=== PATIENT | female | born 1955 | race Caucasian/White ===

== ENCOUNTER 2020-03-27 23:58 | Inpatient (IN) | payer MEDICARE, SELFPAY ==
[2020-03-29 04:14] VITALS: BMI 40.0
--- NOTE | 2020-03-29 04:20 | ECG_ITS ---
Test Reason : SHORTNESS OF BREATH Blood Pressure : / mmHG Vent. Rate : 083 BPM Atrial Rate : 083 BPM P-R Int : 168 ms QRS Dur : 138 ms QT Int : 446 ms P-R-T Axes : 036 -30 232 degrees QTc Int : 524 ms Atrial-sensed ventricular-paced rhythm Abnormal ECG When compared with ECG of 10-JAN-2020 15:44, No significant change was found Referred By: Mirna Velazco Electronically Signed By:ERIK KENNY
[2020-03-30] VITALS (8 sets, daily range): BP systolic 99–118; BP diastolic 54–78; PULSE 66–87; RESP 16–18; TEMP 36.2–37.2; O2SAT 95–97
[2020-03-30] MEDS: 0.9 % Sodium Chloride Flush 3 ML SYRINGE 2 ML IVFLUSH ×3 (05:55→16:12)
[2020-03-30] MEDS: Omeprazole 20 MG CAPSULE.DR PO ×2 (05:55→16:12)
[2020-03-30 06:31] LABS: INTERNATIONAL NORM RATIO 2.7 (0.9-1.1); Prothrombin Time 32.2 SEC (10.8-13.0)
[2020-03-30 07:03] LABS: Anion Gap 10 (12-20); Blood Urea Nitrogen 24 mg/dL (9-16); Calcium 8.3 mg/dL (8.4-10.2); Carbon Dioxide 32 mmol/L (22-29); Chloride 100 mmol/L (96-108); Creatinine Clr Calc Pharmacy 50.2; Estimated Glomerular Filt Rate 50; Glucose Random 78 mg/dL (60-115); Potassium 3.1 mmol/l (3.3-5.1); Sodium 139 mmol/L (135-145)
[2020-03-30] MEDS: Multivitamin TABLET 1 TAB PO (09:13)
[2020-03-30] MEDS: Spironolactone 25 MG TABLET PO (09:13)
[2020-03-30] MEDS: Amiodarone HCL 200 MG TABLET PO (09:13)
[2020-03-30] MEDS: Cholecalciferol (Vitamin D3) 25 MCG TABLET 50 MCG PO (09:13)
[2020-03-30] MEDS: Docusate Sodium 100 MG CAPSULE PO ×2 (09:13→20:42)
[2020-03-30] MEDS: Ascorbic Acid 500 MG TABLET PO (09:14)
[2020-03-30] MEDS: Nystatin Powder 15 GM BOTTLE 1 APPL TOPICAL ×2 (09:18→20:42)
--- NOTE | 2020-03-30 12:07 | PM.PNCARD ---
Subjective Subjective Principal diagnosis: systolic heart failure, paroxysmal atrial fibrillation Interval history: patient says she is breathing better. Able to lay down flat her but not completely. Has diuresed well. Continues to diurese well. Hemodynamically stable. No arrhythmias noted. Review of system otherwise negative. Physical Exam Vital Signs and I&O: Vital Signs Temp 97.7 F 03/30/20 08:00 Pulse 74 03/30/20 08:00 Resp 16 03/30/20 08:00 BP 100/60 03/30/20 09:13 Pulse Ox 97 03/30/20 04:00 Intake & Output 03/29/20 03/30/20 03/30/20 18:59 06:59 18:59 Output Total 600 / 600 Balance -600 / -600 Urine Output (Average ml/kg/hr) 0.56 0.56 Output: Output, Urine Amount 600 / 600 Other: Meal Refused No Breakfast % Eaten 75% Body Mass Index 40.0 Const General: comfortable, no acute distress, alert and awake Nutritional Appearance: obese Orientation/consciousness: patient oriented x3 HENAL Head: Yes normal to inspection, Yes normocephalic and Yes atraumatic Eyes General: appearance normal, both eyes and all related structures Neck Neck: Yes full ROM, Yes trachea midline and Yes JVD Chest Chest palpation & inspection: normal inspection of the chest Resp Effort & Inspection: normal respiratory effort Auscultation: clear to auscultation bilaterally and diminished lung sounds Cardio Palpation: abnormal PMI displaced PMI Rate: regular rate Rhythm: regular rhythm Heart sounds: S1 normal heart sound present, S2 normal heart sound present and Gallop heart sound present S4 gallop GI Auscultation: normal bowel sounds Skin General skin exam: elasticity normal and turgor normal Neuro General: patient oriented x3 and no focal motor deficits Extrem General: Yes capillary refill normal and Yes edema Progress Note: A&P Assessment and plan (1) Cardiomyopathy: Problem details: Continue neurohormonal modulation as above. Prognosis is limited given persistent severe LV systolic dysfunction despite cardiac resynchronization therapy. Status: Acute (2) Biventricular ICD (implantable cardioverter-defibrillator) in place: Status: Acute (3) Paroxysmal atrial fibrillation with rapid ventricular response: Problem details: Atrial fibrillation currently suppressed on amiodarone therapy. Continue rhythm control approach and amiodarone therapy. This will be followed by her own asset protection officer as outpatient. Currently on Coumadin therapy for anticoagulation. Continue to maintain target INR between 2 and 3. I do not currently see any clear indication for additional aspirin therapy, this can be discontinued. Status: Acute (4) Systolic heart failure: Problem details: clinically patient is improving heart failure why still has JVD. Will continue IV diuresis for 1 more day. Strict intake and output chart needs to be pursued. In the long run will require higher Lasix dose at 40 mg b.i.d. when discharged home. Continue current neurohormonal modulation with Entresto, Aldactone and metoprolol therapy. Heart failure education needs to be provided. Status: Acute Fall Risk Details Current Medications: Current Medications Generic Name Dose Route Start Last Admin Trade Name Freq PRN Reason Stop Dose Admin Acetaminophen 650 mg 03/30/20 00:01 Acetaminophen 325 Mg Tablet PO Q6H PRN FEVER/PAIN,MILD (SCALE 1-3) Amiodarone HCl 200 mg 03/30/20 09:00 03/30/20 09:13 Amiodarone Hcl 200 Mg Tablet PO 200 mg DAILY KEMAL Administration Ascorbic Acid 500 mg 03/30/20 09:00 03/30/20 09:14 Ascorbic Acid 500 Mg Tablet PO 500 mg DAILY [facility] Administration Atorvastatin Calcium 40 mg 03/30/20 21:00 Atorvastatin Calcium 40 Mg Tablet PO BEDTIME K[facility] Docusate Sodium 100 mg 03/30/20 09:00 03/30/20 09:13 Docusate Sodium 100 Mg Capsule PO 100 mg BID K[facility] Administration Docusate Sodium 100 mg 03/30/20 00:01 Docusate Sodium 100 Mg Capsule PO Q24H PRN Constipation Furosemide 40 mg 03/30/20 09:00 03/30/20 09:16 Furosemide 40 Mg/4 Ml Vial IVPUSH Not Given BID@0900,1800 [facility] Protocol Metoprolol Tartrate 50 mg 03/30/20 09:00 03/30/20 09:17 Metoprolol Tartrate 50 Mg Tablet PO Not Given BID [facility] Protocol Multivitamins/Vitamin C 1 tab 03/30/20 09:00 03/30/20 09:13 Multivitamin Tablet PO 1 tab DAILY [facility] Administration Nitroglycerin 0.4 mg 03/30/20 00:01 Nitroglycerin 0.4 Mg Tab.Subl SUBLINGUAL Q5M PRN Chest Pain Nystatin 1 appl 03/30/20 09:00 03/30/20 09:18 Nystatin Powder 15 Gm Bottle TOPICAL 1 appl BID [facility] Administration Protocol Omeprazole 20 mg 03/30/20 06:30 03/30/20 05:55 Omeprazole 20 Mg Capsule.Dr PO 20 mg BID@0630,1630 [facility] Administration Ondansetron HCl 4 mg 03/30/20 00:01 Ondansetron Hcl 4 Mg/2 Ml Vial IVPUSH Q8H PRN Nausea and Vomiting Oxycodone HCl 10 mg 03/30/20 00:01 Oxycodone Hcl Immed Release 5 Mg Tablet PO TID PRN Pain, Moderate (Pain Scale 4-6 Sacubitril/Valsartan 1 tab 03/30/20 09:00 03/30/20 09:17 Sacubitril/Valsartan 1 Tab Tablet PO Not Given BID [facility] Protocol Sodium Chloride 2 ml 03/30/20 00:01 03/30/20 09:12 0.9 % Sodium Chloride Flush 3 Ml Syringe IVFLUSH 2 ml QSHIFT [facility] Administration Spironolactone 25 mg 03/30/20 09:00 03/30/20 09:13 Spironolactone 25 Mg Tablet PO 25 mg DAILY [facility] Administration Protocol Vitamin D 50 mcg 03/30/20 09:00 03/30/20 09:13 Cholecalciferol (Vitamin D3) 25 Mcg Tablet PO 50 mcg DAILY [facility] Administration Warfarin Sodium 3 mg 03/30/20 18:00 Warfarin Sodium 3 Mg Tablet PO SUTUWETHFRSA@1800 [facility] Warfarin Sodium 4.5 mg 04/03/20 18:00 Warfarin Sodium 1 Mg Tablet PO MO@1800 [facility] Zolpidem Tartrate 10 mg 03/30/20 21:00 Zolpidem Tartrate 5 Mg Tablet PO BEDTIME [facility] Time Spent With Patient Time: Total time spent is greater than 50% in coordination of care (as documented) at patient's floor/unit and/or counseling patient: Time with patient: 15 - 24 minutes
--- NOTE | 2020-03-30 14:05 | PM.IMPN ---
Subjective Subjective Date of Service: 03/30/20 Interval History: feeling better still not at baseline Cardiovascular Cardiovascular: Denies chest pain and Reports dyspnea Respiratory Respiratory: Reports dyspnea Gastrointestinal Gastrointestinal: Denies abdominal pain and Denies vomiting Physical Exam Vital Signs and I&O and Narrative: Vital Signs and I&O: Vital Signs Temp 97.1 F 03/30/20 12:21 Pulse 74 03/30/20 08:00 Resp 16 03/30/20 08:00 BP 101/54 L 03/30/20 12:21 Pulse Ox 97 03/30/20 04:00 Intake & Output 03/29/20 03/30/20 03/30/20 18:59 06:59 18:59 Output Total 600 / 600 Balance -600 / -600 Urine Output (Aver age ml/kg/hr) 0.56 0.56 Output: Output, Urine Am ount 600 / 600 Other: Meal Refused No Breakfast % Eate n 75% Body Mass Index 40.0 Const: General: cooperative, healthy appearing and no acute distress Eyes: Pupils: Equal, round and reactive pupils present Neck: Neck: Yes supple Chest: Chest palpation & inspection: normal inspection of the chest Resp: Effort & Inspection: normal respiratory effort and able to speak in complete sentences Auscultation: diminished lung sounds Cardio: Jugular venous distension: JVD Rhythm: regular rhythm Heart sounds: S1 normal heart sound present and S2 normal heart sound present GI: Inspection: Yes normal to inspection Palpation (GI): Soft to palpation Auscultation: normal bowel sounds Skin: General skin exam: no rashes or lesions noted Neuro: Cranial nerves: Yes Equal, round and reactive pupils present Motor exam (neuro): Other motor observations present ( no motor deficit) Objective Data Current Medications Generic Name Dose Route Start Last Admin Trade Name Freq PRN Reason Stop Dose Admin Acetaminophen 650 mg 03/30/20 00:01 Acetaminophen 325 Mg Tablet PO Q6H PRN FEVER/PAIN,MILD (SCALE 1-3) Amiodarone HCl 200 mg 03/30/20 09:00 03/30/20 09:13 Amiodarone Hcl 200 Mg Tablet PO 200 mg DAILY [facility]EM[facility] Administration Ascorbic Acid 500 mg 03/30/20 09:00 03/30/20 09:14 Ascorbic Acid 500 Mg Tablet PO 500 mg DAILY [facility] Administration Atorvastatin Calcium 40 mg 03/30/20 21:00 Atorvastatin Calcium 40 Mg Tablet PO BEDTIME KEM[facility] Docusate Sodium 100 mg 03/30/20 09:00 03/30/20 09:13 Docusate Sodium 100 Mg Capsule PO 100 mg BID [facility] Administration Docusate Sodium 100 mg 03/30/20 00:01 Docusate Sodium 100 Mg Capsule PO Q24H PRN Constipation Furosemide 40 mg 03/30/20 09:00 03/30/20 09:16 Furosemide 40 Mg/4 Ml Vial IVPUSH Not Given BID@0900,1800 [facility] Protocol Metoprolol Tartrate 50 mg 03/30/20 09:00 03/30/20 09:17 Metoprolol Tartrate 50 Mg Tablet PO Not Given BID [facility] Protocol Multivitamins/Vitamin C 1 tab 03/30/20 09:00 03/30/20 09:13 Multivitamin Tablet PO 1 tab DAILY [facility] Administration Nitroglycerin 0.4 mg 03/30/20 00:01 Nitroglycerin 0.4 Mg Tab.Subl SUBLINGUAL Q5M PRN Chest Pain Nystatin 1 appl 03/30/20 09:00 03/30/20 09:18 Nystatin Powder 15 Gm Bottle TOPICAL 1 appl BID [facility] Administration Protocol Omeprazole 20 mg 03/30/20 06:30 03/30/20 05:55 Omeprazole 20 Mg Capsule.Dr PO 20 mg BID@0630,1630 [facility] Administration Ondansetron HCl 4 mg 03/30/20 00:01 Ondansetron Hcl 4 Mg/2 Ml Vial IVPUSH Q8H PRN Nausea and Vomiting Oxycodone HCl 10 mg 03/30/20 00:01 Oxycodone Hcl Immed Release 5 Mg Tablet PO TID PRN Pain, Moderate (Pain Scale 4-6 Sacubitril/Valsartan 1 tab 03/30/20 09:00 03/30/20 09:17 Sacubitril/Valsartan 24/26 1 Tab Tablet PO Not Given BID [facility] Protocol Sodium Chloride 2 ml 03/30/20 00:01 03/30/20 09:12 0.9 % Sodium Chloride Flush 3 Ml Syringe IVFLUSH 2 ml QSHIFT [facility] Administration Spironolactone 25 mg 03/30/20 09:00 03/30/20 09:13 Spironolactone 25 Mg Tablet PO 25 mg DAILY [facility] Administration Protocol Vitamin D 50 mcg 03/30/20 09:00 03/30/20 09:13 Cholecalciferol (Vitamin D3) 25 Mcg Tablet PO 50 mcg DAILY [facility] Administration Warfarin Sodium 3 mg 03/30/20 18:00 Warfarin Sodium 3 Mg Tablet PO SUTUWETHFRSA@1800 [facility] Warfarin Sodium 4.5 mg 04/03/20 18:00 Warfarin Sodium 1 Mg Tablet PO MO@1800 [facility] Zolpidem Tartrate 10 mg 03/30/20 21:00 Zolpidem Tartrate 5 Mg Tablet PO BEDTIME [facility] Labs CBC & Chem 7: 03/27/20 20:59 03/30/20 06:00 Labs: Laboratory Results - last 24 hr 03/27/20 03/27/20 03/27/20 20:59 20:59 20:59 MCV 87.4 MCH 27.7 MCHC 31.7 RDW Coeff of Melina 18.8 H Plt Count 323 MPV 9.7 Immature Gran % (Auto) 0.5 H Neut % (Auto) 65.5 Lymph % (Auto) 21.5 [place] % (Auto) 9.9 Eos % (Auto) 1.8 Baso % (Auto) 0.8 Abs Immat Gran (auto) 0.03 Absolute Lymphs (auto) 1.4 Absolute Monos (auto) 0.7 Absolute Eos (auto) 0.1 Absolute Basos (auto) 0.1 Absolute Nucleated RBC 0.000 Nucleated RBC % (auto) 0.0 Absolute Neutrophils 4.3 PT INR Hold Blue Top Bicarbonate 26 Anion Gap 14 Estimated Creat Clear 40.2 Estim Creat Clear Calc Estimated GFR Est GFR (Non-Af Amer) 39 Random Glucose 114 Calcium Troponin I High Sens 3.7 B-Natriuretic Peptide 3860 H 03/27/20 03/28/20 03/28/20 20:59 00:43 02:06 MCV MCH MCHC RDW Coeff of Melina Plt Count MPV Immature Gran % (Auto) Neut % (Auto) Lymph % (Auto) [place] % (Auto) Eos % (Auto) Baso % (Auto) Abs Immat Gran (auto) Absolute Lymphs (auto) Absolute Monos (auto) Absolute Eos (auto) Absolute Basos (auto) Absolute Nucleated RBC Nucleated RBC % (auto) Absolute Neutrophils PT 31.6 H D INR 2.6 H Hold Blue Top SEE NOTE Bicarbonate Anion Gap Estimated Creat Clear Estim Creat Clear Calc Estimated GFR Est GFR (Non-Af Amer) Random Glucose Calcium Troponin I High Sens 4.3 B-Natriuretic Peptide 03/28/20 03/28/20 03/28/20 05:38 08:43 08:43 MCV MCH MCHC RDW Coeff of Melina Plt Count MPV Immature Gran % (Auto) Neut % (Auto) Lymph % (Auto) [place] % (Auto) Eos % (Auto) Baso % (Auto) Abs Immat Gran (auto) Absolute Lymphs (auto) Absolute Monos (auto) Absolute Eos (auto) Absolute Basos (auto) Absolute Nucleated RBC Nucleated RBC % (auto) Absolute Neutrophils PT 31.4 H INR 2.6 H Hold Blue Top Bicarbonate 28 Anion Gap 14 Estimated Creat Clear 45.3 Estim Creat Clear Calc Estimated GFR Est GFR (Non-Af Amer) 45 Random Glucose 97 Calcium Troponin I High Sens B-Natriuretic Peptide 4962 H 03/29/20 03/29/20 03/30/20 05:37 05:37 05:24 MCV MCH MCHC RDW Coeff of Melina Plt Count MPV Immature Gran % (Auto) Neut % (Auto) Lymph % (Auto) [place] % (Auto) Eos % (Auto) Baso % (Auto) Abs Immat Gran (auto) Absolute Lymphs (auto) Absolute Monos (auto) Absolute Eos (auto) Absolute Basos (auto) Absolute Nucleated RBC Nucleated RBC % (auto) Absolute Neutrophils PT 29.8 H INR 2.5 H Hold Blue Top Bicarbonate 30 H Anion Gap 13 10 L Estimated Creat Clear 48.9 Estim Creat Clear Calc 50.2 Estimated GFR 50 Est GFR (Non-Af Amer) 49 Random Glucose 83 78 Calcium 8.3 L Troponin I High Sens B-Natriuretic Peptide 03/30/20 03/30/20 03/30/20 05:24 06:00 07:00 MCV MCH MCHC RDW Coeff of Melina Plt Count MPV Immature Gran % (Auto) Neut % (Auto) Lymph % (Auto) [place] % (Auto) Eos % (Auto) Baso % (Auto) Abs Immat Gran (auto) Absolute Lymphs (auto) Absolute Monos (auto) Absolute Eos (auto) Absolute Basos (auto) Absolute Nucleated RBC Nucleated RBC % (auto) Absolute Neutrophils PT 32.2 H Not Rcvd INR 2.7 H Not Rcvd Hold Blue Top Bicarbonate Not Rcvd Anion Gap Not Rcvd Estimated Creat Clear Not Rcvd Estim Creat Clear Calc Estimated GFR Est GFR (Non-Af Amer) Not Rcvd Random Glucose Not Rcvd Calcium Troponin I High Sens B-Natriuretic Peptide Progress Note: A&P (1) Systolic heart failure: Status: Acute (2) Cardiomyopathy: Status: Acute (3) Paroxysmal atrial fibrillation with rapid ventricular response: Status: Acute Assessment and Plan: This is a 64-year-old female with a past medical history of heart failure who is admitted for: 1. Acute hypoxic respiratory failure Due to heart failure Improving, wean O2 as tolerated 2. acute CHF iv lasix continue baseline meds 3. a. fib in sinus continue amio continue coumadin 4. HERMELINDO on CKD improving iv lasix Full Code DVT pptx, coumadin
[2020-03-30] MEDS: Warfarin Sodium 3 MG TABLET PO (18:02)
[2020-03-30] MEDS: Furosemide 40 MG/4 ML VIAL IVPUSH (18:03)
[2020-03-30] MEDS: Atorvastatin Calcium 40 MG TABLET PO (20:39)
[2020-03-30] MEDS: Sacubitril/Valsartan 24/26 1 TAB TABLET PO (20:42)
[2020-03-30] MEDS: Zolpidem Tartrate 5 MG TABLET 10 MG PO (20:49)
[2020-03-30] MEDS: Acetaminophen 325 MG TABLET 650 MG PO (20:52)
[2020-03-30] MEDS: Metoprolol Tartrate 50 MG TABLET 25 MG PO (20:56)
[2020-03-31] VITALS (10 sets, daily range): BP systolic 90–102; BP diastolic 52–62; PULSE 78–82; RESP 17–18; TEMP 36.4–36.6; O2SAT 94–97
[2020-03-31] MEDS: 0.9 % Sodium Chloride Flush 3 ML SYRINGE 2 ML IVFLUSH ×2 (00:02→08:07)
[2020-03-31] MEDS: Omeprazole 20 MG CAPSULE.DR PO (05:34)
[2020-03-31 06:26] LABS: MANUAL DIFF FLAG NO
[2020-03-31 06:30] LABS: Basophils Percent Auto 0.6 % (0-2); Eosinophils Absolute Auto 0.2 X10*3/uL (0.0-0.4); Hematocrit 37.8 % (37-47); Hemoglobin 11.7 g/dl (12.0-16.0); Imm Gran Abs Auto 0.01 X10*3/uL (0.00-0.03); Imm Gran Pct Auto 0.2 % (0.0-0.4); Lymphocytes Absolute Auto 1.2 X10*3/uL (1.2-4.9); Lymphocytes Percent Auto 22.3 % (20-40); Mean Corpuscular Hemoglobin 27.1 pg (27.0-33.0); Mean Corpuscular Volume 87.7 fL (80-98); Mean Platelet Volume 9.6 fL (9.4-12.3); Monocytes Absolute Auto 0.8 X10*3/uL (0.1-1.2); Monocytes Percent Auto 14.4 % (2-11); Neutrophils Absolute Auto 3.2 X10*3/uL (2.0-8.3); Neutrophils Percent Auto 59.5 % (45-73); Platelet Count 238 X10*3/uL (160-400); Red Blood Count 4.31 X10*6/uL (4.20-5.50); Red Cell Distribution Width 18.5 % (11.0-16.0); White Blood Count 5.3 X10*3/uL (4.8-10.8)
[2020-03-31 07:05] LABS: Anion Gap 11 (12-20); Blood Urea Nitrogen 24 mg/dL (9-16); Calcium 8.2 mg/dL (8.4-10.2); Carbon Dioxide 32 mmol/L (22-29); Chloride 100 mmol/L (96-108); Estimated Glomerular Filt Rate 55; Glucose Random 77 mg/dL (60-115); Potassium 3.1 mmol/l (3.3-5.1); Sodium 140 mmol/L (135-145)
[2020-03-31 07:06] LABS: INTERNATIONAL NORM RATIO 2.4 (0.9-1.1); Prothrombin Time 29.1 SEC (10.8-13.0)
[2020-03-31] MEDS: Cholecalciferol (Vitamin D3) 25 MCG TABLET 50 MCG PO (09:49)
[2020-03-31] MEDS: Multivitamin TABLET 1 TAB PO (09:50)
[2020-03-31] MEDS: Ascorbic Acid 500 MG TABLET PO (09:50)
[2020-03-31] MEDS: Amiodarone HCL 200 MG TABLET PO (09:50)
[2020-03-31] MEDS: Docusate Sodium 100 MG CAPSULE PO (09:51)
[2020-03-31] MEDS: Metoprolol Tartrate 50 MG TABLET 25 MG PO (09:52)
[2020-03-31] MEDS: Spironolactone 25 MG TABLET PO (09:55)
[2020-03-31] MEDS: Nystatin Powder 15 GM BOTTLE 1 APPL TOPICAL (10:00)
--- NOTE | 2020-03-31 11:43 | MHC.CM.PN ---
pt dcd today with resumption of servcueices thru [facility] which include a drilling field professional and rn pt has home 02
--- NOTE | 2020-03-31 11:44 | PM.PNCARD ---
Subjective Subjective Principal diagnosis: systolic heart failure, paroxysmal atrial fibrillation Interval history: Patient feeling a lot better today. Has diuresed well overnight. Hemodynamically stable. No arrhythmias noted. No atrial fibrillation. Denies any chest pain. Physical Exam Vital Signs and I&O: Vital Signs Temp 97.6 F 03/31/20 08:00 Pulse 80 03/31/20 09:55 Resp 18 03/31/20 08:00 BP 95/59 L 03/31/20 09:55 Pulse Ox 97 03/31/20 08:00 Intake & Output 03/30/20 03/31/20 03/31/20 18:59 06:59 18:59 Intake Total 280 / 280 Output Total 500 / 1000 500 / 1000 Balance -220 / -720 -500 / -720 Urine Output (Average ml/kg/hr) 0.46 .00 Weight 0 oz Intake: Intake, Oral Amount 280 / 280 Output: Output, Urine Amount 500 / 1000 500 / 1000 Other: Meal Refused No Breakfast % Eaten 75% Lunch % Eaten 50% Urine [place] Body Mass Index 0.0 Const General: cooperative, comfortable and no acute distress Orientation/consciousness: patient oriented x3 [facility] Head: Yes normal to inspection, Yes normocephalic and Yes atraumatic Eyes General: appearance normal, both eyes and all related structures Neck Neck: Yes trachea midline and Yes no JVD Chest Chest palpation & inspection: normal inspection of the chest Resp Effort & Inspection: normal respiratory effort Auscultation: clear to auscultation bilaterally Cardio Rate: regular rate Rhythm: regular rhythm Heart sounds: S1 normal heart sound present, S2 normal heart sound present and Gallop heart sound present S4 gallop GI Auscultation: normal bowel sounds Skin General skin exam: elasticity normal and turgor normal Neuro General: patient oriented x3 and no focal motor deficits Extrem General: Yes no clubbing, cyanosis or edema Psych Appearance: grossly normal Affect: Elated affect present Attitude: cooperative Progress Note: A&P Assessment and plan (1) Systolic heart failure: Problem details: Systolic heart failure secondary to severe nonischemic cardiomyopathy. Has done extremely well with current diuresis. Switch to oral Lasix, increase her home dose to 40 mg b.i.d.. Advised to continue all other neurohormonal modulation as before. Follow up with her own repairer welding equipment Dr. Choi in 7-10 days. Heart failure instructions should be provided. Advised patient with daily weight monitoring and avoidance of salt loading. She understands and agrees. Plan was also discussed with patient's VBA DEVELOPER who was at bedside. Status: Acute (2) Cardiomyopathy: Problem details: See above Status: Acute (3) Paroxysmal atrial fibrillation with rapid ventricular response: Problem details: paroxysmal atrial fibrillation, has remained suppressed on amiodarone therapy. Given her patient's underlying severe LV systolic dysfunction will do very well with maintenance of AV synchrony. Continue amiodarone therapy and rhythm maintenance. Currently on warfarin therapy. Maintain target INR between 2 and 3. Status: Acute (4) Biventricular ICD (implantable cardioverter-defibrillator) in place: Problem details: biventricular ICD working well Status: Acute Fall Risk Details Current Medications: Current Medications Generic Name Dose Route Start Last Admin Trade Name Freq PRN Reason Stop Dose Admin Acetaminophen 650 mg 03/30/20 00:01 03/30/20 20:52 Acetaminophen 325 Mg Tablet PO 650 mg Q6H PRN Administration FEVER/PAIN,MILD (SCALE 1-3) Amiodarone HCl 200 mg 03/30/20 09:00 03/31/20 09:50 Amiodarone Hcl 200 Mg Tablet PO 200 mg DAILY [facility] Administration Ascorbic Acid 500 mg 03/30/20 09:00 03/31/20 09:50 Ascorbic Acid 500 Mg Tablet PO 500 mg DAILY [facility] Administration Atorvastatin Calcium 40 mg 03/30/20 21:00 03/30/20 20:39 Atorvastatin Calcium 40 Mg Tablet PO 40 mg BEDTIME [facility] Administration Docusate Sodium 100 mg 03/30/20 09:00 03/31/20 09:51 Docusate Sodium 100 Mg Capsule PO 100 mg BID [facility] Administration Docusate Sodium 100 mg 03/30/20 00:01 Docusate Sodium 100 Mg Capsule PO Q24H PRN Constipation Furosemide 40 mg 03/31/20 09:00 03/31/20 09:48 Furosemide 40 Mg Tablet PO Not Given BID@0900,1800 [facility] Protocol Metoprolol Tartrate 25 mg 03/30/20 21:00 03/31/20 09:52 Metoprolol Tartrate 50 Mg Tablet PO 25 mg BID [facility] Administration Protocol Multivitamins/Vitamin C 1 tab 03/30/20 09:00 03/31/20 09:50 Multivitamin Tablet PO 1 tab DAILY [facility] Administration Nitroglycerin 0.4 mg 03/30/20 00:01 Nitroglycerin 0.4 Mg Tab.Subl SUBLINGUAL Q5M PRN Chest Pain Nystatin 1 appl 03/30/20 09:00 03/31/20 10:00 Nystatin Powder 15 Gm Bottle TOPICAL 1 appl BID [facility] Administration Protocol Omeprazole 20 mg 03/30/20 06:30 03/31/20 05:34 Omeprazole 20 Mg Capsule.Dr PO 20 mg BID@0630,1630 [facility] Administration Ondansetron HCl 4 mg 03/30/20 00:01 Ondansetron Hcl 4 Mg/2 Ml Vial IVPUSH Q8H PRN Nausea and Vomiting Oxycodone HCl 10 mg 03/30/20 00:01 Oxycodone Hcl Immed Release 5 Mg Tablet PO TID PRN Pain, Moderate (Pain Scale 4-6 Sacubitril/Valsartan 1 tab 03/30/20 09:00 03/31/20 09:49 Sacubitril/Valsartan 24 1 Tab Tablet PO Not Given BID [facility] Protocol Sodium Chloride 2 ml 03/30/20 00:01 03/31/20 08:07 0.9 % Sodium Chloride Flush 3 Ml Syringe IVFLUSH 2 ml QSHIFT [facility] Administration Spironolactone 25 mg 03/30/20 09:00 03/31/20 09:55 Spironolactone 25 Mg Tablet PO 25 mg DAILY [facility] Administration Protocol Vitamin D 50 mcg 03/30/20 09:00 03/31/20 09:49 Cholecalciferol (Vitamin D3) 25 Mcg Tablet PO 50 mcg DAILY [facility] Administration Warfarin Sodium 3 mg 03/30/20 18:00 03/30/20 18:02 Warfarin Sodium 3 Mg Tablet PO 3 mg SUTUWETHFRSA@1800 [facility] Administration Warfarin Sodium 4.5 mg 04/03/20 18:00 Warfarin Sodium 1 Mg Tablet PO MO@1800 [facility] Zolpidem Tartrate 10 mg 03/30/20 21:00 03/30/20 20:49 Zolpidem Tartrate 5 Mg Tablet PO 10 mg BEDTIME [facility] Administration Time Spent With Patient Time: Total time spent is greater than 50% in coordination of care (as documented) at patient's floor/unit and/or counseling patient: Time with patient: 15 - 24 minutes Review of Systems Const All systems reviewed & are unremarkable except as noted in HPI and below Eyes Reports no additional eye complaints ENT Reports no additional ear, nose, mouth, and throat complaints Card Reports no additional cardiovascular complaints Resp Reports no additional respiratory complaints Neuro Reports no additional neurologic complaints
--- NOTE | 2020-03-31 16:51 | P.DS_ITS ---
DS: Providers Provider Date of admission: 03/27/20 23:58 Primary care physician: Keith العلي MD Consults: 03/29/20 04:22 Consult to Cardiology Routine Consulting Provider: Mahin Reyes Reason for consultation: CHF Has provider been notified: Yes DS: Diagnosis Discharge Diagnosis (1) Systolic heart failure: Status: Acute Problem details: Systolic heart failure is secondary to severe nonischemic cardiomyopathy. Has done extremely well with current diuresis. Switch to oral Lasix, increase her home dose to 40 mg b.i.d. Advised to continue all other neurohormonal modulation as before. Follow up with her own box sealing machine operator Dr. Choi in 7-10 days. Heart failure instructions should be provided. Advised patient with daily weight monitoring and avoidance of salt loading. She understands and agrees. The plan was also discussed with the patient's STORE DIRECTOR who was at the bedside. (2) Cardiomyopathy: Status: Acute Problem details: Same as above (3) Paroxysmal atrial fibrillation with rapid ventricular response: Status: Acute Problem details: paroxysmal atrial fibrillation has remained suppressed on amiodarone therapy. Given her patient's underlying severe LV systolic dysfunction will do very well with the maintenance of AV synchrony. Continue amiodarone therapy and rhythm maintenance. Currently on warfarin therapy. Maintain target INR between 2 and 3. Metoprolol has been reduced to 25 bid from 50 bid (4) Biventricular ICD (implantable cardioverter-defibrillator) in place: Status: Acute Problem details: biventricular ICD working well DS: Summary Hospital Course Hospital Course: 64-year-old female with past medical history of cardiomyopathy/CHF EF 10 to 15%, asthma, CVA, HTN, RA, HLD, presents to the hospital with complaints of bilateral leg swelling as well as shortness of breath. Patient reports that her symptoms started about 1-2 weeks ago. Associated with coughing. She usually uses about 2.5 L of oxygen at baseline but even with oxygen supplementation she felt short of breath. She endorses orthopnea and PND. She has no fever, no chills. No sputum production. She uses furosemide daily with no missed doses. She denies using extra salt, take out, or poor diet. Her BNP was very lenora and CXR suggested heart failure. She was admitted with acute exacerbation systolic heart failure and initiated on IV Lasix 40 bid and continued on Metoprolol, Entresto, Aldactone. Care was coordinated by Dr. Reyes--box sealing machine operator. Her symptoms have si gnificantly improved. Has no more leg edema. She will be discharged with Potassium 40 mg bid, previously 20 bid and to follow up with Dr. Choi her box sealing machine operator. Potassium of 3.1 will be replaced Time Spent with Patient Time attestation: Total time spent providing and/or coordinating discharge services: Physical Exam Vital Signs and I&O and Narrative: Vital Signs and I&O: Vital Signs Temp 97.8 F 03/31/20 15:36 Pulse 81 03/31/20 15:36 Resp 18 03/31/20 12:00 BP 102/55 L 03/31/20 15:36 Pulse Ox 96 03/31/20 15:36 Intake & Output Constitutional Awake and Alert, No apparent distress Neck Supple, No lymphadenopathy Cardiovascular RRR, No M/R/G, S1 S2, No S3 S4, No pedal edema Respiratory Lungs clear, No respiratory distress Gastrointestinal Non tender, Non-distended Skin No rash Neurological Alert & oriented x3 Psychological Appropriate affect DS: Data Data Completed and Pending Labs on day of discharge: Labs from last 24 hours 03/31/20 03/31/20 03/31/20 05:22 05:22 05:22 WBC 5.3 RBC 4.31 Hgb 11.7 L Hct 37.8 MCV 87.7 MCH 27.1 MCHC 31.0 RDW 18.5 H Plt Count 238 MPV 9.6 Immature Gran % (Auto) 0.2 Neut % (Auto) 59.5 Lymph % (Auto) 22.3 [place] % (Auto) 14.4 H Eos % (Auto) 3.0 Baso % (Auto) 0.6 Neut # (Auto) 3.2 Lymph # (Auto) 1.2 [place] # (Auto) 0.8 Eos # (Auto) 0.2 Baso # (Auto) 0.0 Abs Immat Gran (auto) 0.01 Absolute Nucleated RBC 0.000 Nucleated RBC % (auto) 0.0 PT 29.1 H INR 2.4 H Sodium 140 Potassium 3.1 L Chloride 100 Carbon Dioxide 32 H Anion Gap 11 L BUN 24 H Creatinine 1.01 Estim Creat Clear Calc TNP Estimated GFR 55 Random Glucose 77 Calcium 8.2 L Discharge Plan Discharge Anticipated Discharge Date/Time: 03/31/20 16:04 Patient Disposition: Home, Self-Care Referrals: Keith العلي MD [Primary Care Provider] - Discharge Medications: New furosemide 40 mg Tablet 40 mg PO BID@0900,1800 Qty: 60 RF: 0 metoprolol tartrate 50 mg Tablet 25 mg PO BID Qty: 60 RF: 0 calcium carbonate-vit D3-min 600 mg calcium- 400 unit tablet 1 tab PO BID Qty: 60 RF: 0 Continued amiodarone 200 mg Tablet 200 mg PO DAILY RF: 0 ascorbic acid (vitamin C) 500 mg Tablet 500 mg PO DAILY RF: 0 aspirin 81 mg Tablet 81 mg PO DAILY RF: 0 nitroglycerin 0.4 mg Tablet, Sublingual 0.4 mg SUBLINGUAL Q5M PRN (Reason: Chest Pain) RF: 0 docusate sodium 100 mg Capsule 100 mg PO BID RF: 0 omeprazole 20 mg Capsule,Delayed Release(Dr/Ec) 20 mg PO BID@0630,1630 RF: 0 nystatin 100,000 unit/gram Powder 1 applic TOPICAL BID RF: 0 multivitamin Capsule 1 cap PO DAILY RF: 0 etanercept 50 mg/mL (1 mL) Syringe 50 mg SUBCUT QWEEK RF: 0 cholecalciferol (vitamin D3) 50 mcg (2,000 unit) Capsule 50 mcg PO DAILY RF: 0 spironolactone 25 mg Tablet 25 mg PO QAM RF: 0 simvastatin 40 mg Tablet 40 mg PO BEDTIME RF: 0 warfarin 3 mg Tablet 3 mg PO SUTUWETHFRSA RF: 0 warfarin [Jantoven] 3 mg Tablet 4.5 mg PO MO@1600 RF: 0 zolpidem [Ambien] 10 mg Tablet 5 mg PO BEDTIME PRN (Reason: Sleep) RF: 0 oxycodone 10 mg Tablet 10 mg PO TID PRN (Reason: Moderate Pain (Scale Score 5-6)) RF: 0 sacubitril-valsartan 24-26 mg Tablet 1 tab PO BID RF: 0 Discontinued calcium carbonate-vitamin D3 [Calcium 600 + D(3)] 600 mg(1,500mg) -400 unit Tablet 1 tab PO BID RF: 0 metoprolol tartrate 50 mg Tablet 50 mg PO BID RF: 0 furosemide 20 mg Tablet 20 mg PO BID RF: 0 Discharge Orders: Discharge Order (Routine); Ordered 03/31/20 Ordered By: Flavio Ortiz Diet: low salt diet Activity on Discharge: As tolerated Print Language: [place] Visit Report Forms: Patient Portal Discharge page Care Plan Goals: Prevent flaore of heart failure Health Concerns: Heart failure Plan of Treatment: Take Increase dose of Lasix as recommended, do not drink too much water. Follow up with your Doctor in a week, call for appointment
== END 2020-03-31 17:35 | disposition home or self-care (01) | DRG 291 ==
PROVIDERS: Family Medicine; Admitting Provider Internal Medicine; Emergency Provider Nurse Practitioner Family; PCP Internal Medicine; Visit Provider Internal Medicine
DX: I13.0 Hypertensive heart and chronic kidney disease with heart failure and stage 1 through stage 4 chronic kidney disease, or unspecified chronic kidney disease (principal); J96.01 Acute respiratory failure with hypoxia; I50.23 Acute on chronic systolic (congestive) heart failure; N17.9 Acute kidney failure, unspecified; I48.0 Paroxysmal atrial fibrillation; M06.9 Rheumatoid arthritis, unspecified; E78.5 Hyperlipidemia, unspecified; I42.8 Other cardiomyopathies; N18.9 Chronic kidney disease, unspecified; Z95.810 Presence of automatic (implantable) cardiac defibrillator; Z99.81 Dependence on supplemental oxygen; Z86.73 Personal history of transient ischemic attack (TIA), and cerebral infarction without residual deficits; Z79.01 Long term (current) use of anticoagulants; Z79.82 Long term (current) use of aspirin; Z79.899 Other long term (current) drug therapy
CPT/HCPCS: 36415; 71045; 80048; 80051; 82565; 82947; 83880; 84484; 84520; 85025; 85610; 90686; 93005; 93010; 93308; 96374; 99285; C1758; J1650; J1940; Q9957

== ENCOUNTER → 2020-05-03 13:02 | Outpatient (BNVA) | payer MEDICARE, SELFPAY | PROVIDERS: PCP Internal Medicine; Visit Provider Internal Medicine | DX: I48.0 Paroxysmal atrial fibrillation (principal); Z51.81 Encounter for therapeutic drug level monitoring; Z79.01 Long term (current) use of anticoagulants | CPT/HCPCS: 85610; 99211 ==

== ENCOUNTER → 2020-06-05 13:43 | Outpatient (BNVA) | payer MEDICARE, SELFPAY | PROVIDERS: PCP Internal Medicine; Visit Provider Internal Medicine | DX: I48.0 Paroxysmal atrial fibrillation (principal); Z51.81 Encounter for therapeutic drug level monitoring; Z79.01 Long term (current) use of anticoagulants | CPT/HCPCS: 85610; 99211 ==

== ENCOUNTER 2020-06-17 11:15 | Inpatient (IN) | payer MEDICARE, SELFPAY ==
[2020-06-17 11:40] VITALS: BP 100/56; PULSE 90; RESP 18; TEMP 37.2; O2SAT 96; BMI 39.6
[2020-06-17 11:48] VITALS: BP 104/67; PULSE 90; RESP 20; TEMP 36.6; O2SAT 97
--- NOTE | 2020-06-17 11:50 | ED.ABDPAIN ---
HPI - Abdominal Pain General Chief Complaint: Abdominal Pain Stated Complaint: ABD PAIN Time Seen by Provider: 06/17/20 11:49 Source: patient and line staker Mode of arrival: ambulatory Limitations: no limitations History of Present Illness MD elicited complaint: abdominal pain Pertinent past history: other Onset (ago): day(s) (today) Pain Consistency: constant Location: suprapubic Severity: moderate Quality: aching Radiation: other (wraps around lower back ) Migration to: no migration Exacerbating factors: other (worse when she urinates) Relieving factors: nothing Associated symptoms: nausea and dysuria Related Data Home Medications Medication Instructions Recorded Confirmed amiodarone 200 mg PO DAILY 03/29/20 05/03/20 ascorbic acid (vitamin C) 500 mg PO DAILY 03/29/20 05/03/20 aspirin 81 mg PO DAILY 03/29/20 05/03/20 cholecalciferol (vitamin D3) 50 mcg PO DAILY 03/29/20 03/29/20 docusate sodium 100 mg PO BID 03/29/20 05/03/20 etanercept 50 mg SUBCUT QWEEK 03/29/20 05/03/20 multivitamin 1 cap PO DAILY 03/29/20 05/03/20 nitroglycerin 0.4 mg SUBLINGUAL Q5M PRN 03/29/20 05/03/20 nystatin 1 applic TOPICAL BID 03/29/20 05/03/20 omeprazole 20 mg PO BID@0630,1630 03/29/20 05/03/20 oxycodone 10 mg PO TID PRN 03/29/20 05/03/20 sacubitril-valsartan 1 tab PO BID 03/29/20 05/03/20 simvastatin 40 mg PO BEDTIME 03/29/20 03/29/20 spironolactone 25 mg PO QAM 03/29/20 05/03/20 zolpidem [Ambien] 5 mg PO BEDTIME PRN 03/29/20 05/03/20 aspirin 81 mg tablet,delayed 81 mg PO DAILY 05/03/20 05/03/20 release calcium carbonate 600 mg (1,500 1 tab PO BID 05/03/20 05/03/20 mg)-vitamin D3 400 unit tablet furosemide 80 mg tablet 80 mg PO BID 05/03/20 05/03/20 metoprolol tartrate 25 mg tablet 25 mg PO BID 05/03/20 05/03/20 naloxone 4 mg/actuation nasal spray 0 spray INTRANASAL 05/03/20 05/03/20 rosuvastatin 20 mg tablet 20 mg PO BEDTIME 05/03/20 05/03/20 Previous Rx's Medication Instructions Recorded calcium carbonate-vit D3-min 1 tab PO BID #60 tab 03/31/20 furosemide 40 mg PO BID@0900,1800 #60 tab 03/31/20 metoprolol tartrate 25 mg PO BID #60 tab 03/31/20 potassium chloride 20 meq PO DAILY #7 tab 03/31/20 warfarin 3 mg tablet 3 mg PO DAILY #90 tab 05/03/20 Allergies Allergy/AdvReac Type Severity Reaction Status Date / Time No Known Food Allergies Allergy Unknown Verified 06/05/20 13:48 Review of Systems Review of Systems Constitutional : No Weight loss, No Fever, No Chills ENT/Mouth : No sore throat, No Rhinorrhea Eyes: No Swelling, No Redness Cardiovascular : No Chest Pain, No SOB, NoEdema Respiratory : No Cough, No Sputum, No Wheezing Gastrointestinal : Positive Nausea, no Vomiting, no Diarrhea, positive abdominal Pain, No Hematochezia, No Melena Genitourinary : pos Dysuria, No Urinary Frequency, No Hematuria, No Urgency Musculoskeletal : No joint pain, No Myalgias, No Joint Swelling Skin : No Skin Lesions, No rash Neuro : No Weakness, No Numbness, No Dizziness, No Headache Psych : No Anxiety/Panic, No Depression Heme/Lymph: No Bruising, No Lymphadenopathy Endocrine : No Polyuria, No Polydipsia All other systems reviewed and are negative. Physical Exam Vital Signs: Vital Signs: Last Vital Signs Temp 98.5 F 06/17/20 13:36 Pulse 91 06/17/20 13:36 Resp 18 06/17/20 13:36 BP 106/55 L 06/17/20 13:36 Pulse Ox 94 06/17/20 13:36 Body Mass Index 39.6 Appearance: Alert. Oriented X3. No acute distress. Eyes: Pupils equal, round and reactive to light. ENT: Pharynx normal. Neck: Normal inspection. Neck supple. CVS: Normal heart rate and rhythm. Pulses normal. Respiratory: No respiratory distress. Breath sounds normal. Abdomen: Soft and mild suprapubic tenderness no rebound or guarding. : mild uterine prolapse Back: above the start of of gluteal crease there is a small macerated area with superficial slit no cellulitis no abscess - chronic x 1 month Skin: Skin warm and dry. Normal skin color. Normal skin turgor. Extremities: No lower extremity edema. No calf ttp Neuro: Oriented X 3. No motor deficit. No sensory deficit. Course Course Course Narrative: patient still c/o pain and nausea, will admit for pyelonephritis at this time MDM - Abdominal Pain MDM Narrative Medical decision making narrative: 64 yo female with hx of CHF, Afib on amiodarone - coumadin and PPM here with 1 day of dysuria and suprapubic pain - will need labs, IV morphine for pain, CT scan for stone/diverticulitis, UA dispo per results and findings. Lab Data Result diagrams: 06/17/20 12:25 06/17/20 12:25 Labs: Lab Results 06/17/20 06/17/20 06/17/20 Range/Units 12:25 12:25 12:25 WBC 16.6 H (4.8-10.8) X10*3/uL RBC 3.79 L (4.20-5.50) X10*6/uL Hgb 11.0 L (12.0-16.0) g/dl Hct 34.5 L (37-47) % MCV 91.0 (80-98) fL MCH 29.0 (27.0-33.0) pg MCHC 31.9 (31.0-35.0) g/dl RDW 16.4 H (11.0-16.0) % Plt Count 342 D (160-400) X10*3/uL MPV 9.7 (9.4-12.3) fL Immature Gran % (Auto) 0.5 H (0.0-0.4) % Neut % (Auto) 84.7 H (45-73) % Lymph % (Auto) 4.3 L (20-40) % [place] % (Auto) 10.3 (2-11) % Eos % (Auto) 0.1 (0-4) % Baso % (Auto) 0.1 (0-2) % Lymph # (Auto) 0.7 L (1.2-4.9) X10*3/uL [place] # (Auto) 1.7 H (0.1-1.2) X10*3/uL Eos # (Auto) 0.0 (0.0-0.4) X10*3/uL Baso # (Auto) 0.0 (0.0-0.2) X10*3/uL Abs Immat Gran (auto) 0.09 H (0.00-0.03) X10*3/uL Absolute Neuts (auto) 14.1 H (2.0-8.3) X10*3/uL Absolute Nucleated RBC 0.000 (0.0-0.012) X10*3/uL Nucleated RBC % (auto) 0.0 (0.0-0.2) /100WBC Smear Tech's Comments VERIFIED PT 38.8 H D (10.8-13.0) SEC INR 3.2 H (0.9-1.1) APTT 45.2 H (24.1-38.0) SEC Sodium 138 (135-145) mmol/L Potassium 3.8 D (3.3-5.1) mmol/l Chloride 97 (96-108) mmol/L Carbon Dioxide 29 (22-29) mmol/L Anion Gap 16 (12-20) BUN 25 H (9-16) mg/dL Creatinine 1.37 (0.5-1.4) mg/dL Estim Creat Clear Calc 39.7 Estimated GFR 39 Random Glucose 118 H D (60-115) mg/dL Lactic Acid (0.5-2.0) mmol/L Calcium 8.6 (8.4-10.2) mg/dL Magnesium (1.6-2.6) mg/dL Total Bilirubin (0.0-1.0) mg/dL Direct Bilirubin (0.0-0.5) mg/dL AST (5-31) U/L ALT (0-31) U/L Alkaline Phosphatase (39-117) U/L Total Protein (6.5-8.0) g/dL Albumin (3.5-5.0) g/dL Lipase (8-78) U/L Urine Color Urine Appearance Urine pH (5.0-8.0) Ur Specific [place] (1.005-1.025) Urine Protein (NEG-TRACE) MG/DL Urine Glucose (UA) (NEG) MG/DL Urine Ketones (NEG) MG/DL Urine Blood (NEG) Urine Nitrite (NEG) Ur Leukocyte Esterase (NEG) Urine RBC (0) /HPF Urine WBC (0-4) /HPF Ur Squamous Epith Cells /LPF Urine Bacteria /LPF 06/17/20 06/17/20 06/17/20 Range/Units 12:25 13:21 13:46 WBC (4.8-10.8) X10*3/uL RBC (4.20-5.50) X10*6/uL Hgb (12.0-16.0) g/dl Hct (37-47) % MCV (80-98) fL MCH (27.0-33.0) pg MCHC (31.0-35.0) g/dl RDW (11.0-16.0) % Plt Count (160-400) X10*3/uL MPV (9.4-12.3) fL Immature Gran % (Auto) (0.0-0.4) % Neut % (Auto) (45-73) % Lymph % (Auto) (20-40) % [place] % (Auto) (2-11) % Eos % (Auto) (0-4) % Baso % (Auto) (0-2) % Lymph # (Auto) (1.2-4.9) X10*3/uL [place] # (Auto) (0.1-1.2) X10*3/uL Eos # (Auto) (0.0-0.4) X10*3/uL Baso # (Auto) (0.0-0.2) X10*3/uL Abs Immat Gran (auto) (0.00-0.03) X10*3/uL Absolute Neuts (auto) (2.0-8.3) X10*3/uL Absolute Nucleated RBC (0.0-0.012) X10*3/uL Nucleated RBC % (auto) (0.0-0.2) /100WBC Smear Tech's Comments PT (10.8-13.0) SEC INR (0.9-1.1) APTT (24.1-38.0) SEC Sodium (135-145) mmol/L Potassium (3.3-5.1) mmol/l Chloride (96-108) mmol/L Carbon Dioxide (22-29) mmol/L Anion Gap (12-20) BUN (9-16) mg/dL Creatinine (0.5-1.4) mg/dL Estim Creat Clear Calc Estimated GFR Random Glucose (60-115) mg/dL Lactic Acid 0.9 (0.5-2.0) mmol/L Calcium (8.4-10.2) mg/dL Magnesium 1.9 (1.6-2.6) mg/dL Total Bilirubin 0.6 (0.0-1.0) mg/dL Direct Bilirubin 0.3 (0.0-0.5) mg/dL AST 12 (5-31) U/L ALT 7 (0-31) U/L Alkaline Phosphatase 100 (39-117) U/L Total Protein 7.3 (6.5-8.0) g/dL Albumin 3.5 (3.5-5.0) g/dL Lipase 15 (8-78) U/L Urine Color YELLOW Urine Appearance CLOUDY Urine pH 6.0 (5.0-8.0) Ur Specific [place] 1.020 (1.005-1.025) Urine Protein 2+ H (NEG-TRACE) MG/DL Urine Glucose (UA) NEG (NEG) MG/DL Urine Ketones NEG (NEG) MG/DL Urine Blood 3+ H (NEG) Urine Nitrite NEG (NEG) Ur Leukocyte Esterase 3+ H (NEG) Urine RBC 10-14 H (0) /HPF Urine WBC TNTC H (0-4) /HPF Ur Squamous Epith Cells TRACE /LPF Urine Bacteria 1+ /LPF ECG Data Attestation: I personally reviewed and interpreted this ECG as follows: ECG interpretation date: 06/17/20 ECG interpretation time: 12:27 Interpretation: Rate: 95 Rhythm: paced, continuous atrial sensed [place]: left Normal P waves. Normal RASHAD. wide QRS complex. ST T wave : nonspecific, no CA qTC: normal prior studies: no acute ischemia The study has been interpreted contemporaneously by me. . Discharge Plan Discharge Clinical Impression: Leukocytosis, Prolapsed uterus, Acute pyelonephritis, Nausea Patient Disposition: Admitted As Inpatient Prescriptions: No Action amiodarone 200 mg Tablet 200 mg PO DAILY RF: 0 ascorbic acid (vitamin C) 500 mg Tablet 500 mg PO DAILY RF: 0 aspirin 81 mg Tablet 81 mg PO DAILY RF: 0 nitroglycerin 0.4 mg Tablet, Sublingual 0.4 mg SUBLINGUAL Q5M PRN (Reason: Chest Pain) RF: 0 docusate sodium 100 mg Capsule 100 mg PO BID RF: 0 omeprazole 20 mg Capsule,Delayed Release(Dr/Ec) 20 mg PO BID@0630,1630 RF: 0 nystatin 100,000 unit/gram Powder 1 applic TOPICAL BID RF: 0 multivitamin Capsule 1 cap PO DAILY RF: 0 etanercept 50 mg/mL (1 mL) Syringe 50 mg SUBCUT QWEEK RF: 0 cholecalciferol (vitamin D3) 50 mcg (2,000 unit) Capsule 50 mcg PO DAILY RF: 0 spironolactone 25 mg Tablet 25 mg PO QAM RF: 0 simvastatin 40 mg Tablet 40 mg PO BEDTIME RF: 0 zolpidem [Ambien] 10 mg Tablet 5 mg PO BEDTIME PRN (Reason: Sleep) RF: 0 oxycodone 10 mg Tablet 10 mg PO TID PRN (Reason: Moderate Pain (Scale Score 5-6)) RF: 0 sacubitril-valsartan 24-26 mg Tablet 1 tab PO BID RF: 0 furosemide 40 mg Tablet 40 mg PO BID@0900,1800 Qty: 60 RF: 0 metoprolol tartrate 50 mg Tablet 25 mg PO BID Qty: 60 RF: 0 calcium carbonate-vit D3-min 600 mg calcium- 400 unit tablet 1 tab PO BID Qty: 60 RF: 0 potassium chloride 20 mEq tablet extended release 20 meq PO DAILY Qty: 7 RF: 0 warfarin 3 mg tablet 3 mg PO DAILY Qty: 90 RF: 0 aspirin 81 mg tablet,delayed release (DR/EC) 81 mg PO DAILY RF: 0 calcium carbonate-vitamin D3 600 mg(1,500mg) -400 unit tablet 1 tab PO BID RF: 0 furosemide 80 mg tablet 80 mg PO BID RF: 0 metoprolol tartrate 25 mg tablet 25 mg PO BID RF: 0 Narcan 4 mg/actuation spray,non-aerosol 0 spray intranasal RF: 0 rosuvastatin 20 mg tablet 20 mg PO BEDTIME RF: 0 PMFSH Past Medical History Attestation statement: The following information was validated with the patient. Medical History (Updated 06/17/20 @ 15:01 by Peyton Westbrook DO) Biventricular ICD (implantable cardioverter-defibrillator) in place Cardiomyopathy Paroxysmal atrial fibrillation with rapid ventricular response Systolic heart failure Surgical History (Updated 06/17/20 @ 11:53 by Peyton Westbrook DO) H/O: section Previous back surgery Total knee replacement status Social History Social History Alcohol intake: never Smoking Status: Never smoker Use of substances other than those prescribed or required for medical reasons: No Advance Directives: No Advance Directives Information Provided: Yes
--- NOTE | 2020-06-17 11:54 | CT_ITS ---
EXAMINATION: CT ABDOMEN AND PELVIS WITHOUT CONTRAST CLINICAL INFORMATION: lower abdominal pain . COMPARISON: 08/11/2013 and 11/07/2011 CT scan. TECHNIQUE: Multidetector volumetric imaging was performed from the superior aspect of the liver through the pubic symphysis without contrast per request. Sagittal and coronal reformatted images were obtained on the technologist workstation. This CT examination was performed using dose optimization techniques as appropriate, variously including the following: *Automated exposure control *Adjustment of mA and/or kV according to patient size (this includes techniques or standardized protocols for targeted exams where dose is matched to indication/reason for exam; i.e. extremities or head) *Use of iterative reconstruction technique DLP: 736 mGy-cm. FINDINGS: LUNG BASES: Lung bases reveal patchy bilateral airspace disease possibly related to atelectatic changes although viral or atypical infectious etiology cannot be excluded unfortunately. Biventricular pacemaker/AICD leads are noted. LIVER, GALLBLADDER, BILIARY TREE: The non-contrast liver is normal in size, shape, and attenuation. No focal hepatic lesion or biliary ductal dilatation is present. The gallbladder is unremarkable with no evidence of radiopaque gallstones, gallbladder wall thickening, or obvious pericholecystic inflammatory changes. PANCREAS: Unremarkable. SPLEEN: Unremarkable. ADRENAL GLANDS: Unremarkable. KIDNEYS AND URETERS: Bilateral hydronephrosis and hydroureters but there is a left sided perinephric stranding. Interestingly, both ureters are dilated throughout their course up to the decompressed and thick-walled bladder without evidence for distal ureteric stone. Low-attenuation bilateral renal cysts are present as well. I do not appreciate any air within the collecting systems or kidneys. BLADDER: Decompressed the thick walled. GASTROINTESTINAL TRACT: No obstructive changes seen. Normal-appearing appendix in the right lower quadrant. Visualized small bowel is unremarkable. ABDOMINAL WALL: No significant hernia is appreciated. LYMPHOVASCULAR STRUCTURES: Mild vascular calcification within the aorta iliac system. Small retroperitoneal lymph nodes are seen without bulky adenopathy. PELVIC VISCERA: Unremarkable. OSSEUS STRUCTURES: Extensive bony destructive changes to the right hip with either prior surgical resection or more likely complete resorption of the femoral head and neck as well as portions of the right acetabulum which appears to be distended with low-attenuation material. Etiology of this is uncertain. The does appear to be a prior ghost track in the visualized proximal femur. Patient may be status post Girdlestone procedure but this could be clinically correlated CT/CT abdomen pelvis wo con IMPRESSION: There is bilateral hydronephrosis and hydroureters with the dilated ureters extending up to the thick-walled decompressed bladder. I do not appreciate any renal or ureteric calculi. With this appearance, cystitis and left-sided pyelonephritis cannot be excluded and correlation with urinalysis is recommended. Alternatively some of the changes may be related to obstructive changes from a neurogenic bladder. Clinical correlation would helpful. This is difficult to define further on a noncontrast CT scan. Chronic appearing and postoperative changes to the right hip.
--- NOTE | 2020-06-17 11:55 | ECG_ITS ---
Test Reason : ABDOMINAL PAIN Blood Pressure : / mmHG Vent. Rate : 095 BPM Atrial Rate : 095 BPM P-R Int : 140 ms QRS Dur : 142 ms QT Int : 444 ms P-R-T Axes : 030 -59 112 degrees QTc Int : 557 ms Atrial-sensed ventricular-paced rhythm Abnormal ECG When compared with ECG of 27-MAR-2020 20:35, Vent. rate has increased BY 12 BPM Referred By: Peyton Westbrook Electronically Signed By:Kory Thomas
[2020-06-17] MEDS: fentaNYL citrate/PF 100 MCG/2 ML VIAL 25 MCG IVPUSH (12:32)
[2020-06-17] MEDS: ondansetron HCL 4 MG/2 ML VIAL IVPUSH (12:32)
[2020-06-17 12:39] LABS: Basophils Percent Auto 0.1 % (0-2); Eosinophils Percent Auto 0.1 % (0-4); Hematocrit 34.5 % (37-47); Imm Gran Abs Auto 0.09 X10*3/uL (0.00-0.03); Imm Gran Pct Auto 0.5 % (0.0-0.4); Lymphocytes Absolute Auto 0.7 X10*3/uL (1.2-4.9); Lymphocytes Percent Auto 4.3 % (20-40); MANUAL DIFF FLAG SCAN; Mean Corpuscular HGB Conc 31.9 g/dl (31.0-35.0); Mean Platelet Volume 9.7 fL (9.4-12.3); Monocytes Absolute Auto 1.7 X10*3/uL (0.1-1.2); Monocytes Percent Auto 10.3 % (2-11); Neutrophils Absolute Auto 14.1 X10*3/uL (2.0-8.3); Neutrophils Percent Auto 84.7 % (45-73); Platelet Count 342 X10*3/uL (160-400); Red Blood Count 3.79 X10*6/uL (4.20-5.50); Red Cell Distribution Width 16.4 % (11.0-16.0); SCAN SMEAR FLAG 1; White Blood Count 16.6 X10*3/uL (4.8-10.8)
[2020-06-17 12:46] LABS: INTERNATIONAL NORM RATIO 3.2 (0.9-1.1); Prothrombin Time 38.8 SEC (10.8-13.0)
[2020-06-17 12:49] LABS: Partial Thromboplastin Time 45.2 SEC (24.1-38.0)
--- NOTE | 2020-06-17 12:55 | PC.NURSE ---
pt alert and oriented, skin appropriate for ethnicity. pt reports left lower abd/pelvic pain that started last night that wraps to her back, denies n/v/d. also states that when urinating noticed something bulging/protruding in the vaginal area, and also reports having a sore on her coccyx area for about one month. the sore is located on the gluties mariia/upper coccyx region about two inches long. chaperoned dr zapata during a pelvic exam, pt tolerated the procedure well. pt does have a uterine prolapse
[2020-06-17 13:12] LABS: Anion Gap 16 (12-20); Blood Urea Nitrogen 25 mg/dL (9-16); Calcium 8.6 mg/dL (8.4-10.2); Carbon Dioxide 29 mmol/L (22-29); Chloride 97 mmol/L (96-108); Creatinine Clr Calc Pharmacy 39.7; Estimated Glomerular Filt Rate 39; Glucose Random 118 mg/dL (60-115); Potassium 3.8 mmol/l (3.3-5.1); Sodium 138 mmol/L (135-145)
[2020-06-17 13:16] LABS: Alanine Aminotransferase 7 U/L (0-31); Albumin Level 3.5 g/dL (3.5-5.0); Alkaline Phosphatase 100 U/L (39-117); Aspartate Amino Transferase 12 U/L (5-31); Bilirubin Direct 0.3 mg/dL (0.0-0.5); Bilirubin Total 0.6 mg/dL (0.0-1.0); Lipase 15 U/L (8-78); Magnesium 1.9 mg/dL (1.6-2.6); SLIDE REVIEW VERIFIED; Total Protein 7.3 g/dL (6.5-8.0)
[2020-06-17 13:28] LABS: Glucose Urine UA NEG (NEG); Leukocyte Esterase Urine 3+ (NEG); Nitrite Urine NEG (NEG); Urine Blood 3+ (NEG); Urine Ketones NEG (NEG); Urine Protein 2+ MG/DL (NEG-TRACE)
[2020-06-17 13:34] LABS: Appearance Urine CLOUDY; Color Urine YELLOW
[2020-06-17 13:36] VITALS: BP 106/55; PULSE 91; RESP 18; TEMP 36.9; O2SAT 94
[2020-06-17 13:42] LABS: Bacteria Urine 1+ /LPF; Squamous Epithelial Cell Urine TRACE /LPF; WBC Urine TNTC /HPF (0-4)
[2020-06-17 14:15] LABS: Lactic Acid 0.9 mmol/L (0.5-2.0)
--- NOTE | 2020-06-17 14:28 | PC.NURSE ---
pt reports feeling a little better pain at 5/10
[2020-06-17] MEDS: cefTRIAXone sodium 1 GM in 0.9 % Sodium Chloride 50 ML IV (14:35)
[2020-06-17 15:15] LABS: COVID-19 Test Negative (Negative)
--- NOTE | 2020-06-17 16:42 | PC.NURSE ---
pt is currently asleep, in no apparent distress at this time , respirations even and unlabored.
[2020-06-17 16:48] VITALS: BP 97/47; PULSE 107; RESP 18; TEMP 36.9; O2SAT 88
[2020-06-17 16:51] VITALS: O2SAT 98
[2020-06-17 18:17] VITALS: BP 104/51; PULSE 100; RESP 19; TEMP 36.9; O2SAT 93
--- NOTE | 2020-06-17 18:37 | PM.EVENT ---
Event Note Date of Service: 06/17/20 Event Note: Addendum to H and P by Mid-level Provider I saw and examined the patient and participated in the [place] portion of the E/M service. I agree with the history and exam as documented by BASS MECHANISM MAKER. Patient has UTI associated with bilateral hydro. Will admit for further urological work and IV Abx. Otherwise I agree with H and P as written by mid level.
--- NOTE | 2020-06-17 18:56 | PC.NURSE ---
pt comes from home with an unstageable pressure injury to coccyx. MAXIMINO luna notified. nursing assembly and packing supervisor notified. picture taken in chart. foam dsg applied. will continue to monitor and reposition [id number].
[2020-06-17] MEDS: Acetaminophen 325 MG TABLET 650 MG PO (21:45)
[2020-06-17] MEDS: Atorvastatin Calcium 20 MG TABLET PO (21:45)
[2020-06-17] MEDS: Zolpidem Tartrate 5 MG TABLET PO (21:46)
[2020-06-17] MEDS: Calcium + Vitamin D 250 MG TABLET 500 MG PO (21:46)
[2020-06-17] MEDS: Docusate Sodium 100 MG CAPSULE PO ×2 (21:47)
[2020-06-17] MEDS: 0.9 % Sodium Chloride Flush 3 ML SYRINGE IVFLUSH (23:22)
[2020-06-18] VITALS: BP 105/57; PULSE 64; RESP 16; TEMP 37.1; O2SAT 96
--- NOTE | 2020-06-18 | US_ITS ---
EXAMINATION: US RETROPERITONEAL LIMITED (RENAL ONLY) CLINICAL INFORMATION: Bilateral hydronephrosis, follow-up. COMPARISON: CT scan of the abdomen and pelvis dated 06/17/2020. TECHNIQUE: Multiple 2-D grayscale and color Doppler ultrasound images of the kidneys were obtained. FINDINGS: RIGHT KIDNEY: 12.0 cm. An interpolar anechoic cyst measures 5.2 cm. Mild to moderate right hydroureteronephrosis is seen. LEFT KIDNEY: 11.3 cm. Mild to moderate left hydronephrosis is seen. An interpolar anechoic cyst measures 2.5 cm. US/US renal BI IMPRESSION: Mild to moderate bilateral hydronephrosis correlates with previous CT findings. Bilateral renal cysts demonstrate benign features. These are compared to the report from the recent CT scan for more detailed findings.
[2020-06-18] MEDS: Omeprazole 20 MG CAPSULE.DR PO ×2 (06:45→16:38)
[2020-06-18 06:53] LABS: MANUAL DIFF FLAG NO
[2020-06-18 07:05] LABS: Prothrombin Time 36.3 SEC (10.8-13.0)
[2020-06-18 07:10] LABS: Basophils Percent Auto 0.2 % (0-2); Eosinophils Absolute Auto 0.3 X10*3/uL (0.0-0.4); Eosinophils Percent Auto 2.4 % (0-4); Hematocrit 31.2 % (37-47); Imm Gran Abs Auto 0.03 X10*3/uL (0.00-0.03); Imm Gran Pct Auto 0.3 % (0.0-0.4); Lymphocytes Absolute Auto 1.3 X10*3/uL (1.2-4.9); Lymphocytes Percent Auto 11.7 % (20-40); Mean Corpuscular HGB Conc 32.1 g/dl (31.0-35.0); Mean Corpuscular Volume 90.4 fL (80-98); Mean Platelet Volume 9.6 fL (9.4-12.3); Monocytes Absolute Auto 1.2 X10*3/uL (0.1-1.2); Monocytes Percent Auto 10.8 % (2-11); Neutrophils Absolute Auto 8.2 X10*3/uL (2.0-8.3); Neutrophils Percent Auto 74.6 % (45-73); Platelet Count 276 X10*3/uL (160-400); Red Blood Count 3.45 X10*6/uL (4.20-5.50); Red Cell Distribution Width 16.3 % (11.0-16.0)
[2020-06-18 07:23] LABS: Anion Gap 14 (12-20); Blood Urea Nitrogen 26 mg/dL (9-16); Calcium 8.3 mg/dL (8.4-10.2); Carbon Dioxide 29 mmol/L (22-29); Chloride 99 mmol/L (96-108); Creatinine Clr Calc Pharmacy 42.2; Estimated Glomerular Filt Rate 41; Glucose Random 82 mg/dL (60-115); Potassium 3.6 mmol/l (3.3-5.1); Sodium 138 mmol/L (135-145)
[2020-06-18 07:34] VITALS: BP 99/60; PULSE 87; RESP 17; TEMP 36.1; O2SAT 95
--- NOTE | 2020-06-18 08:27 | P.PNIM_ITS ---
Subjective Subjective Date of Service: 06/27/20 Interval History: Seen in f/u for acute pyelonephritis and bilateral hydronephrosis. Review of Systems Gen: no fever Resp: no sob, no cough CV: no chest, no ENCISO, no leg edema GI: No n/v, no abd pain Neuro: No confusion Physical Exam Vital Signs: Vital Signs: Last Vital Signs Temp 97.0 F 06/18/20 07:34 Pulse 87 06/18/20 07:34 Resp 17 06/18/20 07:34 BP 99/60 06/18/20 07:34 Pulse Ox 95 06/18/20 07:34 Body Mass Index 39.6 General: AO X 3, no acute distress Resp: normal respiratory effort CVS: S1,S2,RRR GI: +BS, NT, no distention. no flank pain Skin: No rash Neuro: motor grossly intact Psych: appropriate affect Objective Data Current Medications Generic Name Dose Route Start Last Admin Trade Name Freq PRN Reason Stop Dose Admin Acetaminophen 650 mg 06/17/20 18:02 06/17/20 21:45 Acetaminophen 325 Mg Tablet PO 650 mg Q6H PRN Administration Pain, Mild (Pain Scale 1-3) Amiodarone HCl 200 mg 06/18/20 09:00 Amiodarone Hcl 200 Mg Tablet PO DAILY [facility] Ascorbic Acid 500 mg 06/18/20 09:00 Ascorbic Acid 500 Mg Tablet PO DAILY [facility] Aspirin 81 mg 06/18/20 09:00 Aspirin 81 Mg Tab.Chew PO DAILY [facility] Atorvastatin Calcium 20 mg 06/17/20 21:00 06/17/20 21:45 Atorvastatin Calcium 20 Mg Tablet PO 20 mg BEDTIME [facility] Administration Calcium Carbonate/Cholecalciferol 500 mg 06/17/20 21:00 06/17/20 21:46 Calcium + Vitamin D 250 Mg Tablet PO 500 mg BID [facility] Administration Docusate Sodium 100 mg 06/17/20 21:00 06/17/20 21:47 Docusate Sodium 100 Mg Capsule PO 100 mg BID [facility] Administration Docusate Sodium 100 mg 06/17/20 21:00 06/17/20 21:47 Docusate Sodium 100 Mg Capsule PO 100 mg BID [facility] Administration Furosemide 80 mg 06/18/20 08:00 Furosemide 40 Mg Tablet PO BIDWM [facility] Protocol Ceftriaxone Sodium 1 gm/ 50 mls @ 100 mls/hr 06/18/20 14:00 Sodium Chloride IV Q24H [facility] Metoprolol Tartrate 25 mg 06/17/20 21:00 06/17/20 22:00 Metoprolol Tartrate 25 Mg Tablet PO Not Given BID [facility] Protocol Multivitamins/Vitamin C 1 tab 06/18/20 09:00 Multivitamin Tablet PO DAILY [facility] Nitroglycerin 0.4 mg 06/17/20 18:40 Nitroglycerin 0.4 Mg Tab.Subl SUBLINGUAL Q5M PRN Chest Pain Non-Formulary Medication 50 mg 06/17/20 18:45 Etanercept [Enbrel Sureclick] SUBCUT Q7D [facility] Omeprazole 20 mg 06/18/20 06:30 06/18/20 06:45 Omeprazole 20 Mg Capsule.Dr PO 20 mg BID@0630,1630 [facility] Administration Oxycodone HCl 10 mg 06/17/20 18:40 Oxycodone Hcl Immed Release 5 Mg Tablet PO TID PRN pain Pharmacy Consult 1 each 06/17/20 14:47 Consult Rx Perform Med Rec MISCELLANE ONCE PRN Consult order Sacubitril/Valsartan 1 tab 06/17/20 21:00 06/17/20 22:01 Sacubitril/Valsartan 24/ 1 Tab Tablet PO Not Given BID [facility] Protocol Sodium Chloride 3 ml 06/18/20 00:00 06/17/20 23:22 0.9 % Sodium Chloride Flush 3 Ml Syringe IVFLUSH 3 ml QSHIFT [facility] Administration Spironolactone 25 mg 06/18/20 09:00 Spironolactone 25 Mg Tablet PO DAILY [facility] Protocol Vitamin D 50 mcg 06/18/20 09:00 Cholecalciferol (Vitamin D3) 25 Mcg Tablet PO DAILY [facility] Zolpidem Tartrate 5 mg 06/17/20 21:00 06/17/20 21:46 Zolpidem Tartrate 5 Mg Tablet PO 5 mg BEDTIME [facility] Administration Labs CBC & Chem 7: 06/20/20 06:04 06/20/20 06:04 Assessment and Plan (1) Acute pyelonephritis: Status: Acute (2) Nausea: Status: Acute (3) Hydronephrosis: Status: Acute Assessment and Plan: 64-year-old female with past medical history of nonischemic cardiomyopathy st atus post biventricular AICD, heart failure with reduced ejection fraction, history CVA, thrombosis on anticoagulation here with abdominal pain and found to have acute right sided pyelonephritis with hydronephrosis #Sepsis d/t acute pyelonephritis--sepsis improved. -Continue Ceftriaxone D2 -Monitor cultures #Hydronephrosis on CT-- -Urology consult pending #Mild HERMELINDO--with hydro, renal US # Chronic systolic heart failure--no acute failure -Continue Lasix, Entresto # hypertension - continue spironolactone and Entresto #PAF-continue Amio, metoprolol, anticoagulation with coumadin # HLD - continuous formulary statin in place of Simvastatin # history of CVA - continue statin, and aspirin, coumadin
[2020-06-18] MEDS: Furosemide 40 MG TABLET 80 MG PO (08:54)
[2020-06-18] MEDS: Multivitamin TABLET 1 TAB PO (08:54)
[2020-06-18] MEDS: Cholecalciferol (Vitamin D3) 25 MCG TABLET 50 MCG PO (08:55)
[2020-06-18] MEDS: Aspirin 81 MG TAB.CHEW PO (08:55)
[2020-06-18] MEDS: Amiodarone HCL 200 MG TABLET PO (08:55)
[2020-06-18] MEDS: Sacubitril/Valsartan 24/26 1 TAB TABLET PO ×2 (08:56→20:50)
[2020-06-18] MEDS: Metoprolol Tartrate 25 MG TABLET PO (08:56)
[2020-06-18] MEDS: Calcium + Vitamin D 250 MG TABLET 500 MG PO ×2 (08:56→20:49)
[2020-06-18] MEDS: Spironolactone 25 MG TABLET PO (08:57)
[2020-06-18] MEDS: Ascorbic Acid 500 MG TABLET PO (08:57)
[2020-06-18] MEDS: Docusate Sodium 100 MG CAPSULE PO ×2 (08:57→20:49)
[2020-06-18] MEDS: 0.9 % Sodium Chloride Flush 3 ML SYRINGE IVFLUSH ×3 (08:58→20:51)
--- NOTE | 2020-06-18 11:26 | MHC.CM.PN ---
MET WITH PATIENT WITH ASSISTANCE OF [employer]. PATIENT LIVES WITH HER SON AND HER SISTER, WHO IS HCP/INFANT TEACHER. SISTER MONITORS VITALS AND MANAGES MEDICATIONS. COPY OF HCP REQUESTED. PATIENT SAYS THAT SHE COMPLETED THE DOCUMENTATION ON HER LAST VISIT, AND SHE BELIEVES THE ORIGINAL IS AT HOME. PATIENT RELIES ON A WHEEL CHAIR TO MOBILIZE. SHE NO LONGER AMBULATES AND DOES NOT HAVE A WALKER OR CANE. [facility] PROVIDES O2 IN THE HOME. PATIENT STATES THAT SHE IS ON 2.5 LITRES AT HOME. PATIENT DOES HAVE RN VISITS NEEDED; HOWEVER, THEY ARE REMOTE. PLAN IS RETURN HOME WITH RESUMPTION OF HER SERVICES. IMM 06/18 IN CHART.
[2020-06-18] MEDS: cefTRIAXone sodium 1 GM in 0.9 % Sodium Chloride 50 ML IV (14:07)
[2020-06-18 15:21] VITALS: BP 85/61; PULSE 88; RESP 18; TEMP 37; O2SAT 96
[2020-06-18 16:39] VITALS: BP 92/64
[2020-06-18] MEDS: Zolpidem Tartrate 5 MG TABLET PO (20:49)
[2020-06-18 20:50] VITALS: BP 95/57; PULSE 86
[2020-06-18] MEDS: Atorvastatin Calcium 20 MG TABLET PO (20:50)
[2020-06-19] VITALS (13 sets, daily range): BP systolic 95–106; BP diastolic 42–70; PULSE 80–90; RESP 16–20; TEMP 36.2–36.9; O2SAT 93–99; BMI 39.6
--- NOTE | 2020-06-19 | NM_ITS ---
EXAMINATION: NM KIDNEY IMAGING CLINICAL INFORMATION: Bilateral hydronephrosis. COMPARISON: Ultrasound kidneys 06/18/[address] abdomen and pelvis 06/17/2020. TECHNIQUE: Following intravenous administration of 10 mCi of 99m technetium DTPA, perfusion function and delayed images of kidneys were obtained. At 30 minutes 40 mg of Lasix was administered and further imaging was obtained for the next 30 minutes. FINDINGS: On perfusion exam there is slightly diminished left renal perfusion compared to right kidney. On static images there is increasing cortical uptake right kidney with prominent right kidney pelvis and the entire ureter. There is slight diminished cortical uptake but normal excretion. Post Lasix there is no significant response in either kidney excretion. Activity in the right kidney pelvis, right ureter and the left ureter remains unchanged post Lasix. On renal analysis, the split function right kidney is 62.3% and left kidney is 37.7%. Post Lasix excretion cannot be calculated as there is no excretion over 30 minutes post Lasix. NM/NM renal imaging IMPRESSION: Diminished left renal perfusion compared to right kidney. Diminished left renal cortical function, prolonged excretion with no response to Lasix. Normal right renal cortical function, prolonged excretion with no response to Lasix. The above findings could be due to incontinent bladder and diffuse bladder wall thickening with nondistention.
[2020-06-19] MEDS: Omeprazole 20 MG CAPSULE.DR PO (05:29)
[2020-06-19 05:49] LABS: INTERNATIONAL NORM RATIO 2.4 (0.9-1.1); Prothrombin Time 28.4 SEC (10.8-13.0)
[2020-06-19 06:34] LABS: Anion Gap 15 (12-20); Blood Urea Nitrogen 30 mg/dL (9-16); Carbon Dioxide 28 mmol/L (22-29); Chloride 97 mmol/L (96-108); Creatinine Clr Calc Pharmacy 41.5; Estimated Glomerular Filt Rate 41; Glucose Random 82 mg/dL (60-115); Potassium 3.4 mmol/l (3.3-5.1); Sodium 137 mmol/L (135-145)
--- NOTE | 2020-06-19 07:28 | P.CNUR_ITS ---
History of Present Illness Consult details Consult date: 06/19/20 Narrative: 64-year-old female. Translation done in room Admitted with question of pyelonephritis Urine growing Gram-negative rods Imaging showed her bilateral moderate hydroureteronephrosis with thickened bladder She does describe difficulty with weakness of stream and incomplete emptying going on for couple months Creatinine currently is 1.37 after rehydration and had been 1.0 in March Imaging reviewed Suggest Lasix renogram as well as cystoscopy with bilateral retrogrades This will be planned Will start alpha-francesco in the evening to try to help with bladder emptying and check for question of prolapse at time of procedure Prolapse may be causing kinking on the ureters and bladder dysfunction with res ultant hydronephrosis Review of Systems Review of Systems: Yes all other systems are reviewed and are negative [facility] Past Medical History Medical History (Updated 06/19/20 @ 08:13 by Rosales Healy MD) Biventricular ICD (implantable cardioverter-defibrillator) in place Cardiomyopathy Paroxysmal atrial fibrillation with rapid ventricular response Systolic heart failure Surgical History Surgical History (Updated 06/17/20 @ 11:53 by Peyton Westbrook DO) H/O: section Previous back surgery Total knee replacement status Social History Social History Household Members: Unknown / Unable to assess Housing: House Alcohol intake: never Smoking Status: Never smoker Use of substances other than those prescribed or required for medical reasons: No Currently Displaying Signs/Symptoms of Drug Intoxication Withdrawal: No Have you been hit, kicked, punched, or otherwise hurt by someone within the past year? If so, by whom?: No Do you feel safe in your current relationship?: No Is there a partner from a previous relationship who is making you feel unsafe now?: No Are you made to feel afraid or neglected: No Advance Directives: No Advance Directives Information Provided: Yes Do you have thoughts of harming others: None Do you have a plan to hurt others: No Plan Recently lost weight without trying: Unsure service: No Current occupational status: disabled Meds Allergies Allergy/AdvReac Type Severity Reaction Status Date / Time No Known Food Allergies Allergy Unknown Verified 06/05/20 13:48 Home Medications Medication Instructions Recorded Confirmed Type amiodarone 200 mg PO DAILY 03/29/20 06/17/20 History aspirin 81 mg PO DAILY 03/29/20 06/17/20 History cholecalciferol (vitamin D3) 50 mcg PO DAILY 03/29/20 06/17/20 History docusate sodium 100 mg PO BID 03/29/20 06/17/20 History multivitamin 1 cap PO DAILY 03/29/20 06/17/20 History nitroglycerin 0.4 mg SUBLINGUAL Q5M PRN 03/29/20 06/17/20 History omeprazole 20 mg PO BID@0630,1630 03/29/20 06/17/20 History simvastatin 40 mg PO BEDTIME 03/29/20 06/17/20 History spironolactone 25 mg PO QAM 03/29/20 06/17/20 History furosemide 80 mg tablet 80 mg PO BID 05/03/20 06/17/20 History metoprolol tartrate 25 mg tablet 25 mg PO BID 05/03/20 06/17/20 History ascorbic acid (vitamin C) [Vitamin 500 mg PO DAILY 06/17/20 06/17/20 History C] etanercept [Enbrel SureClick] 1 mg SUBCUT QWEEK 06/17/20 06/17/20 History furosemide 40 mg PO QNOON 06/17/20 06/17/20 History oxycodone 1 tab PO TID PRN 06/17/20 06/17/20 History sacubitril-valsartan [Entresto] 1 tab PO BID 06/17/20 06/17/20 History zolpidem 0.5 - 1 tab PO BEDTIME 06/17/20 06/17/20 History Physical Exam Vital Signs: Vital Signs: Last Vital Signs Temp 97.6 F 06/19/20 00:00 Pulse 90 06/19/20 00:00 Resp 20 06/19/20 00:00 BP 106/55 L 06/19/20 00:00 Pulse Ox 97 06/19/20 00:00 Body Mass Index 39.6 Const: General: cooperative, healthy appearing, comfortable and no acute distress Nutritional Appearance: average body habitus Orientation/consciousness: oriented to person, oriented to place and oriented to time Eyes: General: appearance normal, both eyes and all related structures Chest: Chest palpation & inspection: normal inspection of the chest Resp: Effort & Inspection: normal respiratory effort Cardio: Rate: regular rate GI: Inspection: Yes normal to inspection Skin: Hair: normal Neuro: General: oriented to person, oriented to place and oriented to time Extrem: General: Yes normal to inspection Results Labs Result diagrams: 06/18/20 06:40 06/19/20 05:30 Labs: Abnormal lab results 06/18/20 06/19/20 06/19/20 Range/Units 06:40 05:30 05:30 WBC 11.0 H (4.8-10.8) X10*3/uL RBC 3.45 L (4.20-5.50) X10*6/uL Hgb 10.0 L (12.0-16.0) g/dl Hct 31.2 L (37-47) % RDW 16.3 H (11.0-16.0) % Neut % (Auto) 74.6 H (45-73) % Lymph % (Auto) 11.7 L (20-40) % PT 28.4 H D (10.8-13.0) SEC INR 2.4 H (0.9-1.1) BUN 30 H (9-16) mg/dL Calcium 8.0 L (8.4-10.2) mg/dL Short CBC 06/18/20 Range/Units 06:40 WBC 11.0 H (4.8-10.8) X10*3/uL Hgb 10.0 L (12.0-16.0) g/dl Hct 31.2 L (37-47) % Plt Count 276 (160-400) X10*3/uL BMP 06/19/20 05:30 Sodium 137 Potassium 3.4 Chloride 97 Carbon Dioxide 28 BUN 30 H Creatinine 1.31 Calcium 8.0 L Urine 06/17/20 Range/Units 13:21 Urine Color YELLOW Urine Appearance CLOUDY Urine pH 6.0 (5.0-8.0) Ur Specific [place] 1.020 (1.005-1.025) Urine Protein 2+ H (NEG-TRACE) MG/DL Urine Glucose (UA) NEG (NEG) MG/DL All other labs normal. Assessment and Plan (1) Bladder wall thickening: Status: Acute (2) Hydronephrosis: Status: Acute 1. Lasix renogram 2. Cystoscopy with bilateral retrogrades
[2020-06-19] MEDS: Amiodarone HCL 200 MG TABLET PO (08:09)
[2020-06-19] MEDS: Spironolactone 25 MG TABLET PO (08:09)
[2020-06-19] MEDS: 0.9 % Sodium Chloride Flush 3 ML SYRINGE IVFLUSH ×2 (08:09→16:01)
--- NOTE | 2020-06-19 10:54 | HO.PM.IMPN ---
Subjective Subjective Date of Service: 06/19/20 Interval History: abd pain Cardiovascular Cardiovascular: Reports no additional cardiovascular complaints Respiratory Respiratory: Reports no additional respiratory complaints Physical Exam Vital Signs: Vital Signs: Last Vital Signs Temp 97.6 F 06/19/20 07:30 Pulse 81 06/19/20 07:30 Resp 16 06/19/20 07:30 BP 95/60 06/19/20 07:30 Pulse Ox 96 06/19/20 07:30 Body Mass Index 39.6 General: AO X 3, no acute distress Resp: CTA bilateral CVS: S1,S2,RRR GI: soft, non tender, non distended Neuro: motor grossly intact Psych: appropriate affect Objective Data Current Medications Generic Name Dose Route Start Last Admin Trade Name Freq PRN Reason Stop Dose Admin Acetaminophen 650 mg 06/17/20 18:02 06/17/20 21:45 Acetaminophen 325 Mg Tablet PO 650 mg Q6H PRN Administration Pain, Mild (Pain Scale 1-3) Amiodarone HCl 200 mg 06/18/20 09:00 06/19/20 08:09 Amiodarone Hcl 200 Mg Tablet PO 200 mg DAILY [facility] Administration Ascorbic Acid 500 mg 06/18/20 09:00 06/19/20 08:11 Ascorbic Acid 500 Mg Tablet PO Not Given DAILY [facility] Aspirin 81 mg 06/18/20 09:00 06/19/20 08:11 Aspirin 81 Mg Tab.Chew PO Not Given DAILY [facility] Atorvastatin Calcium 20 mg 06/17/20 21:00 06/18/20 20:50 Atorvastatin Calcium 20 Mg Tablet PO 20 mg BEDTIME [facility] Administration Calcium Carbonate/Cholecalciferol 500 mg 06/17/20 21:00 06/19/20 08:12 Calcium + Vitamin D 250 Mg Tablet PO Not Given BID [facility] Docusate Sodium 100 mg 06/17/20 21:00 06/19/20 08:12 Docusate Sodium 100 Mg Capsule PO Not Given BID [facility] Furosemide 80 mg 06/18/20 08:00 06/19/20 08:11 Furosemide 40 Mg Tablet PO Not Given BIDWM [facility] Protocol Ceftriaxone Sodium 1 gm/ 50 mls @ 100 mls/hr 06/18/20 14:00 06/18/20 14:52 Sodium Chloride IV Infused Q24H [facility] Infusion Metoprolol Tartrate 25 mg 06/17/20 21:00 06/19/20 08:12 Metoprolol Tartrate 25 Mg Tablet PO Not Given BID [facility] Protocol Multivitamins/Vitamin C 1 tab 06/18/20 09:00 06/19/20 08:12 Multivitamin Tablet PO Not Given DAILY [facility] Nitroglycerin 0.4 mg 06/17/20 18:40 Nitroglycerin 0.4 Mg Tab.Subl SUBLINGUAL Q5M PRN Chest Pain Non-Formulary Medication 50 mg 06/17/20 18:45 Etanercept [Enbrel Sureclick] SUBCUT Q7D [facility] Omeprazole 20 mg 06/18/20 06:30 06/19/20 05:29 Omeprazole 20 Mg Capsule.Dr PO 20 mg BID@0630,4120 [facility] Administration Oxycodone HCl 10 mg 06/17/20 18:40 Oxycodone Hcl Immed Release 5 Mg Tablet PO TID PRN pain Pharmacy Consult 1 each 06/17/20 14:47 Consult Rx Perform Med Rec MISCELLANE ONCE PRN Consult order Sacubitril/Valsartan 1 tab 06/17/20 21:00 06/19/20 08:12 Sacubitril/Valsartan 1 Tab Tablet PO Not Given BID [facility] Protocol Sodium Chloride 3 ml 06/18/20 00:00 06/19/20 08:09 0.9 % Sodium Chloride Flush 3 Ml Syringe IVFLUSH 3 ml QSHIFT [facility] Administration Spironolactone 25 mg 06/18/20 09:00 06/19/20 08:09 Spironolactone 25 Mg Tablet PO 25 mg DAILY [facility] Administration Protocol Vitamin D 50 mcg 06/18/20 09:00 06/19/20 08:12 Cholecalciferol (Vitamin D3) 25 Mcg Tablet PO Not Given DAILY [facility] Zolpidem Tartrate 5 mg 06/17/20 21:00 06/18/20 20:49 Zolpidem Tartrate 5 Mg Tablet PO 5 mg BEDTIME [facility] Administration Labs CBC & Chem 7: 06/18/20 06:40 06/19/20 05:30 Microbiology Microbiology Results: Microbiology 06/17/20 00:00 Urine clean catch - Clean Catch Midstream Urine Culture - Final Escherichia coli 06/17/20 13:47 Blood - Venous Blood Culture - Preliminary No growth after 24 hours. 06/17/20 13:47 Blood - Venous Blood Culture - Preliminary No growth after 24 hours. Assessment and Plan (1) Acute pyelonephritis: Status: Acute (2) Nausea: Status: Acute (3) Hydronephrosis: Status: Acute Assessment and Plan: 64-year-old female with past medical history of nonischemic cardiomyopathy status post biventricular AICD with reduced ejection fraction, history CVA, thrombosis on anticoagulation here with abdominal pain and found to have acute right sided pyelonephritis with hydronephrosis #Sepsis d/t acute pyelonephritis-- sepsis improved. -Continue Ceftriaxone D3 sensitive ecoli in urine, blood negative Hydronephrosis on CT-- plan for lasix renogram and cystoscopy, following Chronic systolic heart failure--no acute failure, non ischemic -Continue Lasix, Entresto, aldactone, lopressor PAF- continue Amio, metoprolol, anticoagulation with coumadin history of thrombosis coumadin RA enterecept on hold history of CVA continue statin, and aspirin, coumadin
--- NOTE | 2020-06-19 11:04 | HP_ITS ---
DATE OF SERVICE: 06/17/2020 CHIEF COMPLAINT: Lower back pain. HISTORY OF PRESENT ILLNESS: A 64-year-old woman, presenting to the ER with complaints of worsening left lower abdominal pain radiating to her back, worse over the last 24 hours. She reports that she has had it over the last several days at least and reported more dysuria over the last 24 hours. She did report some nausea as well. She denied fever, chills, nausea, vomiting, or diarrhea. She does have multiple medical problems. Abdominal and pelvic CT showed bilateral hydronephrosis and hydroureters with dilated ureters extending up to the thick walled, decompressed bladder. Elevated white blood cell count of 16.6. Urinalysis positive. Coronavirus PCR negative. Vital signs stable with some noted tachycardia. She was given a dose of ceftriaxone and Zofran while in the ER. She will be admitted for further management and treatment related to sepsis related to pyelonephritis. PAST MEDICAL HISTORY: 1. Nonischemic dilated cardiomyopathy. 2. Status post biventricular [employer] ICD. 3. Paroxysmal atrial fibrillation, on amiodarone and warfarin. 4. Hypertension. 5. Rheumatoid arthritis. 6. Recurrent chronic systolic congestive heart failure. 7. History of stroke. 8. History of ventricular fibrillation. 9. Chronic back pain. 10. Status post bilateral hip replacement with removal of hardware to the right hip. 11. Hypothyroidism. 12. History of hepatitis C. FAMILY HISTORY: Denies any cardiac disease. SOCIAL HISTORY: Lives with her family, who take care of her. She is wheelchair bound. She denies any alcohol, tobacco, or illicit drugs. ALLERGIES: NO KNOWN ALLERGIES. MEDICATIONS: 1. Ascorbic acid 500 mg p.o. daily. 2. Aspirin 81 mg p.o. daily. 3. Calcium carbonate 1 tablet p.o. b.i.d. 4. weekly. 5. Furosemide 40 mg daily. 6. Furosemide 80 mg b.i.d. 7. Metoprolol 25 mg p.o. b.i.d. 8. Oxycodone 1 tablet p.o. t.i.d. p.r.n. for pain. 9. Entresto 1 tablet p.o. b.i.d. 10. Simvastatin 40 mg p.o. at bedtime. 11. Spironolactone 25 mg p.o. daily. 12. Omeprazole 20 mg p.o. b.i.d. 13. Nitroglycerin 0.5 mg sublingual every 5 minutes p.r.n. for chest pain. 14. Zolpidem 0.5 to 1 tablet p.o. at bedtime. 15. Amiodarone 200 mg p.o. daily. REVIEW OF SYSTEMS: CONSTITUTIONAL: Denies any recent fever, chills, or decrease in appetite. RESPIRATORY: Denies any shortness of breath, cough, or sputum production. CARDIOVASCULAR: Denies any chest pain, orthopnea, PND, or edema. GASTROINTESTINAL: See HPI. GENITOURINARY: See HPI. NEUROPSYCH: Denies any weakness or seizures. All other systems are reviewed and are negative. PHYSICAL EXAMINATION: CONSTITUTIONAL: Resting in bed, appearing in no acute distress. VITAL SIGNS: 98.5, 100, 19, 104/51, and 93% on room air. SKIN: Intact without rash or open sores. HEENT: Head is normocephalic and atraumatic. Eyes: Pupils are PERRLA. Sclerae are anicteric. Mouth and Throat: Mucous membranes are intact and moist. NECK: Supple without lymphadenopathy. No JVD noted. CHEST: Clear to auscultation without wheezes, rhonchi, or rales. HEART: Regular rate and rhythm. Clear S1, S2. No murmurs, rubs, or gallops. ABDOMEN: Positive bowel sounds. Soft and nontender. No hepatomegaly or splenomegaly noted. No flank pain noted. NEUROLOGIC: The patient is alert and oriented x3. No focal deficits noted. LABORATORY DATA: WBC 16.6, hemoglobin 11.0, hematocrit 34.5, platelets 342. Sodium is 138, potassium 3.8, chloride 97, BUN 25, creatinine 1.37. COVID negative. ASSESSMENT AND PLAN: A 64-year-old woman, who is being admitted with sepsis secondary to pyelonephritis. 1. Sepsis, tachycardia, leukocytosis. Normal lactic acid. Follow blood cultures. 2. Pyelonephritis with noted hydronephrosis. Rocephin. We will consult Urology, no blockage noted. Pain control. Follow intake and output p.r.n. 3. History of congestive heart failure continue. She has been in no overt heart failure at this time. We will continue Lasix, Entresto, and beta francesco. 4. Paroxysmal atrial fibrillation. Continue warfarin and beta francesco. Check PT/INR daily. On amiodarone as well. 5. Deep vein thrombosis prophylaxis with warfarin. 6. Case discussed with Dr. Ortiz. 7. Full code. ELOISA Oconnor MD JR/SHAKIRA / [id number] [email or web address]
[2020-06-19] MEDS: cefTRIAXone sodium 1 GM in 0.9 % Sodium Chloride 50 ML IV (12:47)
[2020-06-19] MEDS: Metoprolol Tartrate 25 MG TABLET PO (12:47)
--- NOTE | 2020-06-19 13:10 | HO.WOUNDCONS ---
History of Present Illness Data of Consult Service Date: 06/19/20 Requesting physician: Flavio Pozonyu [facility] Primary Care Provider: MD SOLEDAD Vanegas Reason for consult: COCCYX WOUND 64-year-old female hospitalized for acute pyelonephritis in the setting of stent placement for hydronephrosis. She is nonambulatory at home. She is wheelchair bound. She also carries a history of RA on Enbrel. We are asked to see the coccygeal wound which has been there for months, to which the patient's critical care cns applies Desitin. She is largely incontinent of urine which is apparently longstanding. [facility] Medical History Biventricular ICD (implantable cardioverter-defibrillator) in place Cardiomyopathy Paroxysmal atrial fibrillation with rapid ventricular response Systolic heart failure Surgical History H/O: section Previous back surgery Total knee replacement status Social History Household Members: Unknown / Unable to assess Housing: House Alcohol intake: never Smoking Status: Never smoker Use of substances other than those prescribed or required for medical reasons: No Currently Displaying Signs/Symptoms of Drug Intoxication Withdrawal: No Have you been hit, kicked, punched, or otherwise hurt by someone within the past year? If so, by whom?: No Do you feel safe in your current relationship?: No Is there a partner from a previous relationship who is making you feel unsafe now?: No Are you made to feel afraid or neglected: No Advance Directives: No Advance Directives Information Provided: Yes Do you have thoughts of harming others: None Do you have a plan to hurt others: No Plan Recently lost weight without trying: Unsure service: No Current occupational status: disabled Meds Allergies Allergy/AdvReac Type Severity Reaction Status Date / Time No Known Food Allergies Allergy Unknown Verified 06/05/20 13:48 Home Medications Medication Instructions Recorded Confirmed Type amiodarone 200 mg PO DAILY 03/29/20 06/17/20 History aspirin 81 mg PO DAILY 03/29/20 06/17/20 History cholecalciferol (vitamin D3) 50 mcg PO DAILY 03/29/20 06/17/20 History docusate sodium 100 mg PO BID 03/29/20 06/17/20 History multivitamin 1 cap PO DAILY 03/29/20 06/17/20 History nitroglycerin 0.4 mg SUBLINGUAL Q5M PRN 03/29/20 06/17/20 History omeprazole 20 mg PO BID@0630,1630 03/29/20 06/17/20 History simvastatin 40 mg PO BEDTIME 03/29/20 06/17/20 History spironolactone 25 mg PO QAM 03/29/20 06/17/20 History furosemide 80 mg tablet 80 mg PO BID 05/03/20 06/17/20 History metoprolol tartrate 25 mg tablet 25 mg PO BID 05/03/20 06/17/20 History ascorbic acid (vitamin C) [Vitamin 500 mg PO DAILY 06/17/20 06/17/20 History C] etanercept [Enbrel SureClick] 1 mg SUBCUT QWEEK 06/17/20 06/17/20 History furosemide 40 mg PO QNOON 06/17/20 06/17/20 History oxycodone 1 tab PO TID PRN 06/17/20 06/17/20 History sacubitril-valsartan [Entresto] 1 tab PO BID 06/17/20 06/17/20 History zolpidem 0.5 - 1 tab PO BEDTIME 06/17/20 06/17/20 History Physical Exam Vital Signs and Narrative: Vital Signs: Last Vital Signs Temp 98.0 F 06/19/20 11:07 Pulse 86 06/19/20 11:07 Resp 17 06/19/20 11:07 BP 99/70 06/19/20 11:07 Pulse Ox 97 06/19/20 11:07 Body Mass Index 39.6 Bed mobility is excellent. Deep within the gluteal cleft, a macerated wound is identified covered with a foam dressing which is saturated. The brief is also saturated. The wound is linear in appearance, about 2 cm in length with pink base and macerated edges. Periwound blanching is difficult to appreciate. No erythema nor edema, nor odor nor streaking to suggest cellulitis. Results Labs CBC and Chem 7: 06/20/20 06:04 06/20/20 06:04 Labs: Laboratory Results - last 24 hr 06/19/20 06/19/20 05:30 05:30 PT 28.4 H D INR 2.4 H Anion Gap 15 Estim Creat Clear Calc 41.5 Estimated GFR 41 Random Glucose 82 Calcium 8.0 L Imaging Radiologist's Impressions: Impressions Renal Ultrasound 06/18/20 00:00 IMPRESSION: Mild to moderate bilateral hydronephrosis correlates with previous CT findings. Bilateral renal cysts demonstrate benign features. These are compared to the report from the recent CT scan for more detailed findings. Assessment and Plan (1) Chronic dermatitis: Status: Acute Due to immobility, an element of pressure may play a role in this wounds chronicity, however, the most obvious manageable problem is maceration from moisture associated dermatitis. Stop foam (which is moisture harboring). Use zinc oxide followed by antifungal powder, or alternatively, apply silver alginate without a foam dressing. Imperative to both dressings is the management of both diaphoresis and urinary incontinence. If InterDry sheets are available, this may be helpful. Consider therapy eval as an outpatient to promote mobility if feasible. Thank you for allowing us to participate in your patient's care.
[2020-06-19] MEDS: Furosemide 40 MG/4 ML VIAL IVPUSH (14:51)
--- NOTE | 2020-06-19 16:46 | P.CONAN_ITS ---
[facility] Past Medical History Medical History Biventricular ICD (implantable cardioverter-defibrillator) in place Cardiomyopathy Paroxysmal atrial fibrillation with rapid ventricular response Systolic heart failure Surgical History Surgical History H/O: section Previous back surgery Total knee replacement status Social History Social History Household Members: Unknown / Unable to assess Housing: House Alcohol intake: never Smoking Status: Never smoker Use of substances other than those prescribed or required for medical reasons: No Currently Displaying Signs/Symptoms of Drug Intoxication Withdrawal: No Have you been hit, kicked, punched, or otherwise hurt by someone within the past year? If so, by whom?: No Do you feel safe in your current relationship?: No Is there a partner from a previous relationship who is making you feel unsafe now?: No Are you made to feel afraid or neglected: No Advance Directives: No Advance Directives Information Provided: Yes Do you have thoughts of harming others: None Do you have a plan to hurt others: No Plan Recently lost weight without trying: Unsure service: No Current occupational status: disabled Meds Allergies Allergy/AdvReac Type Severity Reaction Status Date / Time No Known Food Allergies Allergy Unknown Verified 06/05/20 13:48 Home Medications Medication Instructions Recorded Confirmed Type amiodarone 200 mg PO DAILY 03/29/20 06/17/20 History aspirin 81 mg PO DAILY 03/29/20 06/17/20 History cholecalciferol (vitamin D3) 50 mcg PO DAILY 03/29/20 06/17/20 History docusate sodium 100 mg PO BID 03/29/20 06/17/20 History multivitamin 1 cap PO DAILY 03/29/20 06/17/20 History nitroglycerin 0.4 mg SUBLINGUAL Q5M PRN 03/29/20 06/17/20 History omeprazole 20 mg PO BID@0630,1630 03/29/20 06/17/20 History simvastatin 40 mg PO BEDTIME 03/29/20 06/17/20 History spironolactone 25 mg PO QAM 03/29/20 06/17/20 History furosemide 80 mg tablet 80 mg PO BID 05/03/20 06/17/20 History metoprolol tartrate 25 mg tablet 25 mg PO BID 05/03/20 06/17/20 History ascorbic acid (vitamin C) [Vitamin 500 mg PO DAILY 06/17/20 06/17/20 History C] etanercept [Enbrel SureClick] 1 mg SUBCUT QWEEK 06/17/20 06/17/20 History furosemide 40 mg PO QNOON 06/17/20 06/17/20 History oxycodone 1 tab PO TID PRN 06/17/20 06/17/20 History sacubitril-valsartan [Entresto] 1 tab PO BID 06/17/20 06/17/20 History zolpidem 0.5 - 1 tab PO BEDTIME 06/17/20 06/17/20 History Exam Exam Date and Time: June 19, 2020 1646 Height,Weight and Vital Signs: Height 4 ft 11 in Weight 88.904 kg Last Vital Signs Temp 97.8 F 06/19/20 15:44 Pulse 86 06/19/20 15:44 Resp 17 06/19/20 15:44 BP 95/55 L 06/19/20 15:44 Pulse Ox 96 06/19/20 15:44 Pertinent Lab Results Pertinent Lab Results: Laboratory Tests 06/17/20 06/17/20 06/17/20 12:25 12:25 12:25 WBC 16.6 H RBC 3.79 L Hgb 11.0 L Hct 34.5 L MCV 91.0 MCH 29.0 MCHC 31.9 RDW 16.4 H Plt Count 342 D MPV 9.7 Immature Gran % (Auto) 0.5 H Neut % (Auto) 84.7 H Lymph % (Auto) 4.3 L Greene % (Auto) 10.3 Eos % (Auto) 0.1 Baso % (Auto) 0.1 Lymph # (Auto) 0.7 L Greene # (Auto) 1.7 H Eos # (Auto) 0.0 Baso # (Auto) 0.0 Abs Immat Gran (auto) 0.09 H Absolute Neuts (auto) 14.1 H Absolute Nucleated RBC 0.000 Nucleated RBC % (auto) 0.0 Smear Tech's Comments VERIFIED PT 38.8 H D INR 3.2 H APTT 45.2 H Sodium 138 Potassium 3.8 D Chloride 97 Carbon Dioxide 29 Anion Gap 16 BUN 25 H Creatinine 1.37 Estim Creat Clear Calc 39.7 Estimated GFR 39 Random Glucose 118 H D Lactic Acid Calcium 8.6 Magnesium Total Bilirubin Direct Bilirubin AST ALT Alkaline Phosphatase Total Protein Albumin Lipase Urine Color Urine Appearance Urine pH Ur Specific [place] Urine Protein Urine Glucose (UA) Urine Ketones Urine Blood Urine Nitrite Ur Leukocyte Esterase Urine RBC Urine WBC Ur Squamous Epith Cells Urine Bacteria COVID-19 (DEYSI) COVID-19 Clin [facility] 06/17/20 06/17/20 06/17/20 12:25 13:21 13:46 WBC RBC Hgb Hct MCV MCH MCHC RDW Plt Count MPV Immature Gran % (Auto) Neut % (Auto) Lymph % (Auto) Greene % (Auto) Eos % (Auto) Baso % (Auto) Lymph # (Auto) Greene # (Auto) Eos # (Auto) Baso # (Auto) Abs Immat Gran (auto) Absolute Neuts (auto) Absolute Nucleated RBC Nucleated RBC % (auto) Smear Tech's Comments PT INR APTT Sodium Potassium Chloride Carbon Dioxide Anion Gap BUN Creatinine Estim Creat Clear Calc Estimated GFR Random Glucose Lactic Acid 0.9 Calcium Magnesium 1.9 Total Bilirubin 0.6 Direct Bilirubin 0.3 AST 12 ALT 7 Alkaline Phosphatase 100 Total Protein 7.3 Albumin 3.5 Lipase 15 Urine Color YELLOW Urine Appearance CLOUDY Urine pH 6.0 Ur Specific [place] 1.020 Urine Protein 2+ H Urine Glucose (UA) NEG Urine Ketones NEG Urine Blood 3+ H Urine Nitrite NEG Ur Leukocyte Esterase 3+ H Urine RBC 10-14 H Urine WBC TNTC H Ur Squamous Epith Cells TRACE Urine Bacteria 1+ COVID-19 (DEYSI) COVID-19 Clin Com 06/17/20 06/18/20 06/18/20 14:51 06:40 06:40 WBC 11.0 H RBC 3.45 L Hgb 10.0 L Hct 31.2 L MCV 90.4 MCH 29.0 MCHC 32.1 RDW 16.3 H Plt Count 276 MPV 9.6 Immature Gran % (Auto) 0.3 Neut % (Auto) 74.6 H Lymph % (Auto) 11.7 L Greene % (Auto) 10.8 Eos % (Auto) 2.4 Baso % (Auto) 0.2 Lymph # (Auto) 1.3 Greene # (Auto) 1.2 Eos # (Auto) 0.3 Baso # (Auto) 0.0 Abs Immat Gran (auto) 0.03 Absolute Neuts (auto) 8.2 Absolute Nucleated RBC 0.000 Nucleated RBC % (auto) 0.0 Smear Tech's Comments PT INR APTT Sodium 138 Potassium 3.6 Chloride 99 Carbon Dioxide 29 Anion Gap 14 BUN 26 H Creatinine 1.29 Estim Creat Clear Calc 42.2 Estimated GFR 41 Random Glucose 82 Lactic Acid Calcium 8.3 L Magnesium Total Bilirubin Direct Bilirubin AST ALT Alkaline Phosphatase Total Protein Albumin Lipase Urine Color Urine Appearance Urine pH Ur Specific [place] Urine Protein Urine Glucose (UA) Urine Ketones Urine Blood Urine Nitrite Ur Leukocyte Esterase Urine RBC Urine WBC Ur Squamous Epith Cells Urine Bacteria COVID-19 (DEYSI) Negative COVID-19 Clin Com See Note 06/18/20 06/19/20 06/19/20 06:40 05:30 05:30 WBC RBC Hgb Hct MCV MCH MCHC RDW Plt Count MPV Immature Gran % (Auto) Neut % (Auto) Lymph % (Auto) Greene % (Auto) Eos % (Auto) Baso % (Auto) Lymph # (Auto) Greene # (Auto) Eos # (Auto) Baso # (Auto) Abs Immat Gran (auto) Absolute Neuts (auto) Absolute Nucleated RBC Nucleated RBC % (auto) Smear Tech's Comments PT 36.3 H 28.4 H D INR 3.0 H 2.4 H APTT Sodium 137 Potassium 3.4 Chloride 97 Carbon Dioxide 28 Anion Gap 15 BUN 30 H Creatinine 1.31 Estim Creat Clear Calc 41.5 Estimated GFR 41 Random Glucose 82 Lactic Acid Calcium 8.0 L Magnesium Total Bilirubin Direct Bilirubin AST ALT Alkaline Phosphatase Total Protein Albumin Lipase Urine Color Urine Appearance Urine pH Ur Specific [place] Urine Protein Urine Glucose (UA) Urine Ketones Urine Blood Urine Nitrite Ur Leukocyte Esterase Urine RBC Urine WBC Ur Squamous Epith Cells Urine Bacteria COVID-19 (DEYSI) COVID-19 Clin Com Airway Mallampati Class: III TM Dist: >3cm Neck ROM: Limited Partial: Upper Loose/Missing/Broken Teeth: Yes Heart: paced Lungs: on supplemental oxygen Other: ao Assessment and Plan Assessment Anesthesia Assessment: Anesthesia Plan Discussed and Chart Reviewed Final Anesthetic Review NPO: Yes ASA Class: III Final Preanesthetic Review: No Changes in Pt Med Stat, Meds/Allgs Chart Revie fri, Consent Obtained/Reviewed and Anes Risks/Benef Reviewed Patient Risk: High Procedure Risk: Low Anesthetic Plan Anesthetic Plan: GA Disposition: Standard PACU
[2020-06-19] MEDS: levoFLOXacin 500 MG TABLET PO (16:59)
[2020-06-19] MEDS: Lactated Ringers 1,000 ML 50 ML IVCONT (17:00)
--- NOTE | 2020-06-19 17:12 | MHC.SHP ---
Pre-Procedural Eval Section A The patient is an INPATIENT: Yes Changes since office visit: No Cold of Flu in the past 2 weeks, No New Medical Problems, No Changes in Medication and No Patient answered all questions The History & Physical has been completed within 30 days and I have reviewed it.: Yes Section B Chief Complaint: phylonephritis Allergies: Allergies Allergy/AdvReac Type Severity Reaction Status Date / Time No Known Food Allergies Allergy Unknown Verified 06/05/20 13:48 Plan Diagnosis/Plan: Unchanged I have reviewed the history and physical and performed a pertinent physical examination on my patient. No changes have occurred unless specified. Bilaterzl retrogrades, possible stents
--- NOTE | 2020-06-19 18:06 | FL_ITS ---
EXAMINATION: XR FLUOROSCOPY WITH IMAGES CLINICAL INFORMATION: Fluoroscopy provided during cystography COMPARISON: None. TECHNIQUE: Fluoroscopy performed by Dr. Rosales Healy. Fluoroscopy time: 66.17) minutes DAP: 29 mGy Images: 1 FINDINGS: Single image demonstrates the upper portions of presumed bilateral ureteral stents with pigtails seen in the region of the expected renal pelves. FL/FL guidance in OR IMPRESSION: Fluoroscopy and spot films provided during cystography
--- NOTE | 2020-06-19 18:59 | P.BOP_ITS ---
Brief Operative Note Date of Service: 06/19/20 Pre-op diagnosis: Bilateral hydronephrosis secondary bladder prolapse and J hooking of ureters Post-op diagnosis: same Procedure: Bilateral retrograde, bilateral stent placement Implants: Six Citizen Of [place] by 22 cm double-J stent on left side, 6 Citizen [place] by variable length double-J stent on right side Surgeon: Rosales Healy MD Anesthesia: MAC Estimated blood loss (mL): 0 Pathology: none sent Condition: stable Disposition: floor
--- NOTE | 2020-06-19 19:03 | P.OP_ITS ---
Operative Note Operative Note Date of Service: 06/19/20 Narrative: PreOperative Diagnosis: Bilateral hydronephrosis Post Operative Diagnosis: Bilateral hydronephrosis with J hooking secondary to bladder prolapse Procedure: Bilateral retrogrades, bilateral stents Surgeon: Dr Rosales Healy Anesthesia: Mac Indications for procedure: 64-year-old Khmer-speaking female. Presented with acute cystitis and bilateral J hooking. Inflamed and thickened bladder. Known cervical cuff prolapse. Recommend retrogrades and stents since climbing creatinine. Procedure: After informed consent was verified the patient was brought to the operating room and placed in a supine position. Anesthesia was administered per protocol. She was placed in a modified dorsal lithotomy position and prepped and draped in a sterile fashion. Safety pause time-out observed. Antibiotics had been given. Twenty-two [place] cystoscope inserted. Of note there was multi compartment vaginal prolapse. Cervical prolapse with rectal prolapse and bladder cystocele. Bladder was inflamed and irritated. This is secondary to infection. Left ureteric orifice was cannulated and retrograde examination performed. Significant J hooking seen. Hydroureteronephrosis with tortuous ureter seen down to the level of bladder. Sensor guidewire was placed. Six [place] by 22 cm double-J stent was placed without difficulty. The bladder was emptied. The right ureteric orifice was cannulated and retrograde examination performed. Similar findings to the left side. Sensor guidewire was placed. A multi variable length stent 6 [place] was placed without difficulty. The left stent was seen to be retracting as the ureter was tortuous. A grasper was used to reposition in straight and stent. She tolerated procedure well was transferred in stable condition to the recovery area. A 16 [place] Reeves catheter be left overnight creatinine should be checked in the morning to see if there is resolution Pathology: None Drains: Six [place] by variable length on the right, 6 [place] by 22 cm on the left
[2020-06-19] MEDS: Zolpidem Tartrate 5 MG TABLET PO (20:17)
[2020-06-19] MEDS: Docusate Sodium 100 MG CAPSULE PO (20:18)
[2020-06-19] MEDS: Atorvastatin Calcium 20 MG TABLET PO (20:18)
[2020-06-19] MEDS: Calcium + Vitamin D 250 MG TABLET 500 MG PO (20:18)
[2020-06-19] MEDS: Nystatin Powder 15 GM BOTTLE 1 APPL TOPICAL (22:47)
[2020-06-20] MEDS: 0.9 % Sodium Chloride Flush 3 ML SYRINGE IVFLUSH ×2 (00:30→09:18)
[2020-06-20 02:13] VITALS: BP 98/57; PULSE 84; RESP 20; TEMP 36.2; O2SAT 97
[2020-06-20 03:21] VITALS: BP 100/62; PULSE 89; RESP 19; TEMP 36.8; O2SAT 96
[2020-06-20 06:18] LABS: MANUAL DIFF FLAG NO
[2020-06-20] MEDS: Omeprazole 20 MG CAPSULE.DR PO (06:35)
[2020-06-20 06:47] LABS: INTERNATIONAL NORM RATIO 2.1 (0.9-1.1); Prothrombin Time 25.4 SEC (10.8-13.0)
[2020-06-20 06:52] LABS: Basophils Percent Auto 0.5 % (0-2); Eosinophils Absolute Auto 0.2 X10*3/uL (0.0-0.4); Eosinophils Percent Auto 3.5 % (0-4); Hematocrit 31.3 % (37-47); Imm Gran Abs Auto 0.02 X10*3/uL (0.00-0.03); Imm Gran Pct Auto 0.3 % (0.0-0.4); Lymphocytes Absolute Auto 1.6 X10*3/uL (1.2-4.9); Lymphocytes Percent Auto 27.1 % (20-40); Mean Corpuscular HGB Conc 31.9 g/dl (31.0-35.0); Mean Corpuscular Volume 90.7 fL (80-98); Mean Platelet Volume 9.9 fL (9.4-12.3); Monocytes Absolute Auto 0.9 X10*3/uL (0.1-1.2); Monocytes Percent Auto 15.1 % (2-11); Neutrophils Absolute Auto 3.1 X10*3/uL (2.0-8.3); Neutrophils Percent Auto 53.5 % (45-73); Platelet Count 341 X10*3/uL (160-400); Red Blood Count 3.45 X10*6/uL (4.20-5.50); Red Cell Distribution Width 15.9 % (11.0-16.0); White Blood Count 5.8 X10*3/uL (4.8-10.8)
[2020-06-20 06:58] LABS: Anion Gap 15 (12-20); Blood Urea Nitrogen 20 mg/dL (9-16); Calcium 8.4 mg/dL (8.4-10.2); Carbon Dioxide 30 mmol/L (22-29); Chloride 98 mmol/L (96-108); Creatinine Clr Calc Pharmacy 48.5; Estimated Glomerular Filt Rate 49; Glucose Random 84 mg/dL (60-115); Potassium 3.8 mmol/l (3.3-5.1); Sodium 139 mmol/L (135-145)
[2020-06-20 07:10] LABS: Anion Gap 16 (12-20); Blood Urea Nitrogen 20 mg/dL (9-16); Calcium 8.5 mg/dL (8.4-10.2); Carbon Dioxide 30 mmol/L (22-29); Chloride 98 mmol/L (96-108); Creatinine Clr Calc Pharmacy 48.5; Estimated Glomerular Filt Rate 49; Glucose Fasting 84 mg/dL (60-99); Potassium 3.7 mmol/l (3.3-5.1); Sodium 140 mmol/L (135-145)
[2020-06-20 07:52] VITALS: BP 95/60; PULSE 86; RESP 16; TEMP 36.6; O2SAT 96
[2020-06-20] MEDS: Calcium + Vitamin D 250 MG TABLET 500 MG PO (09:16)
[2020-06-20] MEDS: Cholecalciferol (Vitamin D3) 25 MCG TABLET 50 MCG PO (09:17)
[2020-06-20] MEDS: Aspirin 81 MG TAB.CHEW PO (09:17)
[2020-06-20] MEDS: Docusate Sodium 100 MG CAPSULE PO (09:17)
[2020-06-20] MEDS: Metoprolol Tartrate 25 MG TABLET PO (09:17)
[2020-06-20] MEDS: Ascorbic Acid 500 MG TABLET PO (09:17)
[2020-06-20] MEDS: Amiodarone HCL 200 MG TABLET PO (09:17)
[2020-06-20] MEDS: Multivitamin TABLET 1 TAB PO (09:17)
[2020-06-20] MEDS: Furosemide 40 MG TABLET 80 MG PO (09:17)
[2020-06-20 09:24] VITALS: BP 95/60; PULSE 86
--- NOTE | 2020-06-20 10:43 | PC.NURSE ---
Pt BP is 95/60 HR 86 multiple BP and cardiac meds scheduled. Dr. Comre states to hold entresto and spironolactone this morning. He will also f/u with Dr. Griffiths regarding discharge disposition and possible d/c home later today. Dr. Comer will communicate with nursing regarding the discharge status of sauer catheter or removal.
--- NOTE | 2020-06-20 11:39 | MHC.CM.PN ---
Addendum entered by Susan Guardado RN 06/20/20 11:50: PT DOES ATTEND [facility] MONTHLY. CORRECTION PT SISTERS NAME: ITALIA BOSS Original Note: PLAN FOR ANTICIPATED DISCHARGE TODAY, DISCHARGE HOME WITH [facility] HOME SERVICES ([facility] CASE MANAGEMENT), SISTER/HCP ITALIA TO TRANSPORT. C[facility]IVER HOME NOTIFIED OF DISCHARGE. HCP/SISTER: ITALIA LAZAR [phone] C[facility]IVER HOME ([facility]ULT [facility]): [place] [phone]
--- NOTE | 2020-06-20 11:54 | P.CDIC_ITS ---
CDI Concurrent Query Service Date: 06/20/20 Documentation Clarification: Please clarify if you are treating a proba ble/suspected/likely or confirmed: Pressure Injury Stage 2 coccyx POA Please specify if known PLEASE DO NOT DELETE/MODIFY EXISTING CONTENT Additional information is needed in order to code to the highest accuracy and appropriate Severity of Illness (SOI). Please clarify the information noted below in your progress notes and discharge summary. Risk Factors/Clinical Indicators/Treatments Nursing Wound assessment - pressure injury II macerated edge, deep within the gluteal cleft macerated wound is identified w foam. Wheelchair bound. Zinc, mystatin, silver dressing. CDS: Susana Taylor CCS, CDIS Contact Number: [phone] Please Review the information above and exercise your independent professional judgment in responding to the query. If you concur, pleas document in the PROGRESS NOTES and DISCHARGE SUMMARY. If you do not agree with the query, please document in the query above. THIS QUERY IS PART OF THE PERMANENT MEDICAL RECORD
--- NOTE | 2020-06-20 12:43 | P.PNUR_ITS ---
Subjective Subjective Date of Service: 06/20/20 Interval history: Seen today with renal case manager Follow-up from procedure yesterday with stent placement and retrograde age Discussed findings with patient has J hooking of ureters secondary to uterine prolapse Double-J stents placed Creatinine has resolved back down towards normal range overnight Can remove Reeves catheter today for discharge Needs follow-up with soda maker for prolapse assessment and management Physical Exam Vital Signs: Vital Signs: Last Vital Signs Temp 97.8 F 06/20/20 07:52 Pulse 86 06/20/20 09:24 Resp 16 06/20/20 07:52 BP 95/60 06/20/20 09:24 Pulse Ox 96 06/20/20 07:52 Body Mass Index 39.6 Const: General: cooperative, healthy appearing, comfortable and no acute distress Nutritional Appearance: average body habitus Orientation/consciousness: oriented to person, oriented to place and oriented to time Eyes: General: appearance normal, both eyes and all related structures Chest: Chest palpation & inspection: normal inspection of the chest Resp: Effort & Inspection: normal respiratory effort Cardio: Rate: regular rate GI: Inspection: Yes normal to inspection Skin: Hair: normal Neuro: General: oriented to person, oriented to place and oriented to time Extrem: General: Yes normal to inspection Urology Results Labs CBC & Chem 7: 06/20/20 06:04 06/20/20 06:04 Labs: Laboratory Results - last 24 hr 06/20/20 06/20/20 06/20/20 06:04 06:04 06:04 WBC 5.8 RBC 3.45 L Hgb 10.0 L Hct 31.3 L MCV 90.7 MCH 29.0 MCHC 31.9 RDW 15.9 Plt Count 341 MPV 9.9 Immature Gran % (Auto) 0.3 Neut % (Auto) 53.5 Lymph % (Auto) 27.1 [place] % (Auto) 15.1 H Eos % (Auto) 3.5 Baso % (Auto) 0.5 Lymph # (Auto) 1.6 [place] # (Auto) 0.9 Eos # (Auto) 0.2 Baso # (Auto) 0.0 Abs Immat Gran (auto) 0.02 Absolute Neuts (auto) 3.1 Absolute Nucleated RBC 0.000 Nucleated RBC % (auto) 0.0 PT 25.4 H INR 2.1 H Sodium 140 Potassium 3.7 Chloride 98 Carbon Dioxide 30 H Anion Gap 16 BUN 20 H Creatinine 1.12 Estim Creat Clear Calc 48.5 Estimated GFR 49 Random Glucose Fasting Glucose 84 Calcium 8.5 D 06/20/20 06:04 WBC RBC Hgb Hct MCV MCH MCHC RDW Plt Count MPV Immature Gran % (Auto) Neut % (Auto) Lymph % (Auto) [place] % (Auto) Eos % (Auto) Baso % (Auto) Lymph # (Auto) [place] # (Auto) Eos # (Auto) Baso # (Auto) Abs Immat Gran (auto) Absolute Neuts (auto) Absolute Nucleated RBC Nucleated RBC % (auto) PT INR Sodium 139 Potassium 3.8 Chloride 98 Carbon Dioxide 30 H Anion Gap 15 BUN 20 H Creatinine 1.12 Estim Creat Clear Calc 48.5 Estimated GFR 49 Random Glucose 84 Fasting Glucose Calcium 8.4 Progress Note: A&P Assessment and plan (1) Hydronephrosis: Status: Acute (2) Acute pyelonephritis: Status: Acute (3) Prolapsed uterus: Status: Acute Assessment and Plan: Hydronephrosis chronic Prolapsed uterus needs to be addressed Fall Risk Details Current Medications: Current Medications Generic Name Dose Route Start Last Admin Trade Name Freq PRN Reason Stop Dose Admin Acetaminophen 650 mg 06/17/20 18:02 06/17/20 21:45 Acetaminophen 325 Mg Tablet PO 650 mg Q6H PRN Administration Pain, Mild (Pain Scale 1-3) Amiodarone HCl 200 mg 06/18/20 09:00 06/20/20 09:17 Amiodarone Hcl 200 Mg Tablet PO 200 mg DAILY KEMAL Administration Ascorbic Acid 500 mg 06/18/20 09:00 06/20/20 09:17 Ascorbic Acid 500 Mg Tablet PO 500 mg DAILY KEMAL Administration Aspirin 81 mg 06/18/20 09:00 06/20/20 09:17 Aspirin 81 Mg Tab.Chew PO 81 mg DAILY KEMAL Administration Atorvastatin Calcium 20 mg 06/17/20 21:00 06/19/20 20:18 Atorvastatin Calcium 20 Mg Tablet PO 20 mg BEDTIME KEMAL Administration Calcium Carbonate/Cholecalciferol 500 mg 06/17/20 21:00 06/20/20 09:16 Calcium + Vitamin D 250 Mg Tablet PO 500 mg BID KEMAL Administration Docusate Sodium 100 mg 06/17/20 21:00 06/20/20 09:17 Docusate Sodium 100 Mg Capsule PO 100 mg BID KEMAL Administration Fentanyl 25 mcg 06/19/20 18:44 Fentanyl Citrate/Pf 100 Mcg/2 Ml Vial IVPUSH Q5M PRN Pain, Mild (Pain Scale 1-3) Furosemide 80 mg 06/18/20 08:00 06/20/20 09:17 Furosemide 40 Mg Tablet PO 80 mg BIDWM KEMAL Administration Protocol Hydromorphone HCl 0.25 mg 06/19/20 18:44 Hydromorphone Hcl 0.5 Mg/0.5 Ml Syringe IVPUSH Q5M PRN Pain, Moderate (Pain Scale 4-6 Ceftriaxone Sodium 1 gm/ 50 mls @ 100 mls/hr 06/18/20 14:00 06/19/20 13:54 Sodium Chloride IV Infused Q24H [facility] Infusion Metoprolol Tartrate 25 mg 06/17/20 21:00 06/20/20 09:17 Metoprolol Tartrate 25 Mg Tablet PO 25 mg BID KEMAL Administration Protocol Multivitamins/Vitamin C 1 tab 06/18/20 09:00 06/20/20 09:17 Multivitamin Tablet PO 1 tab DAILY [facility] Administration Nitroglycerin 0.4 mg 06/17/20 18:40 Nitroglycerin 0.4 Mg Tab.Subl SUBLINGUAL Q5M PRN Chest Pain Non-Formulary Medication 50 mg 06/17/20 18:45 Etanercept [Enbrel Sureclick] SUBCUT Q7D [facility] Omeprazole 20 mg 06/18/20 06:30 06/20/20 06:35 Omeprazole 20 Mg Capsule.Dr PO 20 mg BID@0630,1630 [facility] Administration Oxycodone HCl 10 mg 06/17/20 18:40 Oxycodone Hcl Immed Release 5 Mg Tablet PO TID PRN pain Pharmacy Consult 1 each 06/17/20 14:47 Consult Rx Perform Med Rec MISCELLANE ONCE PRN Consult order Sacubitril/Valsartan 1 tab 06/17/20 21:00 06/20/20 09:23 Sacubitril/Valsartan 1 Tab Tablet PO Not Given BID [facility] Protocol Sodium Chloride 3 ml 06/18/20 00:00 06/20/20 09:18 0.9 % Sodium Chloride Flush 3 Ml Syringe IVFLUSH 3 ml QSHIFT [facility] Administration Spironolactone 25 mg 06/18/20 09:00 06/20/20 09:24 Spironolactone 25 Mg Tablet PO Not Given DAILY KEMAL Protocol Vitamin D 50 mcg 06/18/20 09:00 06/20/20 09:17 Cholecalciferol (Vitamin D3) 25 Mcg Tablet PO 50 mcg DAILY KMEAL Administration Zolpidem Tartrate 5 mg 06/17/20 21:00 06/19/20 20:17 Zolpidem Tartrate 5 Mg Tablet PO 5 mg BEDTIME KEMAL Administration Time Spent With Patient Time: Total time spent is greater than 50% in coordination of care (as documented) at patient's floor/unit and/or counseling patient: Time with patient: less than 15 minutes
--- NOTE | 2020-06-20 13:26 | MHC.CM.PN ---
SURGEON REQUESTED PT HAVE A GYNECOLOGY APPT FOR PESSARY BEFORE DISCHARGE, CM CONTACTED CONTACTED HCP/SISTER FOR PREFERENCES. APPOINTMENT: DR DEMARCO DIAMOND [phone] AT [facility] [address]LOOR [address] ON 07/07/19 AT 2:30PM.
--- NOTE | 2020-06-20 13:38 | PM.DS ---
DS: Providers Provider Date of admission: 06/17/20 16:43 Primary care physician: Keith العلي MD Consults: 06/17/20 18:25 Consult to Urology Routine Consulting Provider: Rosales Healy Reason for consultation: bilateral hydronephrosis, pyelo Has provider been notified: No 06/18/20 19:12 Consult to Wound Care Provider Routine Consulting Provider: Frederick Mark Reason for consultation: pressure ulcer coccyx DS: Diagnosis Discharge Diagnosis (1) Hydronephrosis: Status: Acute (2) Acute pyelonephritis: Status: Acute (3) Prolapsed uterus: Status: Acute DS: Medications Discharge Medications Home Medications: Home Medications Medication Instructions Recorded Confirmed amiodarone 200 mg PO DAILY 03/29/20 06/17/20 aspirin 81 mg PO DAILY 03/29/20 06/17/20 cholecalciferol (vitamin D3) 50 mcg PO DAILY 03/29/20 06/17/20 docusate sodium 100 mg PO BID 03/29/20 06/17/20 multivitamin 1 cap PO DAILY 03/29/20 06/17/20 nitroglycerin 0.4 mg SUBLINGUAL Q5M PRN 03/29/20 06/17/20 omeprazole 20 mg PO BID@0630,1630 03/29/20 06/17/20 simvastatin 40 mg PO BEDTIME 03/29/20 06/17/20 spironolactone 25 mg PO QAM 03/29/20 06/17/20 furosemide 80 mg tablet 80 mg PO BID 05/03/20 06/17/20 metoprolol tartrate 25 mg tablet 25 mg PO BID 05/03/20 06/17/20 Enbrel SureClick 1 mg SUBCUT QWEEK 06/17/20 06/17/20 Entresto 1 tab PO BID 06/17/20 06/17/20 ascorbic acid (vitamin C) [Vitamin 500 mg PO DAILY 06/17/20 06/17/20 C] furosemide 40 mg PO QNOON 06/17/20 06/17/20 oxycodone 1 tab PO TID PRN 06/17/20 06/17/20 zolpidem 0.5 - 1 tab PO BEDTIME 06/17/20 06/17/20 Previous Rx's Medication Instructions Recorded calcium carbonate-vit D3-min 1 tab PO BID #60 tab 03/31/20 warfarin 3 mg tablet 3 mg PO DAILY #90 tab 05/03/20 cefuroxime axetil 500 mg PO Q12H #10 tab 06/20/20 DS: Summary Hospital Course Hospital Course: patient admitted for UTI and hydronephrosis due to uterine prolapse, urine culture grew ecoli, she was given ceftriaxone and will continue on ceftin, she had bilateral stents placed and will follow up with urogyn. Time Spent with Patient Time attestation: Total time spent providing and/or coordinating discharge services: Physical Exam Vital Signs: Vital Signs: Last Vital Signs Temp 97.8 F 06/20/20 07:52 Pulse 86 06/20/20 09:24 Resp 16 06/20/20 07:52 BP 95/60 06/20/20 09:24 Pulse Ox 96 06/20/20 07:52 Body Mass Index 39.6 General: AO X 3, no acute distress Resp: CTA bilateral CVS: S1,S2,RRR GI: soft, non tender, non distended Neuro: motor grossly intact Psych: appropriate affect DS: Data Data Completed and Pending Labs on day of discharge: 06/17/20 00:00 Urine Culture Routine 06/17/20 11:54 CT abdomen pelvis wo con Stat 06/17/20 11:55 ECG 12 lead EKG Stat EKG Documentation DIRECTED fentaNYL citrate/PF [Sublimaze] 25 mcg IVPUSH ONCE ONE ondansetron HCL [Zofran] 4 mg IVPUSH ONCE ONE 06/17/20 12:25 Basic Metabolic Panel Stat Complete Blood Count Auto Diff Stat Lipase Stat Liver Panel Stat Magnesium Stat Partial Thromboplastin Time Stat Prothrombin Time INR Stat SLIDE REVIEW Stat 06/17/20 13:22 cefTRIAXone sodium [Rocephin] 1 gm 0.9 % Sodium Chloride [Ns] 50 ml IV ONCE 06/17/20 13:46 Lactic Acid Stat 06/17/20 14:31 cefTRIAXone sodium [Rocephin] 1 gm .ROUTE .STK-MED ONE 06/17/20 14:51 COVID-19 ID NOW (Haro) Stat 06/17/20 16:40 Transfer Order Routine 06/17/20 18:02 Ambulate QSHIFT WHILE AWAKE 06/17/20 Dinner Low Sodium Diet 06/17/20 21:00 Docusate Sodium [Colace] 100 mg PO BID 06/18/20 US renal BI Routine 06/18/20 06:40 Basic Metabolic Panel DAILY@0600 Complete Blood Count Auto Diff DAILY@0600 Prothrombin Time INR DAILY@0600 06/18/20 13:51 cefTRIAXone sodium [Rocephin] 1 gm .ROUTE .STK-MED ONE 06/19/20 NM renal imaging Urgent 06/19/20 05:30 Basic Metabolic Panel DAILY@0600 Prothrombin Time INR DAILY@0600 06/19/20 07:45 levoFLOXacin [Levaquin] 500 mg PO ONCE ONE 06/19/20 Breakfast NPO Diet 06/19/20 12:45 cefTRIAXone sodium [Rocephin] 1 gm .ROUTE .STK-MED ONE 06/19/20 13:54 Furosemide [Lasix] 40 mg .ROUTE .STK-MED ONE 06/19/20 14:47 Furosemide [Lasix] 40 mg IVPUSH ONCE ONE 06/19/20 16:58 levoFLOXacin [Levaquin] 500 mg .ROUTE .STK-MED ONE 06/19/20 17:00 Lactated Ringers [Lr] 1,000 ml IVCONT 50 mls/hr 06/19/20 18:06 FL guidance in OR Stat iohexoL 300 MG/ML [Omnipaque 300 MG/ML] 50 ml IV .STK-MED ONE 06/19/20 18:19 Lidocaine HCl 2 % MPF [Xylocaine 2 % MPF] 5 ml .ROUTE .STK-MED ONE ondansetron HCL [Zofran] 4 mg .ROUTE .STK-MED ONE propofoL [Diprivan] 200 mg IVPUSH .STK-MED ONE 06/19/20 18:20 fentaNYL citrate/PF [Sublimaze] 50 mcg .ROUTE .STK-MED ONE 06/19/20 18:44 Vital Signs Q1H Vital Signs Q5MIN 06/19/20 19:00 Transfer Order Routine 06/19/20 21:50 Nystatin Powder [Nystop Powder] 1 appl TOPICAL DAILY ONE 06/20/20 06:04 BMP [Basic Metabolic Panel Fasting] Routine Basic Metabolic Panel DAILY@0600 Complete Blood Count Auto Diff Routine Prothrombin Time INR DAILY@0600 Laboratory Last Values WBC 5.8 X10*3/uL (4.8-10.8) 06/20/20 06:04 RBC 3.45 X10*6/uL (4.20-5.50) L 06/20/20 06:04 Hgb 10.0 g/dl (12.0-16.0) L 06/20/20 06:04 Hct 31.3 % (37-47) L 06/20/20 06:04 MCV 90.7 fL (80-98) 06/20/20 06:04 MCH 29.0 pg (27.0-33.0) 06/20/20 06:04 MCHC 31.9 g/dl (31.0-35.0) 06/20/20 06:04 RDW 15.9 % (11.0-16.0) 06/20/20 06:04 Plt Count 341 X10*3/uL (160-400) 06/20/20 06:04 MPV 9.9 fL (9.4-12.3) 06/20/20 06:04 Immature Gran % (Auto) 0.3 % (0.0-0.4) 06/20/20 06:04 Neut % (Auto) 53.5 % (45-73) 06/20/20 06:04 Lymph % (Auto) 27.1 % (20-40) 06/20/20 06:04 [place] % (Auto) 15.1 % (2-11) H 06/20/20 06:04 Eos % (Auto) 3.5 % (0-4) 06/20/20 06:04 Baso % (Auto) 0.5 % (0-2) 06/20/20 06:04 Lymph # (Auto) 1.6 X10*3/uL (1.2-4.9) 06/20/20 06:04 [place] # (Auto) 0.9 X10*3/uL (0.1-1.2) 06/20/20 06:04 Eos # (Auto) 0.2 X10*3/uL (0.0-0.4) 06/20/20 06:04 Baso # (Auto) 0.0 X10*3/uL (0.0-0.2) 06/20/20 06:04 Abs Immat Gran (auto) 0.02 X10*3/uL (0.00-0.03) 06/20/20 06:04 Absolute Neuts (auto) 3.1 X10*3/uL (2.0-8.3) 06/20/20 06:04 Absolute Nucleated RBC 0.000 X10*3/uL (0.0-0.012) 06/20/20 06:04 Nucleated RBC % (auto) 0.0 /100WBC (0.0-0.2) 06/20/20 06:04 Smear Tech's Comments VERIFIED 06/17/20 12:25 PT 25.4 SEC (10.8-13.0) H 06/20/20 06:04 INR 2.1 (0.9-1.1) H 06/20/20 06:04 APTT 45.2 SEC (24.1-38.0) H 06/17/20 12:25 Sodium 139 mmol/L (135-145) 06/20/20 06:04 Sodium 140 mmol/L (135-145) 06/20/20 06:04 Potassium 3.7 mmol/l (3.3-5.1) 06/20/20 06:04 Potassium 3.8 mmol/l (3.3-5.1) 06/20/20 06:04 Chloride 98 mmol/L (96-108) 06/20/20 06:04 Chloride 98 mmol/L (96-108) 06/20/20 06:04 Carbon Dioxide 30 mmol/L (22-29) H 06/20/20 06:04 Carbon Dioxide 30 mmol/L (22-29) H 06/20/20 06:04 Anion Gap 15 (12-20) 06/20/20 06:04 Anion Gap 16 (12-20) 06/20/20 06:04 BUN 20 mg/dL (9-16) H 06/20/20 06:04 BUN 20 mg/dL (9-16) H 06/20/20 06:04 Creatinine 1.12 mg/dL (0.5-1.4) 06/20/20 06:04 Creatinine 1.12 mg/dL (0.5-1.4) 06/20/20 06:04 Estim Creat Clear Calc 48.5 06/20/20 06:04 Estim Creat Clear Calc 48.5 06/20/20 06:04 Estimated GFR 49 06/20/20 06:04 Estimated GFR 49 06/20/20 06:04 Random Glucose 84 mg/dL (60-115) 06/20/20 06:04 Fasting Glucose 84 mg/dL (60-99) 06/20/20 06:04 Lactic Acid 0.9 mmol/L (0.5-2.0) 06/17/20 13:46 Calcium 8.4 mg/dL (8.4-10.2) 06/20/20 06:04 Calcium 8.5 mg/dL (8.4-10.2) D 06/20/20 06:04 Magnesium 1.9 mg/dL (1.6-2.6) 06/17/20 12:25 Total Bilirubin 0.6 mg/dL (0.0-1.0) 06/17/20 12:25 Direct Bilirubin 0.3 mg/dL (0.0-0.5) 06/17/20 12:25 AST 12 U/L (5-31) 06/17/20 12:25 ALT 7 U/L (0-31) 06/17/20 12:25 Alkaline Phosphatase 100 U/L (39-117) 06/17/20 12:25 Total Protein 7.3 g/dL (6.5-8.0) 06/17/20 12:25 Albumin 3.5 g/dL (3.5-5.0) 06/17/20 12:25 Lipase 15 U/L (8-78) 06/17/20 12:25 Urine Color YELLOW 06/17/20 13:21 Urine Appearance CLOUDY 06/17/20 13:21 Urine pH 6.0 (5.0-8.0) 06/17/20 13:21 Ur Specific [place] 1.020 (1.005-1.025) 06/17/20 13:21 Urine Protein 2+ MG/DL (NEG-TRACE) H 06/17/20 13:21 Urine Glucose (UA) NEG MG/DL (NEG) 06/17/20 13:21 Urine Ketones NEG MG/DL (NEG) 06/17/20 13:21 Urine Blood 3+ (NEG) H 06/17/20 13:21 Urine Nitrite NEG (NEG) 06/17/20 13:21 Ur Leukocyte Esterase 3+ (NEG) H 06/17/20 13:21 Urine RBC 10-14 /HPF (0) H 06/17/20 13:21 Urine WBC TNTC /HPF (0-4) H 06/17/20 13:21 Ur Squamous Epith Cells TRACE /LPF 06/17/20 13:21 Urine Bacteria 1+ /LPF 06/17/20 13:21 COVID-19 (DEYSI) Negative (Negative) 06/17/20 14:51 COVID-19 Clin Com See Note 06/17/20 14:51 Preliminary micro results at discharge 06/17/20 13:47 Blood Culture - Preliminary Blood - Venous No growth after 48 hours. 06/17/20 13:47 Blood Culture - Preliminary Blood - Venous No growth after 48 hours. Discharge Plan Discharge Patient Disposition: Home, Self-Care Referrals: [facility] [place] [facility] [Other] Caregiver Home [Other] (Resume Adult Foster Care) Keith العلي MD [Primary Care Provider] - Discharge Medications: New cefuroxime axetil 500 mg tablet 500 mg PO Q12H Qty: 10 RF: 0 Continued amiodarone 200 mg Tablet 200 mg PO DAILY RF: 0 aspirin 81 mg Tablet 81 mg PO DAILY RF: 0 nitroglycerin 0.4 mg Tablet, Sublingual 0.4 mg SUBLINGUAL Q5M PRN (Reason: Chest Pain) RF: 0 docusate sodium 100 mg Capsule 100 mg PO BID RF: 0 omeprazole 20 mg Capsule,Delayed Release(Dr/Ec) 20 mg PO BID@0630,1630 RF: 0 multivitamin Capsule 1 cap PO DAILY RF: 0 cholecalciferol (vitamin D3) 50 mcg (2,000 unit) Capsule 50 mcg PO DAILY RF: 0 spironolactone 25 mg Tablet 25 mg PO QAM RF: 0 simvastatin 40 mg Tablet 40 mg PO BEDTIME RF: 0 calcium carbonate-vit D3-min 600 mg calcium- 400 unit tablet 1 tab PO BID Qty: 60 RF: 0 zolpidem 10 mg tablet 0.5 - 1 tab PO BEDTIME RF: 0 furosemide 40 mg tablet 40 mg PO QNOON RF: 0 ascorbic acid (vitamin C) [Vitamin C] 500 mg Tablet 500 mg PO DAILY RF: 0 oxycodone 10 mg tablet 1 tab PO TID PRN (Reason: pain) RF: 0 Entresto 24-26 mg Tablet 1 tab PO BID RF: 0 Enbrel SureClick 50 mg/mL (1 mL) pen injector 1 mg subcut QWEEK RF: 0 warfarin 3 mg tablet 3 mg PO DAILY Qty: 90 RF: 0 furosemide 80 mg tablet 80 mg PO BID RF: 0 metoprolol tartrate 25 mg tablet 25 mg PO BID RF: 0 Discharge Orders: Discharge Order (Routine); Ordered 06/20/20 Ordered By: Ortiz Comer Activity on Discharge: As tolerated Visit Report Forms: Patient Portal Discharge page Care Plan Goals: recvo[facility] Health Concerns: bladder prolapse Plan of Treatment: jorgein, follow up with and urogyn
--- NOTE | 2020-06-20 14:00 | MHC.CM.PN ---
Addendum entered by Susan Guardado RN 06/20/20 14:07: SISTER/HCP NOTIFIED OF APPT. Original Note: CM CONTACTED PCP DR. CACERES FOR REFERRAL FOR GYNECOLOGY APPT ON 07/07/19 AT 2:30PM. DISCHARGE HOME WITH RESUMPTION OF CARE
--- NOTE | 2020-06-20 14:10 | MHC.CM.PN ---
PT DISCHARGING HOME WITH RESUMPTION OF SERVICES, SISTER TO TRANSPORT, GYNECOLOGY APPT SCHEDULED PER SURGICAL REQUEST.
[2020-06-20 15:44] VITALS: BP 106/63; PULSE 80; RESP 18; TEMP 36.6; O2SAT 95
--- NOTE | 2020-06-20 18:36 | HO.POSTANES ---
Post Anesthesia Evaluation Post Anesthesia Evaluation Vital Signs: Vital Signs Temp Pulse Resp BP Pulse Ox 06/20/20 15:44 97.8 F 80 18 106/63 95 06/20/20 09:24 86 95/60 06/20/20 07:52 97.8 F 86 16 95/60 96 Anesthesia: General Mental Status: Awake Pain Control: Satisfactory Nausea/Vomiting: None Hydration: Adequate Anesthesia-Related Issues: No Anes. Related Issues
== END 2020-06-20 05:40 | disposition home or self-care (01) | DRG 854 ==
LOC: HO.ED 15:01 → HO.S3 17:20
PROVIDERS: Nurse Practitioner Acute Care; Urology; Admitting Provider Internal Medicine; Emergency Provider Emergency Medicine; PCP Internal Medicine; Visit Provider Internal Medicine
PROC: 0T788DZ Dilation of Bilateral Ureters with Intraluminal Device, Via Natural or Artificial Opening Endoscopic (ICD-10-PCS; principal; 2020-06-19 15:55)
DX: A41.9 Sepsis, unspecified organism (principal); N13.6 Pyonephrosis; I50.22 Chronic systolic (congestive) heart failure; N17.9 Acute kidney failure, unspecified; Z95.810 Presence of automatic (implantable) cardiac defibrillator; E78.5 Hyperlipidemia, unspecified; I11.0 Hypertensive heart disease with heart failure; Z86.73 Personal history of transient ischemic attack (TIA), and cerebral infarction without residual deficits; M06.9 Rheumatoid arthritis, unspecified; G89.29 Other chronic pain; N81.4 Uterovaginal prolapse, unspecified; E03.9 Hypothyroidism, unspecified; L30.9 Dermatitis, unspecified; I48.0 Paroxysmal atrial fibrillation; B96.20 Unspecified Escherichia coli [E. coli] as the cause of diseases classified elsewhere; L89.156 Pressure-induced deep tissue damage of sacral region; Z20.828 Contact with and (suspected) exposure to other viral communicable diseases; Z79.82 Long term (current) use of aspirin; Z79.01 Long term (current) use of anticoagulants; Z79.891 Long term (current) use of opiate analgesic; Z79.899 Other long term (current) drug therapy
CPT/HCPCS: 36415; 74176; 76775; 78700; 80048; 80076; 81001; 83605; 83690; 83735; 85025; 85610; 85730; 87040; 87086; 87088; 87186; 87635; 93005; 96365; 96375; 99285; A9539; C1758; C1769; C2617; J0696; J1940; J2405; J3010; Q9967

== ENCOUNTER 2020-07-04 13:31 | Inpatient (IN) | payer MEDICARE, SELFPAY ==
[2020-07-04] VITALS (11 sets, daily range): BP systolic 80–112; BP diastolic 32–57; PULSE 81–106; RESP 15–18; TEMP 36.6–39.1; O2SAT 95–98; BMI 37.3
[2020-07-04] MEDS: 0.9 % Sodium Chloride 500 ML IV (14:48)
[2020-07-04 14:56] LABS: Basophils Absolute Auto 0.1 X10*3/uL (0.0-0.2); Basophils Percent Auto 0.4 % (0-2); Eosinophils Absolute Auto 0.2 X10*3/uL (0.0-0.4); Eosinophils Percent Auto 1.4 % (0-4); Hematocrit 32.9 % (37-47); Hemoglobin 10.7 g/dl (12.0-16.0); Imm Gran Abs Auto 0.08 X10*3/uL (0.00-0.03); Imm Gran Pct Auto 0.5 % (0.0-0.4); Lymphocytes Absolute Auto 1.4 X10*3/uL (1.2-4.9); Lymphocytes Percent Auto 8.7 % (20-40); MANUAL DIFF FLAG SCAN; Mean Corpuscular HGB Conc 32.5 g/dl (31.0-35.0); Mean Corpuscular Hemoglobin 28.9 pg (27.0-33.0); Mean Corpuscular Volume 88.9 fL (80-98); Mean Platelet Volume 9.1 fL (9.4-12.3); Monocytes Absolute Auto 1.8 X10*3/uL (0.1-1.2); Monocytes Percent Auto 11.1 % (2-11); Neutrophils Absolute Auto 12.6 X10*3/uL (2.0-8.3); Neutrophils Percent Auto 77.9 % (45-73); Platelet Count 421 X10*3/uL (160-400); Red Cell Distribution Width 15.3 % (11.0-16.0); SCAN SMEAR FLAG 1; White Blood Count 16.2 X10*3/uL (4.8-10.8)
[2020-07-04 15:18] LABS: SLIDE REVIEW VERIFIED
[2020-07-04 15:30] LABS: Alanine Aminotransferase 7 U/L (0-31); Albumin Level 3.1 g/dL (3.5-5.0); Alkaline Phosphatase 89 U/L (39-117); Anion Gap 16 (12-20); Aspartate Amino Transferase 12 U/L (5-31); Bilirubin Total 0.2 mg/dL (0.0-1.0); Blood Urea Nitrogen 44 mg/dL (9-16); Calcium 7.9 mg/dL (8.4-10.2); Carbon Dioxide 30 mmol/L (22-29); Chloride 92 mmol/L (96-108); Creatinine Clr Calc Pharmacy 24.3; Estimated Glomerular Filt Rate 23; Glucose Random 106 mg/dL (60-115); Potassium 3.1 mmol/l (3.3-5.1); Sodium 135 mmol/L (135-145); Total Protein 6.6 g/dL (6.5-8.0)
[2020-07-04 16:46] LABS: Leukocytes Stool Qualitative NEGATIVE (NEGATIVE)
--- NOTE | 2020-07-04 16:57 | PC.NURSE ---
bp 84/35-md aware.1l ns began at 500ml hr. lung sounds clear
--- NOTE | 2020-07-04 17:08 | ED.NAVMDI ---
HPI - Nausea/Vomiting/Diarrhea General Chief complaint: Nausea/Vomiting/Diarrhea Stated complaint: nausea/vomiting,diarrhea/congestion Time Seen by Provider: 07/04/20 13:50 Source: patient Mode of arrival: ambulatory Limitations: no limitations History of Present Illness HPI Narrative: This is a 64-year-old primarily Kinyarwanda-speaking female with past medical history that is significant for systolic heart failure on Lasix, atrial fibrillation on amiodarone and chronically anticoagulated on Coumadin presenting with complaint of diarrhea. She states that she was here 1223 admitted for acute acute pyelonephritis subsequently also had stones status post ureteral stenting was given antibiotics here she felt well was sent home on Ceftin for 10 days she finished this antibiotic 3 days ago however ever since then has had profuse diarrhea. She denies any pain or discomfort. States her only concern today is the multiple episodes of diarrhea. He denies any fever chills. No flank pain. No dysuria. No hematuria. No chest pain shortness of breath. No lower extremity swelling. Related Data Home Medications Medication Instructions Recorded Confirmed amiodarone 200 mg PO DAILY 03/29/20 07/04/20 aspirin 81 mg PO DAILY 03/29/20 07/04/20 cholecalciferol (vitamin D3) 50 mcg PO DAILY 03/29/20 07/04/20 docusate sodium 100 mg PO BID PRN 03/29/20 07/04/20 multivitamin 1 cap PO DAILY 03/29/20 07/04/20 nitroglycerin 0.4 mg SUBLINGUAL Q5M PRN 03/29/20 07/04/20 omeprazole 20 mg PO BID@0630,1630 03/29/20 07/04/20 spironolactone 25 mg PO QAM 03/29/20 07/04/20 furosemide 80 mg tablet 80 mg PO BID 05/03/20 07/04/20 metoprolol tartrate 25 mg tablet 25 mg PO BID 05/03/20 07/04/20 Enbrel SureClick 1 mg SUBCUT QWEEK 06/17/20 07/04/20 Entresto 1 tab PO BID 06/17/20 07/04/20 ascorbic acid (vitamin C) [Vitamin 500 mg PO DAILY 06/17/20 07/04/20 C] furosemide 40 mg PO QNOON 12/19/20 01/05/21 oxycodone 1 tab PO TID PRN 06/17/20 07/04/20 zolpidem 0.5 - 1 tab PO BEDTIME 06/17/20 07/04/20 rosuvastatin 1 tab PO BEDTIME 07/04/20 07/04/20 Previous Rx's Medication Instructions Recorded calcium carbonate-vit D3-min 1 tab PO BID #60 tab 03/31/20 warfarin 3 mg tablet 3 mg PO DAILY #90 tab 05/03/20 Allergies Allergy/AdvReac Type Severity Reaction Status Date / Time No Known Food Allergies Allergy Unknown Verified 06/05/20 13:48 Review of Systems Review of Systems: Constitutional: No Weight loss, No Fever, No Chills, No Night Sweats, No Fatigue, No Malaise ENT/Mouth: No Hearing loss, No Ear Pain, No Nasal Congestion, No Sinus Pain, No Hoarseness, No sore throat, No Rhinorrhea, No Swallowing Difficulty Eyes: No Eye Pain, No Swelling, No Redness, No Foreign Body, No Discharge, No Vision Changes Cardiovascular: No Chest Pain, No SOB, No Dyspnea on Exertion, No Orthopnea, No Edema, No Palpitations Respiratory: No Cough, No Sputum, No Wheezing, No Smoke Exposure, No Dyspnea Gastrointestinal: No Nausea, No Vomiting, + Diarrhea, No Constipation, No abdominal Pain, No Hematochezia, No Melena Genitourinary: no irregular bleeding, No Dysuria, No Urinary Frequency, No Hematuria, No Urinary Incontinence, No Urgency, No Flank Pain, No Urinary Flow Changes, No Hesitancy Musculoskeletal: No joint pain, No Myalgias, No Joint Swelling Skin: No Skin Lesions, No rash Neuro: No Weakness, No Numbness, No Paresthesias, No Loss of Consciousness, No Dizziness, No Headache Psych: No Social Issues Heme/Lymph: No Bruising, No Bleeding,No Lymphadenopathy Endocrine: No Polyuria, No Polydipsia, No Temperature Intolerance Yes all other systems are reviewed and are negative [facility] Past Medical History Medical History (Updated 07/04/20 @ 20:22 by Dax Casey NP) Biventricular ICD (implantable cardioverter-defibrillator) in place Cardiomyopathy Paroxysmal atrial fibrillation with rapid ventricular response Prolapsed uterus Systolic heart failure Surgical History (Updated 07/04/20 @ 18:36 by Kate Hirsch NP) H/O cystoscopy H/O: section History of renal stent Previous back surgery Total knee replacement status Social History Social History Household Members: Unknown / Unable to assess Housing: House Alcohol intake: never Smoking Status: Former smoker Smoked in Last 30 Days: No Use of substances other than those prescribed or required for medical reasons: No Advance Directives: No Advance Directives Information Provided: No service: No Current occupational status: disabled Physical Exam Vital Signs: Vital Signs: Last Vital Signs Temp 98 F 07/04/20 13:48 Pulse 100 07/04/20 20:02 Resp 18 07/04/20 18:43 BP 91/46 L 07/04/20 20:02 Pulse Ox 96 07/04/20 18:43 Body Mass Index 37.3 Reviewed Const: General: cooperative; No acute distress Nutritional Appearance: average body habitus Orientation/consciousness: patient oriented x3 HENMT: Head: Yes normal to inspection Ears: hearing grossly normal bilaterally Eyes: General: appearance normal, both eyes and all related structures Visual Uriostegui: normal visual uriostegui by confrontation Neck: Neck: Yes normal visual inspection, No positive Brudzinski's sign, No positive Kernig's sign and No tender Thyroid: Thyroid normal Chest: Chest palpation & inspection: normal inspection of the chest Resp: Effort & Inspection: normal respiratory effort Auscultation: clear to auscultation bilaterally Cardio: Jugular venous distension: no JVD Rhythm: regular rhythm Heart sounds: S1 normal heart sound present and S2 normal heart sound present GI: Inspection: Yes normal to inspection Percussion: Yes normal to percussion Auscultation: normal bowel sounds : General: Yes no CVA tenderness Back/Spine/Pelvis: Back: no CVA tenderness Skin: General skin exam: no rashes or lesions noted Neuro: General: patient oriented x3 Extrem: General: Yes normal to inspection Course Course Course Narrative: Will check labs, clinically appears dry given history of cardiomyopathy will gradually hydrate with fluids. Does not meet any signs or symptoms of sepsis upon arrival. Reevaluation(s) Reevaluation #1: Labs AKA secondary to diarrhea question C diff status post 10 day course after an prior to onset of the diarrhea. Has not have any pain or discomfort here. Empiric dose of ceftriaxone given that she still has ureter stents. Gradual fluids. Case discussed with hospitalist for HERMELINDO/admission for further evaluation treatment. Consultations Consultation #1: Hospitalist MDM - Nausea/Vomiting/Diarrhea MDM Narrative Medical decision making narrative: Differential Diagnosis Differential diagnosis: Likely clostridium difficile infection, drug-induced nausea and vomiting and dehydration Medical Records Attestation: I reviewed the patient's medical records. Lab Data Attestation: I reviewed the patient's lab results. Result diagrams: 07/04/20 14:43 07/04/20 14:43 Labs: Lab Results 07/04/20 07/04/20 07/04/20 Range/Units 14:43 14:43 15:26 WBC 16.2 H (4.8-10.8) X10*3/uL RBC 3.70 L (4.20-5.50) X10*6/uL Hgb 10.7 L (12.0-16.0) g/dl Hct 32.9 L (37-47) % MCV 88.9 (80-98) fL MCH 28.9 (27.0-33.0) pg MCHC 32.5 (31.0-35.0) g/dl RDW 15.3 (11.0-16.0) % Plt Count 421 H (160-400) X10*3/uL MPV 9.1 L (9.4-12.3) fL Immature Gran % (Auto) 0.5 H (0.0-0.4) % Neut % (Auto) 77.9 H (45-73) % Lymph % (Auto) 8.7 L (20-40) % [place] % (Auto) 11.1 H (2-11) % Eos % (Auto) 1.4 (0-4) % Baso % (Auto) 0.4 (0-2) % Lymph # (Auto) 1.4 (1.2-4.9) X10*3/uL [place] # (Auto) 1.8 H (0.1-1.2) X10*3/uL Eos # (Auto) 0.2 (0.0-0.4) X10*3/uL Baso # (Auto) 0.1 (0.0-0.2) X10*3/uL Abs Immat Gran (auto) 0.08 H (0.00-0.03) X10*3/uL Absolute Neuts (auto) 12.6 H (2.0-8.3) X10*3/uL Absolute Nucleated RBC 0.000 (0.0-0.012) X10*3/uL Nucleated RBC % (auto) 0.0 (0.0-0.2) /100WBC Smear Tech's Comments VERIFIED Sodium 135 (135-145) mmol/L Potassium 3.1 L (3.3-5.1) mmol/l Chloride 92 L (96-108) mmol/L Carbon Dioxide 30 H (22-29) mmol/L Anion Gap 16 (12-20) BUN 44 H D (9-16) mg/dL Creatinine 2.16 H (0.5-1.4) mg/dL Estim Creat Clear Calc 24.3 Estimated GFR 23 Random Glucose 106 (60-115) mg/dL Lactic Acid (0.5-2.0) mmol/L Calcium 7.9 L (8.4-10.2) mg/dL Total Bilirubin 0.2 (0.0-1.0) mg/dL AST 12 (5-31) U/L ALT 7 (0-31) U/L Alkaline Phosphatase 89 (39-117) U/L Total Protein 6.6 (6.5-8.0) g/dL Albumin 3.1 L (3.5-5.0) g/dL Stool Leukocytes, Qual NEGATIVE (NEGATIVE) COVID-19 (DEYSI) (Negative) COVID-19 Clin Com 07/04/20 07/04/20 Range/Units 17:18 17:47 WBC (4.8-10.8) X10*3/uL RBC (4.20-5.50) X10*6/uL Hgb (12.0-16.0) g/dl Hct (37-47) % MCV (80-98) fL MCH (27.0-33.0) pg MCHC (31.0-35.0) g/dl RDW (11.0-16.0) % Plt Count (160-400) X10*3/uL MPV (9.4-12.3) fL Immature Gran % (Auto) (0.0-0.4) % Neut % (Auto) (45-73) % Lymph % (Auto) (20-40) % [place] % (Auto) (2-11) % Eos % (Auto) (0-4) % Baso % (Auto) (0-2) % Lymph # (Auto) (1.2-4.9) X10*3/uL [place] # (Auto) (0.1-1.2) X10*3/uL Eos # (Auto) (0.0-0.4) X10*3/uL Baso # (Auto) (0.0-0.2) X10*3/uL Abs Immat Gran (auto) (0.00-0.03) X10*3/uL Absolute Neuts (auto) (2.0-8.3) X10*3/uL Absolute Nucleated RBC (0.0-0.012) X10*3/uL Nucleated RBC % (auto) (0.0-0.2) /100WBC Smear Tech's Comments Sodium (135-145) mmol/L Potassium (3.3-5.1) mmol/l Chloride (96-108) mmol/L Carbon Dioxide (22-29) mmol/L Anion Gap (12-20) BUN (9-16) mg/dL Creatinine (0.5-1.4) mg/dL Estim Creat Clear Calc Estimated GFR Random Glucose (60-115) mg/dL Lactic Acid 0.6 (0.5-2.0) mmol/L Calcium (8.4-10.2) mg/dL Total Bilirubin (0.0-1.0) mg/dL AST (5-31) U/L ALT (0-31) U/L Alkaline Phosphatase (39-117) U/L Total Protein (6.5-8.0) g/dL Albumin (3.5-5.0) g/dL Stool Leukocytes, Qual (NEGATIVE) COVID-19 (DEYSI) Negative (Negative) COVID-19 Clin Com See Note Discharge Plan Discharge Clinical Impression: Dehydration, HERMELINDO (acute kidney injury), Diarrhea Patient Disposition: Admitted As Inpatient Prescriptions: No Action amiodarone 200 mg Tablet 200 mg PO DAILY RF: 0 aspirin 81 mg Tablet 81 mg PO DAILY RF: 0 nitroglycerin 0.4 mg Tablet, Sublingual 0.4 mg SUBLINGUAL Q5M PRN (Reason: Chest Pain) RF: 0 docusate sodium 100 mg Capsule 100 mg PO BID PRN (Reason: Constipation) RF: 0 omeprazole 20 mg Capsule,Delayed Release(Dr/Ec) 20 mg PO BID@0630,1630 RF: 0 multivitamin Capsule 1 cap PO DAILY RF: 0 cholecalciferol (vitamin D3) 50 mcg (2,000 unit) Capsule 50 mcg PO DAILY RF: 0 spironolactone 25 mg Tablet 25 mg PO QAM RF: 0 calcium carbonate-vit D3-min 600 mg calcium- 400 unit tablet 1 tab PO BID Qty: 60 RF: 0 rosuvastatin 20 mg tablet 1 tab PO BEDTIME RF: 0 zolpidem 10 mg tablet 0.5 - 1 tab PO BEDTIME RF: 0 furosemide 40 mg tablet 40 mg PO QNOON RF: 0 ascorbic acid (vitamin C) [Vitamin C] 500 mg Tablet 500 mg PO DAILY RF: 0 oxycodone 10 mg tablet 1 tab PO TID PRN (Reason: pain) RF: 0 Entresto 24-26 mg Tablet 1 tab PO BID RF: 0 Enbrel SureClick 50 mg/mL (1 mL) pen injector 1 mg subcut QWEEK RF: 0 warfarin 3 mg tablet 3 mg PO DAILY Qty: 90 RF: 0 furosemide 80 mg tablet 80 mg PO BID RF: 0 metoprolol tartrate 25 mg tablet 25 mg PO BID RF: 0
[2020-07-04 17:49] LABS: COVID-19 Test Negative (Negative)
[2020-07-04] MEDS: cefTRIAXone sodium 1 GM in 0.9 % Sodium Chloride 50 ML IV (17:49)
--- NOTE | 2020-07-04 17:52 | P.HPHOSP_ITS ---
History of Present Illness Date of Service: 07/04/20 <Kate Hirsch NP - Last Filed: 07/04/20 18:43> Chief Complaint: Diarrhea <Kate Hirsch NP - Last Filed: 07/04/20 18:43> 64 year old women presenting with 4 days of diarrhea. She had a cystoscopy and stent placement on 06/19/20, She has a history of chronic urinary retension. She completed a dose of ceftin and soon after began having diarrhea. She denied fever, chills, abdominal pain, nausea or vomiting. She did report poor appetite and drinking mostly pedialyte. She had leukocytosis of 16 with no fever. Renal function abnormal as well. She was given Rocephin for presumed UTI. She will be admitted for further management of diarrhea possibly secondary to C-diff, HERMELINDO and dehydration. <Kate Hirsch NP - Last Filed: 07/04/20 18:43> Review of Systems Review of Systems: Denies any recent fever chills or decrease in appetite respiratory denies any shortness of breath coverage production cardiovascular is adjustment of any PND or edema gastrointestinal See HPI genitourinary Chronic retension musculoskeletal denies any joint pain or swelling neuropsych denies any weakness or seizures all other systems reviewed are negative <Kate Hirsch NP - Last Filed: 07/04/20 18:43> [facility] Medical History: Medical History (Updated 07/17/20 @ 00:00 by Lc Christy) HERMELINDO (acute kidney injury) Biventricular ICD (implantable cardioverter-defibrillator) in place Cardiomyopathy Chronic systolic heart failure Hydronephrosis Hypotension Paroxysmal atrial fibrillation with rapid ventricular response Prolapsed uterus Systolic heart failure Urinary retention <Kate Hirsch NP - Last Filed: 07/04/20 18:43> Surgical History: Surgical History H/O cystoscopy H/O: section History of renal stent Previous back surgery Total knee replacement status <Kate Hirsch NP - Last Filed: 07/04/20 18:43> Social History: Social History Household Members: Family and Children Housing: House Alcohol intake: never Smoking Status: Former smoker service: No Current occupational status: disabled <Kate Hirsch NP - Last Filed: 07/04/20 18:43> Meds Allergies/Adverse reactions: Allergies Allergy/AdvReac Type Severity Reaction Status Date / Time No Known Food Allergies Allergy Unknown Verified 06/05/20 13:48 <Kate Hirsch NP - Last Filed: 07/04/20 18:43> Home medications: Home Medications Medication Instructions Recorded Confirmed Type amiodarone 200 mg PO DAILY 03/29/20 07/04/20 History aspirin 81 mg PO DAILY 03/29/20 07/04/20 History cholecalciferol (vitamin D3) 50 mcg PO DAILY 03/29/20 07/04/20 History docusate sodium 100 mg PO BID PRN 03/29/20 07/04/20 History multivitamin 1 cap PO DAILY 03/29/20 07/04/20 History nitroglycerin 0.4 mg SUBLINGUAL Q5M PRN 03/29/20 07/04/20 History omeprazole 20 mg PO BID@0630,1630 03/29/20 07/04/20 History spironolactone 25 mg PO QAM 03/29/20 07/04/20 History furosemide 80 mg tablet 80 mg PO BID 05/03/20 07/04/20 History Enbrel SureClick 1 mg SUBCUT QWEEK 06/17/20 07/04/20 History Entresto 1 tab PO BID 06/17/20 07/04/20 History ascorbic acid (vitamin C) [Vitamin 500 mg PO DAILY 06/17/20 07/04/20 History C] furosemide 40 mg PO QNOON 06/17/20 07/04/20 History oxycodone 1 tab PO TID PRN 06/17/20 07/04/20 History zolpidem 0.5 - 1 tab PO BEDTIME 06/17/20 07/04/20 History rosuvastatin 1 tab PO BEDTIME 07/04/20 07/04/20 History <Kate Hirsch NP - Last Filed: 07/04/20 18:43> Physical Exam Vital Signs and Narrative: Vital Signs: Last Vital Signs Temp 98 F 07/04/20 13:48 Pulse 105 H 07/04/20 17:20 Resp 18 07/04/20 17:20 BP 112/53 L 07/04/20 17:20 Pulse Ox 96 07/04/20 15:52 Body Mass Index 37.3 <Kate Hirsch NP - Last Filed: 07/04/20 18:43> Appearing in no acute distress head is normocephalic atraumatic eyes pupils are PERRLA sclera is anicteric mouth throat mucous membranes are intact and moist neck is supple no lymphadenopathy, no JVD noted lung sounds are clear to auscultation heart regular rate rhythm positive bowel sounds, abdomen is soft, nontender neuro patient is alert x3, no focal deficits <Kate Hirsch NP - Last Filed: 07/04/20 18:43> Results Labs CBC and Chem 7: : 07/09/20 05:55 07/09/20 05:55 <Kate Hirsch NP - Last Filed: 07/04/20 18:43> Labs: Laboratory Results - last 24 hr 07/04/20 07/04/20 07/04/20 14:43 14:43 15:26 MCV 88.9 MCH 28.9 MCHC 32.5 RDW 15.3 Plt Count 421 H MPV 9.1 L Immature Gran % (Auto) 0.5 H Neut % (Auto) 77.9 H Lymph % (Auto) 8.7 L [place] % (Auto) 11.1 H Eos % (Auto) 1.4 Baso % (Auto) 0.4 Lymph # (Auto) 1.4 [place] # (Auto) 1.8 H Eos # (Auto) 0.2 Baso # (Auto) 0.1 Abs Immat Gran (auto) 0.08 H Absolute Neuts (auto) 12.6 H Absolute Nucleated RBC 0.000 Nucleated RBC % (auto) 0.0 Smear Tech's Comments VERIFIED Anion Gap 16 Estim Creat Clear Calc 24.3 Estimated GFR 23 Random Glucose 106 Calcium 7.9 L Total Bilirubin 0.2 AST 12 ALT 7 Alkaline Phosphatase 89 Total Protein 6.6 Albumin 3.1 L Stool Leukocytes, Qual NEGATIVE COVID-19 (DEYSI) COVID-19 Clin Com 07/04/20 17:18 MCV MCH MCHC RDW Plt Count MPV Immature Gran % (Auto) Neut % (Auto) Lymph % (Auto) [place] % (Auto) Eos % (Auto) Baso % (Auto) Lymph # (Auto) [place] # (Auto) Eos # (Auto) Baso # (Auto) Abs Immat Gran (auto) Absolute Neuts (auto) Absolute Nucleated RBC Nucleated RBC % (auto) Smear Tech's Comments Anion Gap Estim Creat Clear Calc Estimated GFR Random Glucose Calcium Total Bilirubin AST ALT Alkaline Phosphatase Total Protein Albumin Stool Leukocytes, Qual COVID-19 (DEYSI) Negative COVID-19 Clin Com See Note <Kate Hirsch NP - Last Filed: 07/04/20 18:43> Assessment and Plan (1) HERMELINDO (acute kidney injury): Status: Resolved <Kate Hirsch NP - Last Filed: 07/04/20 18:43> 64 year old women admitted with diarrhea and HERMELINDO. Finished course of Ceftin and cystoscopy. Sepsis. Leukocytosis, tachycardia. Normal Lactic acid. Follow blood cultures. HERMELINDO secondary to diarrhea and dehydration. IV fluids, avoid nephrotoxins. If no improvement seen consider nephrology consultation. Hypotension. Secondary to dehydration. Improved. Dehydration secondary to diarrhea. Recent course of antibiotics, completed Ceftin. Will check stool studies, presumed C-diff. CMP. Continue Entresto, hold Lasix and spironolactone for now d/t hermelindo. Afib. Heart rate controlled. Continue Amiodarone, metoprolol and warfarin. DVT prophylaxis with warfarin Discussed with Dr. Mclean Full code <Kate Hirsch NP - Last Filed: 07/04/20 18:43>
[2020-07-04 18:19] LABS: Lactic Acid 0.6 mmol/L (0.5-2.0)
[2020-07-04] MEDS: Potassium Chloride ER 20 MEQ TAB.ER.PRT PO (18:37)
[2020-07-04] MEDS: Potassium Chloride/H20 10 MEQ/100 ML PIGGYBACK 100 MEQ IV (18:37)
--- NOTE | 2020-07-04 18:43 | PC.NURSE ---
mlp aware of bp 81/43. awaiting orders at this time.
--- NOTE | 2020-07-04 19:16 | PC.NURSE ---
Pt to be changed to [facility] bed. per reina the hospitalist, permeters to be set regarding permissive hypotention of systoic less than 85 to contact hospitalist. Nursing stock ranch supervisor Loretta aware and approved plan to have patient in [facility].
[2020-07-04] MEDS: Midodrine HCl 5 MG TABLET PO (20:02)
[2020-07-04 20:22] LABS: Prothrombin Time 106.6 SEC (10.8-13.0)
[2020-07-04 20:34] LABS: INTERNATIONAL NORM RATIO 8.8 (0.9-1.1)
[2020-07-04] MEDS: Acetaminophen 325 MG TABLET 975 MG PO (20:48)
--- NOTE | 2020-07-04 20:48 | PC.NURSE ---
open pressure wound noted on buttock. Camera is broken. graphic design intern aware.
--- NOTE | 2020-07-04 20:55 | PC.NURSE ---
attempted to call report. rn unavailable. awaiting call back at this time.
[2020-07-04] MEDS: 0.9 % Sodium Chloride 500 ML 50 ML IV (22:31)
[2020-07-04] MEDS: Zolpidem Tartrate 5 MG TABLET PO (22:32)
[2020-07-04] MEDS: Lactated Ringers 500 ML 999 ML IVCONT (23:24)
[2020-07-05] VITALS (13 sets, daily range): BP systolic 76–99; BP diastolic 40–52; PULSE 84–109; RESP 17–20; TEMP 36.6–37.4; O2SAT 94–97; BMI 37.3
--- NOTE | 2020-07-05 | XR_ITS ---
EXAMINATION: XR CHEST CLINICAL INFORMATION: Hypotension. Cardiomyopathy. COMPARISON: Previous chest x-rays most recent February 2010 TECHNIQUE: Frontal view of the chest was obtained. FINDINGS: The cardiac silhouette is enlarged but stable. There is a left subclavian pacemaker defibrillator that appears unchanged. There may be pulmonary venous redistribution. The lungs are clear without evidence of pulmonary edema or pneumonia. There is no pleural effusion. There are degenerative changes of the spine. XR/XR chest 1V IMPRESSION: Enlarged cardiac silhouette and pulmonary venous redistribution. No evidence of pulmonary edema or pneumonia.
--- NOTE | 2020-07-05 | US_ITS ---
EXAMINATION: US RETROPERITONEAL LIMITED (RENAL ONLY) CLINICAL INFORMATION: Acute kidney insufficiency. Pyelonephritis.. COMPARISON: Previous renal ultrasound most recent 06/18/[address] of the abdomen and pelvis May 2020 and nuclear medicine renal scan May 2020 TECHNIQUE: Grayscale and color imaging of the kidneys FINDINGS: RIGHT KIDNEY: 13.8 x 5.6 x 5.3 cm (SAG x AP x TRV). The right kidney is slightly enlarged. The kidney is normal in contour, and echogenicity. Renal cortical thickness is normal. There is moderate hydronephrosis similar to previous exams. There is a 5.7 x 3.8 x 4.9 cm cyst in the midpole. No renal stone, mass or perinephric collection.. LEFT KIDNEY: 10 x 5 x 6.4 cm (SAG x AP x TRV). The kidney is normal in size, contour, and echogenicity. Renal cortical thickness is normal. There is moderate hydronephrosis similar to previous exam. There is a 2.3 x 2.2 x 2.5 cm cyst in the lower pole. No renal stone, mass or perinephric collection US/US renal BI IMPRESSION: Mildly enlarged right kidney. Moderate bilateral hydronephrosis similar to previous exams. Bilateral renal cysts.
[2020-07-05 04:27] LABS: Basophils Percent Auto 0.2 % (0-2); Eosinophils Absolute Auto 0.1 X10*3/uL (0.0-0.4); Eosinophils Percent Auto 0.6 % (0-4); Hematocrit 29.9 % (37-47); Hemoglobin 9.7 g/dl (12.0-16.0); Imm Gran Pct Auto 0.6 % (0.0-0.4); Lymphocytes Absolute Auto 0.6 X10*3/uL (1.2-4.9); Lymphocytes Percent Auto 4.1 % (20-40); MANUAL DIFF FLAG SCAN; Mean Corpuscular HGB Conc 32.4 g/dl (31.0-35.0); Mean Corpuscular Hemoglobin 28.8 pg (27.0-33.0); Mean Corpuscular Volume 88.7 fL (80-98); Mean Platelet Volume 9.2 fL (9.4-12.3); Monocytes Percent Auto 12.7 % (2-11); Neutrophils Absolute Auto 12.6 X10*3/uL (2.0-8.3); Neutrophils Percent Auto 81.8 % (45-73); Platelet Count 379 X10*3/uL (160-400); Red Blood Count 3.37 X10*6/uL (4.20-5.50); Red Cell Distribution Width 15.1 % (11.0-16.0); SCAN SMEAR FLAG 1; White Blood Count 15.4 X10*3/uL (4.8-10.8)
[2020-07-05 04:37] LABS: INTERNATIONAL NORM RATIO 9.4 (0.9-1.1)
[2020-07-05] MEDS: 0.9 % Sodium Chloride 1,000 ML 30 ML IV (04:37)
[2020-07-05 04:39] LABS: Prothrombin Time 114.3 SEC (10.8-13.0)
[2020-07-05 04:42] LABS: Lactic Acid 1.1 mmol/L (0.5-2.0)
[2020-07-05 04:49] LABS: SLIDE REVIEW VERIFIED
[2020-07-05 05:08] LABS: Anion Gap 17 (12-20); Blood Urea Nitrogen 38 mg/dL (9-16); Calcium 7.2 mg/dL (8.4-10.2); Carbon Dioxide 23 mmol/L (22-29); Chloride 100 mmol/L (96-108); Creatinine Clr Calc Pharmacy 31.3; Estimated Glomerular Filt Rate 31; Glucose Random 121 mg/dL (60-115); Sodium 137 mmol/L (135-145)
[2020-07-05] MEDS: 0.9 % Sodium Chloride 1,000 ML 1000 ML IV (06:40)
[2020-07-05] MEDS: Piperacillin Sodium/Tazobactam 3.375 GM in 0.9 % Sodium Chloride 50 ML IV ×3 (06:40→17:30)
[2020-07-05] MEDS: Omeprazole 20 MG CAPSULE.DR PO ×2 (06:44→17:31)
--- NOTE | 2020-07-05 06:52 | PM.EVENT ---
Event Note Date of Service: 07/05/20 Event Note: pt hypotensive, bradycardic labs obtained including BMP, CBC, Lactic acid, blood cultures, and upgraded antibiotics to zosyn. Will obtain UA, pending c.diff start IVF 30cc/kg
[2020-07-05] MEDS: Phytonadione (Vit K1) 5 MG in 0.9 % Sodium Chloride 50 ML 50.5 MG IV (07:41)
--- NOTE | 2020-07-05 08:31 | MHC.CM.PN ---
CM was unable to speak with Patient via phone (Covid precautions); CM spoke with Sister/HCP/Lupe @ [phone].Patient lives in a Foster Home setting with her Sister/Caregiver/HCP/Lupe and her 33 year old Son and she is w/c bound at baseline. The goal for dc is for Patient to return home and resume present services. CM has initiated and will follow for dc planning. IMM addressed with Lupe and the original will be mailed out certified letter to her and a copy has been placed on the chart. PCP is Dr. Keith العلي.
[2020-07-05] MEDS: Multivitamin TABLET 1 TAB PO (09:03)
[2020-07-05] MEDS: Amiodarone HCL 200 MG TABLET PO (09:03)
[2020-07-05] MEDS: Aspirin 81 MG TAB.CHEW PO (09:03)
[2020-07-05] MEDS: Cholecalciferol (Vitamin D3) 25 MCG TABLET 50 MCG PO (09:03)
[2020-07-05] MEDS: Calcium + Vitamin D 250 MG TABLET 500 MG PO ×2 (09:04→21:00)
[2020-07-05] MEDS: Ascorbic Acid 500 MG TABLET PO (09:04)
[2020-07-05 09:23] LABS: C Reactive Protein 22.53 mg/dL (< or = 0.50); Magnesium 1.6 mg/dL (1.6-2.6)
[2020-07-05] MEDS: 0.9 % Sodium Chloride Flush 3 ML SYRINGE IVFLUSH ×2 (09:32→17:30)
[2020-07-05] MEDS: 0.9 % Sodium Chloride 1,000 ML 50 ML IVCONT (09:33)
[2020-07-05] MEDS: Potassium Chloride/H20 10 MEQ/100 ML PIGGYBACK 100 MEQ IV ×2 (09:39→14:32)
[2020-07-05] MEDS: Phytonadione (Vit K1) Oral 10 MG/ML AMPUL PO (09:54)
[2020-07-05] MEDS: 0.9 % Sodium Chloride 1,000 ML 999 ML IV (12:02)
[2020-07-05 12:59] LABS: B Type Natriuretic Peptide 3041 pg/mL (<100)
[2020-07-05 13:06] LABS: Lactic Acid 0.8 mmol/L (0.5-2.0)
[2020-07-05] MEDS: Albumin Human 25 % 100 ML IV ×2 (13:40→21:01)
[2020-07-05 16:08] LABS: Glucose Urine UA NEG (NEG); Leukocyte Esterase Urine 2+ (NEG); Nitrite Urine NEG (NEG); PH 5.5 (5.0-8.0); Urine Blood 2+ (NEG); Urine Ketones NEG (NEG); Urine Protein 1+ MG/DL (NEG-TRACE)
[2020-07-05 16:09] LABS: Appearance Urine HAZY; Color Urine YELLOW
[2020-07-05 16:21] LABS: WBC Urine 30-49 /HPF (0-4)
[2020-07-05 16:22] LABS: Bacteria Urine 1+ /LPF
--- NOTE | 2020-07-05 17:44 | P.EN_ITS ---
Event Note Date of Service: 07/04/20 Event Note: I interviewed and examined the patient. I discussed their present ation and management with the mid-level provider. I reviewed the history and physical and agree with the documentation, with the following additions and corrections: 64yo M with chronic HFrEF, dilated cardiomyopathy (LVEF 10% 03/28/20), AF, uterine prolapse, hydronephrosis with recent bilateral ureteral stents placed 06/17/[address] Healy recent UTI treated wt cefuroxime presenting with diarrhea found to have acute kidney injury septic by virtue of leukocytosis + tachycardia on exam ,in NAD lungs clear normal S1 S2, S4 present abd soft/NT ext no edema no focal neuro findings WBC 16.2 K 3.1 SCr 2.16 baseline 1.12 INR 8.8 # sepsis - follow Bcx, send UCx, given dose of ceftriaxone # UTI associated with stents - Urology consultation, ceftriaxone # HERMELINDO, prerenal - IV fluids with caution given HFrEF; hold diuretics. # hypotension - likely due to dehydration, also chronically low due to HFrEF # HFrEF/dilated CM - continue Entresto + metoprolol. hold furosemide + spironolactone # AF - continue amiodarone, metoprolol; hold warfarin # supratherapeutic INR - vitamin K, monitor INR, hold warfarin # VTE ppx - on warfarin, INR supratherapeutic # Code -FULL
--- NOTE | 2020-07-05 17:53 | P.PNIM_ITS ---
Subjective Subjective Date of Service: 07/05/20 Interval History: Febrile to 102.4 last night BP low in the 70s/40s despite 2.5L of IV fluids overnight Denies lightheadedness No chest pain or dyspnea Physical Exam Vital Signs: Vital Signs: Last Vital Signs Temp 99.4 F 07/05/20 14:56 Pulse 106 H 07/05/20 17:08 Resp 18 07/05/20 14:56 BP 91/50 L 07/05/20 17:08 Pulse Ox 97 07/05/20 14:56 Body Mass Index 37.3 Gen: in no acute distress HEENT: sclera anicteric, moist mucus membranes Neck: supple Lungs: clear to auscultation bilaterally Heart: regular rate and rhythm, no murmurs, S4 present Abd: soft, non-tender, non-distended Ext: no edema Skin: warm/well-perfused Neuro: alert and oriented x3, no focal findings Psych: appropriate affect Objective Data Current Medications Generic Name Dose Route Start Last Admin Trade Name Freq PRN Reason Stop Dose Admin Acetaminophen 650 mg 07/04/20 21:26 Acetaminophen 325 Mg Tablet PO Q6H PRN Pain, Mild (Pain Scale 1-3) Amiodarone HCl 200 mg 07/05/20 09:00 07/05/20 09:03 Amiodarone Hcl 200 Mg Tablet PO 200 mg DAILY KEMAL Administration Ascorbic Acid 500 mg 07/05/20 09:00 07/05/20 09:04 Ascorbic Acid 500 Mg Tablet PO 500 mg DAILY KEMAL Administration Aspirin 81 mg 07/05/20 09:00 07/05/20 09:03 Aspirin 81 Mg Tab.Chew PO 81 mg DAILY KEMAL Administration Atorvastatin Calcium 80 mg 07/05/20 21:00 Atorvastatin Calcium 80 Mg Tablet PO BEDTIME [facility] Calcium Carbonate/Cholecalciferol 500 mg 07/05/20 09:00 07/05/20 09:04 Calcium + Vitamin D 250 Mg Tablet PO 500 mg BID KEMAL Administration Docusate Sodium 100 mg 07/04/20 21:26 Docusate Sodium 100 Mg Capsule PO BID PRN Constipation Piperacillin Sod/Tazobactam 50 mls @ 100 mls/hr 07/05/20 06:15 07/05/20 17:30 Sod 3.375 gm/ Sodium Chloride IV 100 mls/hr Q6H KEMAL Administration Albumin Human 100 mls @ 100 mls/hr 07/05/20 13:45 07/05/20 14:42 Kedbumin 25 % IV 07/06/20 08:44 Infused Q6H [facility] Infusion Multivitamins/Vitamin C 1 tab 07/05/20 09:00 07/05/20 09:03 Multivitamin Tablet PO 1 tab DAILY KEMAL Administration Nitroglycerin 0.4 mg 07/04/20 21:26 Nitroglycerin 0.4 Mg Tab.Subl SUBLINGUAL Q5M PRN Chest Pain Omeprazole 20 mg 07/05/20 06:30 07/05/20 17:31 Omeprazole 20 Mg Capsule. PO 20 mg BID@0630,1630 [facility] Administration Ondansetron HCl 4 mg 07/04/20 21:26 Ondansetron Hcl 4 Mg/2 Ml Vial IVPUSH Q8H PRN Nausea and Vomiting Oxycodone HCl 10 mg 07/04/20 21:26 Oxycodone Hcl Immed Release 5 Mg Tablet PO TID PRN pain Pharmacy Consult 1 each 07/04/20 17:04 Consult Rx Perform Med Rec MISCELLANE ONCE PRN Consult order Sodium Chloride 3 ml 07/05/20 00:00 07/05/20 17:30 0.9 % Sodium Chloride Flush 3 Ml Syringe IVFLUSH 3 ml QSHIFT [facility] Administration Vitamin D 50 mcg 07/05/20 09:00 07/05/20 09:03 Cholecalciferol (Vitamin D3) 25 Mcg Tablet PO 50 mcg DAILY KEMAL Administration Labs CBC & Chem 7: 07/05/20 04:07 07/05/20 04:07 Labs: Laboratory Results - last 24 hr 07/04/20 07/04/20 07/04/20 15:26 17:47 20:06 WBC RBC Hgb Hct MCV MCH MCHC RDW Plt Count MPV Immature Gran % (Auto) Neut % (Auto) Lymph % (Auto) [place] % (Auto) Eos % (Auto) Baso % (Auto) Lymph # (Auto) [place] # (Auto) Eos # (Auto) Baso # (Auto) Abs Immat Gran (auto) Absolute Neuts (auto) Absolute Nucleated RBC Nucleated RBC % (auto) Smear Tech's Comments PT 106.6 H D INR 8.8 H* D Sodium Potassium Chloride Carbon Dioxide Anion Gap BUN Creatinine Estim Creat Clear Calc Estimated GFR Random Glucose Lactic Acid 0.6 Calcium Magnesium C-Reactive Protein B-Natriuretic Peptide Urine Color Urine Appearance Urine pH Ur Specific [place] Urine Protein Urine Glucose (UA) Urine Ketones Urine Blood Urine Nitrite Ur Leukocyte Esterase Urine RBC Urine WBC Ur Squamous Epith Cells Urine Bacteria C. difficile Toxin A&B TNP C. difficile Antigen TNP C. difficile Interpret TNP 07/05/20 07/05/20 07/05/20 04:06 04:07 04:07 WBC Cancelled RBC Cancelled Hgb Cancelled Hct Cancelled MCV Cancelled MCH Cancelled MCHC Cancelled RDW Cancelled Plt Count Cancelled MPV Cancelled Immature Gran % (Auto) Cancelled Neut % (Auto) Cancelled Lymph % (Auto) Cancelled [place] % (Auto) Cancelled Eos % (Auto) Cancelled Baso % (Auto) Cancelled Lymph # (Auto) Cancelled [place] # (Auto) Cancelled Eos # (Auto) Cancelled Baso # (Auto) Cancelled Abs Immat Gran (auto) Cancelled Absolute Neuts (auto) Cancelled Absolute Nucleated RBC Cancelled Nucleated RBC % (auto) Cancelled Smear Tech's Comments PT 114.3 H INR 9.4 H* Sodium Potassium Chloride Carbon Dioxide Anion Gap BUN Creatinine Estim Creat Clear Calc Estimated GFR Random Glucose Lactic Acid 1.1 Calcium Magnesium C-Reactive Protein B-Natriuretic Peptide Urine Color Urine Appearance Urine pH Ur Specific [place] Urine Protein Urine Glucose (UA) Urine Ketones Urine Blood Urine Nitrite Ur Leukocyte Esterase Urine RBC Urine WBC Ur Squamous Epith Cells Urine Bacteria C. difficile Toxin A&B C. difficile Antigen C. difficile Interpret 07/05/20 07/05/20 07/05/20 04:07 04:07 04:07 WBC 15.4 H RBC 3.37 L Hgb 9.7 L Hct 29.9 L MCV 88.7 MCH 28.8 MCHC 32.4 RDW 15.1 Plt Count 379 MPV 9.2 L Immature Gran % (Auto) 0.6 H Neut % (Auto) 81.8 H Lymph % (Auto) 4.1 L [place] % (Auto) 12.7 H Eos % (Auto) 0.6 Baso % (Auto) 0.2 Lymph # (Auto) 0.6 L [place] # (Auto) 2.0 H Eos # (Auto) 0.1 Baso # (Auto) 0.0 Abs Immat Gran (auto) 0.10 H Absolute Neuts (auto) 12.6 H Absolute Nucleated RBC 0.000 Nucleated RBC % (auto) 0.0 Smear Tech's Comments VERIFIED PT INR Sodium Cancelled 137 Potassium Cancelled 3.0 L Chloride Cancelled 100 Carbon Dioxide Cancelled 23 Anion Gap Cancelled 17 BUN Cancelled 38 H Creatinine Cancelled 1.68 H Estim Creat Clear Calc Cancelled 31.3 Estimated GFR Cancelled 31 Random Glucose Cancelled 121 H Lactic Acid Calcium Cancelled 7.2 L D Magnesium 1.6 C-Reactive Protein 22.53 H B-Natriuretic Peptide Urine Color Urine Appearance Urine pH Ur Specific [place] Urine Protein Urine Glucose (UA) Urine Ketones Urine Blood Urine Nitrite Ur Leukocyte Esterase Urine RBC Urine WBC Ur Squamous Epith Cells Urine Bacteria C. difficile Toxin A&B C. difficile Antigen C. difficile Interpret 07/05/20 07/05/20 07/05/20 12:08 12:08 15:17 WBC RBC Hgb Hct MCV MCH MCHC RDW Plt Count MPV Immature Gran % (Auto) Neut % (Auto) Lymph % (Auto) [place] % (Auto) Eos % (Auto) Baso % (Auto) Lymph # (Auto) [place] # (Auto) Eos # (Auto) Baso # (Auto) Abs Immat Gran (auto) Absolute Neuts (auto) Absolute Nucleated RBC Nucleated RBC % (auto) Smear Tech's Comments PT INR Sodium Potassium Chloride Carbon Dioxide Anion Gap BUN Creatinine Estim Creat Clear Calc Estimated GFR Random Glucose Lactic Acid 0.8 Calcium Magnesium C-Reactive Protein B-Natriuretic Peptide 3041 H Urine Color YELLOW Urine Appearance HAZY Urine pH 5.5 Ur Specific [place] 1.010 Urine Protein 1+ H Urine Glucose (UA) NEG Urine Ketones NEG Urine Blood 2+ H Urine Nitrite NEG Ur Leukocyte Esterase 2+ H Urine RBC 1-4 Urine WBC 30-49 H Ur Squamous Epith Cells NONE Urine Bacteria 1+ C. difficile Toxin A&B C. difficile Antigen C. difficile Interpret Microbiology Microbiology Results: Microbiology 07/04/20 15:26 Stool Stool Culture - Preliminary Culture in progress. Assessment and Plan (1) Sepsis: Status: Acute (2) HERMELINDO (acute kidney injury): Status: Acute (3) Hydronephrosis: Status: Acute Assessment and Plan: hospital d#2 64yo F with ischemic CM/severe HFrEF (EF 10% 03/28/20), uterine prolapse, bilateral hydronephrosis with recent ureteral stenting (06/17/20) and recent E coli UTI treated with cefuroxime presented with diarrhea, found to be septic with HERMELINDO # sepsis # complicated UTI associated with stents - changed to pip/salome d#1, Urology consultation, follow BCx+ UCX # HERMELINDO, prerenal - improving after fluid resuscitation; holding diuretics + Entresto # hypotension - likely due to dehydration, also chronically low due to HFrEF. discussed with advertising designer Dr Sandoval and giving albumin. Cardiology consult. # HFrEF/dilated CM - Cardiology consult. holding Entresto, metoprolol, furosemide, and spironolactone due to hypotension # AF - continue amiodarone; hold metoprolol; hold warfarin # supratherapeutic INR - vitamin K, monitor INR, continue to hold warfarin # VTE ppx - on warfarin, INR supratherapeutic
--- NOTE | 2020-07-05 19:24 | PM.CNCAR ---
History of Present Illness History of Present Illness Date of Service: 07/05/20 Chief complaint: HERMELINDO, diarrhea, Chronic heart failure Narrative: 64-year-old female with NICM s/p BIV AICD presenting with diarrhea and HERMELINDO. She has no dyspnea. She was hypotensive and received IV fluids. Her meds were held appropriately. BP is improving. It appears she had low BP on previous visit too. No other issues right now. [facility] Past Medical History Medical History (Updated 07/05/20 @ 19:33 by Kory Thomas MD) Biventricular ICD (implantable cardioverter-defibrillator) in place Cardiomyopathy Paroxysmal atrial fibrillation with rapid ventricular response Prolapsed uterus Systolic heart failure Surgical History Surgical History (Updated 07/04/20 @ 18:36 by Kate Hirsch NP) H/O cystoscopy H/O: section History of renal stent Previous back surgery Total knee replacement status Social History Social History Household Members: Family and Children Housing: House Do you presently have visiting nurse or other home services: No Alcohol intake: never Smoking Status: Former smoker Smoked in Last 30 Days: No Use of substances other than those prescribed or required for medical reasons: No Advance Directives: No Advance Directives Information Provided: No Do you have thoughts of harming others: None Do you have a plan to hurt others: No Plan Recently lost weight without trying: No service: No Current occupational status: disabled Meds Allergies Allergy/AdvReac Type Severity Reaction Status Date / Time No Known Food Allergies Allergy Unknown Verified 06/05/20 13:48 Home Medications Medication Instructions Recorded Confirmed Type amiodarone 200 mg PO DAILY 03/29/20 07/04/20 History aspirin 81 mg PO DAILY 03/29/20 07/04/20 History cholecalciferol (vitamin D3) 50 mcg PO DAILY 03/29/20 07/04/20 History docusate sodium 100 mg PO BID PRN 03/29/20 07/04/20 History multivitamin 1 cap PO DAILY 03/29/20 07/04/20 History nitroglycerin 0.4 mg SUBLINGUAL Q5M PRN 03/29/20 07/04/20 History omeprazole 20 mg PO BID@0630,1630 03/29/20 07/04/20 History spironolactone 25 mg PO QAM 03/29/20 07/04/20 History furosemide 80 mg tablet 80 mg PO BID 05/03/20 07/04/20 History metoprolol tartrate 25 mg tablet 25 mg PO BID 05/03/20 07/04/20 History Enbrel SureClick 1 mg SUBCUT QWEEK 06/17/20 07/04/20 History Entresto 1 tab PO BID 06/17/20 07/04/20 History ascorbic acid (vitamin C) [Vitamin 500 mg PO DAILY 06/17/20 07/04/20 History C] furosemide 40 mg PO QNOON 06/17/20 07/04/20 History oxycodone 1 tab PO TID PRN 06/17/20 07/04/20 History zolpidem 0.5 - 1 tab PO BEDTIME 06/17/20 07/04/20 History rosuvastatin 1 tab PO BEDTIME 07/04/20 07/04/20 History Physical Exam Vital Signs: Vital Signs: Last Vital Signs Temp 99.4 F 07/05/20 14:56 Pulse 106 H 07/05/20 17:08 Resp 18 07/05/20 14:56 BP 91/50 L 07/05/20 17:08 Pulse Ox 97 07/05/20 14:56 Body Mass Index 37.3 GENERAL APPEARANCE: in no acute distress, well developed, well nourished. HEENT: unremarkable. HEAD: normocephalic, atraumatic. NECK/THYROID: distended neck veins, JVD 15 cm of water. SKIN: no suspicious lesions, warm and dry. HEART: no murmurs, regular rate and rhythm, S1, S2 normal. LUNGS: clear to auscultation bilaterally. ABDOMEN: normal, bowel sounds present, soft, nontender, nondistended. EXTREMITIES: no clubbing, cyanosis, or edema. PERIPHERAL PULSES: equal. NEUROLOGIC: nonfocal, alert and oriented. PSYCH: mood/affect full range. Results Labs and Meds Result diagrams: 07/05/20 04:07 07/05/20 04:07 Lab results: Laboratory Results - last 24 hr 07/04/20 07/04/20 07/05/20 15:26 20:06 04:06 WBC RBC Hgb Hct MCV MCH MCHC RDW Plt Count MPV Immature Gran % (Auto) Neut % (Auto) Lymph % (Auto) [place] % (Auto) Eos % (Auto) Baso % (Auto) Lymph # (Auto) [place] # (Auto) Eos # (Auto) Baso # (Auto) Abs Immat Gran (auto) Absolute Neuts (auto) Absolute Nucleated RBC Nucleated RBC % (auto) Smear Tech's Comments PT 106.6 H D INR 8.8 H* D Sodium Potassium Chloride Carbon Dioxide Anion Gap BUN Creatinine Estim Creat Clear Calc Estimated GFR Random Glucose Lactic Acid 1.1 Calcium Magnesium C-Reactive Protein B-Natriuretic Peptide Urine Color Urine Appearance Urine pH Ur Specific [place] Urine Protein Urine Glucose (UA) Urine Ketones Urine Blood Urine Nitrite Ur Leukocyte Esterase Urine RBC Urine WBC Ur Squamous Epith Cells Urine Bacteria C. difficile Toxin A&B TNP C. difficile Antigen TNP C. difficile Interpret TNP 07/05/20 07/05/20 07/05/20 04:07 04:07 04:07 WBC Cancelled RBC Cancelled Hgb Cancelled Hct Cancelled MCV Cancelled MCH Cancelled MCHC Cancelled RDW Cancelled Plt Count Cancelled MPV Cancelled Immature Gran % (Auto) Cancelled Neut % (Auto) Cancelled Lymph % (Auto) Cancelled [place] % (Auto) Cancelled Eos % (Auto) Cancelled Baso % (Auto) Cancelled Lymph # (Auto) Cancelled [place] # (Auto) Cancelled Eos # (Auto) Cancelled Baso # (Auto) Cancelled Abs Immat Gran (auto) Cancelled Absolute Neuts (auto) Cancelled Absolute Nucleated RBC Cancelled Nucleated RBC % (auto) Cancelled Smear Tech's Comments PT 114.3 H INR 9.4 H* Sodium Cancelled Potassium Cancelled Chloride Cancelled Carbon Dioxide Cancelled Anion Gap Cancelled BUN Cancelled Creatinine Cancelled Estim Creat Clear Calc Cancelled Estimated GFR Cancelled Random Glucose Cancelled Lactic Acid Calcium Cancelled Magnesium C-Reactive Protein B-Natriuretic Peptide Urine Color Urine Appearance Urine pH Ur Specific [place] Urine Protein Urine Glucose (UA) Urine Ketones Urine Blood Urine Nitrite Ur Leukocyte Esterase Urine RBC Urine WBC Ur Squamous Epith Cells Urine Bacteria C. difficile Toxin A&B C. difficile Antigen C. difficile Interpret 07/05/20 07/05/20 07/05/20 04:07 04:07 12:08 WBC 15.4 H RBC 3.37 L Hgb 9.7 L Hct 29.9 L MCV 88.7 MCH 28.8 MCHC 32.4 RDW 15.1 Plt Count 379 MPV 9.2 L Immature Gran % (Auto) 0.6 H Neut % (Auto) 81.8 H Lymph % (Auto) 4.1 L [place] % (Auto) 12.7 H Eos % (Auto) 0.6 Baso % (Auto) 0.2 Lymph # (Auto) 0.6 L [place] # (Auto) 2.0 H Eos # (Auto) 0.1 Baso # (Auto) 0.0 Abs Immat Gran (auto) 0.10 H Absolute Neuts (auto) 12.6 H Absolute Nucleated RBC 0.000 Nucleated RBC % (auto) 0.0 Smear Tech's Comments VERIFIED PT INR Sodium 137 Potassium 3.0 L Chloride 100 Carbon Dioxide 23 Anion Gap 17 BUN 38 H Creatinine 1.68 H Estim Creat Clear Calc 31.3 Estimated GFR 31 Random Glucose 121 H Lactic Acid 0.8 Calcium 7.2 L D Magnesium 1.6 C-Reactive Protein 22.53 H B-Natriuretic Peptide Urine Color Urine Appearance Urine pH Ur Specific [place] Urine Protein Urine Glucose (UA) Urine Ketones Urine Blood Urine Nitrite Ur Leukocyte Esterase Urine RBC Urine WBC Ur Squamous Epith Cells Urine Bacteria C. difficile Toxin A&B C. difficile Antigen C. difficile Interpret 07/05/20 07/05/20 12:08 15:17 WBC RBC Hgb Hct MCV MCH MCHC RDW Plt Count MPV Immature Gran % (Auto) Neut % (Auto) Lymph % (Auto) [place] % (Auto) Eos % (Auto) Baso % (Auto) Lymph # (Auto) [place] # (Auto) Eos # (Auto) Baso # (Auto) Abs Immat Gran (auto) Absolute Neuts (auto) Absolute Nucleated RBC Nucleated RBC % (auto) Smear Tech's Comments PT INR Sodium Potassium Chloride Carbon Dioxide Anion Gap BUN Creatinine Estim Creat Clear Calc Estimated GFR Random Glucose Lactic Acid Calcium Magnesium C-Reactive Protein B-Natriuretic Peptide 3041 H Urine Color YELLOW Urine Appearance HAZY Urine pH 5.5 Ur Specific [place] 1.010 Urine Protein 1+ H Urine Glucose (UA) NEG Urine Ketones NEG Urine Blood 2+ H Urine Nitrite NEG Ur Leukocyte Esterase 2+ H Urine RBC 1-4 Urine WBC 30-49 H Ur Squamous Epith Cells NONE Urine Bacteria 1+ C. difficile Toxin A&B C. difficile Antigen C. difficile Interpret Imaging Radiologist's impression: Impressions Chest X-Ray 07/05/20 00:00 IMPRESSION: Enlarged cardiac silhouette and pulmonary venous redistribution. No evidence of pulmonary edema or pneumonia. Renal Ultrasound 07/05/20 00:00 IMPRESSION: Mildly enlarged right kidney. Moderate bilateral hydronephrosis similar to previous exams. Bilateral renal cysts. Assessment and Plan (1) Sepsis: Status: Acute (2) HERMELINDO (acute kidney injury): Status: Acute (3) Systolic heart failure: Problem details: Status: Inactive 64-year-old female with chronic systolic failure sec to [facility] s/p AICD. She is admitted with sepsis and hypotension. She was appropriately volume resuscitated. Her heart failure meds are held as she was hypotensive and had HERMELINDO. BP is better now. I think this was likely due to sepsis. She has volume overload now. She is asymptomatic. If BP stays stable at this level then I think we should start diuresing her. Depending on HERMELINDO recovery, Entresto should e resumed. We will follow along with you.
[2020-07-05] MEDS: Atorvastatin Calcium 80 MG TABLET PO (21:01)
[2020-07-06] VITALS (7 sets, daily range): BP systolic 76–116; BP diastolic 43–67; PULSE 84–102; RESP 16–19; TEMP 35.8–37.1; O2SAT 95–99
[2020-07-06] MEDS: Piperacillin Sodium/Tazobactam 3.375 GM in 0.9 % Sodium Chloride 50 ML IV ×5 (00:52→23:57)
[2020-07-06] MEDS: 0.9 % Sodium Chloride Flush 3 ML SYRINGE IVFLUSH ×4 (01:06→23:51)
[2020-07-06] MEDS: Albumin Human 25 % 100 ML IV ×2 (02:53→08:05)
[2020-07-06] MEDS: Omeprazole 20 MG CAPSULE.DR PO ×2 (06:34→16:42)
[2020-07-06 06:58] LABS: INTERNATIONAL NORM RATIO 1.7 (0.9-1.1); Prothrombin Time 20.3 SEC (10.8-13.0)
[2020-07-06 07:16] LABS: Basophils Percent Auto 0.2 % (0-2); Eosinophils Absolute Auto 0.2 X10*3/uL (0.0-0.4); Eosinophils Percent Auto 1.5 % (0-4); Hematocrit 24.2 % (37-47); Hemoglobin 7.8 g/dl (12.0-16.0); Imm Gran Abs Auto 0.07 X10*3/uL (0.00-0.03); Imm Gran Pct Auto 0.6 % (0.0-0.4); Lymphocytes Absolute Auto 1.4 X10*3/uL (1.2-4.9); Lymphocytes Percent Auto 11.1 % (20-40); MANUAL DIFF FLAG SCAN; Mean Corpuscular HGB Conc 32.2 g/dl (31.0-35.0); Mean Corpuscular Hemoglobin 28.6 pg (27.0-33.0); Mean Corpuscular Volume 88.6 fL (80-98); Mean Platelet Volume 9.5 fL (9.4-12.3); Monocytes Absolute Auto 1.7 X10*3/uL (0.1-1.2); Neutrophils Absolute Auto 8.9 X10*3/uL (2.0-8.3); Neutrophils Percent Auto 72.6 % (45-73); Platelet Count 286 X10*3/uL (160-400); Red Blood Count 2.73 X10*6/uL (4.20-5.50); Red Cell Distribution Width 15.5 % (11.0-16.0); SCAN SMEAR FLAG 1; White Blood Count 12.3 X10*3/uL (4.8-10.8)
[2020-07-06 07:35] LABS: Anion Gap 15 (12-20); Blood Urea Nitrogen 22 mg/dL (9-16); Calcium 7.5 mg/dL (8.4-10.2); Carbon Dioxide 24 mmol/L (22-29); Chloride 104 mmol/L (96-108); Creatinine Clr Calc Pharmacy 36.3; Estimated Glomerular Filt Rate 36; Glucose Random 88 mg/dL (60-115); Potassium 2.9 mmol/l (3.3-5.1); Sodium 140 mmol/L (135-145)
[2020-07-06] MEDS: Cholecalciferol (Vitamin D3) 25 MCG TABLET 50 MCG PO (08:06)
[2020-07-06] MEDS: Calcium + Vitamin D 250 MG TABLET 500 MG PO ×2 (08:06→20:06)
[2020-07-06] MEDS: Ascorbic Acid 500 MG TABLET PO (08:06)
[2020-07-06] MEDS: Aspirin 81 MG TAB.CHEW PO (08:06)
[2020-07-06] MEDS: Multivitamin TABLET 1 TAB PO (08:06)
[2020-07-06 08:55] LABS: SLIDE REVIEW VERIFIED
[2020-07-06] MEDS: Potassium Chloride ER 20 MEQ TAB.ER.PRT 40 MEQ PO (09:51)
[2020-07-06] MEDS: Amiodarone HCL 200 MG TABLET PO (09:58)
[2020-07-06 10:05] LABS: Magnesium 1.5 mg/dL (1.6-2.6)
--- NOTE | 2020-07-06 11:36 | PM.PNCARD ---
Subjective Subjective Date of Service: 07/06/20 Interval history: She is feeling better. No dyspnea. No dizziness or lightheadedness. Blood pressure has been low. On discussing with her she is saying that her blood pressure at home is always low and mostly in 70s systolic. Review of Systems Review of Systems No chest pain or shortness of breath. Physical Exam Vital Signs: Last Vital Signs Temp 98.0 F 07/06/20 11:26 Pulse 84 07/06/20 11:26 Resp 18 07/06/20 11:26 BP 81/43 L 07/06/20 11:26 Pulse Ox 98 07/06/20 11:26 Body Mass Index 37.3 GENERAL APPEARANCE: in no acute distress, well developed, well nourished. HEENT: unremarkable. HEAD: normocephalic, atraumatic. NECK/THYROID: distended neck veins, JVD 10 cm of water. SKIN: no suspicious lesions, warm and dry. HEART: no murmurs, regular rate and rhythm, S1, S2 normal. LUNGS: clear to auscultation bilaterally. ABDOMEN: normal, bowel sounds present, soft, nontender, nondistended. EXTREMITIES: no clubbing, cyanosis, or edema. PERIPHERAL PULSES: equal. NEUROLOGIC: nonfocal, alert and oriented. PSYCH: mood/affect full range. Results Labs and Meds Result diagrams: 07/06/20 05:54 07/06/20 05:54 Lab results: Laboratory Results - last 24 hr 07/05/20 07/05/20 07/05/20 12:08 12:08 15:17 WBC RBC Hgb Hct MCV MCH MCHC RDW Plt Count MPV Immature Gran % (Auto) Neut % (Auto) Lymph % (Auto) [place] % (Auto) Eos % (Auto) Baso % (Auto) Lymph # (Auto) [place] # (Auto) Eos # (Auto) Baso # (Auto) Abs Immat Gran (auto) Absolute Neuts (auto) Absolute Nucleated RBC Nucleated RBC % (auto) Smear Tech's Comments PT INR Sodium Potassium Chloride Carbon Dioxide Anion Gap BUN Creatinine Estim Creat Clear Calc Estimated GFR Random Glucose Lactic Acid 0.8 Calcium Magnesium B-Natriuretic Peptide 3041 H Urine Color YELLOW Urine Appearance HAZY Urine pH 5.5 Ur Specific [place] 1.010 Urine Protein 1+ H Urine Glucose (UA) NEG Urine Ketones NEG Urine Blood 2+ H Urine Nitrite NEG Ur Leukocyte Esterase 2+ H Urine RBC 1-4 Urine WBC 30-49 H Ur Squamous Epith Cells NONE Urine Bacteria 1+ Blood Type Antibody Screen 07/06/20 07/06/20 07/06/20 05:54 05:54 05:54 WBC 12.3 H RBC 2.73 L Hgb 7.8 L Hct 24.2 L MCV 88.6 MCH 28.6 MCHC 32.2 RDW 15.5 Plt Count 286 MPV 9.5 Immature Gran % (Auto) 0.6 H Neut % (Auto) 72.6 Lymph % (Auto) 11.1 L [place] % (Auto) 14.0 H Eos % (Auto) 1.5 Baso % (Auto) 0.2 Lymph # (Auto) 1.4 [place] # (Auto) 1.7 H Eos # (Auto) 0.2 Baso # (Auto) 0.0 Abs Immat Gran (auto) 0.07 H Absolute Neuts (auto) 8.9 H Absolute Nucleated RBC 0.000 Nucleated RBC % (auto) 0.0 Smear Tech's Comments VERIFIED PT 20.3 H D INR 1.7 H Sodium 140 Potassium 2.9 L Chloride 104 Carbon Dioxide 24 Anion Gap 15 BUN 22 H Creatinine 1.45 H Estim Creat Clear Calc 36.3 Estimated GFR 36 Random Glucose 88 Lactic Acid Calcium 7.5 L Magnesium 1.5 L B-Natriuretic Peptide Urine Color Urine Appearance Urine pH Ur Specific [place] Urine Protein Urine Glucose (UA) Urine Ketones Urine Blood Urine Nitrite Ur Leukocyte Esterase Urine RBC Urine WBC Ur Squamous Epith Cells Urine Bacteria Blood Type Antibody Screen 07/06/20 09:37 WBC RBC Hgb Hct MCV MCH MCHC RDW Plt Count MPV Immature Gran % (Auto) Neut % (Auto) Lymph % (Auto) [place] % (Auto) Eos % (Auto) Baso % (Auto) Lymph # (Auto) [place] # (Auto) Eos # (Auto) Baso # (Auto) Abs Immat Gran (auto) Absolute Neuts (auto) Absolute Nucleated RBC Nucleated RBC % (auto) Smear Tech's Comments PT INR Sodium Potassium Chloride Carbon Dioxide Anion Gap BUN Creatinine Estim Creat Clear Calc Estimated GFR Random Glucose Lactic Acid Calcium Magnesium B-Natriuretic Peptide Urine Color Urine Appearance Urine pH Ur Specific [place] Urine Protein Urine Glucose (UA) Urine Ketones Urine Blood Urine Nitrite Ur Leukocyte Esterase Urine RBC Urine WBC Ur Squamous Epith Cells Urine Bacteria Blood Type A Positive Antibody Screen NEGATIVE Imaging Radiologist's impression: Impressions Chest X-Ray 07/05/20 00:00 IMPRESSION: Enlarged cardiac silhouette and pulmonary venous redistribution. No evidence of pulmonary edema or pneumonia. Progress Note: A&P Assessment and plan (1) Sepsis: Status: Acute (2) HERMELINDO (acute kidney injury): Status: Acute (3) Chronic systolic heart failure: Status: Acute Assessment and Plan: 64-year-old female who is patient of Dr. Choi admitted with pyelonephritis. She has background of chronic systolic heart failure and has Bi V AICD. She is on IV antibiotics. Kidney function is improving. Her home medications were held on admission. She is saying her blood pressure is always low. She is completely asymptomatic even when her blood pressures are in 70s. She has strong pulses and is warm all over. I think her home medications can be resumed 1 at a time starting tomorrow. She was using 80 of Lasix in the morning 40 in the afternoon which potentially can be restarted if the kidney function stays stable. If her kidney function stays stable then as outpatient her Entresto and spironolactone can be started by the primary cardiology team. She has low blood pressures at baseline and I think we should react only if she is symptomatic from the low blood pressure. Thank you for allowing me to participate in the care of your patient. Please feel free to contact me if you have any questions. Fall Risk Details Current Medications: Current Medications Generic Name Dose Route Start Last Admin Trade Name Freq PRN Reason Stop Dose Admin Acetaminophen 650 mg 07/04/20 21:26 Acetaminophen 325 Mg Tablet PO Q6H PRN Pain, Mild (Pain Scale 1-3) Amiodarone HCl 200 mg 07/05/20 09:00 07/06/20 09:58 Amiodarone Hcl 200 Mg Tablet PO 200 mg DAILY KEMAL Administration Ascorbic Acid 500 mg 07/05/20 09:00 07/06/20 08:06 Ascorbic Acid 500 Mg Tablet PO 500 mg DAILY KEMAL Administration Aspirin 81 mg 07/05/20 09:00 07/06/20 08:06 Aspirin 81 Mg Tab.Chew PO 81 mg DAILY KEMAL Administration Atorvastatin Calcium 80 mg 07/05/20 21:00 07/05/20 21:01 Atorvastatin Calcium 80 Mg Tablet PO 80 mg BEDTIME KEMAL Administration Calcium Carbonate/Cholecalciferol 500 mg 07/05/20 09:00 07/06/20 08:06 Calcium + Vitamin D 250 Mg Tablet PO 500 mg BID KEMAL Administration Docusate Sodium 100 mg 07/04/20 21:26 Docusate Sodium 100 Mg Capsule PO BID PRN Constipation Piperacillin Sod/Tazobactam 50 mls @ 100 mls/hr 07/05/20 06:15 07/06/20 07:52 Sod 3.375 gm/ Sodium Chloride IV Infused Q6H KEMAL Infusion Multivitamins/Vitamin C 1 tab 07/05/20 09:00 07/06/20 08:06 Multivitamin Tablet PO 1 tab DAILY KEMAL Administration Nitroglycerin 0.4 mg 07/04/20 21:26 Nitroglycerin 0.4 Mg Tab.Subl SUBLINGUAL Q5M PRN Chest Pain Omeprazole 20 mg 07/05/20 06:30 07/06/20 06:34 Omeprazole 20 Mg Capsule.Dr PO 20 mg BID@0630,1630 KEMAL Administration Ondansetron HCl 4 mg 07/04/20 21:26 Ondansetron Hcl 4 Mg/2 Ml Vial IVPUSH Q8H PRN Nausea and Vomiting Oxycodone HCl 10 mg 07/04/20 21:26 Oxycodone Hcl Immed Release 5 Mg Tablet PO TID PRN pain Pharmacy Consult 1 each 07/04/20 17:04 Consult Rx Perform Med Rec MISCELLANE ONCE PRN Consult order Sodium Chloride 3 ml 07/05/20 00:00 07/06/20 09:52 0.9 % Sodium Chloride Flush 3 Ml Syringe IVFLUSH 3 ml QSHIFT KEMAL Administration Vitamin D 50 mcg 07/05/20 09:00 07/06/20 08:06 Cholecalciferol (Vitamin D3) 25 Mcg Tablet PO 50 mcg DAILY KEMAL Administration Time Spent With Patient Time: Total time spent is greater than 50% in coordination of care (as documented) at patient's floor/unit and/or counseling patient: Time with patient: 15 - 24 minutes
[2020-07-06 14:07] LABS: OBS Int Ctl Valid YES; OBS1 POS (NEG)
--- NOTE | 2020-07-06 14:51 | HO.PM.IMPN ---
Subjective Subjective Date of Service: 07/06/20 Interval History: History take n in [place] from pt States her BP is chronically low and she is completely asymptomatic- not dizzy or lightheaded No fever Physical Exam Vital Signs: Vital Signs: Last Vital Signs Temp 98.0 F 07/06/20 11:26 Pulse 84 07/06/20 11:26 Resp 18 07/06/20 11:26 BP 81/43 L 07/06/20 11:26 Pulse Ox 98 07/06/20 11:26 Body Mass Index 37.3 Gen: in no acute distress HEENT: sclera anicteric, moist mucus membranes Neck: supple Lungs: clear to auscultation bilaterally Heart: regular rate and rhythm, no murmurs, S4 present Abd: soft, non-tender, non-distended Ext: no edema Skin: warm/well-perfused Neuro: alert and oriented x3, no focal findings Psych: appropriate affect Objective Data Current Medications Generic Name Dose Route Start Last Admin Trade Name Freq PRN Reason Stop Dose Admin Acetaminophen 650 mg 07/04/20 21:26 Acetaminophen 325 Mg Tablet PO Q6H PRN Pain, Mild (Pain Scale 1-3) Amiodarone HCl 200 mg 07/05/20 09:00 07/06/20 09:58 Amiodarone Hcl 200 Mg Tablet PO 200 mg DAILY KEMAL Administration Ascorbic Acid 500 mg 07/05/20 09:00 07/06/20 08:06 Ascorbic Acid 500 Mg Tablet PO 500 mg DAILY KEMAL Administration Aspirin 81 mg 07/05/20 09:00 07/06/20 08:06 Aspirin 81 Mg Tab.Chew PO 81 mg DAILY KEMAL Administration Atorvastatin Calcium 80 mg 07/05/20 21:00 07/05/20 21:01 Atorvastatin Calcium 80 Mg Tablet PO 80 mg BEDTIME KEMAL Administration Calcium Carbonate/Cholecalciferol 500 mg 07/05/20 09:00 07/06/20 08:06 Calcium + Vitamin D 250 Mg Tablet PO 500 mg BID KEMAL Administration Docusate Sodium 100 mg 07/04/20 21:26 Docusate Sodium 100 Mg Capsule PO BID PRN Constipation Piperacillin Sod/Tazobactam 50 mls @ 100 mls/hr 07/05/20 06:15 07/06/20 14:17 Sod 3.375 gm/ Sodium Chloride IV Infused Q6H KEMAL Infusion Multivitamins/Vitamin C 1 tab 07/05/20 09:00 07/06/20 08:06 Multivitamin Tablet PO 1 tab DAILY KEMAL Administration Nitroglycerin 0.4 mg 07/04/20 21:26 Nitroglycerin 0.4 Mg Tab.Subl SUBLINGUAL Q5M PRN Chest Pain Omeprazole 20 mg 07/05/20 06:30 07/06/20 06:34 Omeprazole 20 Mg Capsule.Dr PO 20 mg BID@7830,1230 KEMAL Administration Ondansetron HCl 4 mg 07/04/20 21:26 Ondansetron Hcl 4 Mg/2 Ml Vial IVPUSH Q8H PRN Nausea and Vomiting Oxycodone HCl 10 mg 07/04/20 21:26 Oxycodone Hcl Immed Release 5 Mg Tablet PO TID PRN pain Pharmacy Consult 1 each 07/04/20 17:04 Consult Rx Perform Med Rec MISCELLANE ONCE PRN Consult order Sodium Chloride 3 ml 07/05/20 00:00 07/06/20 09:52 0.9 % Sodium Chloride Flush 3 Ml Syringe IVFLUSH 3 ml QSHIFT [facility] Administration Vitamin D 50 mcg 07/05/20 09:00 07/06/20 08:06 Cholecalciferol (Vitamin D3) 25 Mcg Tablet PO 50 mcg DAILY KEMAL Administration Labs CBC & Chem 7: 07/06/20 05:54 07/06/20 05:54 Labs: Laboratory Results - last 24 hr 07/05/20 07/06/20 07/06/20 15:17 05:54 05:54 WBC 12.3 H RBC 2.73 L Hgb 7.8 L Hct 24.2 L MCV 88.6 MCH 28.6 MCHC 32.2 RDW 15.5 Plt Count 286 MPV 9.5 Immature Gran % (Auto) 0.6 H Neut % (Auto) 72.6 Lymph % (Auto) 11.1 L [place] % (Auto) 14.0 H Eos % (Auto) 1.5 Baso % (Auto) 0.2 Lymph # (Auto) 1.4 [place] # (Auto) 1.7 H Eos # (Auto) 0.2 Baso # (Auto) 0.0 Abs Immat Gran (auto) 0.07 H Absolute Neuts (auto) 8.9 H Absolute Nucleated RBC 0.000 Nucleated RBC % (auto) 0.0 Smear Tech's Comments VERIFIED PT INR Sodium 140 Potassium 2.9 L Chloride 104 Carbon Dioxide 24 Anion Gap 15 BUN 22 H Creatinine 1.45 H Estim Creat Clear Calc 36.3 Estimated GFR 36 Random Glucose 88 Calcium 7.5 L Magnesium 1.5 L Urine Color YELLOW Urine Appearance HAZY Urine pH 5.5 Ur Specific [place] 1.010 Urine Protein 1+ H Urine Glucose (UA) NEG Urine Ketones NEG Urine Blood 2+ H Urine Nitrite NEG Ur Leukocyte Esterase 2+ H Urine RBC 1-4 Urine WBC 30-49 H Ur Squamous Epith Cells NONE Urine Bacteria 1+ Stool Occult Blood Blood Type Antibody Screen 07/06/20 07/06/20 07/06/20 05:54 09:37 12:10 WBC RBC Hgb Hct MCV MCH MCHC RDW Plt Count MPV Immature Gran % (Auto) Neut % (Auto) Lymph % (Auto) [place] % (Auto) Eos % (Auto) Baso % (Auto) Lymph # (Auto) [place] # (Auto) Eos # (Auto) Baso # (Auto) Abs Immat Gran (auto) Absolute Neuts (auto) Absolute Nucleated RBC Nucleated RBC % (auto) Smear Tech's Comments PT 20.3 H D INR 1.7 H Sodium Potassium Chloride Carbon Dioxide Anion Gap BUN Creatinine Estim Creat Clear Calc Estimated GFR Random Glucose Calcium Magnesium Urine Color Urine Appearance Urine pH Ur Specific [place] Urine Protein Urine Glucose (UA) Urine Ketones Urine Blood Urine Nitrite Ur Leukocyte Esterase Urine RBC Urine WBC Ur Squamous Epith Cells Urine Bacteria Stool Occult Blood POS Blood Type A Positive Antibody Screen NEGATIVE Microbiology Microbiology Results: Microbiology 07/05/20 15:17 Urine clean catch - Straight Catheter Urine Culture - Preliminary No growth to date. 07/04/20 15:26 Stool Stool Culture - Preliminary Normal so far. 07/05/20 04:11 Blood - Venous Blood Culture - Preliminary No growth after 24 hours. 07/05/20 04:06 Blood - Venous Blood Culture - Preliminary No growth after 24 hours. 07/04/20 17:46 Blood - Venous Blood Culture - Preliminary No growth after 24 hours. 07/04/20 17:46 Blood - Venous Blood Culture - Preliminary No growth after 24 hours. Assessment and Plan (1) Sepsis: Status: Acute (2) HERMELINDO (acute kidney injury): Status: Acute (3) Hydronephrosis: Status: Acute Assessment and Plan: hospital d#3 64yo F with ischemic CM/severe HFrEF (EF 10% 9/29/20), uterine prolapse, bilateral hydronephrosis with recent ureteral stenting (06/17/20) and recent E coli UTI treated with cefuroxime presented with diarrhea, found to be septic with HERMELINDO # sepsis # complicated UTI associated with stents - pip/salome d#2, Urology consultation, follow BCx+ UCX # HERMELINDO, prerenal - improving after crystalloid/colloid resuscitation; holding diuretics + Entresto # hypotension - chronically low due to HFrEF. discussed with Cardiology. this is her baseline. observe for another day before cautiously reintroducing neurohormonal modulators. limited TTE. # HFrEF/dilated CM - holding Entresto, metoprolol, furosemide, and spironolactone due to hypotension. limited TTE. # AF - continue amiodarone; hold metoprolol; hold warfarin # supratherapeutic INR - s/p vitamin K, monitor INR, continue to hold warfarin due to FOBT+ # anemia, FOBT+ - holding warfarin, obtain GI consult # VTE ppx - on warfarin,
[2020-07-06 14:57] LABS: Hematocrit 26.8 % (37-47); Hemoglobin 8.5 g/dl (12.0-16.0)
--- NOTE | 2020-07-06 15:06 | PC.NURSE ---
am bp of 76/[address] Mclean. pt was asymptomatic. repeat bp was 107/53.
[2020-07-06] MEDS: Magnesium Sulfate/H2O 2 GM/50 ML PIGGYBACK IV (16:35)
[2020-07-06] MEDS: Atorvastatin Calcium 80 MG TABLET PO (20:06)
[2020-07-07 03:42] VITALS: BP 107/57; PULSE 92; RESP 18; TEMP 36.8; O2SAT 96
--- NOTE | 2020-07-07 04:10 | PC.NURSE ---
2330; Patient incontinent of urine. PVR after voiding, bladder scanned for 320 mls. Per order, if greater than 200 mls, straight cath. Patient straigh cath at 0000 for 350 mls, tolerated well.
[2020-07-07] MEDS: Omeprazole 20 MG CAPSULE.DR PO ×2 (06:36→15:42)
[2020-07-07] MEDS: Piperacillin Sodium/Tazobactam 3.375 GM in 0.9 % Sodium Chloride 50 ML IV ×2 (06:36→12:13)
[2020-07-07 06:40] LABS: MANUAL DIFF FLAG NO
[2020-07-07 06:48] LABS: Basophils Percent Auto 0.2 % (0-2); Eosinophils Absolute Auto 0.4 X10*3/uL (0.0-0.4); Eosinophils Percent Auto 2.9 % (0-4); Hematocrit 26.1 % (37-47); Hemoglobin 8.5 g/dl (12.0-16.0); Imm Gran Abs Auto 0.09 X10*3/uL (0.00-0.03); Imm Gran Pct Auto 0.7 % (0.0-0.4); Lymphocytes Absolute Auto 1.3 X10*3/uL (1.2-4.9); Lymphocytes Percent Auto 10.3 % (20-40); Mean Corpuscular HGB Conc 32.6 g/dl (31.0-35.0); Mean Corpuscular Hemoglobin 29.2 pg (27.0-33.0); Mean Corpuscular Volume 89.7 fL (80-98); Mean Platelet Volume 9.5 fL (9.4-12.3); Monocytes Absolute Auto 1.2 X10*3/uL (0.1-1.2); Monocytes Percent Auto 9.6 % (2-11); Neutrophils Absolute Auto 9.7 X10*3/uL (2.0-8.3); Neutrophils Percent Auto 76.3 % (45-73); Platelet Count 314 X10*3/uL (160-400); Red Blood Count 2.91 X10*6/uL (4.20-5.50); Red Cell Distribution Width 15.7 % (11.0-16.0); White Blood Count 12.8 X10*3/uL (4.8-10.8)
[2020-07-07 06:58] LABS: INTERNATIONAL NORM RATIO 1.7 (0.9-1.1); Prothrombin Time 20.3 SEC (10.8-13.0)
[2020-07-07 07:09] LABS: Anion Gap 14 (12-20); Blood Urea Nitrogen 14 mg/dL (9-16); Calcium 7.9 mg/dL (8.4-10.2); Carbon Dioxide 26 mmol/L (22-29); Chloride 104 mmol/L (96-108); Creatinine Clr Calc Pharmacy 38.4; Estimated Glomerular Filt Rate 39; Glucose Random 93 mg/dL (60-115); Potassium 2.9 mmol/l (3.3-5.1); Sodium 141 mmol/L (135-145)
[2020-07-07 07:12] LABS: B Type Natriuretic Peptide 3841 pg/mL (<100)
[2020-07-07 08:00] VITALS: BP 111/54; PULSE 95; RESP 18; TEMP 36.8; O2SAT 97
--- NOTE | 2020-07-07 09:14 | PM.UROCN ---
History of Present Illness Consult details Consult date: 07/06/20 Narrative: Asked to see patient secondary to question of pyelonephritis 64-year-old [place]-speaking female. Known to Urology prior admission May 2020. Had been found to have urinary retention secondary to bladder prolapse and diabetes Unable to empty her bladder pyelonephritis with bilateral hydronephrosis. At that time bilateral stents were placed. She presents again with question of complicated UTI. Background of diabetes. Slight rise in creatinine. Would manage with antibiotics. No rolled to change stents at this point in time. Should have indwelling Reeves catheter if more than 200 cc residual PMFSH Past Medical History Medical History (Updated 07/07/20 @ 09:17 by Rosales Healy MD) Biventricular ICD (implantable cardioverter-defibrillator) in place Cardiomyopathy Paroxysmal atrial fibrillation with rapid ventricular response Prolapsed uterus Systolic heart failure Surgical History Surgical History (Updated 07/04/20 @ 18:36 by Kate Hirsch NP) H/O cystoscopy H/O: section History of renal stent Previous back surgery Total knee replacement status Social History Social History Household Members: Family and Children Housing: House Do you presently have visiting nurse or other home services: No Alcohol intake: never Smoking Status: Former smoker Smoked in Last 30 Days: No Use of substances other than those prescribed or required for medical reasons: No Currently Displaying Signs/Symptoms of Drug Intoxication Withdrawal: No Advance Directives: No Advance Directives Information Provided: No Do you have thoughts of harming others: None Do you have a plan to hurt others: No Plan Recently lost weight without trying: No service: No Current occupational status: disabled Meds Allergies Allergy/AdvReac Type Severity Reaction Status Date / Time No Known Food Allergies Allergy Unknown Verified 06/05/20 13:48 Home Medications Medication Instructions Recorded Confirmed Type amiodarone 200 mg PO DAILY 03/29/20 07/04/20 History aspirin 81 mg PO DAILY 03/29/20 07/04/20 History cholecalciferol (vitamin D3) 50 mcg PO DAILY 03/29/20 07/04/20 History docusate sodium 100 mg PO BID PRN 03/29/20 07/04/20 History multivitamin 1 cap PO DAILY 03/29/20 07/04/20 History nitroglycerin 0.4 mg SUBLINGUAL Q5M PRN 03/29/20 07/04/20 History omeprazole 20 mg PO BID@0630,1630 03/29/20 07/04/20 History spironolactone 25 mg PO QAM 03/29/20 07/04/20 History furosemide 80 mg tablet 80 mg PO BID 05/03/20 07/04/20 History metoprolol tartrate 25 mg tablet 25 mg PO BID 05/03/20 07/04/20 History Enbrel SureClick 1 mg SUBCUT QWEEK 06/17/20 07/04/20 History Entresto 1 tab PO BID 06/17/20 07/04/20 History ascorbic acid (vitamin C) [Vitamin 500 mg PO DAILY 06/17/20 07/04/20 History C] furosemide 40 mg PO QNOON 06/17/20 07/04/20 History oxycodone 1 tab PO TID PRN 06/17/20 07/04/20 History zolpidem 0.5 - 1 tab PO BEDTIME 06/17/20 07/04/20 History rosuvastatin 1 tab PO BEDTIME 07/04/20 07/04/20 History Physical Exam Vital Signs: Vital Signs: Last Vital Signs Temp 98.3 F 07/07/20 08:00 Pulse 95 07/07/20 08:00 Resp 18 07/07/20 08:00 BP 111/54 L 07/07/20 08:00 Pulse Ox 97 07/07/20 08:00 Body Mass Index 37.3 Const: General: cooperative, healthy appearing, comfortable and no acute distress Nutritional Appearance: average body habitus Orientation/consciousness: oriented to person, oriented to place and oriented to time Eyes: General: appearance normal, both eyes and all related structures Chest: Chest palpation & inspection: normal inspection of the chest Resp: Effort & Inspection: normal respiratory effort Cardio: Rate: regular rate GI: Inspection: Yes normal to inspection Skin: Hair: normal Neuro: General: oriented to person, oriented to place and oriented to time Extrem: General: Yes normal to inspection Results Labs Result diagrams: 07/07/20 05:40 07/07/20 05:40 Labs: Abnormal lab results 07/06/20 07/06/20 07/07/20 Range/Units 05:54 14:36 05:40 WBC (4.8-10.8) X10*3/uL RBC (4.20-5.50) X10*6/uL Hgb 8.5 L (12.0-16.0) g/dl Hct 26.8 L (37-47) % Immature Gran % (Auto) (0.0-0.4) % Neut % (Auto) (45-73) % Lymph % (Auto) (20-40) % Abs Immat Gran (auto) (0.00-0.03) X10*3/uL Absolute Neuts (auto) (2.0-8.3) X10*3/uL PT 20.3 H (10.8-13.0) SEC INR 1.7 H (0.9-1.1) Potassium (3.3-5.1) mmol/l Calcium (8.4-10.2) mg/dL Magnesium 1.5 L (1.6-2.6) mg/dL B-Natriuretic Peptide (<100) pg/mL 07/07/20 07/07/20 07/07/20 Range/Units 05:40 05:40 05:40 WBC 12.8 H (4.8-10.8) X10*3/uL RBC 2.91 L (4.20-5.50) X10*6/uL Hgb 8.5 L (12.0-16.0) g/dl Hct 26.1 L (37-47) % Immature Gran % (Auto) 0.7 H (0.0-0.4) % Neut % (Auto) 76.3 H (45-73) % Lymph % (Auto) 10.3 L (20-40) % Abs Immat Gran (auto) 0.09 H (0.00-0.03) X10*3/uL Absolute Neuts (auto) 9.7 H (2.0-8.3) X10*3/uL PT (10.8-13.0) SEC INR (0.9-1.1) Potassium 2.9 L (3.3-5.1) mmol/l Calcium 7.9 L (8.4-10.2) mg/dL Magnesium (1.6-2.6) mg/dL B-Natriuretic Peptide 3841 H (<100) pg/mL Short CBC 07/06/20 07/07/20 Range/Units 14:36 05:40 WBC 12.8 H (4.8-10.8) X10*3/uL Hgb 8.5 L 8.5 L (12.0-16.0) g/dl Hct 26.8 L 26.1 L (37-47) % Plt Count 314 (160-400) X10*3/uL BMP 07/07/20 05:40 Sodium 141 Potassium 2.9 L Chloride 104 Carbon Dioxide 26 BUN 14 Creatinine 1.37 Calcium 7.9 L Urine 07/05/20 Range/Units 15:17 Urine Color YELLOW Urine Appearance HAZY Urine pH 5.5 (5.0-8.0) Ur Specific [place] 1.010 (1.005-1.025) Urine Protein 1+ H (NEG-TRACE) MG/DL Urine Glucose (UA) NEG (NEG) MG/DL All other labs normal. Assessment and Plan (1) Urinary retention: Status: Acute Check bladder residuals If greater than 200 cc perform straight catheterization If residual greater on 2 occasions needs indwelling Reeves catheter for 36 hours
[2020-07-07] MEDS: Cholecalciferol (Vitamin D3) 25 MCG TABLET 50 MCG PO (09:55)
[2020-07-07] MEDS: 0.9 % Sodium Chloride Flush 3 ML SYRINGE IVFLUSH ×3 (09:55→23:54)
[2020-07-07] MEDS: Potassium Chloride/H20 10 MEQ/100 ML PIGGYBACK 100 MEQ IV ×4 (09:55→14:04)
[2020-07-07] MEDS: Amiodarone HCL 200 MG TABLET PO (09:56)
[2020-07-07] MEDS: Calcium + Vitamin D 250 MG TABLET 500 MG PO ×2 (09:56→20:03)
[2020-07-07] MEDS: Aspirin 81 MG TAB.CHEW PO (09:56)
[2020-07-07] MEDS: Multivitamin TABLET 1 TAB PO (09:56)
[2020-07-07] MEDS: Ascorbic Acid 500 MG TABLET PO (09:56)
--- NOTE | 2020-07-07 10:09 | P.PNCA_ITS ---
Subjective Subjective Date of Service: 07/07/20 Principal diagnosis: pyelonephritis, hypotension, sepsis, CHF, nonischemic CMP Interval history: Cardiology follow up for CHF, CMP. Seen at 0945. Today she reports that her breathing is comfortable. Wearing O2 3 L with sat 97%. No cough. Slept well. No chest pains, palpitation. No dizziness, presyncope. No PND, edema. BP this am 111/54. Review of Systems Review of Systems as above Yes all other systems are reviewed and are negative Physical Exam Vital Signs: Last Vital Signs Temp 98.3 F 07/07/20 08:00 Pulse 95 07/07/20 08:00 Resp 18 07/07/20 08:00 BP 111/54 L 07/07/20 08:00 Pulse Ox 97 07/07/20 08:00 Body Mass Index 37.3 Const General: cooperative, no acute distress, alert and awake Orientation/consciousness: patient oriented x3 Neck Neck: Yes normal visual inspection Resp Effort & Inspection: normal respiratory effort, able to speak in complete sentences and not labored Auscultation: clear to auscultation bilaterally (dim in lower lobes), no crackles, no rales, no rhonchi and no wheezes Cardio Other: heart tones distant, ICD site benign Jugular venous distension: JVD present Palpation: normal PMI Rate: regular rate Rhythm: regular rhythm Heart sounds: S1 normal heart sound present and S2 normal heart sound present GI Inspection: Yes normal to inspection Skin General skin exam: no rashes or lesions noted Neuro General: patient oriented x3 Extrem General: Yes normal to inspection and No edema Results Labs and Meds Result diagrams: 07/07/20 05:40 07/07/20 05:40 Lab results: Laboratory Results - last 24 hr 07/06/20 07/06/20 07/06/20 09:37 12:10 14:36 WBC RBC Hgb 8.5 L Hct 26.8 L MCV MCH MCHC RDW Plt Count MPV Immature Gran % (Auto) Neut % (Auto) Lymph % (Auto) [place] % (Auto) Eos % (Auto) Baso % (Auto) Lymph # (Auto) [place] # (Auto) Eos # (Auto) Baso # (Auto) Abs Immat Gran (auto) Absolute Neuts (auto) Absolute Nucleated RBC Nucleated RBC % (auto) PT INR Sodium Potassium Chloride Carbon Dioxide Anion Gap BUN Creatinine Estim Creat Clear Calc Estimated GFR Random Glucose Calcium Magnesium B-Natriuretic Peptide Stool Occult Blood POS Blood Type A Positive Antibody Screen NEGATIVE 07/07/20 07/07/20 07/07/20 05:40 05:40 05:40 WBC 12.8 H RBC 2.91 L Hgb 8.5 L Hct 26.1 L MCV 89.7 MCH 29.2 MCHC 32.6 RDW 15.7 Plt Count 314 MPV 9.5 Immature Gran % (Auto) 0.7 H Neut % (Auto) 76.3 H Lymph % (Auto) 10.3 L [place] % (Auto) 9.6 Eos % (Auto) 2.9 Baso % (Auto) 0.2 Lymph # (Auto) 1.3 [place] # (Auto) 1.2 Eos # (Auto) 0.4 Baso # (Auto) 0.0 Abs Immat Gran (auto) 0.09 H Absolute Neuts (auto) 9.7 H Absolute Nucleated RBC 0.000 Nucleated RBC % (auto) 0.0 PT 20.3 H INR 1.7 H Sodium 141 Potassium 2.9 L Chloride 104 Carbon Dioxide 26 Anion Gap 14 BUN 14 Creatinine 1.37 Estim Creat Clear Calc 38.4 Estimated GFR 39 Random Glucose 93 Calcium 7.9 L Magnesium 2.0 B-Natriuretic Peptide Stool Occult Blood Blood Type Antibody Screen 07/07/20 05:40 WBC RBC Hgb Hct MCV MCH MCHC RDW Plt Count MPV Immature Gran % (Auto) Neut % (Auto) Lymph % (Auto) [place] % (Auto) Eos % (Auto) Baso % (Auto) Lymph # (Auto) [place] # (Auto) Eos # (Auto) Baso # (Auto) Abs Immat Gran (auto) Absolute Neuts (auto) Absolute Nucleated RBC Nucleated RBC % (auto) PT INR Sodium Potassium Chloride Carbon Dioxide Anion Gap BUN Creatinine Estim Creat Clear Calc Estimated GFR Random Glucose Calcium Magnesium B-Natriuretic Peptide 3841 H Stool Occult Blood Blood Type Antibody Screen Progress Note: A&P Assessment and plan (1) Hypotension: Status: Acute Assessment and Plan: Hx of chronic systolic HF, Bi V ICD in place. Admit with HERMELINDO, sepsis, hydronephrosis. Fluid resuscitated then with some volume overload. Home neurohormonal, antihypertensive on hold. BP had been running low with systolic into 70s. Pt reports that home BP is chronically low and asymptomatic. Echo 03/27/20 shows EF 10-15%, grade III diastolic dysfunction. BP this am improved some, 111/54. Will plan restart of Metoprolol, at lower dose of XL 25mg daily. If tolerates, then will plan for restart of Lasix at 40mg daily, tomorrow. Home Entresto and Aldactone will be held at present and eventual restart as outpt. She currently still has HERMELINDO, hydronephrosis and Uology/ ID consulted. (2) Sepsis: Status: Acute (3) Hydronephrosis: Status: Acute (4) Chronic systolic heart failure: Status: Acute Assessment and Plan: Follows with Dr Lomas as outpt. (5) HERMELINDO (acute kidney injury): Status: Acute Fall Risk Details Current Medications: Current Medications Generic Name Dose Route Start Last Admin Trade Name Freq PRN Reason Stop Dose Admin Acetaminophen 650 mg 07/04/20 21:26 Acetaminophen 325 Mg Tablet PO Q6H PRN Pain, Mild (Pain Scale 1-3) Amiodarone HCl 200 mg 07/05/20 09:00 07/07/20 09:56 Amiodarone Hcl 200 Mg Tablet PO 200 mg DAILY KEMAL Administration Ascorbic Acid 500 mg 07/05/20 09:00 07/07/20 09:56 Ascorbic Acid 500 Mg Tablet PO 500 mg DAILY KEMAL Administration Aspirin 81 mg 07/05/20 09:00 07/07/20 09:56 Aspirin 81 Mg Tab.Chew PO 81 mg DAILY KEMAL Administration Atorvastatin Calcium 80 mg 07/05/20 21:00 07/06/20 20:06 Atorvastatin Calcium 80 Mg Tablet PO 80 mg BEDTIME KEMAL Administration Calcium Carbonate/Cholecalciferol 500 mg 07/05/20 09:00 07/07/20 09:56 Calcium + Vitamin D 250 Mg Tablet PO 500 mg BID KEMAL Administration Docusate Sodium 100 mg 07/04/20 21:26 Docusate Sodium 100 Mg Capsule PO BID PRN Constipation Piperacillin Sod/Tazobactam 50 mls @ 100 mls/hr 07/05/20 06:15 07/07/20 09:59 Sod 3.375 gm/ Sodium Chloride IV Infused Q6H KEMAL Infusion Potassium Chloride 10 meq in 100 mls @ 100 mls/hr 07/07/20 08:30 07/07/20 09:55 IV 07/07/20 12:29 100 mls/hr Q1H KEMAL Administration Metoprolol Tartrate 25 mg 07/07/20 21:00 Metoprolol Tartrate 25 Mg Tablet PO BID [facility] Protocol Multivitamins/Vitamin C 1 tab 07/05/20 09:00 07/07/20 09:56 Multivitamin Tablet PO 1 tab DAILY KEMAL Administration Nitroglycerin 0.4 mg 07/04/20 21:26 Nitroglycerin 0.4 Mg Tab.Subl SUBLINGUAL Q5M PRN Chest Pain Omeprazole 20 mg 07/05/20 06:30 07/07/20 06:36 Omeprazole 20 Mg Capsule. PO 20 mg BID@0630,6540 KEMAL Administration Ondansetron HCl 4 mg 07/04/20 21:26 Ondansetron Hcl 4 Mg/2 Ml Vial IVPUSH Q8H PRN Nausea and Vomiting Oxycodone HCl 10 mg 07/04/20 21:26 Oxycodone Hcl Immed Release 5 Mg Tablet PO TID PRN pain Pharmacy Consult 1 each 07/04/20 17:04 Consult Rx Perform Med Rec MISCELLANE ONCE PRN Consult order Sodium Chloride 3 ml 07/05/20 00:00 07/07/20 09:55 0.9 % Sodium Chloride Flush 3 Ml Syringe IVFLUSH 3 ml QSHIFT KEMAL Administration Vitamin D 50 mcg 07/05/20 09:00 07/07/20 09:55 Cholecalciferol (Vitamin D3) 25 Mcg Tablet PO 50 mcg DAILY KEMAL Administration Time Spent With Patient Time: Total time spent is greater than 50% in coordination of care (as documented) at patient's floor/unit and/or counseling patient: 18 Time with patient: 15 - 24 minutes
--- NOTE | 2020-07-07 11:21 | MHC.CM.PN ---
Per ROUNDS discussion, Patient continues on IV Zosyn and cultures are pending. Home continues to be the goal for dc and CM will continue to follow for dc planning and possible need to adjust the dc plan.
[2020-07-07 12:00] VITALS: BP 100/73; PULSE 103; RESP 20; TEMP 36.8; O2SAT 94
--- NOTE | 2020-07-07 12:44 | MHC.CLN ---
F/U PO 75% DIET RX: REGULAR-RECOMMEND 2GM NA R/T HX HF WILL RE-START NIELS AND ENSURE TO PROMOTE WOUND HEALING FOLLOWING
--- NOTE | 2020-07-07 15:41 | P.CNID_ITS ---
History of Present Illness Data of Consult Service Date: 07/07/20 Requesting physician: Freya Mclean Primary Care Provider: Keith العلي MD [facility] Reason for consult: leukocytosis She presents to ER with nausea,vomiting and nonbloody diarrhea on 07/04 She has some crampy 6/10 abdominal suprapubic discomfort She has had 06/21 pyelonephritis with ureteral stenting and was given Ceftriaxone and then course of po Ceftin finished 3 days ago 06/19 she had cystoscopy and two stent . She was given Rocephin and po Ceftin to finish 10 day course. She has WBC of 16,000 on admission Urine now less than 10,000 gram positive cocci She is on Zosyn at this time Review of Systems Review of Systems: Yes all other systems are reviewed and are negative [facility] Past Medical History Medical History Biventricular ICD (implantable cardioverter-defibrillator) in place Cardiomyopathy Paroxysmal atrial fibrillation with rapid ventricular response Prolapsed uterus Systolic heart failure Family History Family history: reviewed and not pertinent Surgical History Surgical History H/O cystoscopy H/O: section History of renal stent Previous back surgery Total knee replacement status Social History Social History Household Members: Family and Children Housing: House Do you presently have visiting nurse or other home services: No Alcohol intake: never Smoking Status: Former smoker Smoked in Last 30 Days: No Use of substances other than those prescribed or required for medical reasons: No Currently Displaying Signs/Symptoms of Drug Intoxication Withdrawal: No Advance Directives: No Advance Directives Information Provided: No Do you have thoughts of harming others: None Do you have a plan to hurt others: No Plan Recently lost weight without trying: No service: No Current occupational status: disabled Meds Allergies Allergy/AdvReac Type Severity Reaction Status Date / Time No Known Food Allergies Allergy Unknown Verified 06/05/20 13:48 Home Medications Medication Instructions Recorded Confirmed Type amiodarone 200 mg PO DAILY 03/29/20 07/04/20 History aspirin 81 mg PO DAILY 03/29/20 07/04/20 History cholecalciferol (vitamin D3) 50 mcg PO DAILY 03/29/20 07/04/20 History docusate sodium 100 mg PO BID PRN 03/29/20 07/04/20 History multivitamin 1 cap PO DAILY 03/29/20 07/04/20 History nitroglycerin 0.4 mg SUBLINGUAL Q5M PRN 03/29/20 07/04/20 History omeprazole 20 mg PO BID@0630,1630 03/29/20 07/04/20 History spironolactone 25 mg PO QAM 03/29/20 07/04/20 History furosemide 80 mg tablet 80 mg PO BID 05/03/20 07/04/20 History metoprolol tartrate 25 mg tablet 25 mg PO BID 05/03/20 07/04/20 History Enbrel SureClick 1 mg SUBCUT QWEEK 06/17/20 07/04/20 History Entresto 1 tab PO BID 06/17/20 07/04/20 History ascorbic acid (vitamin C) [Vitamin 500 mg PO DAILY 06/17/20 07/04/20 History C] furosemide 40 mg PO QNOON 06/17/20 07/04/20 History oxycodone 1 tab PO TID PRN 06/17/20 07/04/20 History zolpidem 0.5 - 1 tab PO BEDTIME 06/17/20 07/04/20 History rosuvastatin 1 tab PO BEDTIME 07/04/20 07/04/20 History Physical Exam Vital Signs: Vital Signs: Last Vital Signs Temp 98.2 F 07/07/20 12:00 Pulse 103 H 07/07/20 12:00 Resp 20 07/07/20 12:00 BP 100/73 07/07/20 12:00 Pulse Ox 94 07/07/20 12:00 Body Mass Index 37.3 Const: General: cooperative Orientation/consciousness: oriented to person, oriented to place and oriented to time HENMT: Head: Yes normal to inspection Mouth: Normal oral and palatal mucosa present Eyes: General: appearance normal, both eyes and all related structures Resp: Effort & Inspection: normal respiratory effort Cardio: Rate: regular rate Rhythm: regular rhythm GI: Palpation (GI): Soft to palpation and nontender : General: Yes no CVA tenderness Back/Spine/Pelvis: Back: no CVA tenderness Skin: General skin exam: no rashes or lesions noted Neuro: General: oriented to person, oriented to place and oriented to time Extrem: General: Yes normal to inspection Assessment and Plan (1) Urinary retention: Status: Acute (2) Diarrhea: Status: Acute (3) Dehydration: Status: Acute (4) Leukocytosis: Qualifiers: Leukocytosis type: unspecified Qualified Code(s): D72.829 - Elevated white blood cell count, unspecified Problem details: She has leukocytosis on admission and no urinary symptoms but diarrhea She has been on Ceftin for 10 days prior Now there is no bacteremia and urine only less than 10,000 gram positive cocci. She has resolving diarrhea and Cdiff and stool cultures are negative Likely leukocytosis and diarrhea may be associated with antibiotic associated colitis since cultures are negative She is afebrile and has resolving symptoms There doesnt seem to be any symptoms or concerns of urinary infection at this time and low urinary culture and cultures unrevealing Status: Acute Would stop IV antibiotics as no current infection identified Urology follow up. Results Labs CBC & Chem 7: 07/07/20 05:40 07/07/20 05:40 Labs: Short CBC 07/07/20 Range/Units 05:40 WBC 12.8 H (4.8-10.8) X10*3/uL Hgb 8.5 L (12.0-16.0) g/dl Hct 26.1 L (37-47) % Plt Count 314 (160-400) X10*3/uL BMP 07/07/20 05:40 Sodium 141 Potassium 2.9 L Chloride 104 Carbon Dioxide 26 BUN 14 Creatinine 1.37 Calcium 7.9 L Microbiology Microbiology Results: Microbiology 07/05/20 15:17 Urine clean catch - Straight Catheter Urine Culture - Preliminary Gram positive cocci 07/04/20 15:26 Stool Stool Culture - Final 07/05/20 04:11 Blood - Venous Blood Culture - Preliminary No growth after 48 hours. 07/05/20 04:06 Blood - Venous Blood Culture - Preliminary No growth after 48 hours. 07/04/20 17:46 Blood - Venous Blood Culture - Preliminary No growth after 48 hours. 07/04/20 17:46 Blood - Venous Blood Culture - Preliminary No growth after 48 hours.
[2020-07-07 16:00] VITALS: BP 96/49; PULSE 94; RESP 16; TEMP 36.8; O2SAT 98
--- NOTE | 2020-07-07 16:34 | HO.PM.IMPN ---
Subjective Subjective Date of Service: 07/07/20 Interval History: History in [place]ik from pt No fever No kidney pain No chest pain No lightheadedness 3 episodes diarrhea yesterday, none today Physical Exam Vital Signs: Vital Signs: Last Vital Signs Temp 98.3 F 07/07/20 16:00 Pulse 94 07/07/20 16:00 Resp 16 07/07/20 16:00 BP 96/49 L 07/07/20 16:00 Pulse Ox 98 07/07/20 16:00 Body Mass Index 37.3 Gen: in no acute distress HEENT: sclera anicteric, moist mucus membranes Neck: supple Lungs: diminished at bases bilaterally Heart: regular rate and rhythm, no murmurs, S4 present Abd: soft, non-tender, non-distended Ext: no edema Skin: warm/well-perfused Neuro: alert and oriented x3, no focal findings Psych: appropriate affect Objective Data Current Medications Generic Name Dose Route Start Last Admin Trade Name Freq PRN Reason Stop Dose Admin Acetaminophen 650 mg 07/04/20 21:26 Acetaminophen 325 Mg Tablet PO Q6H PRN Pain, Mild (Pain Scale 1-3) Amiodarone HCl 200 mg 07/05/20 09:00 07/07/20 09:56 Amiodarone Hcl 200 Mg Tablet PO 200 mg DAILY KEMAL Administration Ascorbic Acid 500 mg 07/05/20 09:00 07/07/20 09:56 Ascorbic Acid 500 Mg Tablet PO 500 mg DAILY KEMAL Administration Aspirin 81 mg 07/05/20 09:00 07/07/20 09:56 Aspirin 81 Mg Tab.Chew PO 81 mg DAILY KEMAL Administration Atorvastatin Calcium 80 mg 07/05/20 21:00 07/06/20 20:06 Atorvastatin Calcium 80 Mg Tablet PO 80 mg BEDTIME KEMAL Administration Calcium Carbonate/Cholecalciferol 500 mg 07/05/20 09:00 07/07/20 09:56 Calcium + Vitamin D 250 Mg Tablet PO 500 mg BID KEMAL Administration Docusate Sodium 100 mg 07/04/20 21:26 Docusate Sodium 100 Mg Capsule PO BID PRN Constipation Metoprolol Tartrate 25 mg 07/07/20 21:00 Metoprolol Tartrate 25 Mg Tablet PO BID [facility] Protocol Multivitamins/Vitamin C 1 tab 07/05/20 09:00 07/07/20 09:56 Multivitamin Tablet PO 1 tab DAILY KEMAL Administration Nitroglycerin 0.4 mg 07/04/20 21:26 Nitroglycerin 0.4 Mg Tab.Subl SUBLINGUAL Q5M PRN Chest Pain Omeprazole 20 mg 07/05/20 06:30 07/07/20 15:42 Omeprazole 20 Mg Capsule. PO 20 mg BID@0630,0220 KEMAL Administration Ondansetron HCl 4 mg 07/04/20 21:26 Ondansetron Hcl 4 Mg/2 Ml Vial IVPUSH Q8H PRN Nausea and Vomiting Oxycodone HCl 10 mg 07/04/20 21:26 Oxycodone Hcl Immed Release 5 Mg Tablet PO TID PRN pain Pharmacy Consult 1 each 07/04/20 17:04 Consult Rx Perform Med Rec MISCELLANE ONCE PRN Consult order Sodium Chloride 3 ml 07/05/20 00:00 07/07/20 15:37 0.9 % Sodium Chloride Flush 3 Ml Syringe IVFLUSH 3 ml QSHIFT [facility] Administration Vitamin D 50 mcg 07/05/20 09:00 07/07/20 09:55 Cholecalciferol (Vitamin D3) 25 Mcg Tablet PO 50 mcg DAILY KEMAL Administration Labs CBC & Chem 7: 07/07/20 05:40 07/07/20 05:40 Labs: Laboratory Results - last 24 hr 07/07/20 07/07/20 07/07/20 05:40 05:40 05:40 WBC 12.8 H RBC 2.91 L Hgb 8.5 L Hct 26.1 L MCV 89.7 MCH 29.2 MCHC 32.6 RDW 15.7 Plt Count 314 MPV 9.5 Immature Gran % (Auto) 0.7 H Neut % (Auto) 76.3 H Lymph % (Auto) 10.3 L [place] % (Auto) 9.6 Eos % (Auto) 2.9 Baso % (Auto) 0.2 Lymph # (Auto) 1.3 [place] # (Auto) 1.2 Eos # (Auto) 0.4 Baso # (Auto) 0.0 Abs Immat Gran (auto) 0.09 H Absolute Neuts (auto) 9.7 H Absolute Nucleated RBC 0.000 Nucleated RBC % (auto) 0.0 PT 20.3 H INR 1.7 H Sodium 141 Potassium 2.9 L Chloride 104 Carbon Dioxide 26 Anion Gap 14 BUN 14 Creatinine 1.37 Estim Creat Clear Calc 38.4 Estimated GFR 39 Random Glucose 93 Calcium 7.9 L Magnesium 2.0 B-Natriuretic Peptide 07/07/20 05:40 WBC RBC Hgb Hct MCV MCH MCHC RDW Plt Count MPV Immature Gran % (Auto) Neut % (Auto) Lymph % (Auto) [place] % (Auto) Eos % (Auto) Baso % (Auto) Lymph # (Auto) [place] # (Auto) Eos # (Auto) Baso # (Auto) Abs Immat Gran (auto) Absolute Neuts (auto) Absolute Nucleated RBC Nucleated RBC % (auto) PT INR Sodium Potassium Chloride Carbon Dioxide Anion Gap BUN Creatinine Estim Creat Clear Calc Estimated GFR Random Glucose Calcium Magnesium B-Natriuretic Peptide 3841 H Microbiology Microbiology Results: Microbiology 07/05/20 15:17 Urine clean catch - Straight Catheter Urine Culture - Preliminary Gram positive cocci 07/04/20 15:26 Stool Stool Culture - Final 07/05/20 04:11 Blood - Venous Blood Culture - Preliminary No growth after 48 hours. 07/05/20 04:06 Blood - Venous Blood Culture - Preliminary No growth after 48 hours. 07/04/20 17:46 Blood - Venous Blood Culture - Preliminary No growth after 48 hours. 07/04/20 17:46 Blood - Venous Blood Culture - Preliminary No growth after 48 hours. Assessment and Plan (1) Sepsis: Status: Acute (2) HERMELINDO (acute kidney injury): Status: Acute (3) Hydronephrosis: Status: Acute Assessment and Plan: hospital d#4 64yo F with ischemic CM/severe HFrEF (EF 10% 03/28/20), uterine prolapse, bilateral hydronephrosis with recent ureteral stenting (06/17/20) and recent E coli UTI treated with cefuroxime presented with diarrhea, question of sepsis with HERMELINDO # sepsis - ID consulted, probably antibiotic-assoc diarrhea, repeat C diff pending, d/c pip/salome # bacteruria - d/c pip/salome per ID, Urology consulted- no stent change indicated # HERMELINDO, prerenal - improving fter crystalloid/colloid resuscitation; continue to hold diuretics + Entresto # hypotension - chronically low due to HFrEF. seens to be improving, though- will reintroduce metoprolol. cancel TTE. # HFrEF/dilated CM - holding Entresto, furosemide, and spironolactone due to hypotension. restart metoprolol. will need to restart furosemide tomorrow. resume Entresto + spironolactone as outpt with Cardiology. # AF - continue amiodarone + metoprolol; holding warfarin # supratherapeutic INR - s/p vitamin K, monitor INR, continue to hold warfarin due to FOBT+ # anemia, FOBT+ - GI consultation; last EGD + C-scope in 2011 with gastric ulcer + colon polyp [tubular adenoma] # VTE ppx - on warfarin [held]
[2020-07-07 19:56] VITALS: BP 103/62; PULSE 98; RESP 18; TEMP 36.9; O2SAT 97
[2020-07-07] MEDS: Metoprolol Tartrate 25 MG TABLET PO (20:03)
[2020-07-07] MEDS: Atorvastatin Calcium 80 MG TABLET PO (20:04)
--- NOTE | 2020-07-07 20:35 | CONS_ITS ---
DATE OF SERVICE: 07/07/2020 REFERRING PHYSICIAN: Freya cMlean MD REASON FOR CONSULTATION: Hemoccult-positive stools, anemia, and anticoagulation. HISTORY OF PRESENT ILLNESS: The patient is a 64-year-old woman, who was admitted to the hospital on July 04 with complaints of diarrhea, which began after cystoscopy and stent placement and treatment with antibiotics. She was noted to have Hemoccult-positive stools, but did not have arely bleeding. She has been noted to be anemic with a hematocrit of 32 on admission. During the hospitalization, she has gotten significant IV fluids and her hematocrit has ranged from 24 to 26 in the past 3 days. There has been no reported melena. The patient denies abdominal pain. During this hospitalization, she did have a significant elevation of her INR to 9.4 on July 05. She is on anticoagulation for atrial fibrillation and cardiomyopathy and is status post ICD placement. Her anticoagulation has been held to allow her INR to return to normal. Records indicate that her last colonoscopy was done in October of 2011 for GI bleeding and anemia. She also had an upper endoscopy at that time. A small polyp was removed, which was a tubular adenoma. PAST MEDICAL HISTORY: 1. Paroxysmal atrial fibrillation. 2. Anemia with Hemoccult-positive stools as above. 3. Cardiomyopathy with defibrillator placement. 4. Systolic heart failure. 5. Uterine prolapse. CURRENT MEDICATIONS: Her current medication list is reviewed in the chart. She is on aspirin as well as anticoagulation with warfarin. ALLERGIES: THERE ARE NONE REPORTED. FAMILY HISTORY: This is reviewed in the electronic medical record. SOCIAL HISTORY: There is no current tobacco, alcohol, or substance abuse. REVIEW OF SYSTEMS: SKIN: No pruritus. HEENT: Negative. CARDIOPULMONARY: No shortness of breath or chest pain. GASTROINTESTINAL: As above. GENITOURINARY: Negative. NEUROPSYCHIATRIC: Negative. PHYSICAL EXAMINATION: GENERAL: Shows a pleasant female, lying in bed. VITAL SIGNS: Reviewed in the electronic medical record. SKIN: Anicteric. HEENT: No scleral icterus. NECK: Without lymphadenopathy or thyromegaly. LUNGS: Clear. HEART: Regular rate and rhythm. S1, S2. No murmur. ABDOMEN: Soft without focal masses or tenderness. Bowel sounds are present. No organomegaly is noted. EXTREMITIES: Without edema. LABORATORY DATA: Shows a white blood cell count of 12.8, hematocrit 26.1. INR is 1.7. IMPRESSION: Anemia with Hemoccult-positive stools. It is likely that her acute drop in her blood count is not due to active GI bleeding since she has had none, but more likely dilutional due to the large amount of IV fluid she has been given. She is overdue for followup colonoscopy and this can be arranged electively as an outpatient once her clinical condition with her current medical issues has stabilized. I discussed this with the patient. She would need to be off anticoagulation for the procedure. Thanks for asking me to see her. I will follow her in the hospital with you. MD BROCK Novoa/SHAKIRA / [id number]
[2020-07-07 23:02] VITALS: BP 95/48; PULSE 87; RESP 18; TEMP 37.1; O2SAT 97
[2020-07-08 04:00] VITALS: BP 92/65; PULSE 82; RESP 18; TEMP 36.8; O2SAT 96
[2020-07-08] MEDS: Omeprazole 20 MG CAPSULE.DR PO ×2 (05:52→16:19)
[2020-07-08 06:45] LABS: MANUAL DIFF FLAG NO
[2020-07-08 06:52] LABS: Basophils Percent Auto 0.3 % (0-2); Eosinophils Absolute Auto 0.4 X10*3/uL (0.0-0.4); Eosinophils Percent Auto 4.1 % (0-4); Hemoglobin 8.3 g/dl (12.0-16.0); Imm Gran Abs Auto 0.08 X10*3/uL (0.00-0.03); Imm Gran Pct Auto 0.8 % (0.0-0.4); Lymphocytes Absolute Auto 1.6 X10*3/uL (1.2-4.9); Mean Corpuscular HGB Conc 31.9 g/dl (31.0-35.0); Mean Corpuscular Hemoglobin 28.6 pg (27.0-33.0); Mean Corpuscular Volume 89.7 fL (80-98); Mean Platelet Volume 9.5 fL (9.4-12.3); Monocytes Percent Auto 9.7 % (2-11); Neutrophils Absolute Auto 7.3 X10*3/uL (2.0-8.3); Neutrophils Percent Auto 70.1 % (45-73); Platelet Count 321 X10*3/uL (160-400); Red Cell Distribution Width 15.8 % (11.0-16.0); White Blood Count 10.4 X10*3/uL (4.8-10.8)
[2020-07-08 07:18] LABS: INTERNATIONAL NORM RATIO 1.7 (0.9-1.1); Prothrombin Time 20.8 SEC (10.8-13.0)
[2020-07-08 07:19] LABS: Anion Gap 13 (12-20); Blood Urea Nitrogen 12 mg/dL (9-16); Carbon Dioxide 25 mmol/L (22-29); Chloride 104 mmol/L (96-108); Creatinine Clr Calc Pharmacy 42.1; Estimated Glomerular Filt Rate 43; Glucose Random 86 mg/dL (60-115); Magnesium 1.9 mg/dL (1.6-2.6); Potassium 3.4 mmol/l (3.3-5.1); Sodium 139 mmol/L (135-145)
[2020-07-08 07:27] LABS: B Type Natriuretic Peptide 3828 pg/mL (<100)
[2020-07-08 08:00] VITALS: BP 93/55; PULSE 92; RESP 18; TEMP 36.7; O2SAT 98
--- NOTE | 2020-07-08 10:33 | P.PNCA_ITS ---
Subjective Subjective Date of Service: 07/08/20 Principal diagnosis: pyelonephritis, hypotension, sepsis, CHF, nonischemic CMP Interval history: Patient reports she is feeling better today. Denies CP, SOB, palpitations, dizziness. Review of Systems Constitutional: Denies fatigue and Denies fever(s) Cardiovascular: Denies Abdominal Distension, Denies chest pain, Denies chest pain with activity, Denies Epigastric Pain, Denies edema, Denies dyspnea and Denies dyspnea on exertion Respiratory: Denies dyspnea and Denies dyspnea on exertion Gastrointestinal: Denies no additional gastrointestinal complaints Musculoskeletal: Reports no additional musculoskeletal complaints Reports system reviewed and no additional complaints, except as documented Endocrine: Denies fatigue Physical Exam Vital Signs: Last Vital Signs Temp 98.1 F 07/08/20 08:00 Pulse 92 07/08/20 08:00 Resp 18 07/08/20 08:00 BP 93/55 L 07/08/20 08:00 Pulse Ox 98 07/08/20 08:00 Body Mass Index 37.3 Const General: cooperative, comfortable, no acute distress, well developed, alert and awake Orientation/consciousness: patient oriented x3 Neck Neck: Yes normal visual inspection, Yes trachea midline, Yes supple and Yes JVD (mild ) Resp Effort & Inspection: normal respiratory effort and able to speak in complete sentences Auscultation: clear to auscultation bilaterally Cardio Jugular venous distension: JVD (Mild) Rate: Other (V paced) GI Inspection: Yes normal to inspection Auscultation: normal bowel sounds Skin General skin exam: elasticity normal and turgor normal Neuro General: patient oriented x3 Psych Appearance: grossly normal and well kempt Mental Status: mental status grossly normal Speech and movement: Normal speech and movement present Affect: normal affect Attitude: cooperative Results Labs and Meds Result diagrams: 07/08/20 05:51 07/08/20 05:51 Lab results: Laboratory Results - last 24 hr 07/08/20 07/08/20 07/08/20 05:51 05:51 05:51 WBC 10.4 RBC 2.90 L Hgb 8.3 L Hct 26.0 L MCV 89.7 MCH 28.6 MCHC 31.9 RDW 15.8 Plt Count 321 MPV 9.5 Immature Gran % (Auto) 0.8 H Neut % (Auto) 70.1 Lymph % (Auto) 15.0 L [place] % (Auto) 9.7 Eos % (Auto) 4.1 H Baso % (Auto) 0.3 Lymph # (Auto) 1.6 [place] # (Auto) 1.0 Eos # (Auto) 0.4 Baso # (Auto) 0.0 Abs Immat Gran (auto) 0.08 H Absolute Neuts (auto) 7.3 Absolute Nucleated RBC 0.000 Nucleated RBC % (auto) 0.0 PT 20.8 H INR 1.7 H Sodium 139 Potassium 3.4 Chloride 104 Carbon Dioxide 25 Anion Gap 13 BUN 12 Creatinine 1.25 Estim Creat Clear Calc 42.1 Estimated GFR 43 Random Glucose 86 Calcium 8.0 L Magnesium 1.9 B-Natriuretic Peptide 07/08/20 05:51 WBC RBC Hgb Hct MCV MCH MCHC RDW Plt Count MPV Immature Gran % (Auto) Neut % (Auto) Lymph % (Auto) [place] % (Auto) Eos % (Auto) Baso % (Auto) Lymph # (Auto) [place] # (Auto) Eos # (Auto) Baso # (Auto) Abs Immat Gran (auto) Absolute Neuts (auto) Absolute Nucleated RBC Nucleated RBC % (auto) PT INR Sodium Potassium Chloride Carbon Dioxide Anion Gap BUN Creatinine Estim Creat Clear Calc Estimated GFR Random Glucose Calcium Magnesium B-Natriuretic Peptide 3828 H Progress Note: A&P Assessment and plan (1) Chronic systolic heart failure: Status: Acute Assessment and Plan: Hx of chronic systolic HF, Bi V ICD in place. Patient pacing most of the time. Admited with HERMELINDO, sepsis, hydronephrosis. Sepsis protocol initiated, patient was fluid resuscitated which led to fluid volume overload. Hypotensive due to possibly sepsis and her home antihypertensive and neural hormonal therapy. Her BP is improving. However patient reports that her blood pressure is usually low and she has no symptoms with that. We should try to take her blood pressure manually. Her last echo was done on 03/27/20 and showed LVEF of 10-15%, grade III diastolic dysfunction. She seems to be tolerating metoprolol tartrate well, we can switch her to metoprolol succinate 25 daily. BUN 121, Cr. 1.25 BNP 3828. We can add Lasix 40 mg bid IV today and she can be switch tomorrow to p.o. Her home Aldactone and Entresto are on hold, can be restarted as an outpatient and follow-up with her cardiology team (Dr. Choi) for management. Potassium is 3.4, please replace. (2) HERMELINDO (acute kidney injury): Status: Acute Assessment and Plan: HERMELINDO and hydronephrosis followed by urology and ID Fall Risk Details Current Medications: Current Medications Generic Name Dose Route Start Last Admin Trade Name Freq PRN Reason Stop Dose Admin Acetaminophen 650 mg 07/04/20 21:26 Acetaminophen 325 Mg Tablet PO Q6H PRN Pain, Mild (Pain Scale 1-3) Amiodarone HCl 200 mg 07/05/20 09:00 07/07/20 09:56 Amiodarone Hcl 200 Mg Tablet PO 200 mg DAILY KEMAL Administration Ascorbic Acid 500 mg 07/05/20 09:00 07/07/20 09:56 Ascorbic Acid 500 Mg Tablet PO 500 mg DAILY KEMAL Administration Aspirin 81 mg 07/05/20 09:00 07/07/20 09:56 Aspirin 81 Mg Tab.Chew PO 81 mg DAILY KEMAL Administration Atorvastatin Calcium 80 mg 07/05/20 21:00 07/07/20 20:04 Atorvastatin Calcium 80 Mg Tablet PO 80 mg BEDTIME KEMAL Administration Calcium Carbonate/Cholecalciferol 500 mg 07/05/20 09:00 07/07/20 20:03 Calcium + Vitamin D 250 Mg Tablet PO 500 mg BID KEMAL Administration Docusate Sodium 100 mg 07/04/20 21:26 Docusate Sodium 100 Mg Capsule PO BID PRN Constipation Furosemide 40 mg 07/08/20 09:00 Furosemide 40 Mg/4 Ml Vial IVPUSH 07/08/20 18:01 BID@0900,1800 [facility] Protocol Furosemide 40 mg 07/09/20 09:00 Furosemide 40 Mg Tablet PO DAILY [facility] Protocol Metoprolol Tartrate 25 mg 07/07/20 21:00 07/07/20 20:03 Metoprolol Tartrate 25 Mg Tablet PO 25 mg BID KEMAL Administration Protocol Multivitamins/Vitamin C 1 tab 07/05/20 09:00 07/07/20 09:56 Multivitamin Tablet PO 1 tab DAILY KEMAL Administration Nitroglycerin 0.4 mg 07/04/20 21:26 Nitroglycerin 0.4 Mg Tab.Subl SUBLINGUAL Q5M PRN Chest Pain Omeprazole 20 mg 07/05/20 06:30 07/08/20 05:52 Omeprazole 20 Mg Capsule. PO 20 mg BID@0630,1630 KEMAL Administration Ondansetron HCl 4 mg 07/04/20 21:26 Ondansetron Hcl 4 Mg/2 Ml Vial IVPUSH Q8H PRN Nausea and Vomiting Oxycodone HCl 10 mg 07/04/20 21:26 Oxycodone Hcl Immed Release 5 Mg Tablet PO TID PRN pain Pharmacy Consult 1 each 07/04/20 17:04 Consult Rx Perform Med Rec MISCELLANE ONCE PRN Consult order Sodium Chloride 3 ml 07/05/20 00:00 07/07/20 23:54 0.9 % Sodium Chloride Flush 3 Ml Syringe IVFLUSH 3 ml QSHIFT KEMAL Administration Vitamin D 50 mcg 07/05/20 09:00 07/07/20 09:55 Cholecalciferol (Vitamin D3) 25 Mcg Tablet PO 50 mcg DAILY KEMAL Administration Warfarin Sodium 3 mg 07/08/20 18:00 Warfarin Sodium 3 Mg Tablet PO DAILY@1800 KEMAL Time Spent With Patient Time: Total time spent is greater than 50% in coordination of care (as documented) at patient's floor/unit and/or counseling patient: Time with patient: 15 - 24 minutes
[2020-07-08] MEDS: Calcium + Vitamin D 250 MG TABLET 500 MG PO ×2 (10:42→21:52)
[2020-07-08] MEDS: Cholecalciferol (Vitamin D3) 25 MCG TABLET 50 MCG PO (10:42)
[2020-07-08 10:43] VITALS: BP 93/55; PULSE 92
[2020-07-08] MEDS: Ascorbic Acid 500 MG TABLET PO (10:43)
[2020-07-08] MEDS: Aspirin 81 MG TAB.CHEW PO (10:43)
[2020-07-08] MEDS: Metoprolol Tartrate 25 MG TABLET PO (10:43)
[2020-07-08] MEDS: Amiodarone HCL 200 MG TABLET PO (10:43)
[2020-07-08] MEDS: Multivitamin TABLET 1 TAB PO (10:43)
[2020-07-08] MEDS: 0.9 % Sodium Chloride Flush 3 ML SYRINGE IVFLUSH ×3 (10:44→21:54)
[2020-07-08] MEDS: Furosemide 40 MG/4 ML VIAL IVPUSH ×2 (11:24→18:25)
[2020-07-08] MEDS: Potassium Chloride ER 20 MEQ TAB.ER.PRT 40 MEQ PO (11:24)
[2020-07-08 12:00] VITALS: BP 102/61; PULSE 83; RESP 20; TEMP 36.8; O2SAT 99
--- NOTE | 2020-07-08 15:19 | P.PNIM_ITS ---
Subjective Subjective Date of Service: 07/08/20 Interval History: interviewed in Bengali no chest pain no dyspnea no dysuria diarrhea resolved except for 1 mild episode this am no edema Physical Exam Vital Signs: Vital Signs: Last Vital Signs Temp 98.3 F 07/08/20 12:00 Pulse 83 07/08/20 12:00 Resp 20 07/08/20 12:00 BP 102/61 07/08/20 12:00 Pulse Ox 99 07/08/20 12:00 Body Mass Index 37.3 Gen: in no acute distress HEENT: sclera anicteric, moist mucus membranes Neck: supple Lungs: diminished at bases bilaterally Heart: regular rate and rhythm, no murmurs, S4 present Abd: soft, non-tender, non-distended Ext: no edema Skin: warm/well-perfused Neuro: alert and oriented x3, no focal findings Psych: appropriate affect Objective Data Current Medications Generic Name Dose Route Start Last Admin Trade Name Freq PRN Reason Stop Dose Admin Acetaminophen 650 mg 07/04/20 21:26 Acetaminophen 325 Mg Tablet PO Q6H PRN Pain, Mild (Pain Scale 1-3) Amiodarone HCl 200 mg 07/05/20 09:00 07/08/20 10:43 Amiodarone Hcl 200 Mg Tablet PO 200 mg DAILY KEMAL Administration Ascorbic Acid 500 mg 07/05/20 09:00 07/08/20 10:43 Ascorbic Acid 500 Mg Tablet PO 500 mg DAILY KEMAL Administration Aspirin 81 mg 07/05/20 09:00 07/08/20 10:43 Aspirin 81 Mg Tab.Chew PO 81 mg DAILY KEMAL Administration Atorvastatin Calcium 80 mg 07/05/20 21:00 07/07/20 20:04 Atorvastatin Calcium 80 Mg Tablet PO 80 mg BEDTIME KEMAL Administration Calcium Carbonate/Cholecalciferol 500 mg 07/05/20 09:00 07/08/20 10:42 Calcium + Vitamin D 250 Mg Tablet PO 500 mg BID KEMAL Administration Docusate Sodium 100 mg 07/04/20 21:26 Docusate Sodium 100 Mg Capsule PO BID PRN Constipation Furosemide 40 mg 07/08/20 09:00 07/08/20 11:24 Furosemide 40 Mg/4 Ml Vial IVPUSH 07/08/20 18:01 40 mg BID@0900,1800 KEMAL Administration Protocol Furosemide 40 mg 07/09/20 09:00 Furosemide 40 Mg Tablet PO DAILY [facility] Protocol Metoprolol Succinate 25 mg 07/09/20 10:57 Metoprolol Succinate Er 25 Mg Tab.Er.24h PO 07/09/20 10:58 ONCE ONE Protocol Metoprolol Succinate 25 mg 07/09/20 09:00 Metoprolol Succinate Er 25 Mg Tab.Er.24h PO DAILY [facility] Protocol Multivitamins/Vitamin C 1 tab 07/05/20 09:00 07/08/20 10:43 Multivitamin Tablet PO 1 tab DAILY KEMAL Administration Nitroglycerin 0.4 mg 07/04/20 21:26 Nitroglycerin 0.4 Mg Tab.Subl SUBLINGUAL Q5M PRN Chest Pain Omeprazole 20 mg 07/05/20 06:30 07/08/20 05:52 Omeprazole 20 Mg Capsule.Dr PO 20 mg BID@0630,4330 [facility] Administration Ondansetron HCl 4 mg 07/04/20 21:26 Ondansetron Hcl 4 Mg/2 Ml Vial IVPUSH Q8H PRN Nausea and Vomiting Oxycodone HCl 10 mg 07/04/20 21:26 Oxycodone Hcl Immed Release 5 Mg Tablet PO TID PRN pain Pharmacy Consult 1 each 07/04/20 17:04 Consult Rx Perform Med Rec MISCELLANE ONCE PRN Consult order Potassium Chloride 40 meq 07/08/20 11:13 07/08/20 11:24 Potassium Chloride Er 20 Meq Tab.Er.Prt PO 40 meq DAILY [facility] Administration Sodium Chloride 3 ml 07/05/20 00:00 07/08/20 10:44 0.9 % Sodium Chloride Flush 3 Ml Syringe IVFLUSH 3 ml QSHIFT [facility] Administration Vitamin D 50 mcg 07/05/20 09:00 07/08/20 10:42 Cholecalciferol (Vitamin D3) 25 Mcg Tablet PO 50 mcg DAILY [facility] Administration Warfarin Sodium 3 mg 07/08/20 18:00 Warfarin Sodium 3 Mg Tablet PO DAILY@1800 [facility] Labs CBC & Chem 7: 07/08/20 05:51 07/08/20 05:51 Labs: Laboratory Results - last 24 hr 07/08/20 07/08/20 07/08/20 05:51 05:51 05:51 WBC 10.4 RBC 2.90 L Hgb 8.3 L Hct 26.0 L MCV 89.7 MCH 28.6 MCHC 31.9 RDW 15.8 Plt Count 321 MPV 9.5 Immature Gran % (Auto) 0.8 H Neut % (Auto) 70.1 Lymph % (Auto) 15.0 L [place] % (Auto) 9.7 Eos % (Auto) 4.1 H Baso % (Auto) 0.3 Lymph # (Auto) 1.6 [place] # (Auto) 1.0 Eos # (Auto) 0.4 Baso # (Auto) 0.0 Abs Immat Gran (auto) 0.08 H Absolute Neuts (auto) 7.3 Absolute Nucleated RBC 0.000 Nucleated RBC % (auto) 0.0 PT 20.8 H INR 1.7 H Sodium 139 Potassium 3.4 Chloride 104 Carbon Dioxide 25 Anion Gap 13 BUN 12 Creatinine 1.25 Estim Creat Clear Calc 42.1 Estimated GFR 43 Random Glucose 86 Calcium 8.0 L Magnesium 1.9 B-Natriuretic Peptide 07/08/20 05:51 WBC RBC Hgb Hct MCV MCH MCHC RDW Plt Count MPV Immature Gran % (Auto) Neut % (Auto) Lymph % (Auto) [place] % (Auto) Eos % (Auto) Baso % (Auto) Lymph # (Auto) [place] # (Auto) Eos # (Auto) Baso # (Auto) Abs Immat Gran (auto) Absolute Neuts (auto) Absolute Nucleated RBC Nucleated RBC % (auto) PT INR Sodium Potassium Chloride Carbon Dioxide Anion Gap BUN Creatinine Estim Creat Clear Calc Estimated GFR Random Glucose Calcium Magnesium B-Natriuretic Peptide 3828 H Microbiology Microbiology Results: Microbiology 07/05/20 15:17 Urine clean catch - Straight Catheter Urine Culture - Final Enterococcus faecalis 07/04/20 15:26 Stool Stool Culture - Final 07/05/20 04:11 Blood - Venous Blood Culture - Preliminary No growth after 48 hours. 07/05/20 04:06 Blood - Venous Blood Culture - Preliminary No growth after 48 hours. 07/04/20 17:46 Blood - Venous Blood Culture - Preliminary No growth after 48 hours. 07/04/20 17:46 Blood - Venous Blood Culture - Preliminary No growth after 48 hours. Assessment and Plan (1) Sepsis: Status: Acute (2) HERMELINDO (acute kidney injury): Status: Acute (3) Hydronephrosis: Status: Acute Assessment and Plan: hospital d#5 64yo F with ischemic CM/severe HFrEF (EF 10% 03/28/20), uterine prolapse, bilateral hydronephrosis with recent ureteral stenting (06/17/20) and recent E coli UTI treated with cefuroxime presented with diarrhea, question of sepsis with HERMELINDO # sepsis - ID consulted, probably antibiotic-assoc diarrhea, repeat C diff if diarrhea recurs, d/c'ed pip/salome, bacteruria rather than UTI since <10^4 cFU/mL and no symptoms; no stent change indiacted per Urology # HERMELINDO, prerenal - improving after crystalloid/colloid resuscitation; resume furosemide PO; continue to hold Entresto # hypotension # chronic HFrEF/dilated cardiomyopathy - improving. baseline low. resumed metoprolol succinate. holding Entresto and spironolactone- consider restart by outpt a&p technician [Dr Choi]. resume furosemide. # AF - continue amiodarone + metoprolol; resume warfarin # supratherapeutic INR - s/p vitamin K, INR now <2, resume warfarin # anemia, FOBT+ - per GI consultation, outpt C-scope overdue [ last C-scope in 2011 with tubular adenoma]; monitor Hb with warfarin restart # VTE ppx - on warfarin
[2020-07-08 15:22] VITALS: BP 107/69; BP 96/67; PULSE 86; RESP 18; TEMP 36.8; O2SAT 99
[2020-07-08] MEDS: Warfarin Sodium 3 MG TABLET PO (18:24)
[2020-07-08 19:45] VITALS: BP 128/63; PULSE 85; RESP 20; TEMP 36.7; O2SAT 98
[2020-07-08] MEDS: Atorvastatin Calcium 80 MG TABLET PO (21:52)
[2020-07-09] VITALS: BP 97/71; PULSE 90; RESP 18; TEMP 36.7; O2SAT 98
[2020-07-09 03:34] VITALS: BP 99/65; PULSE 83; RESP 18; TEMP 36.8; O2SAT 98
[2020-07-09] MEDS: Omeprazole 20 MG CAPSULE.DR PO (05:55)
[2020-07-09 07:07] LABS: MANUAL DIFF FLAG NO
[2020-07-09 07:16] LABS: Basophils Percent Auto 0.3 % (0-2); Eosinophils Absolute Auto 0.5 X10*3/uL (0.0-0.4); Eosinophils Percent Auto 5.4 % (0-4); Hematocrit 25.8 % (37-47); Hemoglobin 8.3 g/dl (12.0-16.0); Imm Gran Abs Auto 0.13 X10*3/uL (0.00-0.03); Imm Gran Pct Auto 1.5 % (0.0-0.4); Lymphocytes Absolute Auto 1.5 X10*3/uL (1.2-4.9); Lymphocytes Percent Auto 17.3 % (20-40); Mean Corpuscular HGB Conc 32.2 g/dl (31.0-35.0); Mean Corpuscular Hemoglobin 28.8 pg (27.0-33.0); Mean Corpuscular Volume 89.6 fL (80-98); Mean Platelet Volume 9.8 fL (9.4-12.3); Monocytes Absolute Auto 0.8 X10*3/uL (0.1-1.2); Monocytes Percent Auto 9.5 % (2-11); Neutrophils Absolute Auto 5.8 X10*3/uL (2.0-8.3); Platelet Count 324 X10*3/uL (160-400); Red Blood Count 2.88 X10*6/uL (4.20-5.50); Red Cell Distribution Width 15.9 % (11.0-16.0); White Blood Count 8.8 X10*3/uL (4.8-10.8)
[2020-07-09 07:22] LABS: INTERNATIONAL NORM RATIO 1.9 (0.9-1.1); Prothrombin Time 22.8 SEC (10.8-13.0)
[2020-07-09 07:43] LABS: B Type Natriuretic Peptide 3945 pg/mL (<100)
[2020-07-09 07:59] LABS: Anion Gap 12 (12-20); Blood Urea Nitrogen 11 mg/dL (9-16); Calcium 7.8 mg/dL (8.4-10.2); Carbon Dioxide 30 mmol/L (22-29); Chloride 102 mmol/L (96-108); Creatinine Clr Calc Pharmacy 39.9; Estimated Glomerular Filt Rate 40; Glucose Random 87 mg/dL (60-115); Magnesium 1.8 mg/dL (1.6-2.6); Potassium 3.3 mmol/l (3.3-5.1); Sodium 141 mmol/L (135-145)
[2020-07-09 08:51] VITALS: PULSE 86; RESP 18; TEMP 35.8; O2SAT 100
[2020-07-09 09:09] VITALS: BP 92/40
[2020-07-09] MEDS: Ascorbic Acid 500 MG TABLET PO (09:12)
[2020-07-09] MEDS: Cholecalciferol (Vitamin D3) 25 MCG TABLET 50 MCG PO (09:12)
[2020-07-09] MEDS: Multivitamin TABLET 1 TAB PO (09:12)
[2020-07-09] MEDS: Calcium + Vitamin D 250 MG TABLET 500 MG PO (09:12)
[2020-07-09] MEDS: Aspirin 81 MG TAB.CHEW PO (09:12)
[2020-07-09] MEDS: Potassium Chloride ER 20 MEQ TAB.ER.PRT 40 MEQ PO (09:15)
[2020-07-09] MEDS: 0.9 % Sodium Chloride Flush 3 ML SYRINGE IVFLUSH (09:18)
[2020-07-09 10:04] VITALS: BP 92/40; PULSE 86
[2020-07-09] MEDS: Furosemide 40 MG TABLET PO (10:04)
[2020-07-09] MEDS: Metoprolol Succinate ER 25 MG TAB.ER.24H PO (10:04)
[2020-07-09] MEDS: Amiodarone HCL 200 MG TABLET PO (10:04)
--- NOTE | 2020-07-09 11:28 | P.F2F_ITS ---
Service Date Service Date: 07/09/20 Encounter Date of encounter: 07/09/20 Reasons for Services Signs and symptoms assessed: heart failure kidney injury BP Reason for [facility]: CV/CP assess and/or care, wound care, monitoring of PT/INR, medication management, medication treatment and teach disease management Reason for physical therapy: home safety and mobility, therapeutic exercises, gait/transfer training, assess need for DME, ADL training and energy conservation Overseeing Care: Keith العلي Homebound: Leaving the home is medically contraindicated at this time without the asist of a device and/or another person due th the listed conditions above and below. Reason homebound: fall risk related to blood pressure changes and weakness related to hospital stay Homebound supporting statement: [place] Donalds[place] [facility] [place]. Please refer to the discharge summary for details. Certification: Based on the above findings, I certify that this patient is confined to the home and needs intermittent [facility] care, physical therapy and/or speech therapy, or continues to need occupational therapy. The patient is under my care, and I have initiated the establishment of the plan of care. The patient will be followed by a physician who will periodically review the plan of care.
--- NOTE | 2020-07-09 11:28 | P.DS_ITS ---
DS: Providers Provider Date of Service: 07/09/20 Date of admission: 07/04/20 19:17 Primary care physician: Keith العلي MD Consults: 07/05/20 13:24 Consult to Cardiology Routine Consulting Provider: Kory Thomas Reason for consultation: hypotension, dilated CM LVEF 10%, sepsis 07/05/20 17:51 Consult to Urology Routine Consulting Provider: Rosales Healy Reason for consultation: sepsis, hydronephrosis, recent bilateral ureteral stents- change? 07/06/20 15:01 Consult to Gastroenterology Routine Consulting Provider: [facility] Reason for consultation: FOBT+ in anticoagulated patient 07/07/20 09:52 Consult to Infectious Diseases Routine Consulting Provider: Lola Rubio Reason for consultation: UTI [address], GPCS Has provider been notified: Yes DS: Diagnosis Discharge Diagnosis (1) Chronic systolic heart failure: Status: Acute (2) HERMELINDO (acute kidney injury): Status: Acute (3) Hydronephrosis: Status: Acute (4) Acute pyelonephritis: Status: Acute (5) Hypotension: Status: Acute (6) Cardiomyopathy: Status: Acute (7) Diarrhea: Status: Acute (8) Current use of anticoagulant therapy: Status: Acute (9) Atrial fibrillation: Status: Acute DS: Medications Discharge Medications Home Medications: Home Medications Medication Instructions Recorded Confirmed amiodarone 200 mg PO DAILY 03/29/20 07/04/20 aspirin 81 mg PO DAILY 03/29/20 07/04/20 cholecalciferol (vitamin D3) 50 mcg PO DAILY 03/29/20 07/04/20 docusate sodium 100 mg PO BID PRN 03/29/20 07/04/20 multivitamin 1 cap PO DAILY 03/29/20 07/04/20 nitroglycerin 0.4 mg SUBLINGUAL Q5M PRN 03/29/20 07/04/20 omeprazole 20 mg PO BID@0630,1630 03/29/20 07/04/20 spironolactone 25 mg PO QAM 03/29/20 07/04/20 furosemide 80 mg tablet 80 mg PO BID 05/03/20 07/04/20 metoprolol tartrate 25 mg tablet 25 mg PO BID 05/03/20 07/04/20 Enbrel SureClick 1 mg SUBCUT QWEEK 06/17/20 07/04/20 Entresto 1 tab PO BID 06/17/20 07/04/20 ascorbic acid (vitamin C) [Vitamin 500 mg PO DAILY 06/17/20 07/04/20 C] furosemide 40 mg PO QNOON 06/17/20 07/04/20 oxycodone 1 tab PO TID PRN 06/17/20 07/04/20 zolpidem 0.5 - 1 tab PO BEDTIME 06/17/20 07/04/20 rosuvastatin 1 tab PO BEDTIME 07/04/20 07/04/20 Previous Rx's Medication Instructions Recorded calcium carbonate-vit D3-min 1 tab PO BID #60 tab 03/31/20 warfarin 3 mg tablet 3 mg PO DAILY #90 tab 05/03/20 DS: Summary Hospital Course Hospital Course: from history and physical by admitting hospitalist ELOISA Hirsch, 07/04/20: 64 year old women presenting with 4 days of diarrhea. She had a cystoscopy and stent placement on 06/19/20, She has a history of chronic urinary retension. She completed a dose of ceftin and soon after began having diarrhea. She denied fever, chills, abdominal pain, nausea or vomiting. She did report poor appetite and drinking mostly pedialyte. She had leukocytosis of 16 with no fever. Renal function abnormal as well. She was given Rocephin for presumed UTI. She will be admitted for further management of diarrhea possibly secondary to C-diff, HERMELINDO and dehydration She was admitted to the [facility]. She was initially treated with pipercaillin/tazobactam for suspected complicated UTI but bacteria count in her urine did not meet diagnostic criteria for UTI, so antibiotics were discontinued at the suggestion of the infectious disease strategy consultant. Her sepsis physiology was ultimately attributed to antibiotic-associated diarrhea, unlikely to be Clostridium difficile (testing could not be done as the stool was formed). Diarrhea resolved. She had some hypotension but has a known history of dilated cardiomyopathy with severe HFrEF [LVEF 10% on 03/28/20] and usually her home SBPs are in the 80s-90s. However, hypotension improved and HERMELINDO resolved after resuscitation with crystalloid and colloid. Metoprolol was resumed but as succinate rather than tartrate; furosemide was also resumed. Entresto and spironolactone were held, and per sap business intelligence consultant, can be resumed by her outpatient bakery and deli sales manager per his discretion. She was admitted with supratherapeutic INR, likely due to antibiotic effect, and received vitamin K to reverse this. Her INR was 1.7 at the time of warfarin resumption and should be rechecked in 1 week, along with other labs including BMP, BNP, magnesium, and CBCd. She was noted to be anemic with FOBT+ stool; Gastroenterology was consulted and recommended an outpatient colonoscopy given she is overdue with a history of tubular adenoma on her last colonoscopy in 2011. She was discharged home with JASON pierre. Time Spent with Patient Time attestation: Total time spent providing and/or coordinating discharge services: 40 Discharge coordination time: Greater than 30 minutes Physical Exam Vital Signs: Vital Signs: Last Vital Signs Temp 96.4 F L 07/09/20 08:51 Pulse 86 07/09/20 10:04 Resp 18 07/09/20 08:51 BP 92/40 L 07/09/20 10:04 Pulse Ox 100 07/09/20 08:51 Body Mass Index 37.3 Gen: in no acute distress HEENT: sclera anicteric, moist mucus membranes Neck: supple Lungs: diminished at bases bilaterally Heart: regular rate and rhythm, no murmurs, S4 present Abd: soft, non-tender, non-distended Ext: no edema Skin: warm/well-perfused Neuro: alert and oriented x3, no focal findings Psych: appropriate affect DS: Data Data Completed and Pending Labs on day of discharge: Laboratory Tests 07/04/20 07/04/20 07/04/20 14:43 14:43 15:26 WBC 16.2 H RBC 3.70 L Hgb 10.7 L Hct 32.9 L MCV 88.9 MCH 28.9 MCHC 32.5 RDW 15.3 Plt Count 421 H MPV 9.1 L Immature Gran % (Auto) 0.5 H Neut % (Auto) 77.9 H Lymph % (Auto) 8.7 L Newton % (Auto) 11.1 H Eos % (Auto) 1.4 Baso % (Auto) 0.4 Lymph # (Auto) 1.4 Newton # (Auto) 1.8 H Eos # (Auto) 0.2 Baso # (Auto) 0.1 Abs Immat Gran (auto) 0.08 H Absolute Neuts (auto) 12.6 H Absolute Nucleated RBC 0.000 Nucleated RBC % (auto) 0.0 Smear Tech's Comments VERIFIED PT INR Sodium 135 Potassium 3.1 L Chloride 92 L Carbon Dioxide 30 H Anion Gap 16 BUN 44 H D Creatinine 2.16 H Estim Creat Clear Calc 24.3 Estimated GFR 23 Random Glucose 106 Lactic Acid Calcium 7.9 L Magnesium Total Bilirubin 0.2 AST 12 ALT 7 Alkaline Phosphatase 89 C-Reactive Protein B-Natriuretic Peptide Total Protein 6.6 Albumin 3.1 L Urine Color Urine Appearance Urine pH Ur Specific [place] Urine Protein Urine Glucose (UA) Urine Ketones Urine Blood Urine Nitrite Ur Leukocyte Esterase Urine RBC Urine WBC Ur Squamous Epith Cells Urine Bacteria Stool Occult Blood Stool Leukocytes, Qual NEGATIVE C. difficile Toxin A&B C. difficile Antigen C. difficile Interpret COVID-19 (DEYSI) COVID-[employer] Blood Type Antibody Screen 07/04/20 07/04/20 07/04/20 15:26 17:18 17:47 WBC RBC Hgb Hct MCV MCH MCHC RDW Plt Count MPV Immature Gran % (Auto) Neut % (Auto) Lymph % (Auto) Newton % (Auto) Eos % (Auto) Baso % (Auto) Lymph # (Auto) [place] # (Auto) Eos # (Auto) Baso # (Auto) Abs Immat Gran (auto) Absolute Neuts (auto) Absolute Nucleated RBC Nucleated RBC % (auto) Smear Tech's Comments PT INR Sodium Potassium Chloride Carbon Dioxide Anion Gap BUN Creatinine Estim Creat Clear Calc Estimated GFR Random Glucose Lactic Acid 0.6 Calcium Magnesium Total Bilirubin AST ALT Alkaline Phosphatase C-Reactive Protein B-Natriuretic Peptide Total Protein Albumin Urine Color Urine Appearance Urine pH Ur Specific [place] Urine Protein Urine Glucose (UA) Urine Ketones Urine Blood Urine Nitrite Ur Leukocyte Esterase Urine RBC Urine WBC Ur Squamous Epith Cells Urine Bacteria Stool Occult Blood Stool Leukocytes, Qual C. difficile Toxin A&B TNP C. difficile Antigen TNP C. difficile Interpret TNP COVID-19 (DEYSI) Negative COVID115 network disks See Note Blood Type Antibody Screen 07/04/20 07/05/20 07/05/20 20:06 04:06 04:07 WBC Cancelled RBC Cancelled Hgb Cancelled Hct Cancelled MCV Cancelled MCH Cancelled MCHC Cancelled RDW Cancelled Plt Count Cancelled MPV Cancelled Immature Gran % (Auto) Cancelled Neut % (Auto) Cancelled Lymph % (Auto) Cancelled Newton % (Auto) Cancelled Eos % (Auto) Cancelled Baso % (Auto) Cancelled Lymph # (Auto) Cancelled [place] # (Auto) Cancelled Eos # (Auto) Cancelled Baso # (Auto) Cancelled Abs Immat Gran (auto) Cancelled Absolute Neuts (auto) Cancelled Absolute Nucleated RBC Cancelled Nucleated RBC % (auto) Cancelled Smear Tech's Comments PT 106.6 H D INR 8.8 H* D Sodium Potassium Chloride Carbon Dioxide Anion Gap BUN Creatinine Estim Creat Clear Calc Estimated GFR Random Glucose Lactic Acid 1.1 Calcium Magnesium Total Bilirubin AST ALT Alkaline Phosphatase C-Reactive Protein B-Natriuretic Peptide Total Protein Albumin Urine Color Urine Appearance Urine pH Ur Specific [place] Urine Protein Urine Glucose (UA) Urine Ketones Urine Blood Urine Nitrite Ur Leukocyte Esterase Urine RBC Urine WBC Ur Squamous Epith Cells Urine Bacteria Stool Occult Blood Stool Leukocytes, Qual C. difficile Toxin A&B C. difficile Antigen C. difficile Interpret COVID-19 (DEYSI) COVID-19 Clin Com Blood Type Antibody Screen 07/05/20 07/05/20 07/05/20 04:07 04:07 04:07 WBC 15.4 H RBC 3.37 L Hgb 9.7 L Hct 29.9 L MCV 88.7 MCH 28.8 MCHC 32.4 RDW 15.1 Plt Count 379 MPV 9.2 L Immature Gran % (Auto) 0.6 H Neut % (Auto) 81.8 H Lymph % (Auto) 4.1 L Newton % (Auto) 12.7 H Eos % (Auto) 0.6 Baso % (Auto) 0.2 Lymph # (Auto) 0.6 L [place] # (Auto) 2.0 H Eos # (Auto) 0.1 Baso # (Auto) 0.0 Abs Immat Gran (auto) 0.10 H Absolute Neuts (auto) 12.6 H Absolute Nucleated RBC 0.000 Nucleated RBC % (auto) 0.0 Smear Tech's Comments VERIFIED PT 114.3 H INR 9.4 H* Sodium Cancelled Potassium Cancelled Chloride Cancelled Carbon Dioxide Cancelled Anion Gap Cancelled BUN Cancelled Creatinine Cancelled Estim Creat Clear Calc Cancelled Estimated GFR Cancelled Random Glucose Cancelled Lactic Acid Calcium Cancelled Magnesium Total Bilirubin AST ALT Alkaline Phosphatase C-Reactive Protein B-Natriuretic Peptide Total Protein Albumin Urine Color Urine Appearance Urine pH Ur Specific [place] Urine Protein Urine Glucose (UA) Urine Ketones Urine Blood Urine Nitrite Ur Leukocyte Esterase Urine RBC Urine WBC Ur Squamous Epith Cells Urine Bacteria Stool Occult Blood Stool Leukocytes, Qual C. difficile Toxin A&B C. difficile Antigen C. difficile Interpret COVID-19 (DEYSI) COVID-19 [employer] Com Blood Type Antibody Screen 07/05/20 07/05/20 07/05/20 04:07 12:08 12:08 WBC RBC Hgb Hct MCV MCH MCHC RDW Plt Count MPV Immature Gran % (Auto) Neut % (Auto) Lymph % (Auto) [place] % (Auto) Eos % (Auto) Baso % (Auto) Lymph # (Auto) [place] # (Auto) Eos # (Auto) Baso # (Auto) Abs Immat Gran (auto) Absolute Neuts (auto) Absolute Nucleated RBC Nucleated RBC % (auto) Smear Tech's Comments PT INR Sodium 137 Potassium 3.0 L Chloride 100 Carbon Dioxide 23 Anion Gap 17 BUN 38 H Creatinine 1.68 H Estim Creat Clear Calc 31.3 Estimated GFR 31 Random Glucose 121 H Lactic Acid 0.8 Calcium 7.2 L D Magnesium 1.6 Total Bilirubin AST ALT Alkaline Phosphatase C-Reactive Protein 22.53 H B-Natriuretic Peptide 3041 H Total Protein Albumin Urine Color Urine Appearance Urine pH Ur Specific [place] Urine Protein Urine Glucose (UA) Urine Ketones Urine Blood Urine Nitrite Ur Leukocyte Esterase Urine RBC Urine WBC Ur Squamous Epith Cells Urine Bacteria Stool Occult Blood Stool Leukocytes, Qual C. difficile Toxin A&B C. difficile Antigen C. difficile Interpret COVID-19 (DEYSI) COVID-19 [employer] [facility] Blood Type Antibody Screen 07/05/20 07/06/20 07/06/20 15:17 05:54 05:54 WBC 12.3 H RBC 2.73 L Hgb 7.8 L Hct 24.2 L MCV 88.6 MCH 28.6 MCHC 32.2 RDW 15.5 Plt Count 286 MPV 9.5 Immature Gran % (Auto) 0.6 H Neut % (Auto) 72.6 Lymph % (Auto) 11.1 L [place] % (Auto) 14.0 H Eos % (Auto) 1.5 Baso % (Auto) 0.2 Lymph # (Auto) 1.4 [place] # (Auto) 1.7 H Eos # (Auto) 0.2 Baso # (Auto) 0.0 Abs Immat Gran (auto) 0.07 H Absolute Neuts (auto) 8.9 H Absolute Nucleated RBC 0.000 Nucleated RBC % (auto) 0.0 Smear Tech's Comments VERIFIED PT INR Sodium 140 Potassium 2.9 L Chloride 104 Carbon Dioxide 24 Anion Gap 15 BUN 22 H Creatinine 1.45 H Estim Creat Clear Calc 36.3 Estimated GFR 36 Random Glucose 88 Lactic Acid Calcium 7.5 L Magnesium 1.5 L Total Bilirubin AST ALT Alkaline Phosphatase C-Reactive Protein B-Natriuretic Peptide Total Protein Albumin Urine Color YELLOW Urine Appearance HAZY Urine pH 5.5 Ur Specific [place] 1.010 Urine Protein 1+ H Urine Glucose (UA) NEG Urine Ketones NEG Urine Blood 2+ H Urine Nitrite NEG Ur Leukocyte Esterase 2+ H Urine RBC 1-4 Urine WBC 30-49 H Ur Squamous Epith Cells NONE Urine Bacteria 1+ Stool Occult Blood Stool Leukocytes, Qual C. difficile Toxin A&B C. difficile Antigen C. difficile Interpret COVID-19 (DEYSI) COVID115 network disks Blood Type Antibody Screen 07/06/20 07/06/20 07/06/20 05:54 09:37 12:10 WBC RBC Hgb Hct MCV MCH MCHC RDW Plt Count MPV Immature Gran % (Auto) Neut % (Auto) Lymph % (Auto) [place] % (Auto) Eos % (Auto) Baso % (Auto) Lymph # (Auto) [place] # (Auto) Eos # (Auto) Baso # (Auto) Abs Immat Gran (auto) Absolute Neuts (auto) Absolute Nucleated RBC Nucleated RBC % (auto) Smear Tech's Comments PT 20.3 H D INR 1.7 H Sodium Potassium Chloride Carbon Dioxide Anion Gap BUN Creatinine Estim Creat Clear Calc Estimated GFR Random Glucose Lactic Acid Calcium Magnesium Total Bilirubin AST ALT Alkaline Phosphatase C-Reactive Protein B-Natriuretic Peptide Total Protein Albumin Urine Color Urine Appearance Urine pH Ur Specific [place] Urine Protein Urine Glucose (UA) Urine Ketones Urine Blood Urine Nitrite Ur Leukocyte Esterase Urine RBC Urine WBC Ur Squamous Epith Cells Urine Bacteria Stool Occult Blood POS Stool Leukocytes, Qual C. difficile Toxin A&B C. difficile Antigen C. difficile Interpret COVID-19 (DEYSI) COVID-19 [employer] Com Blood Type A Positive Antibody Screen NEGATIVE 07/06/20 07/07/20 07/07/20 14:36 05:40 05:40 WBC 12.8 H RBC 2.91 L Hgb 8.5 L 8.5 L Hct 26.8 L 26.1 L MCV 89.7 MCH 29.2 MCHC 32.6 RDW 15.7 Plt Count 314 MPV 9.5 Immature Gran % (Auto) 0.7 H Neut % (Auto) 76.3 H Lymph % (Auto) 10.3 L [place] % (Auto) 9.6 Eos % (Auto) 2.9 Baso % (Auto) 0.2 Lymph # (Auto) 1.3 [place] # (Auto) 1.2 Eos # (Auto) 0.4 Baso # (Auto) 0.0 Abs Immat Gran (auto) 0.09 H Absolute Neuts (auto) 9.7 H Absolute Nucleated RBC 0.000 Nucleated RBC % (auto) 0.0 Smear Tech's Comments PT 20.3 H INR 1.7 H Sodium Potassium Chloride Carbon Dioxide Anion Gap BUN Creatinine Estim Creat Clear Calc Estimated GFR Random Glucose Lactic Acid Calcium Magnesium Total Bilirubin AST ALT Alkaline Phosphatase C-Reactive Protein B-Natriuretic Peptide Total Protein Albumin Urine Color Urine Appearance Urine pH Ur Specific [place] Urine Protein Urine Glucose (UA) Urine Ketones Urine Blood Urine Nitrite Ur Leukocyte Esterase Urine RBC Urine WBC Ur Squamous Epith Cells Urine Bacteria Stool Occult Blood Stool Leukocytes, Qual C. difficile Toxin A&B C. difficile Antigen C. difficile Interpret COVID-19 (DEYSI) COVID-19 Clin Com Blood Type Antibody Screen 07/07/20 07/07/20 07/08/20 05:40 05:40 05:51 WBC RBC Hgb Hct MCV MCH MCHC RDW Plt Count MPV Immature Gran % (Auto) Neut % (Auto) Lymph % (Auto) [place] % (Auto) Eos % (Auto) Baso % (Auto) Lymph # (Auto) [place] # (Auto) Eos # (Auto) Baso # (Auto) Abs Immat Gran (auto) Absolute Neuts (auto) Absolute Nucleated RBC Nucleated RBC % (auto) Smear Tech's Comments PT 20.8 H INR 1.7 H Sodium 141 Potassium 2.9 L Chloride 104 Carbon Dioxide 26 Anion Gap 14 BUN 14 Creatinine 1.37 Estim Creat Clear Calc 38.4 Estimated GFR 39 Random Glucose 93 Lactic Acid Calcium 7.9 L Magnesium 2.0 Total Bilirubin AST ALT Alkaline Phosphatase C-Reactive Protein B-Natriuretic Peptide 3841 H Total Protein Albumin Urine Color Urine Appearance Urine pH Ur Specific [place] Urine Protein Urine Glucose (UA) Urine Ketones Urine Blood Urine Nitrite Ur Leukocyte Esterase Urine RBC Urine WBC Ur Squamous Epith Cells Urine Bacteria Stool Occult Blood Stool Leukocytes, Qual C. difficile Toxin A&B C. difficile Antigen C. difficile Interpret COVID-19 (DEYSI) COVID-19 [facility] Com Blood Type Antibody Screen 07/08/20 07/08/20 07/08/20 05:51 05:51 05:51 WBC 10.4 RBC 2.90 L Hgb 8.3 L Hct 26.0 L MCV 89.7 MCH 28.6 MCHC 31.9 RDW 15.8 Plt Count 321 MPV 9.5 Immature Gran % (Auto) 0.8 H Neut % (Auto) 70.1 Lymph % (Auto) 15.0 L [place] % (Auto) 9.7 Eos % (Auto) 4.1 H Baso % (Auto) 0.3 Lymph # (Auto) 1.6 [place] # (Auto) 1.0 Eos # (Auto) 0.4 Baso # (Auto) 0.0 Abs Immat Gran (auto) 0.08 H Absolute Neuts (auto) 7.3 Absolute Nucleated RBC 0.000 Nucleated RBC % (auto) 0.0 Smear Tech's Comments PT INR Sodium 139 Potassium 3.4 Chloride 104 Carbon Dioxide 25 Anion Gap 13 BUN 12 Creatinine 1.25 Estim Creat Clear Calc 42.1 Estimated GFR 43 Random Glucose 86 Lactic Acid Calcium 8.0 L Magnesium 1.9 Total Bilirubin AST ALT Alkaline Phosphatase C-Reactive Protein B-Natriuretic Peptide 3828 H Total Protein Albumin Urine Color Urine Appearance Urine pH Ur Specific [place] Urine Protein Urine Glucose (UA) Urine Ketones Urine Blood Urine Nitrite Ur Leukocyte Esterase Urine RBC Urine WBC Ur Squamous Epith Cells Urine Bacteria Stool Occult Blood Stool Leukocytes, Qual C. difficile Toxin A&B C. difficile Antigen C. difficile Interpret COVID-19 (DEYSI) COVID-19 Clin Com Blood Type Antibody Screen 07/09/20 07/09/20 07/09/20 05:55 05:55 05:55 WBC 8.8 RBC 2.88 L Hgb 8.3 L Hct 25.8 L MCV 89.6 MCH 28.8 MCHC 32.2 RDW 15.9 Plt Count 324 MPV 9.8 Immature Gran % (Auto) 1.5 H Neut % (Auto) 66.0 Lymph % (Auto) 17.3 L [place] % (Auto) 9.5 Eos % (Auto) 5.4 H Baso % (Auto) 0.3 Lymph # (Auto) 1.5 [place] # (Auto) 0.8 Eos # (Auto) 0.5 H Baso # (Auto) 0.0 Abs Immat Gran (auto) 0.13 H Absolute Neuts (auto) 5.8 Absolute Nucleated RBC 0.000 Nucleated RBC % (auto) 0.0 Smear Tech's Comments PT 22.8 H INR 1.9 H Sodium 141 Potassium 3.3 Chloride 102 Carbon Dioxide 30 H Anion Gap 12 BUN 11 Creatinine 1.32 Estim Creat Clear Calc 39.9 Estimated GFR 40 Random Glucose 87 Lactic Acid Calcium 7.8 L Magnesium 1.8 Total Bilirubin AST ALT Alkaline Phosphatase C-Reactive Protein B-Natriuretic Peptide Total Protein Albumin Urine Color Urine Appearance Urine pH Ur Specific [place] Urine Protein Urine Glucose (UA) Urine Ketones Urine Blood Urine Nitrite Ur Leukocyte Esterase Urine RBC Urine WBC Ur Squamous Epith Cells Urine Bacteria Stool Occult Blood Stool Leukocytes, Qual C. difficile Toxin A&B C. difficile Antigen C. difficile Interpret COVID-19 (DEYSI) COVID115 network disks Blood Type Antibody Screen 07/09/20 05:55 WBC RBC Hgb Hct MCV MCH MCHC RDW Plt Count MPV Immature Gran % (Auto) Neut % (Auto) Lymph % (Auto) [place] % (Auto) Eos % (Auto) Baso % (Auto) Lymph # (Auto) [place] # (Auto) Eos # (Auto) Baso # (Auto) Abs Immat Gran (auto) Absolute Neuts (auto) Absolute Nucleated RBC Nucleated RBC % (auto) Smear Tech's Comments PT INR Sodium Potassium Chloride Carbon Dioxide Anion Gap BUN Creatinine Estim Creat Clear Calc Estimated GFR Random Glucose Lactic Acid Calcium Magnesium Total Bilirubin AST ALT Alkaline Phosphatase C-Reactive Protein B-Natriuretic Peptide 3945 H Total Protein Albumin Urine Color Urine Appearance Urine pH Ur Specific [place] Urine Protein Urine Glucose (UA) Urine Ketones Urine Blood Urine Nitrite Ur Leukocyte Esterase Urine RBC Urine WBC Ur Squamous Epith Cells Urine Bacteria Stool Occult Blood Stool Leukocytes, Qual C. difficile Toxin A&B C. difficile Antigen C. difficile Interpret COVID-19 (DEYSI) COVID-19 [employer] Com Blood Type Antibody Screen Preliminary micro results at discharge 07/05/20 04:11 Blood Culture - Preliminary Blood - Venous No growth after 48 hours. 07/05/20 04:06 Blood Culture - Preliminary Blood - Venous No growth after 48 hours. 07/04/20 17:46 Blood Culture - Preliminary Blood - Venous No growth after 48 hours. 07/04/20 17:46 Blood Culture - Preliminary Blood - Venous No growth after 48 hours. ITS Impressions Chest X-Ray 07/05/20 00:00 IMPRESSION: Enlarged cardiac silhouette and pulmonary venous redistribution. No evidence of pulmonary edema or pneumonia. Renal Ultrasound 07/05/20 00:00 IMPRESSION: Mildly enlarged right kidney. Moderate bilateral hydronephrosis similar to previous exams. Bilateral renal cysts. Discharge Plan Discharge Anticipated Discharge Date/Time: 07/09/20 11:28 Patient Disposition: Home Health Service Referrals: Rosales Healy MD [Physician] - Kannan Banuelos [Physician] - Keith العلي MD [Primary Care Provider] - 1 Week (TELE VISIT: 07/20/2020 1:30pm. Dr. العلي will call you to discuss your hospital stay.) Sheldon Choi [Physician] - (1-2 weeks ) Discharge Medications: New metoprolol succinate 25 mg Tablet Extended Release 24 Hr 25 mg PO DAILY Qty: 30 RF: 0 Continued amiodarone 200 mg Tablet 200 mg PO DAILY RF: 0 aspirin 81 mg Tablet 81 mg PO DAILY RF: 0 nitroglycerin 0.4 mg Tablet, Sublingual 0.4 mg SUBLINGUAL Q5M PRN (Reason: Chest Pain) RF: 0 docusate sodium 100 mg Capsule 100 mg PO BID PRN (Reason: Constipation) RF: 0 omeprazole 20 mg Capsule,Delayed Release(Dr/Ec) 20 mg PO BID@0630,1630 RF: 0 multivitamin Capsule 1 cap PO DAILY RF: 0 cholecalciferol (vitamin D3) 50 mcg (2,000 unit) Capsule 50 mcg PO DAILY RF: 0 calcium carbonate-vit D3-min 600 mg calcium- 400 unit tablet 1 tab PO BID Qty: 60 RF: 0 rosuvastatin 20 mg tablet 1 tab PO BEDTIME RF: 0 zolpidem 10 mg tablet 0.5 - 1 tab PO BEDTIME RF: 0 furosemide 40 mg tablet 40 mg PO QNOON RF: 0 ascorbic acid (vitamin C) [Vitamin C] 500 mg Tablet 500 mg PO DAILY RF: 0 oxycodone 10 mg tablet 1 tab PO TID PRN (Reason: pain) RF: 0 Enbrel SureClick 50 mg/mL (1 mL) pen injector 1 mg subcut QWEEK RF: 0 warfarin 3 mg tablet 3 mg PO DAILY Qty: 90 RF: 0 furosemide 80 mg tablet 80 mg PO BID RF: 0 Held spironolactone 25 mg Tablet 25 mg PO QAM RF: 0 Hold Instructions: Resume on 07/18/20. resume when directed to by bakery and deli sales manager Dr Choi Entresto 24-26 mg Tablet 1 tab PO BID RF: 0 Hold Instructions: Resume on 07/18/20. resume when directed to by bakery and deli sales manager Dr Choi Discontinued metoprolol tartrate 25 mg tablet 25 mg PO BID RF: 0 Discharge Orders: Discharge Order (Routine); Ordered 07/09/20 Ordered By: Freya Mclean Diet: diabetic diet and low salt diet Activity on Discharge: As tolerated Patient Instructions: Heart Failure (DC) Other Ambulatory Orders: Basic Metabolic Panel (Routine) Timeframe: 1 Week Facility: [facility] - Location: Laboratory Ordered By: Freya Mclean B Type Natriuretic Peptide (Routine) Timeframe: 1 Week Facility: [facility] - Location: Laboratory Ordered By: Freya Mclean Complete Blood Count Auto Diff (Routine) Timeframe: 1 Week Facility: [facility] - Location: Laboratory Ordered By: Freya Mclean Magnesium (Routine) Timeframe: 1 Week Facility: [facility] - Location: Laboratory Ordered By: Freya Mclean Prothrombin Time INR (Routine) Timeframe: 1 Week Facility: [facility] - Location: Laboratory Ordered By: Freya Mclean Visit Report Forms: Patient Portal Discharge page Care Plan Goals: heart and kidney health Health Concerns: systolic heart failure with hypotension acute kidney injury, resolved ureteral stents/hydronephrosis atrial fibrillation on warfarin anticoagulation anemia, chronic history of tubular adenoma Plan of Treatment: CHANGE metoprolol tartrate 25 mg twice daily to metoprolol succinate 25 mg once daily RESUME furosemide 40 mg once daily HOLD Entresto and spironolactone until seen by your bakery and deli sales manager, Dr Choi, within 1-2 weeks RESUME warfarin 3 mg once daily LABORATORY STUDIES in 1 WEEK: PT/INR, BMP, BNP, magnesium, CBCd Follow up with UROLOGY in 2 weeks Follow up with GASTROENTEROLOGY in 2 weeks to plan repeat colonoscopy
--- NOTE | 2020-07-09 11:57 | MHC.CM.PN ---
Pt will DC home today with resumption of services through [facility] and [facility]. PARAS spoke to Shayy at [facility] ([phone]) the transitions of care nurse restoration officer who provided authorization.
--- NOTE | 2020-07-09 13:41 | MHC.INPTTRAN ---
Patient alert and oriented. wheelchair bound at baseline. Wears O2 at 2LPM per nasal cannula. 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 Patient is incontinent of bowel and bladder. Patient is on coumadin.
== END 2020-07-09 14:20 | disposition home health service (06) | DRG 872 ==
LOC: HO.ED 20:22 → HO.IMC 20:39
PROVIDERS: Internal Medicine; Nurse Practitioner Acute Care; Nurse Practitioner Primary Care; Admitting Provider Family Medicine; Emergency Provider Student in an Organized Health Care Education/Training Program; PCP Internal Medicine; Visit Provider Family Medicine
DX: A41.9 Sepsis, unspecified organism (principal); N17.9 Acute kidney failure, unspecified; I50.22 Chronic systolic (congestive) heart failure; I42.0 Dilated cardiomyopathy; K52.1 Toxic gastroenteritis and colitis; I48.91 Unspecified atrial fibrillation; R79.1 Abnormal coagulation profile; E86.0 Dehydration; E87.6 Hypokalemia; D72.829 Elevated white blood cell count, unspecified; E83.42 Hypomagnesemia; I95.89 Other hypotension; Z20.828 Contact with and (suspected) exposure to other viral communicable diseases; Z95.810 Presence of automatic (implantable) cardiac defibrillator; Z87.891 Personal history of nicotine dependence; Z79.01 Long term (current) use of anticoagulants; Z79.82 Long term (current) use of aspirin; Z79.891 Long term (current) use of opiate analgesic; Z79.899 Other long term (current) drug therapy; T36.95XA Adverse effect of unspecified systemic antibiotic, initial encounter; Y92.9 Unspecified place or not applicable
CPT/HCPCS: 36415; 71045; 76775; 80048; 80053; 81001; 82272; 83605; 83735; 83880; 85014; 85018; 85025; 85610; 86140; 86850; 86900; 86901; 87040; 87045; 87046; 87086; 87088; 87186; 87635; 89055; 96361; 96365; 96367; 99285; J0696; J1940; J2543; J3430; J3475; P9047

== ENCOUNTER → 2020-07-11 16:39 | Outpatient (BNVA) | payer MEDICARE, SELFPAY | PROVIDERS: PCP Internal Medicine; Visit Provider Internal Medicine | DX: Z86.73 Personal history of transient ischemic attack (TIA), and cerebral infarction without residual deficits (principal); Z79.01 Long term (current) use of anticoagulants; Z51.81 Encounter for therapeutic drug level monitoring | CPT/HCPCS: Q3014 ==

== ENCOUNTER 2020-07-18 13:53 | Outpatient (REF) | payer MEDICARE, SELFPAY ==
[2020-07-18 13:58] LABS: MANUAL DIFF FLAG NO
[2020-07-18 14:07] LABS: Basophils Percent Auto 0.4 % (0-2); Eosinophils Absolute Auto 0.2 X10*3/uL (0.0-0.4); Eosinophils Percent Auto 1.5 % (0-4); Hematocrit 27.2 % (37-47); Hemoglobin 8.7 g/dl (12.0-16.0); Imm Gran Abs Auto 0.04 X10*3/uL (0.00-0.03); Imm Gran Pct Auto 0.4 % (0.0-0.4); Lymphocytes Absolute Auto 1.2 X10*3/uL (1.2-4.9); Lymphocytes Percent Auto 10.3 % (20-40); Mean Corpuscular Hemoglobin 29.5 pg (27.0-33.0); Mean Corpuscular Volume 92.2 fL (80-98); Mean Platelet Volume 9.8 fL (9.4-12.3); Monocytes Absolute Auto 0.9 X10*3/uL (0.1-1.2); Monocytes Percent Auto 8.2 % (2-11); Neutrophils Percent Auto 79.2 % (45-73); Platelet Count 415 X10*3/uL (160-400); Red Blood Count 2.95 X10*6/uL (4.20-5.50); Red Cell Distribution Width 16.1 % (11.0-16.0); White Blood Count 11.3 X10*3/uL (4.8-10.8)
[2020-07-18 14:11] LABS: INTERNATIONAL NORM RATIO 3.4 (0.9-1.1); Prothrombin Time 40.8 SEC (10.8-13.0)
[2020-07-18 14:44] LABS: Anion Gap 15 (12-20); Blood Urea Nitrogen 21 mg/dL (9-16); Calcium 8.4 mg/dL (8.4-10.2); Carbon Dioxide 36 mmol/L (22-29); Chloride 92 mmol/L (96-108); Estimated Glomerular Filt Rate 37; Glucose Random 112 mg/dL (60-115); Magnesium 2.2 mg/dL (1.6-2.6); Potassium 3.7 mmol/l (3.3-5.1); Sodium 139 mmol/L (135-145)
[2020-07-19 05:13] LABS: NT-proBNP 16800 pg/mL
== END 2020-07-18 13:54 | disposition home or self-care (01) ==
LOC: HO.LNP 13:53
PROVIDERS: Referring Provider Internal Medicine; Visit Provider Internal Medicine Cardiovascular Disease
DX: D64.9 Anemia, unspecified (principal); I48.91 Unspecified atrial fibrillation; N10 Acute pyelonephritis; Z79.01 Long term (current) use of anticoagulants
CPT/HCPCS: 80048; 83735; 83880; 85025; 85610

== ENCOUNTER 2020-07-28 14:51 | Outpatient (REF) | payer MEDICARE, SELFPAY ==
[2020-07-28 15:06] LABS: Hematocrit 29.3 % (37-47); Hemoglobin 9.1 g/dl (12.0-16.0); Mean Corpuscular HGB Conc 31.1 g/dl (31.0-35.0); Mean Corpuscular Hemoglobin 28.8 pg (27.0-33.0); Mean Corpuscular Volume 92.7 fL (80-98); Mean Platelet Volume 9.8 fL (9.4-12.3); Platelet Count 472 X10*3/uL (160-400); Red Blood Count 3.16 X10*6/uL (4.20-5.50); White Blood Count 11.3 X10*3/uL (4.8-10.8)
[2020-07-28 15:50] LABS: Glucose Urine UA NEG (NEG); Nitrite Urine NEG (NEG); PH 6.5 (5.0-8.0); Specific Gravity - Urine <= 1.005 (1.005-1.025); Urine Blood 3+ (NEG); Urine Ketones NEG (NEG); Urine Protein 2+ MG/DL (NEG-TRACE)
[2020-07-28 15:51] LABS: Appearance Urine CLOUDY; Color Urine YELLOW; Leukocyte Esterase Urine 3+ (NEG)
[2020-07-28 15:58] LABS: Alanine Aminotransferase 9 U/L (0-31); Albumin Level 3.7 g/dL (3.5-5.0); Alkaline Phosphatase 87 U/L (39-117); Anion Gap 17 (12-20); Aspartate Amino Transferase 16 U/L (5-31); Bilirubin Direct 0.2 mg/dL (0.0-0.5); Bilirubin Total 0.6 mg/dL (0.0-1.0); Blood Urea Nitrogen 25 mg/dL (9-16); Carbon Dioxide 31 mmol/L (22-29); Chloride 94 mmol/L (96-108); Estimated Glomerular Filt Rate 34; Glucose Fasting 119 mg/dL (60-99); Magnesium 2.2 mg/dL (1.6-2.6); Sodium 138 mmol/L (135-145); Total Protein 7.6 g/dL (6.5-8.0)
[2020-07-28 16:08] LABS: Bacteria Urine 3+ /LPF; RBC Urine 30-49 /HPF (0); Squamous Epithelial Cell Urine TRACE /LPF; WBC Urine TNTC /HPF (0-4)
== END 2020-07-28 14:52 | disposition home or self-care (01) ==
LOC: HO.LNP 14:51
PROVIDERS: Referring Provider Internal Medicine; Visit Provider Internal Medicine Cardiovascular Disease
DX: R39.15 Urgency of urination (principal); I42.0 Dilated cardiomyopathy; I50.42 Chronic combined systolic (congestive) and diastolic (congestive) heart failure; E78.2 Mixed hyperlipidemia; N18.31 Chronic kidney disease, stage 3a
CPT/HCPCS: 80051; 80076; 81001; 82565; 82947; 83735; 84520; 85027; 87086

== ENCOUNTER 2020-07-31 12:32 | Outpatient (REF) | payer MEDICARE, SELFPAY | END 2020-07-31 12:33 | disposition home or self-care (01) | LOC: HO.LNP 12:32 | PROVIDERS: Visit Provider Internal Medicine Cardiovascular Disease | DX: I48.91 Unspecified atrial fibrillation (principal) | CPT/HCPCS: 80162 ==

== ENCOUNTER 2020-08-16 12:58 | Outpatient (RCR) | payer MEDICARE, SELFPAY | END 2020-09-12 11:30 | disposition home or self-care (01) | LOC: HO.WCC 12:58 | PROVIDERS: PCP Internal Medicine; Visit Provider Surgery | DX: L89.152 Pressure ulcer of sacral region, stage 2 (principal); R32 Unspecified urinary incontinence; Z99.3 Dependence on wheelchair | CPT/HCPCS: 99212 ==

== ENCOUNTER 2020-08-17 14:41 | Outpatient (REF) | payer MEDICARE, SELFPAY ==
[2020-08-17 15:05] LABS: Glucose Urine UA NEG (NEG); Leukocyte Esterase Urine 3+ (NEG); Nitrite Urine NEG (NEG); Specific Gravity - Urine <= 1.005 (1.005-1.025); Urine Blood 3+ (NEG); Urine Ketones NEG (NEG); Urine Protein NEG (NEG-TRACE)
[2020-08-17 15:11] LABS: Appearance Urine CLOUDY; Color Urine YELLOW
[2020-08-17 15:18] LABS: Alanine Aminotransferase 9 U/L (0-31); Albumin Level 3.4 g/dL (3.5-5.0); Alkaline Phosphatase 77 U/L (39-117); Anion Gap 18 (12-20); Aspartate Amino Transferase 13 U/L (5-31); Bilirubin Total 0.3 mg/dL (0.0-1.0); Blood Urea Nitrogen 19 mg/dL (9-16); Calcium 8.3 mg/dL (8.4-10.2); Carbon Dioxide 29 mmol/L (22-29); Chloride 96 mmol/L (96-108); Estimated Glomerular Filt Rate 36; Glucose Random 121 mg/dL (60-115); Potassium 4.1 mmol/L (3.3-5.1); Sodium 139 mmol/L (135-145); Total Protein 7.2 g/dL (6.5-8.0)
[2020-08-17 15:22] LABS: Bacteria Urine 3+ /LPF; RBC Urine 30-49 /HPF (0); Squamous Epithelial Cell Urine TRACE /LPF; WBC Urine TNTC /HPF (0-4)
== END 2020-08-17 14:42 | disposition home or self-care (01) ==
LOC: HO.LNP 14:41
PROVIDERS: Visit Provider Internal Medicine
DX: R10.9 Unspecified abdominal pain (principal); R20.8 Other disturbances of skin sensation; I50.9 Heart failure, unspecified; R39.9 Unspecified symptoms and signs involving the genitourinary system
CPT/HCPCS: 80053; 81001; 81003; 87086; 87088; 87186

== ENCOUNTER 2020-08-21 15:38 | Outpatient (REF) | payer MEDICARE, SELFPAY | END 2020-08-21 15:39 | disposition home or self-care (01) | LOC: HO.LNP 15:38 | PROVIDERS: Referring Provider Internal Medicine Cardiovascular Disease; Visit Provider Internal Medicine | DX: Z13.89 Encounter for screening for other disorder (principal) ==

== ENCOUNTER 2020-08-21 15:48 | Outpatient (REF) | payer MEDICARE, SELFPAY ==
[2020-08-21 16:35] LABS: Anion Gap 17 (12-20); Blood Urea Nitrogen 20 mg/dL (9-16); Calcium 8.8 mg/dL (8.4-10.2); Carbon Dioxide 33 mmol/L (22-29); Chloride 97 mmol/L (96-108); Estimated Glomerular Filt Rate 40; Glucose Random 129 mg/dL (60-115); Potassium 3.6 mmol/L (3.3-5.1); Sodium 143 mmol/L (135-145)
[2020-08-21 16:39] LABS: Digoxin 0.6 ng/mL (0.8-2.0)
== END 2020-08-21 15:49 | disposition home or self-care (01) ==
LOC: HO.LNP 15:48
PROVIDERS: Referring Provider Internal Medicine Cardiovascular Disease; Visit Provider Internal Medicine
DX: Z79.899 Other long term (current) drug therapy (principal); N18.9 Chronic kidney disease, unspecified
CPT/HCPCS: 80048; 80162

== ENCOUNTER 2020-09-09 16:15 | Emergency (ER) | payer MEDICARE, SELFPAY ==
[2020-09-09 16:39] VITALS: BP 116/50; PULSE 101; RESP 14; TEMP 36.2; O2SAT 97; BMI 33.9
[2020-09-09 17:19] LABS: Glucose Urine UA NEG (NEG); Leukocyte Esterase Urine 3+ (NEG); Nitrite Urine POS (NEG); UACC Culture Trigger YES; Urine Blood 3+ (NEG); Urine Ketones NEG (NEG); Urine Protein 1+ MG/DL (NEG-TRACE)
--- NOTE | 2020-09-09 17:21 | ED_ITS ---
HPI - Female Genitourinary General Chief complaint: Urogenital-Female Stated complaint: ?uti Time Seen by Provider: 09/09/20 16:36 Source: patient and family Mode of arrival: wheelchair Limitations: language barrier History of Present Illness HPI Narrative: 60-year-old female wheelchair-bound, O2 dependent with past medical history of cardiomyopathy, AFib on anticoagulation, anemia, nonambulatory secondary to hip replacement and removal complications, recurrent HERMELINDO, chronic systolic heart failure, urinary retention with renal stent placement presents with several days of dysuria and foul-smelling urine. Patie nt is is incontinent per baseline and is fully dependent upon family members for all personal care. Family and patient deny any chronic nonhealing wounds, vaginal discharge, fevers, chills, chest pain pressure, palpitations, shortness of breath, abdominal pain, abdominal distention, hematuria, edema, dizziness, lightheadedness, altered mental status, confusion, or any other concerning symptoms. MD elicited complaint: dysuria Pertinent past history: recurrent UTIs and urinary incontinence Onset (ago): day(s) Location of symptoms: perineum and urethra Severity: moderate Severity scale (1-10): 6 Quality of pain: burning Consistency: intermittent Vaginal discharge: none Vaginal bleeding: none Urinary symptoms: Dysuria, Urgency and Foul Smelling Urine Exacerbating factors: urination Associated symptoms: denies other symptoms Treatment prior to arrival: none Sexual activity: No Patient : No Related Data Home Medications Medication Instructions Recorded Confirmed amiodarone 200 mg PO DAILY 03/29/20 07/31/20 aspirin 81 mg PO DAILY 03/29/20 07/31/20 cholecalciferol (vitamin D3) 50 mcg PO DAILY 03/29/20 07/31/20 docusate sodium 100 mg PO BID PRN 03/29/20 07/31/20 multivitamin 1 cap PO DAILY 03/29/20 07/31/20 nitroglycerin 0.4 mg SUBLINGUAL Q5M PRN 03/29/20 07/31/20 omeprazole 20 mg PO BID@0630,1630 03/29/20 07/31/20 spironolactone 25 mg PO QAM 03/29/20 07/31/20 furosemide 80 mg tablet 80 mg PO BID 05/03/20 07/31/20 Enbrel SureClick 1 mg SUBCUT QWEEK 06/17/20 07/31/20 Entresto 1 tab PO BID 06/17/20 07/31/20 ascorbic acid (vitamin C) [Vitamin 500 mg PO DAILY 06/17/20 07/31/20 C] furosemide 40 mg PO QNOON 06/17/20 07/31/20 oxycodone 1 tab PO TID PRN 06/17/20 07/31/20 zolpidem 0.5 - 1 tab PO BEDTIME 06/17/20 07/31/20 rosuvastatin 1 tab PO BEDTIME 07/04/20 07/31/20 Previous Rx's Medication Instructions Recorded calcium carbonate-vit D3-min 1 tab PO BID #60 tab 03/31/20 warfarin 3 mg tablet 3 mg PO DAILY #90 tab 05/03/20 metoprolol succinate 25 mg PO DAILY #30 tab 07/09/20 nitrofurantoin macrocrystal 100 mg PO Q12H 7 Days #14 cap 09/09/20 phenazopyridine [Pyridium] 200 mg PO TID PRN #6 tab 09/09/20 Allergies Allergy/AdvReac Type Severity Reaction Status Date / Time No Known Food Allergies Allergy Unknown Verified 06/05/20 13:48 Review of Systems Review of Systems: Constitutional: No Fever, No Chills ENT/Mouth: No sore throat Eyes: No Eye Pain, No Swelling, No Redness Cardiovascular: No Chest Pain, No SOB Respiratory: No Cough, No Sputum, No Wheezing Gastrointestinal: No Nausea, no Vomiting, No Diarrhea, no abdominal pain Genitourinary: positive Dysuria, positive urinary frequency, no Hematuria, no Flank Pain, no hesitancy Musculoskeletal: No joint pain, No Myalgias Skin: No Skin Lesions, No rash Neuro: No Weakness, No Numbness, No Headache Psych: No Anxiety/Panic, No Depression Heme/Lymph: No Bruising, No Lymphadenopathy Endocrine: No Polyuria, No Polydipsia Yes all other systems are reviewed and are negative [facility] Past Medical History Attestation statement: The following information was validated with the patient. Source: old records reviewed Medical History HERMELINDO (acute kidney injury) Biventricular ICD (implantable cardioverter-defibrillator) in place Cardiomyopathy Chronic systolic heart failure Hydronephrosis Hypotension Paroxysmal atrial fibrillation with rapid ventricular response Prolapsed uterus Systolic heart failure Urinary retention Surgical History H/O ankle fusion H/O cystoscopy H/O: section Hip joint replacement status History of renal stent Previous back surgery Total knee replacement status Social History Social History Household Members: Family and Children Housing: House Alcohol intake: never Smoking Status: Former smoker Smoked in Last 30 Days: No Use of substances other than those prescribed or required for medical reasons: No Any prior treatment program specific to substance use: No Advance Directives: No Advance Directives Information Provided: No service: No Current occupational status: disabled Physical Exam Vital Signs: Vital Signs: Last Vital Signs Temp 98.7 F 09/09/20 18:31 Pulse 89 09/09/20 18:31 Resp 14 09/09/20 18:31 BP 121/56 L 09/09/20 18:31 Pulse Ox 97 09/09/20 18:31 Body Mass Index 33.9 Appearance: Alert. Oriented X3. No acute distress. Eyes: Pupils equal, round and reactive to light. EOMI, sclera nonicteric ENT: Pharynx normal. Moist mucous membranes Neck: Normal inspection. Neck supple. No JVD CVS: Normal heart rate and rhythm. Pulses normal. Respiratory: No respiratory distress. Breath sounds normal. Abdomen: Soft and nontender. No suprapubic tenderness, abdomen obese, normoactive bowel sounds throughout all 4 quadrants Skin: Skin warm and dry. Normal skin color. Normal skin turgor. Extremities: No lower extremity edema. Bilateral lower extremities atrophied, patient is nonambulatory CT and wheelchair-bound. Strength 5/5 to upper extremities Neuro: No motor deficit. No sensory deficit. Cranial nerves 2-12 intact. Course Course Course Narrative: 60-year-old female wheelchair-bound, O2 dependent with past medical history of cardiomyopathy, AFib on anticoagulation, anemia, nonambulatory secondary to hip replacement and removal complications, recurrent HERMELINDO, chronic systolic heart failure, urinary retention with renal stent placement presents with several days of dysuria and foul-smelling urine. Patient is is incontinent per baseline and is fully dependent upon family members for all personal care and has prior history of enterococci faecalis and E coli bacteria urinary infections. Urinalysis positive for blood, nitrate, leukocyte esterase, rbc's, wbc's, and bacteria. Patient it appears nontoxic, is afebrile, and has no other complaints. Patient is not septic, will not pursue further lab values or fluid resuscitation at this time. Will treat with p.o. Macrobid. Family is in agreement with this plan. Family and patient verbalized understanding of and agrees to plan of care discharge home. MDM - Female Genitourinary Differential Diagnosis Differential diagnosis: Likely urinary tract infection and cystitis Medical Records Attestation: I reviewed the patient's medical records. Lab Data Attestation: I reviewed the patient's lab results. Labs: Lab Results 09/09/20 Range/Units 17:08 Urine Color YELLOW Urine Appearance CLOUDY Urine pH 6.0 (5.0-8.0) Ur Specific [place] 1.010 (1.005-1.025) Urine Protein 1+ H (NEG-TRACE) MG/DL Urine Glucose (UA) NEG (NEG) MG/DL Urine Ketones NEG (NEG) MG/DL Urine Blood 3+ H (NEG) Urine Nitrite POS H (NEG) Ur Leukocyte Esterase 3+ H (NEG) Urine RBC 10-14 H (0) /HPF Urine WBC 76-150 H (0-4) /HPF Ur Squamous Epith Cells TRACE /LPF Urine Bacteria 3+ /LPF Discharge Plan Discharge Clinical Impression: Urinary tract infection Patient Disposition: Home, Self-Care Instructions: Urinary Tract Infection in Women (ED) Additional Instructions: Te estamos tratando con Macrobid para sarahi infecci?n del tracto urinario. Errol es un antibi?barbara, basado en mares historial m?dico pasado de infecciones previas recurrentes del tracto urinario con la bacteria E coli y enterococci faecalis, sentimos que errol medicamento ser?a el m?s apropiado en errol momento. Por favor, utilice Pyridium para espasmos de vejiga y dolor. Errol medicamento volver? la orina de color naranja brillante. Errol es un efecto secundario normal de errol medicamento El cultivo de orina est? pendiente. Si el cultivo de orina muestra que errol antibi?barbara no es apropiado para las bacterias cultivadas en el cultivo de orina, alguien lo llamar? y cambiar? errol medicamento. Por favor, contin?e haciendo un seguimiento con urolog?a seg?n lo programado. Alfonzo por elegir errol departamento de emergencias para mares evaluaci?n. Por favor, diamond un seguimiento con el m?dico de atenci?n primaria seg?n sea necesario. Regrese al servicio de emergencias para cualquier s?ntoma nuevo, preocupante o que empeore. We are treating you with Macrobid for a urinary tract infection. This is an antibiotic, based on her past medical history of prior recurrent urinary tract infections with bacteria E coli and enterococci faecalis, we felt that this medication would be the most appropriate at this time. Please use Pyridium for bladder spasms and pain. This medication will turn your urine bright orange. This is a normal side effect to this medication Urine culture is pending. If urine culture shows that this antibiotic is not appropriate for the bacteria grown in the urine culture, someone will call you and change this medication. Please continue to follow-up with urology as scheduled. Thank you for choosing this emergency department for evaluation. Please follow-up with primary care physician as needed. Return to the emergency department for any new, concerning, or worsening symptoms. Prescriptions: New nitrofurantoin macrocrystal 100 mg capsule 100 mg PO Q12H 7 Days Qty: 14 RF: 0 phenazopyridine [Pyridium] 200 mg tablet 200 mg PO TID PRN (Reason: pain) Qty: 6 RF: 0 No Action amiodarone 200 mg Tablet 200 mg PO DAILY RF: 0 aspirin 81 mg Tablet 81 mg PO DAILY RF: 0 nitroglycerin 0.4 mg Tablet, Sublingual 0.4 mg SUBLINGUAL Q5M PRN (Reason: Chest Pain) RF: 0 docusate sodium 100 mg Capsule 100 mg PO BID PRN (Reason: Constipation) RF: 0 omeprazole 20 mg Capsule,Delayed Release(Dr/Ec) 20 mg PO BID@0630,1630 RF: 0 multivitamin Capsule 1 cap PO DAILY RF: 0 cholecalciferol (vitamin D3) 50 mcg (2,000 unit) Capsule 50 mcg PO DAILY RF: 0 spironolactone 25 mg Tablet 25 mg PO QAM RF: 0 Hold Instructions: Resume on 07/18/20. resume when directed to by heel brusher Dr Choi calcium carbonate-vit D3-min 600 mg calcium- 400 unit tablet 1 tab PO BID Qty: 60 RF: 0 rosuvastatin 20 mg tablet 1 tab PO BEDTIME RF: 0 metoprolol succinate 25 mg Tablet Extended Release 24 Hr 25 mg PO DAILY Qty: 30 RF: 0 zolpidem 10 mg tablet 0.5 - 1 tab PO BEDTIME RF: 0 furosemide 40 mg tablet 40 mg PO QNOON RF: 0 ascorbic acid (vitamin C) [Vitamin C] 500 mg Tablet 500 mg PO DAILY RF: 0 oxycodone 10 mg tablet 1 tab PO TID PRN (Reason: pain) RF: 0 Entresto 24-26 mg Tablet 1 tab PO BID RF: 0 Hold Instructions: Resume on 07/18/20. resume when directed to by heel brusher Dr Steph Koehler SureClick 50 mg/mL (1 mL) pen injector 1 mg subcut QWEEK RF: 0 warfarin 3 mg tablet 3 mg PO DAILY Qty: 90 RF: 0 furosemide 80 mg tablet 80 mg PO BID RF: 0 Interventions: ED Discharge Assessment Last Done: 09/09/20 18:25 Discharge Date/Time: 09/09/20 18:28
[2020-09-09 17:26] LABS: Appearance Urine CLOUDY; Color Urine YELLOW
[2020-09-09 17:35] LABS: Squamous Epithelial Cell Urine TRACE /LPF
[2020-09-09 17:36] LABS: Bacteria Urine 3+ /LPF
[2020-09-09] MEDS: Phenazopyridine HCL 200 MG TABLET PO (18:16)
[2020-09-09] MEDS: Nitrofurantoin Monohyd/M-Cryst 100 MG CAPSULE PO (18:17)
[2020-09-09 18:31] VITALS: BP 121/56; PULSE 89; RESP 14; TEMP 37.1; O2SAT 97
== END 2020-09-09 18:28 | disposition home or self-care (01) ==
PROVIDERS: Emergency Provider Internal Medicine; PCP Internal Medicine
DX: N39.0 Urinary tract infection, site not specified (principal); R30.0 Dysuria; I48.91 Unspecified atrial fibrillation; Z79.01 Long term (current) use of anticoagulants; Z99.81 Dependence on supplemental oxygen; Z87.891 Personal history of nicotine dependence; Z79.899 Other long term (current) drug therapy; Z79.82 Long term (current) use of aspirin
CPT/HCPCS: 81001; 81003; 87086; 99284

== ENCOUNTER 2020-09-18 14:16 | Outpatient (REF) | payer MEDICARE, SELFPAY ==
[2020-09-18 14:21] LABS: MANUAL DIFF FLAG NO
[2020-09-18 14:25] LABS: Basophils Percent Auto 0.3 % (0-2); Eosinophils Absolute Auto 0.2 X10*3/uL (0.0-0.4); Hematocrit 29.7 % (37-47); Hemoglobin 9.2 g/dl (12.0-16.0); Imm Gran Abs Auto 0.06 X10*3/uL (0.00-0.03); Imm Gran Pct Auto 0.5 % (0.0-0.4); Lymphocytes Absolute Auto 1.7 X10*3/uL (1.2-4.9); Lymphocytes Percent Auto 14.3 % (20-40); Mean Corpuscular Hemoglobin 27.3 pg (27.0-33.0); Mean Corpuscular Volume 88.1 fL (80-98); Mean Platelet Volume 9.3 fL (9.4-12.3); Monocytes Absolute Auto 1.2 X10*3/uL (0.1-1.2); Monocytes Percent Auto 10.2 % (2-11); Neutrophils Absolute Auto 8.5 X10*3/uL (2.0-8.3); Neutrophils Percent Auto 72.7 % (45-73); Platelet Count 412 X10*3/uL (160-400); Red Blood Count 3.37 X10*6/uL (4.20-5.50); Red Cell Distribution Width 15.8 % (11.0-16.0); White Blood Count 11.6 X10*3/uL (4.8-10.8)
[2020-09-18 14:55] LABS: Alanine Aminotransferase < 6 U/L (0-31); Albumin Level 3.4 g/dL (3.5-5.0); Anion Gap 17 (12-20); Aspartate Amino Transferase 11 U/L (5-31); C Reactive Protein 13.75 mg/dL (< or = 0.50); Carbon Dioxide 30 mmol/L (22-29); Chloride 99 mmol/L (96-108); Estimated Glomerular Filt Rate 24; Potassium 3.8 mmol/L (3.3-5.1); Sodium 142 mmol/L (135-145)
[2020-09-18 15:00] LABS: Erythrocyte Sedimentation Rate 105 MM/HR (0-20)
== END 2020-09-18 14:17 | disposition home or self-care (01) ==
LOC: HO.LNP 14:16
PROVIDERS: Visit Provider Internal Medicine
DX: Z51.81 Encounter for therapeutic drug level monitoring (principal)
CPT/HCPCS: 80051; 82040; 82565; 84450; 84460; 85025; 85652; 86140

== ENCOUNTER → 2020-09-28 12:57 | Outpatient (BNVA) | payer MEDICARE, SELFPAY | PROVIDERS: PCP Internal Medicine; Visit Provider Urology | DX: N13.30 Unspecified hydronephrosis (principal); N39.0 Urinary tract infection, site not specified | CPT/HCPCS: 99202 ==

== ENCOUNTER → 2020-10-26 12:35 | Outpatient (REF) | payer MEDICARE, SELFPAY ==
--- NOTE | ~2020-10-26 | NM_ITS ---
EXAMINATION: NM KIDNEY IMAGING WITH LASIX CLINICAL INFORMATION: Unspecified bilateral hydronephrosis. Past history of pyelonephritis. History of renal stones. COMPARISON: Nuclear medicine renal imaging 06/19/2020. TECHNIQUE: Following intravenous administration of 10 mCi of 99m Technetium DTPA, imaging over the posterior abdomen was obtained up to 30 minutes. Lasix 39 mg was injected and further imaging was obtained for the next 30 minutes. FINDINGS: Following injection, there was slight delay in bilateral renal perfusion slightly greater on the left. There is progressive renal uptake up to 30 minutes with increased activity in both renal pelvises, greater in the right kidney. Following Lasix administration at 30 minutes, there is no excretion seen in both kidneys consistent with obstructive hydronephrosis. On split renal function, the right kidney contributes 57.9% and the left renal kidney contributes 42.1%. Time from the Lasix injection to half Lasix, no activity cannot be determined as there is no excretion in either kidney. NM/NM renal flow w pharm int IMPRESSION: Diminished bilateral renal perfusion slightly greater on the left. Normal right renal cortical function. Diminished left renal cortical function. The left kidney contributes 42.1% and the right kidney contributes 57.9%. There is no response post Lasix in either kidney. No major change compared to previous nuclear medicine study 06/19/2020.
== END ==
LOC: HO.NUCMED 12:35
PROVIDERS: Visit Provider Urology
DX: N13.30 Unspecified hydronephrosis (principal); N12 Tubulo-interstitial nephritis, not specified as acute or chronic; Z87.442 Personal history of urinary calculi
CPT/HCPCS: 78708; A9539; J1940

== ENCOUNTER 2021-02-14 11:38 | Inpatient (IN) | payer OTHER, SELFPAY ==
[2021-02-14] VITALS (15 sets, daily range): BP systolic 83–106; BP diastolic 44–65; PULSE 90–105; RESP 15–25; TEMP 36.6–38.3; O2SAT 93–99; BMI 30.7
--- NOTE | ~2021-02-14 | CT_ITS ---
EXAMINATION: CT ABDOMEN AND PELVIS WITHOUT CONTRAST CLINICAL INFORMATION: Lower abdominal pain, right flank pain. History urinary tract calculi. COMPARISON: Renal ultrasound 07/05/2020., CT abdomen and pelvis 06/17/2020. TECHNIQUE: Multidetector volumetric imaging was performed from the superior aspect of the liver through the pubic symphysis. Sagittal and coronal reformatted images were obtained on the technologist's workstation. This CT examination was performed using dose optimization techniques as appropriate, variously including the following: *Automated exposure control *Adjustment of mA and/or kV according to patient size (this includes techniques or standardized protocols for targeted exams where dose is matched to indication/reason for exam; i.e. extremities or head) *Use of iterative reconstruction technique DLP: 584 mGy-cm FINDINGS: LUNG BASES: Cardiomegaly. No pericardial effusion. Small nodule right lateral base just under 4 mm, likely stable. No additional follow-up as per Fleischner guidelines. No airspace consolidation or effusion. LIVER, GALLBLADDER, AND BILIARY TREE: Liver is smooth in contour and homogeneous and within normal size. No focal parenchymal lesions or intrahepatic ductal dilatation. The gallbladder has some subtle increased attenuation in the dependent lumen which may represent sludge. There is no visible gallstone or gallbladder wall thickening or pericholecystic fluid. Common duct unremarkable. PANCREAS: Unremarkable. SPLEEN: Unremarkable. ADRENAL GLANDS: Unremarkable. KIDNEYS AND URETERS: There is chronic bilateral hydronephrosis and hydroureter down to the bladder. There are bilateral ureteral stents in position. There is mild stranding right perinephric region and around the proximal right ureter. The right kidney is borderline larger than on prior study. Findings could be related to pyelonephritis. There are no gas bubbles. No interval calculi. Again, there are known bilateral cysts, left 2.1 cm and right 5.5 x 4.6 cm, both of water attenuation. No additional follow-up required. BLADDER: Nondistended, circumferential wall thickening similar to prior exam. No bladder calculus or gas in the lumen or wall. GASTROINTESTINAL TRACT: No bowel obstruction or focal inflammatory changes in the bowel. Normal appendix. No ascites or fluid collection. ABDOMINAL WALL: No significant hernia is appreciated. LYMPH NODES: There are mildly prominent upper abdominal retroperitoneal nodes at the level of the renal vessels, largest on left 1.2 cm short axis, prior measurement 0.7 cm. VASCULAR: Unremarkable. PELVIC VISCERA: Unremarkable. 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 CT/CT abdomen pelvis wo con IMPRESSION: 1. Chronic bilateral hydronephrosis and hydroureter down to bladder. Bilateral ureteral stents in position. Right kidney borderline larger with mild perinephric and upper periureteral stranding. Mild upper abdominal adenopathy. Findings may be related to pyelonephritis. No gas bubbles or calculi. 2. No bowel obstruction or focal intestinal inflammatory changes. Normal appendix. No ascites or fluid collection.
--- NOTE | ~2021-02-14 | XR_ITS ---
EXAMINATION: XR CHEST CLINICAL INFORMATION: Dyspnea COMPARISON: 07/05/2020 TECHNIQUE: Frontal view of the chest was obtained. FINDINGS: There is vascular congestion here. Pacer wires appear unchanged in position There is no effusion. XR/XR chest 1V IMPRESSION: Findings suggest vascular congestion/early CHF. No overt edema
--- NOTE | ~2021-02-14 | FL_ITS ---
EXAMINATION: XR FLUOROSCOPY WITH IMAGES CLINICAL INFORMATION: Cystoscopy. Stent removal and replacement COMPARISON: None. TECHNIQUE: Fluoroscopy performed by Dr. Niraj Caba. Fluoroscopy time: 3.2 minutes DAP: 19.8 mGycm2 Images: 4 FINDINGS: There are 4 images available with the very first imaging revealing a right ureteral stent with its lower end in the bladder. A left ureteral stent is also seen with its proximal end in the upper pelvis and the distal end appears to be external to the bladder and the skin surface. The second and third images reveal contrast opacifying a dilated left kidney pelvis and calyces the proximal end of left ureteral stent in the kidney pelvis. FL/FL guidance in OR IMPRESSION: Fluoroscopy guidance was provided to Dr. Niraj Caba during cystoscopy and stent removal and replacement procedure.
--- NOTE | 2021-02-14 13:19 | ED.FEMALEGU ---
HPI - Female Genitourinary General Chief complaint: Urogenital-Female Stated complaint: ?UTI Time Seen by Provider: 02/14/21 13:17 Source: patient and family Mode of arrival: ambulatory Limitations: no limitations History of Present Illness MD elicited complaint: dysuria, UTI , pelvic pain and flank pain Pertinent past history: recurrent UTIs Onset (ago): day(s) (3) Location of symptoms: suprapubic and flank Severity: moderate Quality of pain: cramping Consistency: intermittent Urinary symptoms: Dysuria, Urgency and Frequency Exacerbating factors: urination Relieving factors: none Associated symptoms: abdominal pain Treatment prior to arrival: none Related Data Home Medications Medication Instructions Recorded Confirmed amiodarone 200 mg tablet 200 mg PO DAILY 03/29/20 07/31/20 aspirin 81 mg tablet 81 mg PO DAILY 03/29/20 07/31/20 cholecalciferol (vitamin D3) 50 50 mcg PO DAILY 03/29/20 07/31/20 mcg (2,000 unit) capsule docusate sodium 100 mg capsule 100 mg PO BID PRN 03/29/20 07/31/20 multivitamin 1 cap PO DAILY 03/29/20 07/31/20 nitroglycerin 0.4 mg sublingual 0.4 mg SUBLINGUAL Q5M PRN 03/29/20 07/31/20 tablet omeprazole 20 mg capsule,delayed 20 mg PO BID@0630,1630 03/29/20 07/31/20 release spironolactone 25 mg tablet 25 mg PO QAM 03/29/20 07/31/20 furosemide 80 mg tablet 80 mg PO BID 05/03/20 07/31/20 ascorbic acid (vitamin C) 500 mg 500 mg PO DAILY 06/17/20 07/31/20 tablet (Vitamin C) etanercept 50 mg/mL (1 mL) 1 mg SUBCUT QWEEK 06/17/20 07/31/20 subcutaneous pen injector (Enbrel SureClick) furosemide 40 mg tablet 40 mg PO QNOON 06/17/20 07/31/20 oxycodone 10 mg tablet 1 tab PO TID PRN 06/17/20 07/31/20 sacubitril 24 mg-valsartan 26 mg 1 tab PO BID 06/17/20 07/31/20 tablet (Entresto) zolpidem 10 mg tablet 0.5 - 1 tab PO BEDTIME 06/17/20 07/31/20 rosuvastatin 20 mg tablet 1 tab PO BEDTIME 07/04/20 07/31/20 Previous Rx's Medication Instructions Recorded calcium carb-vit D3-minerals 600 1 tab PO BID #60 tab 03/31/20 mg calcium-400 unit tablet warfarin 3 mg tablet 3 mg PO DAILY #90 tab 05/03/20 metoprolol succinate 25 mg 25 mg PO DAILY #30 tab 07/09/20 tablet,extended release 24 hr nitrofurantoin macrocrystal 100 mg 100 mg PO Q12H 7 Days #14 cap 09/09/20 capsule phenazopyridine 200 mg tablet 200 mg PO TID PRN #6 tab 09/09/20 (Pyridium) estradiol See Rx Instructions .ROUTE 3XW 09/28/20 #42.5 g Allergies Allergy/AdvReac Type Severity Reaction Status Date / Time No Known Food Allergies Allergy Unknown Verified 02/14/21 12:05 Review of Systems Review of Systems: Constitutional : No Weight loss, No Fever, No Chills ENT/Mouth : No sore throat, No Rhinorrhea Eyes: No Swelling, No Redness Cardiovascular : No Chest Pain, No SOB, NoEdema Respiratory : No Cough, No Sputum, No Wheezing Gastrointestinal : no Nausea, no Vomiting, no Diarrhea, positive abdominal Pain, No Hematochezia, No Melena Genitourinary : pos Dysuria, pos Urinary Frequency, No Hematuria, No Urgency Musculoskeletal : No joint pain, No Myalgias, No Joint Swelling Skin : No Skin Lesions, No rash Neuro : No Weakness, No Numbness, No Dizziness, No Headache Psych : No Anxiety/Panic, No Depression Heme/Lymph: No Bruising, No Lymphadenopathy Endocrine : No Polyuria, No Polydipsia All other systems reviewed and are negative. [facility] Past Medical History Attestation statement: The following information was validated with the patient. Medical History HERMELINDO (acute kidney injury) Biventricular ICD (implantable cardioverter-defibrillator) in place Cardiomyopathy Chronic systolic heart failure Hydronephrosis Hypotension Paroxysmal atrial fibrillation with rapid ventricular response Prolapsed uterus Systolic heart failure Urinary retention Surgical History H/O ankle fusion H/O cystoscopy H/O: section Hip joint replacement status History of renal stent Previous back surgery Total knee replacement status Social History Social History Household Members: Family and Children Housing: House Do you presently have visiting nurse or other home services: No Alcohol intake: never Advance Directives: Yes Advance Directives Information Provided: Yes Advance Directives on File: No service: No Current occupational status: disabled Physical Exam Vital Signs: Vital Signs: Last Vital Signs Temp 98.5 F 02/14/21 14:39 Pulse 95 02/14/21 14:39 Resp 15 02/14/21 14:39 BP 91/50 L 02/14/21 14:39 Pulse Ox 96 02/14/21 14:39 Oxygen Flow Rate 2 02/14/21 12:06 Body Mass Index 30.7 Appearance: Alert. Oriented X3. No acute distress. WC bound Eyes: Pupils equal, round and reactive to light. ENT: Pharynx normal. Neck: Normal inspection. Neck supple. CVS: Normal heart rate and rhythm. Pulses normal. Respiratory: No respiratory distress. Breath sounds normal. Abdomen: Soft and mild suprapubic ttp no rebound or guarding Skin: Skin warm and dry. Normal skin color. Normal skin turgor. Extremities: No lower extremity edema. No calf ttp Neuro: Oriented X 3. No motor deficit. No sensory deficit. Course Course Course Narrative: increase in Cr, H/H stable, lactic negative, given gentle fluid bolus and albumin given CHF and CKD risk of volume overload please see sepsis bolus exclusion note given levofloxacin and ceftriaxone given indwelling double J stent and recurrent UTI bnp at baseline review of EMR shows the patient's BP is chronically in 90s systolic signed out to Dr. Reza pending CT scan and recheck of BP anticipate admission to hospital MDM - Female Genitourinary MDM Narrative Medical decision making narrative: 65 yo female with hx of PAF on coumadin, recurrent UTIs, hydronephrosis double-J stents in place , cardiomyopathy EF 10%, CVA, comes in with c/o lower abdominal pain and dysuria will obtain labs, cultures, CT scan for obstruction, UA, dispo per results and findings. Lab Data Result diagrams: 02/14/21 13:48 02/14/21 13:48 Labs: Lab Results 02/14/21 02/14/21 02/14/21 Range/Units 13:48 13:48 13:48 WBC 7.7 (4.8-10.8) X10*3/uL RBC 3.17 L (4.20-5.50) X10*6/uL Hgb 8.2 L (12.0-16.0) g/dl Hct 27.2 L (37-47) % MCV 85.8 (80-98) fL MCH 25.9 L (27.0-33.0) pg MCHC 30.1 L (31.0-35.0) g/dl RDW 15.8 (11.0-16.0) % Plt Count 306 D (160-400) X10*3/uL MPV 9.8 (9.4-12.3) fL Immature Gran % (Auto) 0.4 (0.0-0.4) % Neut % (Auto) 73.5 H (45-73) % Lymph % (Auto) 14.2 L (20-40) % [place] % (Auto) 9.5 (2-11) % Eos % (Auto) 2.0 (0-4) % Baso % (Auto) 0.4 (0-2) % Lymph # (Auto) 1.1 L (1.2-4.9) X10*3/uL [place] # (Auto) 0.7 (0.1-1.2) X10*3/uL Eos # (Auto) 0.2 (0.0-0.4) X10*3/uL Baso # (Auto) 0.0 (0.0-0.2) X10*3/uL Abs Immat Gran (auto) 0.03 (0.00-0.03) X10*3/uL Absolute Neuts (auto) 5.7 (2.0-8.3) X10*3/uL Absolute Nucleated RBC 0.000 (0.0-0.012) X10*3/uL Nucleated RBC % (auto) 0.0 (0.0-0.2) /100WBC PT 24.8 H (9.9-13.0) SEC INR 2.1 H (0.9-1.1) APTT 38.6 H (24.1-38.0) SEC Sodium 137 (135-145) mmol/L Potassium 3.5 (3.3-5.1) mmol/L Chloride 99 (96-108) mmol/L Carbon Dioxide 26 (22-29) mmol/L Anion Gap 16 (12-20) BUN 37 H D (9-16) mg/dL Creatinine 2.35 H (0.5-1.4) mg/dL Estim Creat Clear Calc 19.8 Estimated GFR 21 Random Glucose 106 (60-115) mg/dL Lactic Acid (0.5-2.0) mmol/L Calcium 8.8 (8.4-10.2) mg/dL Magnesium 2.0 (1.6-2.6) mg/dL Total Bilirubin 0.5 (0.0-1.0) mg/dL Direct Bilirubin 0.2 (0.0-0.5) mg/dL AST 8 (5-31) U/L ALT 7 (0-31) U/L Alkaline Phosphatase 68 (39-117) U/L Troponin I High Sens (<3.5-17.0) ng/L B-Natriuretic Peptide (<100) pg/mL Total Protein 7.3 (6.5-8.0) g/dL Albumin 3.6 (3.5-5.0) g/dL Lipase 18 (8-78) U/L Urine Color Urine Appearance Urine pH (5.0-8.0) Ur Specific [place] (1.005-1.025) Urine Protein (NEG-TRACE) MG/DL Urine Glucose (UA) (NEG) MG/DL Urine Ketones (NEG) MG/DL Urine Blood (NEG) Urine Nitrite (NEG) Ur Leukocyte Esterase (NEG) Urine RBC (0) /HPF Urine WBC (0-4) /HPF Urine WBC Clumps Ur Squamous Epith Cells /LPF Amorphous Sediment /LPF Urine Bacteria /LPF 02/14/21 02/14/21 02/14/21 Range/Units 14:08 14:35 15:55 WBC (4.8-10.8) X10*3/uL RBC (4.20-5.50) X10*6/uL Hgb (12.0-16.0) g/dl Hct (37-47) % MCV (80-98) fL MCH (27.0-33.0) pg MCHC (31.0-35.0) g/dl RDW (11.0-16.0) % Plt Count (160-400) X10*3/uL MPV (9.4-12.3) fL Immature Gran % (Auto) (0.0-0.4) % Neut % (Auto) (45-73) % Lymph % (Auto) (20-40) % [place] % (Auto) (2-11) % Eos % (Auto) (0-4) % Baso % (Auto) (0-2) % Lymph # (Auto) (1.2-4.9) X10*3/uL [place] # (Auto) (0.1-1.2) X10*3/uL Eos # (Auto) (0.0-0.4) X10*3/uL Baso # (Auto) (0.0-0.2) X10*3/uL Abs Immat Gran (auto) (0.00-0.03) X10*3/uL Absolute Neuts (auto) (2.0-8.3) X10*3/uL Absolute Nucleated RBC (0.0-0.012) X10*3/uL Nucleated RBC % (auto) (0.0-0.2) /100WBC PT (9.9-13.0) SEC INR (0.9-1.1) APTT (24.1-38.0) SEC Sodium (135-145) mmol/L Potassium (3.3-5.1) mmol/L Chloride (96-108) mmol/L Carbon Dioxide (22-29) mmol/L Anion Gap (12-20) BUN (9-16) mg/dL Creatinine (0.5-1.4) mg/dL Estim Creat Clear Calc Estimated GFR Random Glucose (60-115) mg/dL Lactic Acid 0.9 (0.5-2.0) mmol/L Calcium (8.4-10.2) mg/dL Magnesium (1.6-2.6) mg/dL Total Bilirubin (0.0-1.0) mg/dL Direct Bilirubin (0.0-0.5) mg/dL AST (5-31) U/L ALT (0-31) U/L Alkaline Phosphatase (39-117) U/L Troponin I High Sens 9.3 (<3.5-17.0) ng/L B-Natriuretic Peptide 3214 H (<100) pg/mL Total Protein (6.5-8.0) g/dL Albumin (3.5-5.0) g/dL Lipase (8-78) U/L Urine Color STRAW Urine Appearance CLOUDY Urine pH 6.0 (5.0-8.0) Ur Specific [place] <= 1.005 (1.005-1.025) Urine Protein 1+ H (NEG-TRACE) MG/DL Urine Glucose (UA) NEG (NEG) MG/DL Urine Ketones NEG (NEG) MG/DL Urine Blood 3+ H (NEG) Urine Nitrite NEG (NEG) Ur Leukocyte Esterase 3+ H (NEG) Urine RBC 5-9 H (0) /HPF Urine WBC TNTC H (0-4) /HPF Urine WBC Clumps NOTED Ur Squamous Epith Cells NONE /LPF Amorphous Sediment 2+ /LPF Urine Bacteria 2+ /LPF ECG Data Attestation: I personally reviewed and interpreted this ECG as follows: ECG interpretation date: 02/14/21 ECG interpretation time: 14:29 Interpretation: Rate: 92 Rhythm: paced [place]: left ,. LVH Normal P waves. Normal RASHAD. wide complex ST T wave : nonspecific, no CA qTC: normal prior studies: no acute change The study has been interpreted contemporaneously by me. . Discharge Plan Discharge Clinical Impression: Acute UTI, Nausea, Acute dehydration Prescriptions: No Action amiodarone 200 mg Tablet 200 mg PO DAILY RF: 0 aspirin 81 mg Tablet 81 mg PO DAILY RF: 0 nitroglycerin 0.4 mg Tablet, Sublingual 0.4 mg SUBLINGUAL Q5M PRN (Reason: Chest Pain) RF: 0 docusate sodium 100 mg Capsule 100 mg PO BID PRN (Reason: Constipation) RF: 0 omeprazole 20 mg Capsule,Delayed Release(Dr/Ec) 20 mg PO BID@0630,1630 RF: 0 multivitamin Capsule 1 cap PO DAILY RF: 0 cholecalciferol (vitamin D3) 50 mcg (2,000 unit) Capsule 50 mcg PO DAILY RF: 0 spironolactone 25 mg Tablet 25 mg PO QAM RF: 0 Hold Instructions: Resume on 07/18/20. resume when directed to by drug abuse program coordinator Dr Choi calcium carbonate-vit D3-min 600 mg calcium- 400 unit tablet 1 tab PO BID Qty: 60 RF: 0 rosuvastatin 20 mg tablet 1 tab PO BEDTIME RF: 0 metoprolol succinate 25 mg Tablet Extended Release 24 Hr 25 mg PO DAILY Qty: 30 RF: 0 nitrofurantoin macrocrystal 100 mg capsule 100 mg PO Q12H 7 Days Qty: 14 RF: 0 phenazopyridine [Pyridium] 200 mg tablet 200 mg PO TID PRN (Reason: pain) Qty: 6 RF: 0 zolpidem 10 mg tablet 0.5 - 1 tab PO BEDTIME RF: 0 furosemide 40 mg tablet 40 mg PO QNOON RF: 0 ascorbic acid (vitamin C) [Vitamin C] 500 mg Tablet 500 mg PO DAILY RF: 0 oxycodone 10 mg tablet 1 tab PO TID PRN (Reason: pain) RF: 0 Entresto 24-26 mg Tablet 1 tab PO BID RF: 0 Hold Instructions: Resume on 07/18/20. resume when directed to by drug abuse program coordinator Dr Steph Koehler SureClick 50 mg/mL (1 mL) pen injector 1 mg subcut QWEEK RF: 0 warfarin 3 mg tablet 3 mg PO DAILY Qty: 90 RF: 0 furosemide 80 mg tablet 80 mg PO BID RF: 0 estradiol 0.01 % (0.1 mg/gram) cream See Rx Instructions .Route 3XW Qty: 42.5 RF: 2 Sepsis Bolus Exclusion Sepsis Bolus Exclusion CHF/Renal Failure This patient met severe sepsis criteria due to the following condition(s):: Hypotension In my clinical judgement the administration of 30 ml/kg of crystalloid would be detrimental to this patient due to the patient's following conditions:: NYHA class III or IV Heart Failure(symptoms with low exertion or rest) and Stage III or IV Chronic Kidney Disease (GFR<30) Replace the 30 mls/kg with: Crystalloids amount given in mls:: 500 Colloids amount given in mls:: 100
[2021-02-14] MEDS: oxyCODONE HCl Immed Release 5 MG TABLET PO (13:42)
[2021-02-14] MEDS: Ondansetron ODT 4 MG TAB.RAPDIS TRANSLINGU (13:42)
--- NOTE | 2021-02-14 13:55 | ECG_ITS ---
Test Reason : UROGENITAL Blood Pressure : / mmHG Vent. Rate : 092 BPM Atrial Rate : 092 BPM P-R Int : 138 ms QRS Dur : 148 ms QT Int : 452 ms P-R-T Axes : 033 -89 077 degrees QTc Int : 558 ms Atrial-sensed ventricular-paced rhythm Abnormal ECG When compared with ECG of 17-JUN-2020 12:10, Vent. rate has decreased BY 3 BPM Referred By: Peyton Westbrook Electronically Signed By:ERIK KENNY
[2021-02-14 14:02] LABS: MANUAL DIFF FLAG NO
[2021-02-14 14:06] LABS: Basophils Percent Auto 0.4 % (0-2); Eosinophils Absolute Auto 0.2 X10*3/uL (0.0-0.4); Hematocrit 27.2 % (37-47); Hemoglobin 8.2 g/dl (12.0-16.0); Imm Gran Abs Auto 0.03 X10*3/uL (0.00-0.03); Imm Gran Pct Auto 0.4 % (0.0-0.4); Lymphocytes Absolute Auto 1.1 X10*3/uL (1.2-4.9); Lymphocytes Percent Auto 14.2 % (20-40); Mean Corpuscular HGB Conc 30.1 g/dl (31.0-35.0); Mean Corpuscular Hemoglobin 25.9 pg (27.0-33.0); Mean Corpuscular Volume 85.8 fL (80-98); Mean Platelet Volume 9.8 fL (9.4-12.3); Monocytes Absolute Auto 0.7 X10*3/uL (0.1-1.2); Monocytes Percent Auto 9.5 % (2-11); Neutrophils Absolute Auto 5.7 X10*3/uL (2.0-8.3); Neutrophils Percent Auto 73.5 % (45-73); Platelet Count 306 X10*3/uL (160-400); Red Blood Count 3.17 X10*6/uL (4.20-5.50); Red Cell Distribution Width 15.8 % (11.0-16.0); White Blood Count 7.7 X10*3/uL (4.8-10.8)
[2021-02-14 14:12] LABS: INTERNATIONAL NORM RATIO 2.1 (0.9-1.1); Prothrombin Time 24.8 SEC (9.9-13.0)
[2021-02-14 14:15] LABS: Partial Thromboplastin Time 38.6 SEC (24.1-38.0)
[2021-02-14 14:34] LABS: Alanine Aminotransferase 7 U/L (0-31); Albumin Level 3.6 g/dL (3.5-5.0); Alkaline Phosphatase 68 U/L (39-117); Anion Gap 16 (12-20); Aspartate Amino Transferase 8 U/L (5-31); Bilirubin Direct 0.2 mg/dL (0.0-0.5); Bilirubin Total 0.5 mg/dL (0.0-1.0); Blood Urea Nitrogen 37 mg/dL (9-16); Calcium 8.8 mg/dL (8.4-10.2); Carbon Dioxide 26 mmol/L (22-29); Chloride 99 mmol/L (96-108); Creatinine Clr Calc Pharmacy 19.8; Estimated Glomerular Filt Rate 21; Glucose Random 106 mg/dL (60-115); Lipase 18 U/L (8-78); Potassium 3.5 mmol/L (3.3-5.1); Sodium 137 mmol/L (135-145); Total Protein 7.3 g/dL (6.5-8.0)
[2021-02-14 14:50] LABS: Glucose Urine UA NEG (NEG); Leukocyte Esterase Urine 3+ (NEG); Nitrite Urine NEG (NEG); Specific Gravity - Urine <= 1.005 (1.005-1.025); UACC Culture Trigger YES; Urine Blood 3+ (NEG); Urine Ketones NEG (NEG); Urine Protein 1+ MG/DL (NEG-TRACE)
[2021-02-14 14:51] LABS: B Type Natriuretic Peptide 3214 pg/mL (<100); Troponin-I High Sensitivity 9.3 ng/L (<3.5-17.0)
[2021-02-14 14:52] LABS: Appearance Urine CLOUDY; Color Urine STRAW
[2021-02-14 15:04] LABS: Amorphous Sediment Urine 2+ /LPF; Bacteria Urine 2+ /LPF; WBC Urine TNTC /HPF (0-4)
[2021-02-14 15:05] LABS: WBC Clumps Urine NOTED
[2021-02-14] MEDS: 0.9 % Sodium Chloride 500 ML IV (15:06)
[2021-02-14] MEDS: cefTRIAXone sodium 1 GM in 0.9 % Sodium Chloride 50 ML IV (16:13)
[2021-02-14 16:17] LABS: Lactic Acid 0.9 mmol/L (0.5-2.0)
[2021-02-14] MEDS: Albumin Human 25 % 100 ML IV ×2 (16:18→17:23)
[2021-02-14] MEDS: levoFLOXacin/D5W 250 MG/50 ML PIGGYBACK 50 MG IV (16:41)
--- NOTE | 2021-02-14 17:37 | ED.FEMALEGU ---
HPI - Female Genitourinary General Chief complaint: Urogenital-Female Stated complaint: ?UTI Time Seen by Provider: 02/14/21 13:17 Source: patient and family Mode of arrival: ambulatory Limitations: no limitations History of Present Illness Severity: moderate Exacerbating factors: urination Relieving factors: none Related Data Home Medications Medication Instructions Recorded Confirmed amiodarone 200 mg tablet 200 mg PO DAILY 03/29/20 02/14/21 aspirin 81 mg tablet 81 mg PO DAILY 03/29/20 02/14/21 cholecalciferol (vitamin D3) 50 50 mcg PO DAILY 03/29/20 02/14/21 mcg (2,000 unit) capsule docusate sodium 100 mg capsule 100 mg PO BID PRN 03/29/20 02/14/21 multivitamin 1 cap PO DAILY 03/29/20 07/31/20 nitroglycerin 0.4 mg sublingual 0.4 mg SUBLINGUAL Q5M PRN 03/29/20 02/14/21 tablet omeprazole 20 mg capsule,delayed 20 mg PO BID@0630,1630 03/29/20 02/14/21 release spironolactone 25 mg tablet 25 mg PO QAM 03/29/20 07/31/20 ascorbic acid (vitamin C) 500 mg 500 mg PO DAILY 06/17/20 07/31/20 tablet (Vitamin C) etanercept 50 mg/mL (1 mL) 1 mg SUBCUT QWEEK 06/17/20 02/14/21 subcutaneous pen injector (Enbrel SureClick) furosemide 40 mg tablet 40 mg PO QNOON 06/17/20 02/14/21 oxycodone 10 mg tablet 1 tab PO TID PRN 06/17/20 02/14/21 sacubitril 24 mg-valsartan 26 mg 1 tab PO BID 06/17/20 02/14/21 tablet (Entresto) zolpidem 10 mg tablet 0.5 - 1 tab PO BEDTIME 06/17/20 02/14/21 rosuvastatin 20 mg tablet 1 tab PO BEDTIME 07/04/20 07/31/20 apixaban 5 mg tablet (Eliquis) 1 tab PO BID 02/14/21 02/14/21 carvedilol 6.25 mg tablet 1 tab PO BID 02/14/21 02/14/21 digoxin 125 mcg (0.125 mg) tablet 1 tab PO MOTUWETHFR 02/14/21 02/14/21 Previous Rx's Medication Instructions Recorded calcium carb-vit D3-minerals 600 1 tab PO BID #60 tab 03/31/20 mg calcium-400 unit tablet metoprolol succinate 25 mg 25 mg PO DAILY #30 tab 07/09/20 tablet,extended release 24 hr nitrofurantoin macrocrystal 100 mg 100 mg PO Q12H 7 Days #14 cap 09/09/20 capsule phenazopyridine 200 mg tablet 200 mg PO TID PRN #6 tab 09/09/20 (Pyridium) estradiol See Rx Instructions .ROUTE 3XW 09/28/20 #42.5 g Allergies Allergy/AdvReac Type Severity Reaction Status Date / Time No Known Food Allergies Allergy Unknown Verified 02/14/21 12:05 [facility] Past Medical History Medical History HERMELINDO (acute kidney injury) Biventricular ICD (implantable cardioverter-defibrillator) in place Cardiomyopathy Chronic systolic heart failure Hydronephrosis Hypotension Paroxysmal atrial fibrillation with rapid ventricular response Prolapsed uterus Systolic heart failure Urinary retention Surgical History H/O ankle fusion H/O cystoscopy H/O: section Hip joint replacement status History of renal stent Previous back surgery Total knee replacement status Social History Social History Household Members: Family and Children Housing: House Do you presently have visiting nurse or other home services: No Alcohol intake: never Advance Directives: Yes Advance Directives Information Provided: Yes Advance Directives on File: No service: No Current occupational status: disabled Physical Exam Vital Signs: Vital Signs: Last Vital Signs Temp 98.5 F 02/14/21 14:39 Pulse 93 02/14/21 16:56 Resp 16 02/14/21 16:56 BP 96/44 L 02/14/21 16:56 Pulse Ox 98 02/14/21 16:56 Oxygen Flow Rate 2 02/14/21 12:06 Body Mass Index 30.7 MDM - Female Genitourinary Lab Data Result diagrams: 02/14/21 13:48 02/14/21 13:48 Labs: Lab Results 02/14/21 02/14/21 02/14/21 Range/Units 13:48 13:48 13:48 WBC 7.7 (4.8-10.8) X10*3/uL RBC 3.17 L (4.20-5.50) X10*6/uL Hgb 8.2 L (12.0-16.0) g/dl Hct 27.2 L (37-47) % MCV 85.8 (80-98) fL MCH 25.9 L (27.0-33.0) pg MCHC 30.1 L (31.0-35.0) g/dl RDW 15.8 (11.0-16.0) % Plt Count 306 D (160-400) X10*3/uL MPV 9.8 (9.4-12.3) fL Immature Gran % (Auto) 0.4 (0.0-0.4) % Neut % (Auto) 73.5 H (45-73) % Lymph % (Auto) 14.2 L (20-40) % [place] % (Auto) 9.5 (2-11) % Eos % (Auto) 2.0 (0-4) % Baso % (Auto) 0.4 (0-2) % Lymph # (Auto) 1.1 L (1.2-4.9) X10*3/uL [place] # (Auto) 0.7 (0.1-1.2) X10*3/uL Eos # (Auto) 0.2 (0.0-0.4) X10*3/uL Baso # (Auto) 0.0 (0.0-0.2) X10*3/uL Abs Immat Gran (auto) 0.03 (0.00-0.03) X10*3/uL Absolute Neuts (auto) 5.7 (2.0-8.3) X10*3/uL Absolute Nucleated RBC 0.000 (0.0-0.012) X10*3/uL Nucleated RBC % (auto) 0.0 (0.0-0.2) /100WBC PT 24.8 H (9.9-13.0) SEC INR 2.1 H (0.9-1.1) APTT 38.6 H (24.1-38.0) SEC Sodium 137 (135-145) mmol/L Potassium 3.5 (3.3-5.1) mmol/L Chloride 99 (96-108) mmol/L Carbon Dioxide 26 (22-29) mmol/L Anion Gap 16 (12-20) BUN 37 H D (9-16) mg/dL Creatinine 2.35 H (0.5-1.4) mg/dL Estim Creat Clear Calc 19.8 Estimated GFR 21 Random Glucose 106 (60-115) mg/dL Lactic Acid (0.5-2.0) mmol/L Calcium 8.8 (8.4-10.2) mg/dL Magnesium 2.0 (1.6-2.6) mg/dL Total Bilirubin 0.5 (0.0-1.0) mg/dL Direct Bilirubin 0.2 (0.0-0.5) mg/dL AST 8 (5-31) U/L ALT 7 (0-31) U/L Alkaline Phosphatase 68 (39-117) U/L Troponin I High Sens (<3.5-17.0) ng/L B-Natriuretic Peptide (<100) pg/mL Total Protein 7.3 (6.5-8.0) g/dL Albumin 3.6 (3.5-5.0) g/dL Lipase 18 (8-78) U/L Urine Color Urine Appearance Urine pH (5.0-8.0) Ur Specific [place] (1.005-1.025) Urine Protein (NEG-TRACE) MG/DL Urine Glucose (UA) (NEG) MG/DL Urine Ketones (NEG) MG/DL Urine Blood (NEG) Urine Nitrite (NEG) Ur Leukocyte Esterase (NEG) Urine RBC (0) /HPF Urine WBC (0-4) /HPF Urine WBC Clumps Ur Squamous Epith Cells /LPF Amorphous Sediment /LPF Urine Bacteria /LPF 02/14/21 02/14/21 02/14/21 Range/Units 14:08 14:35 15:55 WBC (4.8-10.8) X10*3/uL RBC (4.20-5.50) X10*6/uL Hgb (12.0-16.0) g/dl Hct (37-47) % MCV (80-98) fL MCH (27.0-33.0) pg MCHC (31.0-35.0) g/dl RDW (11.0-16.0) % Plt Count (160-400) X10*3/uL MPV (9.4-12.3) fL Immature Gran % (Auto) (0.0-0.4) % Neut % (Auto) (45-73) % Lymph % (Auto) (20-40) % [place] % (Auto) (2-11) % Eos % (Auto) (0-4) % Baso % (Auto) (0-2) % Lymph # (Auto) (1.2-4.9) X10*3/uL [place] # (Auto) (0.1-1.2) X10*3/uL Eos # (Auto) (0.0-0.4) X10*3/uL Baso # (Auto) (0.0-0.2) X10*3/uL Abs Immat Gran (auto) (0.00-0.03) X10*3/uL Absolute Neuts (auto) (2.0-8.3) X10*3/uL Absolute Nucleated RBC (0.0-0.012) X10*3/uL Nucleated RBC % (auto) (0.0-0.2) /100WBC PT (9.9-13.0) SEC INR (0.9-1.1) APTT (24.1-38.0) SEC Sodium (135-145) mmol/L Potassium (3.3-5.1) mmol/L Chloride (96-108) mmol/L Carbon Dioxide (22-29) mmol/L Anion Gap (12-20) BUN (9-16) mg/dL Creatinine (0.5-1.4) mg/dL Estim Creat Clear Calc Estimated GFR Random Glucose (60-115) mg/dL Lactic Acid 0.9 (0.5-2.0) mmol/L Calcium (8.4-10.2) mg/dL Magnesium (1.6-2.6) mg/dL Total Bilirubin (0.0-1.0) mg/dL Direct Bilirubin (0.0-0.5) mg/dL AST (5-31) U/L ALT (0-31) U/L Alkaline Phosphatase (39-117) U/L Troponin I High Sens 9.3 (<3.5-17.0) ng/L B-Natriuretic Peptide 3214 H (<100) pg/mL Total Protein (6.5-8.0) g/dL Albumin (3.5-5.0) g/dL Lipase (8-78) U/L Urine Color STRAW Urine Appearance CLOUDY Urine pH 6.0 (5.0-8.0) Ur Specific [place] <= 1.005 (1.005-1.025) Urine Protein 1+ H (NEG-TRACE) MG/DL Urine Glucose (UA) NEG (NEG) MG/DL Urine Ketones NEG (NEG) MG/DL Urine Blood 3+ H (NEG) Urine Nitrite NEG (NEG) Ur Leukocyte Esterase 3+ H (NEG) Urine RBC 5-9 H (0) /HPF Urine WBC TNTC H (0-4) /HPF Urine WBC Clumps NOTED Ur Squamous Epith Cells NONE /LPF Amorphous Sediment 2+ /LPF Urine Bacteria 2+ /LPF Discharge Plan Discharge Clinical Impression: Acute UTI, Nausea, Acute dehydration Prescriptions: No Action amiodarone 200 mg Tablet 200 mg PO DAILY RF: 0 aspirin 81 mg Tablet 81 mg PO DAILY RF: 0 nitroglycerin 0.4 mg Tablet, Sublingual 0.4 mg SUBLINGUAL Q5M PRN (Reason: Chest Pain) RF: 0 docusate sodium 100 mg Capsule 100 mg PO BID PRN (Reason: Constipation) RF: 0 omeprazole 20 mg Capsule,Delayed Release(Dr/Ec) 20 mg PO BID@0630,1630 RF: 0 multivitamin Capsule 1 cap PO DAILY RF: 0 cholecalciferol (vitamin D3) 50 mcg (2,000 unit) Capsule 50 mcg PO DAILY RF: 0 spironolactone 25 mg Tablet 25 mg PO QAM RF: 0 Hold Instructions: Resume on 07/18/20. resume when directed to by [employer] cloud consulting architect Dr Choi calcium carbonate-vit D3-min 600 mg calcium- 400 unit tablet 1 tab PO BID Qty: 60 RF: 0 rosuvastatin 20 mg tablet 1 tab PO BEDTIME RF: 0 metoprolol succinate 25 mg Tablet Extended Release 24 Hr 25 mg PO DAILY Qty: 30 RF: 0 nitrofurantoin macrocrystal 100 mg capsule 100 mg PO Q12H 7 Days Qty: 14 RF: 0 phenazopyridine [Pyridium] 200 mg tablet 200 mg PO TID PRN (Reason: pain) Qty: 6 RF: 0 zolpidem 10 mg tablet 0.5 - 1 tab PO BEDTIME RF: 0 furosemide 40 mg tablet 40 mg PO QNOON RF: 0 ascorbic acid (vitamin C) [Vitamin C] 500 mg Tablet 500 mg PO DAILY RF: 0 oxycodone 10 mg tablet 1 tab PO TID PRN (Reason: pain) RF: 0 Entresto 24-26 mg Tablet 1 tab PO BID RF: 0 Hold Instructions: Resume on 07/18/20. resume when directed to by [employer] cloud consulting architect Dr Steph GuamanClick 50 mg/mL (1 mL) pen injector 1 mg subcut QWEEK RF: 0 carvedilol 6.25 mg tablet 1 tab PO BID RF: 0 digoxin 125 mcg (0.125 mg) tablet 1 tab PO MOTUWETHFR RF: 0 Eliquis 5 mg tablet 1 tab PO BID RF: 0 estradiol 0.01 % (0.1 mg/gram) cream See Rx Instructions .Route 3XW Qty: 42.5 RF: 2
[2021-02-14] MEDS: Piperacillin Sodium/Tazobactam 3.375 GM in 0.9 % Sodium Chloride 50 ML IV (17:53)
--- NOTE | 2021-02-14 17:57 | P.HPCC_ITS ---
History of Present Illness Date of Service: 02/14/21 Chief Complaint: Dysuria and weakness 65-year-old female with underlying congestive cardiomyopathy for which she also has a biventricular AICD and 100% ventricular pacing currently sinus rhythm but a background history of paroxysmal atrial fibrillation and ejection fraction approximating 15% and this appears to be a congestive cardiomyopathy On amiodarone for AFib prophylaxis and is on Eliquis as anticoagulation takes carvedilol digoxin and Entresto with furosemide and spironolactone Background history of bilateral ureteral stents with chronic hydronephrosis and recent enterococcal faecalis urinary tract infection 6 months ago pretty much sensitive to everything and she has no known allergies and has already received ceftriaxone and Levaquin Review of Systems Review of Systems: Did not complain of fever or shaking chills and there was no complaint of dyspnea nor chest discomfort Despite mild relative hypotension with blood pressure in the 80s and again not significantly different from her normal pressures which are in the ninety range PMFSH Past Medical History Medical History HERMELINDO (acute kidney injury) Biventricular ICD (implantable cardioverter-defibrillator) in place Cardiomyopathy Chronic systolic heart failure Hydronephrosis Hypotension Paroxysmal atrial fibrillation with rapid ventricular response Prolapsed uterus Systolic heart failure Urinary retention Surgical History Surgical History H/O ankle fusion H/O cystoscopy H/O: section Hip joint replacement status History of renal stent Previous back surgery Total knee replacement status Social History Social History Household Members: Family Housing: House Do you presently have visiting nurse or other home services: No Unable to assess alcohol history related to: Unknown Alcohol intake: never Patient Tobacco Use Status: Tobacco use Unknown Use of substances other than those prescribed or required for medical reasons: Unknown Currently Displaying Signs/Symptoms of Drug Intoxication Withdrawal: No Advance Directives: No Advance Directives Information Provided: No Advance Directives on File: No Do you have thoughts of harming others: None Do you have a plan to hurt others: No Plan Recently lost weight without trying: Unsure Nutrition Risks: No Nutritional Risk Patient : No : No Poor oral hygiene: No service: No Current occupational status: disabled Meds Allergies Allergy/AdvReac Type Severity Reaction Status Date / Time No Known Food Allergies Allergy Unknown Verified 02/14/21 12:05 Active Medications: Current Medications Generic Name Dose Route Start Last Admin Trade Name Freq PRN Reason Stop Dose Admin Piperacillin Sod/Tazobactam 50 mls @ 100 mls/hr 02/14/21 17:39 02/14/21 17:53 Sod 3.375 gm/ Sodium Chloride IV 02/14/21 18:08 100 mls/hr ONCE ONE Administration Potassium Chloride/Dextrose/Sod Cl 20 meq in 1,000 mls @ 70 mls/hr 02/14/21 18:00 IVCONT .[id number] [facility] Pharmacy Consult 1 each 02/14/21 17:10 Consult Rx Perform Med Rec MISCELLANE ONCE PRN Consult order Home Medications Medication Instructions Recorded Confirmed Last Taken Type amiodarone 200 mg tablet 200 mg PO DAILY 03/29/20 02/14/21 02/14/21 History aspirin 81 mg tablet 81 mg PO DAILY 03/29/20 02/14/21 02/14/21 History cholecalciferol (vitamin D3) 50 50 mcg PO DAILY 03/29/20 02/14/21 02/14/21 History mcg (2,000 unit) capsule docusate sodium 100 mg capsule 100 mg PO BID PRN 03/29/20 02/14/21 02/14/21 History multivitamin 1 cap PO DAILY 03/29/20 02/14/21 02/14/21 History nitroglycerin 0.4 mg sublingual 0.4 mg SUBLINGUAL Q5M PRN 03/29/20 02/14/21 02/14/21 History tablet omeprazole 20 mg capsule,delayed 20 mg PO BID@0630,1630 03/29/20 02/14/21 02/14/21 History release spironolactone 25 mg tablet 25 mg PO QAM 03/29/20 02/14/21 02/14/21 History ascorbic acid (vitamin C) 500 mg 500 mg PO DAILY 06/17/20 02/14/21 02/14/21 History tablet (Vitamin C) etanercept 50 mg/mL (1 mL) 1 mg SUBCUT IRBY 06/17/20 02/14/21 02/14/21 History subcutaneous pen injector (Enbrel SureClick) furosemide 40 mg tablet 40 mg PO QNOON 1202/14/21 02/14/21 History oxycodone 10 mg tablet 1 tab PO BID 06/17/20 02/14/21 02/14/21 History sacubitril 24 mg-valsartan 26 mg 1 tab PO BID 06/17/20 02/14/21 02/14/21 History tablet (Entresto) zolpidem 10 mg tablet 0.5 - 1 tab PO BEDTIME 06/17/20 02/14/21 02/13/21 History rosuvastatin 20 mg tablet 1 tab PO BEDTIME 07/04/20 02/14/21 02/13/21 History acetaminophen 500 mg tablet 500 mg PO BID 02/14/21 02/14/21 02/14/21 History apixaban 5 mg tablet (Eliquis) 1 tab PO BID 02/14/21 02/14/21 02/14/21 History carvedilol 6.25 mg tablet 1 tab PO BID 02/14/21 02/14/21 02/14/21 History Physical Exam 2 Vital Signs: Vital Signs: Last Vital Signs Temp 98.5 F 02/14/21 14:39 Pulse 93 02/14/21 16:56 Resp 16 02/14/21 16:56 BP 91/53 L 02/14/21 17:39 Pulse Ox 98 02/14/21 16:56 Oxygen Flow Rate 2 02/14/21 12:06 Body Mass Index 30.7 Awake alert and oriented x3 nonfocal neurologically and not appearing to be in acute distress Normal sinus rhythm with 100% ventricular pacing Poor bilateral carotid upstrokes due to diminish stroke work reserve Chest without adventitious sounds no respiratory effort Benign abdomen with good bowel sounds no organomegaly No peripheral edema and no acrocyanosis Results Labs CBC and Chem 7: 02/16/21 05:23 02/16/21 05:23 Labs: Laboratory Results - last 24 hr 02/14/21 02/14/21 02/14/21 13:48 13:48 13:48 MCV 85.8 MCH 25.9 L MCHC 30.1 L RDW 15.8 Plt Count 306 D MPV 9.8 Immature Gran % (Auto) 0.4 Neut % (Auto) 73.5 H Lymph % (Auto) 14.2 L Keith % (Auto) 9.5 Eos % (Auto) 2.0 Baso % (Auto) 0.4 Lymph # (Auto) 1.1 L Keith # (Auto) 0.7 Eos # (Auto) 0.2 Baso # (Auto) 0.0 Abs Immat Gran (auto) 0.03 Absolute Neuts (auto) 5.7 Absolute Nucleated RBC 0.000 Nucleated RBC % (auto) 0.0 PT 24.8 H INR 2.1 H APTT 38.6 H Anion Gap 16 Estim Creat Clear Calc 19.8 Estimated GFR 21 Random Glucose 106 Lactic Acid Calcium 8.8 Magnesium 2.0 Total Bilirubin 0.5 Direct Bilirubin 0.2 AST 8 ALT 7 Alkaline Phosphatase 68 Troponin I High Sens B-Natriuretic Peptide Total Protein 7.3 Albumin 3.6 Lipase 18 Urine Color Urine Appearance Urine pH Ur Specific [place] Urine Protein Urine Glucose (UA) Urine Ketones Urine Blood Urine Nitrite Ur Leukocyte Esterase Urine RBC Urine WBC Urine WBC Clumps Ur Squamous Epith Cells Amorphous Sediment Urine Bacteria 02/14/21 02/14/21 02/14/21 14:08 14:35 15:55 MCV MCH MCHC RDW Plt Count MPV Immature Gran % (Auto) Neut % (Auto) Lymph % (Auto) Keith % (Auto) Eos % (Auto) Baso % (Auto) Lymph # (Auto) Keith # (Auto) Eos # (Auto) Baso # (Auto) Abs Immat Gran (auto) Absolute Neuts (auto) Absolute Nucleated RBC Nucleated RBC % (auto) PT INR APTT Anion Gap Estim Creat Clear Calc Estimated GFR Random Glucose Lactic Acid 0.9 Calcium Magnesium Total Bilirubin Direct Bilirubin AST ALT Alkaline Phosphatase Troponin I High Sens 9.3 B-Natriuretic Peptide 3214 H Total Protein Albumin Lipase Urine Color STRAW Urine Appearance CLOUDY Urine pH 6.0 Ur Specific [place] <= 1.005 Urine Protein 1+ H Urine Glucose (UA) NEG Urine Ketones NEG Urine Blood 3+ H Urine Nitrite NEG Ur Leukocyte Esterase 3+ H Urine RBC 5-9 H Urine WBC TNTC H Urine WBC Clumps NOTED Ur Squamous Epith Cells NONE Amorphous Sediment 2+ Urine Bacteria 2+ Imaging Radiologist's Impressions: Impressions Abdomen/Pelvis CT 02/14/21 13:27 IMPRESSION: 1. Chronic bilateral hydronephrosis and hydroureter down to bladder. Bilateral ureteral stents in position. Right kidney borderline larger with mild perinephric and upper periureteral stranding. Mild upper abdominal adenopathy. Findings may be related to pyelonephritis. No gas bubbles or calculi. 2. No bowel obstruction or focal intestinal inflammatory changes. Normal appendix. No ascites or fluid collection. Chest X-Ray 02/14/21 13:55 IMPRESSION: Findings suggest vascular congestion/early CHF. No overt edema Assessment and Plan (1) Acute UTI: Status: Acute (2) Nausea: Status: Acute (3) Acute dehydration: Status: Acute (4) Acute on chronic renal insufficiency: Status: Acute (5) Recurrent UTI (urinary tract infection): Status: Acute (6) Hydronephrosis: Status: Acute (7) Current use of anticoagulant therapy: Status: Acute (8) Acute pyelonephritis: Status: Acute (9) Rheumatoid arthritis: Status: Acute (10) Cardiomyopathy: Status: Acute (11) Atrial fibrillation: Status: Acute (12) Anemia: Status: Acute (13) Paroxysmal atrial fibrillation with rapid ventricular response: Status: Acute At this point I am just going to start her on maintenance IV fluid and not going to push a bolus due to severe depression of both systolic and diastolic reserve of the left ventricle and in addition I am not going to start any sympathomimetic support because blood pressure is not significantly different from her norm given this level of function am simply going to discontinue her outpatient Entresto as well as her diuretics and the and alpha/beta blockade and between her oral an IV intake and and continued bedrest with leg elevation this should self correct and start antibiotics appropriate for this lady's urinary tract in issues and then engage her urologist because of the persistent chronic bilateral hydronephrosis and will empirically use double antibiotic coverage If dyspnea becomes an issue could always place central line for following CVP
[2021-02-14 18:01] LABS: COVID-19 Test Negative (Negative)
[2021-02-14] MEDS: KCl 20 mEq in 5% Dex/0.45% Sod 20 MEQ/1,000 ML IV.SOLN 70 MEQ IVCONT (19:40)
[2021-02-14] MEDS: Acetaminophen 325 MG TABLET 650 MG PO (20:04)
[2021-02-14] MEDS: Apixaban 5 MG TABLET PO (20:04)
[2021-02-14] MEDS: Phenazopyridine HCL 200 MG TABLET PO (21:42)
--- NOTE | 2021-02-14 22:36 | PC.NURSE ---
Pt admitted to ICU at approx 1900. Shoe Cementer utilized for assessment. Pt A&Ox4. Febrile, given PRN tylenol. V-paced on tele, HR 90-100s. SBP 80-90s, MAP > 65, PA aware. LS- fine crackles to bases, no c/o SOB, on 2L NC at baseline per pt. Reeves placed, urine cloudy with sediment. Pt c/o urinary buring and abd pain. New orders for PRN pyridium. Wound to coccyx, pictures taken, ?stage 2 or maceration. Will contact wound RN in morning. Medicated per emar. Pt aware of plan of care.
[2021-02-15] VITALS (28 sets, daily range): BP systolic 79–105; BP diastolic 46–72; PULSE 82–97; RESP 16–25; TEMP 36.9–37.9; O2SAT 93–99; BMI 30.7
[2021-02-15 05:26] LABS: MANUAL DIFF FLAG NO
[2021-02-15 05:31] LABS: Basophils Percent Auto 0.6 % (0-2); Eosinophils Absolute Auto 0.3 X10*3/uL (0.0-0.4); Eosinophils Percent Auto 3.9 % (0-4); Hematocrit 25.6 % (37-47); Hemoglobin 7.7 g/dl (12.0-16.0); Imm Gran Abs Auto 0.01 X10*3/uL (0.00-0.03); Imm Gran Pct Auto 0.1 % (0.0-0.4); Lymphocytes Absolute Auto 1.3 X10*3/uL (1.2-4.9); Lymphocytes Percent Auto 18.7 % (20-40); Mean Corpuscular HGB Conc 30.1 g/dl (31.0-35.0); Mean Corpuscular Volume 86.5 fL (80-98); Mean Platelet Volume 10.5 fL (9.4-12.3); Monocytes Absolute Auto 0.9 X10*3/uL (0.1-1.2); Monocytes Percent Auto 13.9 % (2-11); Neutrophils Absolute Auto 4.2 X10*3/uL (2.0-8.3); Neutrophils Percent Auto 62.8 % (45-73); Platelet Count 263 X10*3/uL (160-400); Red Blood Count 2.96 X10*6/uL (4.20-5.50); Red Cell Distribution Width 15.9 % (11.0-16.0); White Blood Count 6.7 X10*3/uL (4.8-10.8)
[2021-02-15 05:54] LABS: Anion Gap 16 (12-20); Blood Urea Nitrogen 35 mg/dL (9-16); Calcium 8.5 mg/dL (8.4-10.2); Carbon Dioxide 22 mmol/L (22-29); Chloride 103 mmol/L (96-108); Creatinine Clr Calc Pharmacy 19.6; Estimated Glomerular Filt Rate 20; Glucose Random 100 mg/dL (60-115); Magnesium 2.1 mg/dL (1.6-2.6); Phosphorus 3.9 mg/dL (2.7-4.5); Potassium 3.6 mmol/L (3.3-5.1); Sodium 137 mmol/L (135-145)
[2021-02-15] MEDS: Omeprazole 20 MG CAPSULE.DR PO ×3 (05:57→18:16)
[2021-02-15 06:11] LABS: INTERNATIONAL NORM RATIO 2.4 (0.9-1.1); Prothrombin Time 27.8 SEC (9.9-13.0)
[2021-02-15 06:14] LABS: Partial Thromboplastin Time 35.6 SEC (24.1-38.0)
[2021-02-15] MEDS: Piperacillin Sodium/Tazobactam 2.25 GM in 0.9 % Sodium Chloride 50 ML IV ×3 (07:46→18:16)
[2021-02-15] MEDS: Amiodarone HCL 200 MG TABLET PO (07:48)
[2021-02-15] MEDS: Apixaban 5 MG TABLET PO (07:49)
[2021-02-15] MEDS: Aspirin 81 MG TAB.CHEW PO (07:49)
--- NOTE | 2021-02-15 08:07 | PC.NURSE ---
Contacted Lizett Vargas wound RN for consult on patient for staging on pressure injury located on coccyx acquired prior to admission. Patient states she is bed bound at baseline or able to stand and pivot to wheelchair. Lives at home with her sister, no services per patient.
--- NOTE | 2021-02-15 09:23 | PC.NURSE ---
Skin/wound assessment completed today. Patient has a stage 2 pressure ulcer on coccyx present on admission. Triad applied covered with foam. Heels are pink and in booties. No other skin issues noted.
--- NOTE | 2021-02-15 09:27 | MHC.CLN ---
PT WITH INCREASED NUTRITION RISK R/T PRESSURE INJURY DIET RX: CARDIAC-APPROPRIATE RECOMMEND ADDING ENSURE BID AND NIELS TO PROMOTE WOUND HEALING SUPPLEMENT TO PROVIDE 860KCALS, 45G PROTEIN MONITOR PO INTAKE CLOSELY SEE ALSO CLINICAL NUTRITION ASSESSMENT
[2021-02-15] MEDS: KCl 20 mEq in 5% Dex/0.45% Sod 20 MEQ/1,000 ML IV.SOLN 70 MEQ IVCONT (10:58)
--- NOTE | 2021-02-15 14:27 | MHC.CM.PN ---
Attempted to meet with patient in regards to discharge planning. Nursing care being provided. Spoke with patient's sister, Lupe via telephone at [phone]. Patient lives with Lupe, is wheelchair bound at baseline, and had no services prior to coming to the hospital. Patient is active with [facility] but no services have been put in place yet. PCP verified. HCP verified to be on file. IMM explained and sent via certified mail to [facility] [place] [id number] [place] at Lupe's request. At this time, anticipate patient will return home with sister. Continue to monitor for d/c needs.
[2021-02-15] MEDS: Phenazopyridine HCL 200 MG TABLET PO (15:44)
--- NOTE | 2021-02-15 16:21 | PM.CCPN ---
Subjective Subjective Date of Service: 02/15/21 Interval History: 65-year-old female with ischemic/congestive cardiomyopathy and 15% ejection fraction has a biventricular AICD with 100% ventricular pacing and has ureteral stents with bilateral chronic hydronephrosis presents with recurrent urinary tract infection and a recent enterococcal faecalis urinary tract infection now on antibiotics and gentle fluid replacement and currently euvolemic with no complications stable blood pressure and stable urine output 1/2 blood cultures came back pot Gram-positive cocci will probably insole lip turner to be a contaminant but not impossible it could reflect the Enterococcus that she had had previously and will await the species No complaints of dyspnea no neck vein distension and my bedside echo shows no distention of IVC and she still has preserved inspiratory collapse and blood pressure has corrected and I simply continued the more critical medicine such as the amiodarone and the apixaban Critical Care Time (minutes): 45 Physical Exam Vital Signs: Vital Signs: Last Vital Signs Temp 99.7 F 02/15/21 15:58 Pulse 93 02/15/21 15:58 Resp 21 H 02/15/21 15:58 BP 95/65 02/15/21 15:58 Pulse Ox 98 02/15/21 15:58 Oxygen Flow Rate 2 02/14/21 20:18 Body Mass Index 30.7 Remains awake alert and oriented and nonfocal Lungs are clear Cardiac exam with diminished bilateral carotid upstrokes but no gallops Abdomen benign with good bowel sounds and no organomegaly No significant peripheral edema and no acrocyanosis Objective Data Labs CBC & Chem 7: 02/16/21 05:23 02/16/21 05:23 Labs: Laboratory Results - last 24 hr 02/14/21 02/15/21 02/15/21 17:33 05:16 05:16 WBC 6.7 RBC 2.96 L Hgb 7.7 L Hct 25.6 L MCV 86.5 MCH 26.0 L MCHC 30.1 L RDW 15.9 Plt Count 263 MPV 10.5 Immature Gran % (Auto) 0.1 Neut % (Auto) 62.8 Lymph % (Auto) 18.7 L [place] % (Auto) 13.9 H Eos % (Auto) 3.9 Baso % (Auto) 0.6 Lymph # (Auto) 1.3 [place] # (Auto) 0.9 Eos # (Auto) 0.3 Baso # (Auto) 0.0 Abs Immat Gran (auto) 0.01 Absolute Neuts (auto) 4.2 Absolute Nucleated RBC 0.000 Nucleated RBC % (auto) 0.0 PT 27.8 H INR 2.4 H APTT 35.6 Sodium Potassium Chloride Carbon Dioxide Anion Gap BUN Creatinine Estim Creat Clear Calc Estimated GFR Random Glucose Calcium Phosphorus Magnesium COVID-19 (DEYSI) Negative COVID-19 Clin Com See Note Blood Type Antibody Screen Crossmatch 02/15/21 02/15/21 05:16 08:47 WBC RBC Hgb Hct MCV MCH MCHC RDW Plt Count MPV Immature Gran % (Auto) Neut % (Auto) Lymph % (Auto) [place] % (Auto) Eos % (Auto) Baso % (Auto) Lymph # (Auto) [place] # (Auto) Eos # (Auto) Baso # (Auto) Abs Immat Gran (auto) Absolute Neuts (auto) Absolute Nucleated RBC Nucleated RBC % (auto) PT INR APTT Sodium 137 Potassium 3.6 Chloride 103 Carbon Dioxide 22 Anion Gap 16 BUN 35 H Creatinine 2.38 H Estim Creat Clear Calc 19.6 Estimated GFR 20 Random Glucose 100 Calcium 8.5 Phosphorus 3.9 Magnesium 2.1 COVID-19 (DEYSI) COVID-19 Clin Com Blood Type A Positive Antibody Screen NEGATIVE Crossmatch See Detail Microbiology Microbiology Results: Microbiology 02/14/21 Unknown Urine Catheterized - Straight Catheter Urine Culture - Preliminary Culture in progress. 02/14/21 15:55 Blood - Venous Blood Culture - Preliminary Prelim: GPC Gram Stain only Quality Stroke Does the patient have a stroke diagnosis?: No VTE Prior VTE?: No VTE Risk Level:: Medical - moderate - high VTE Device Contraindication: N/A - Device Ordered VTE Drug Contraindication: N/A - Med Ordered Progress Note: A&P Assessment and plan (1) Acute UTI: Status: Acute (2) Nausea: Status: Acute (3) Acute dehydration: Status: Acute (4) Acute on chronic renal insufficiency: Status: Acute (5) Recurrent UTI (urinary tract infection): Status: Acute (6) Hydronephrosis: Status: Acute (7) Current use of anticoagulant therapy: Status: Acute (8) Acute pyelonephritis: Status: Acute (9) Rheumatoid arthritis: Status: Acute (10) Cardiomyopathy: Status: Acute (11) Atrial fibrillation: Status: Acute (12) Anemia: Status: Acute (13) Paroxysmal atrial fibrillation with rapid ventricular response: Status: Acute Assessment and Plan: Slowly resolving acute on chronic renal insufficiency and between holding her Entresto and gently restoring vascular volume intel recruiter to secondary improvement of GFR and we will continue the same for today
[2021-02-16] VITALS (25 sets, daily range): BP systolic 73–100; BP diastolic 42–65; PULSE 78–103; RESP 14–28; TEMP 37.4–38.1; O2SAT 90–100
[2021-02-16] MEDS: Piperacillin Sodium/Tazobactam 2.25 GM in 0.9 % Sodium Chloride 50 ML IV ×4 (01:25→18:25)
[2021-02-16] MEDS: KCl 20 mEq in 5% Dex/0.45% Sod 20 MEQ/1,000 ML IV.SOLN 70 MEQ IVCONT (03:30)
[2021-02-16] MEDS: ondansetron HCL 4 MG/2 ML VIAL IVPUSH (03:31)
[2021-02-16 05:30] LABS: MANUAL DIFF FLAG NO
[2021-02-16 05:34] LABS: Basophils Percent Auto 0.4 % (0-2); Eosinophils Absolute Auto 0.2 X10*3/uL (0.0-0.4); Eosinophils Percent Auto 2.9 % (0-4); Hematocrit 26.8 % (37-47); Hemoglobin 8.5 g/dl (12.0-16.0); Imm Gran Abs Auto 0.01 X10*3/uL (0.00-0.03); Imm Gran Pct Auto 0.1 % (0.0-0.4); Lymphocytes Absolute Auto 1.2 X10*3/uL (1.2-4.9); Lymphocytes Percent Auto 16.1 % (20-40); Mean Corpuscular HGB Conc 31.7 g/dl (31.0-35.0); Mean Corpuscular Hemoglobin 26.7 pg (27.0-33.0); Mean Corpuscular Volume 84.3 fL (80-98); Mean Platelet Volume 10.2 fL (9.4-12.3); Monocytes Absolute Auto 0.9 X10*3/uL (0.1-1.2); Monocytes Percent Auto 11.2 % (2-11); Neutrophils Absolute Auto 5.3 X10*3/uL (2.0-8.3); Neutrophils Percent Auto 69.3 % (45-73); Platelet Count 269 X10*3/uL (160-400); Red Blood Count 3.18 X10*6/uL (4.20-5.50); Red Cell Distribution Width 15.8 % (11.0-16.0); White Blood Count 7.6 X10*3/uL (4.8-10.8)
[2021-02-16 05:40] LABS: INTERNATIONAL NORM RATIO 2.1 (0.9-1.1); Prothrombin Time 24.3 SEC (9.9-13.0)
[2021-02-16 05:43] LABS: Partial Thromboplastin Time 33.2 SEC (24.1-38.0)
[2021-02-16 06:09] LABS: Anion Gap 14 (12-20); Blood Urea Nitrogen 30 mg/dL (9-16); Calcium 8.5 mg/dL (8.4-10.2); Carbon Dioxide 22 mmol/L (22-29); Chloride 105 mmol/L (96-108); Creatinine Clr Calc Pharmacy 23.5; Estimated Glomerular Filt Rate 25; Glucose Random 110 mg/dL (60-115); Potassium 3.7 mmol/L (3.3-5.1); Sodium 137 mmol/L (135-145)
[2021-02-16] MEDS: Omeprazole 20 MG CAPSULE.DR PO ×2 (06:11→16:34)
[2021-02-16] MEDS: Aspirin 81 MG TAB.CHEW PO (08:05)
[2021-02-16] MEDS: Apixaban 5 MG TABLET PO ×2 (08:05→21:18)
[2021-02-16] MEDS: Amiodarone HCL 200 MG TABLET PO (08:05)
--- NOTE | 2021-02-16 09:03 | MHC.CLN ---
F/U PO INTAKE 100% X 1 DIET RX: CARDIAC-APPROPRIATE PT RECEIVING ENSURE BID AND NIELS TO PROMOTE WOUND HEALING SUPPLEMENT PROVIDES 860KCALS, 45G PROTEIN MONITOR PO INTAKE CLOSELY
[2021-02-16] MEDS: 0.9 % Sodium Chloride 250 ML IV ×2 (09:10→10:35)
[2021-02-16] MEDS: Acetaminophen 325 MG TABLET 650 MG PO ×2 (10:27→16:35)
--- NOTE | 2021-02-16 15:42 | P.PNCC_ITS ---
Subjective Subjective Date of Service: 02/16/21 Interval History: 65-year-old female who has bilateral ureteral stents with chronic bilateral hydronephrosis and several months ago a your urogenital infection with Enterococcus faecalis presents again with urinary tract infection and thus far urine culture has been negative 1/2 blood culture bottles with Gram-positive cocci remains on Zosyn with Levaquin having been stopped she is afebrile with blood pressures of 75/55 probably not terribly far from her chronic state no acute distress with excellent urine output and improving renal functions so BC resolving acute on chronic renal insufficiency and were doing this with just the and just oksana amounts of IV fluids trying to avoid pressors only because she has a severe underlying congestive cardiomyopathy with 15% ejection fraction and has a biventricular AICD with 100% ventricular pacing and such poor LV reserve I am just afraid of creating peripheral resistance She is still being maintained on amiodarone for paroxysmal atrial fibrillation and a on apixaban Critical Care Time (minutes): 35 Physical Exam Vital Signs: Vital Signs: Last Vital Signs Temp 99.5 F 02/16/21 15:00 Pulse 89 02/16/21 15:00 Resp 14 02/16/21 15:00 BP 74/48 L 02/16/21 15:00 Pulse Ox 94 02/16/21 15:00 Oxygen Flow Rate 2 02/14/21 20:18 Body Mass Index 30.7 Awake alert nonfocal Poor bilateral carotid upstrokes commensurate with poor stroke work reserve but no gallop Chest clear without adventitious sounds Benign abdomen no organomegaly and nontender No peripheral edema Objective Data Labs CBC & Chem 7: 02/16/21 05:23 02/16/21 05:23 Labs: Laboratory Results - last 24 hr 02/16/21 02/16/21 02/16/21 05:23 05:23 05:23 WBC 7.6 RBC 3.18 L Hgb 8.5 L Hct 26.8 L MCV 84.3 MCH 26.7 L MCHC 31.7 RDW 15.8 Plt Count 269 MPV 10.2 Immature Gran % (Auto) 0.1 Neut % (Auto) 69.3 Lymph % (Auto) 16.1 L [place] % (Auto) 11.2 H Eos % (Auto) 2.9 Baso % (Auto) 0.4 Lymph # (Auto) 1.2 [place] # (Auto) 0.9 Eos # (Auto) 0.2 Baso # (Auto) 0.0 Abs Immat Gran (auto) 0.01 Absolute Neuts (auto) 5.3 Absolute Nucleated RBC 0.000 Nucleated RBC % (auto) 0.0 PT 24.3 H INR 2.1 H APTT 33.2 Sodium 137 Potassium 3.7 Chloride 105 Carbon Dioxide 22 Anion Gap 14 BUN 30 H Creatinine 1.99 H Estim Creat Clear Calc 23.5 Estimated GFR 25 Random Glucose 110 Calcium 8.5 Microbiology Microbiology Results: Microbiology 02/14/21 Unknown Urine Catheterized - Straight Catheter Urine Culture - Final 02/14/21 15:55 Blood - Venous Blood Culture - Preliminary Prelim: GPC Gram Stain only 02/14/21 16:07 Blood - Venous Blood Culture - Preliminary No growth after 24 hours. Quality Stroke Does the patient have a stroke diagnosis?: No VTE Prior VTE?: No VTE Risk Level:: Medical - moderate - high VTE Device Contraindication: N/A - Device Ordered VTE Drug Contraindication: N/A - Med Ordered Progress Note: A&P Assessment and plan (1) Acute UTI: Status: Acute (2) Nausea: Status: Acute (3) Acute dehydration: Status: Acute (4) Acute on chronic renal insufficiency: Status: Acute (5) Recurrent UTI (urinary tract infection): Status: Acute (6) Hydronephrosis: Status: Acute (7) Current use of anticoagulant therapy: Status: Acute (8) Acute pyelonephritis: Status: Acute (9) Rheumatoid arthritis: Status: Acute (10) Chronic dermatitis: Status: Acute (11) Cardiomyopathy: Status: Acute (12) Atrial fibrillation: Status: Acute (13) Anemia: Status: Acute (14) Paroxysmal atrial fibrillation with rapid ventricular response: Status: Acute Assessment and Plan: Will continue following renal function and and because of her renal profound con gestive cardiomyopathy and poor reserve I will continue to observe her here for p.r.n. fluid increases be in as I am trying to avoid a vasoconstrictors
--- NOTE | 2021-02-16 16:15 | MHC.CM.PN ---
Pt continues in ICU with UTI and hypotension which cannot be aggressively managed d/t renal fx: Original plan was for a return to home with her sister - no services: pt is w/c bound at baseline but may need VNA to assist with BP control: CM to reassess in 1-2 days when pt stabilizes.
--- NOTE | 2021-02-16 17:43 | PC.NURSE ---
Remains in ICU for monitoring and treatment of UTI in the presence of hydro nephrosis. ABTx continue as ordered. BPs soft today, occasionally in the 70s systolic with MAPs in the 40s. Two 250mL boluses of NS given, each over an hour per MD. UO remains wnLs. Appetite fair. Medicated twice for arthritic hand pain with 650mg Tylenol, good effect. Last BP 81/57.
[2021-02-17] VITALS (14 sets, daily range): BP systolic 81–127; BP diastolic 40–70; PULSE 76–99; RESP 18–22; TEMP 36.1–38.4; O2SAT 90–98; BMI 34.9
[2021-02-17] MEDS: Acetaminophen 325 MG TABLET 650 MG PO ×2 (01:20→08:06)
[2021-02-17] MEDS: Piperacillin Sodium/Tazobactam 2.25 GM in 0.9 % Sodium Chloride 50 ML IV ×4 (01:22→18:22)
--- NOTE | 2021-02-17 04:59 | PC.NURSE ---
BP's on the low side, 88/45, 89/59. MAXIMINO Lopez is aware. No interventions at this time. Monitor shows V paced, rate 90's. Temp up to 101.1 core. Tylenol was given and temp down to 99.1 core. Urine output is good. Urine is cloudy, dark and with sediment in tubing.
[2021-02-17 05:28] LABS: MANUAL DIFF FLAG NO
[2021-02-17 05:42] LABS: Basophils Percent Auto 0.4 % (0-2); Eosinophils Absolute Auto 0.2 X10*3/uL (0.0-0.4); Eosinophils Percent Auto 2.1 % (0-4); Hematocrit 26.8 % (37-47); Hemoglobin 8.1 g/dl (12.0-16.0); Imm Gran Abs Auto 0.03 X10*3/uL (0.00-0.03); Imm Gran Pct Auto 0.4 % (0.0-0.4); Lymphocytes Absolute Auto 1.2 X10*3/uL (1.2-4.9); Lymphocytes Percent Auto 15.2 % (20-40); Mean Corpuscular HGB Conc 30.2 g/dl (31.0-35.0); Mean Corpuscular Hemoglobin 25.9 pg (27.0-33.0); Mean Corpuscular Volume 85.6 fL (80-98); Mean Platelet Volume 10.4 fL (9.4-12.3); Monocytes Percent Auto 12.3 % (2-11); Neutrophils Absolute Auto 5.7 X10*3/uL (2.0-8.3); Neutrophils Percent Auto 69.6 % (45-73); Platelet Count 276 X10*3/uL (160-400); Red Blood Count 3.13 X10*6/uL (4.20-5.50); White Blood Count 8.1 X10*3/uL (4.8-10.8)
[2021-02-17 05:48] LABS: INTERNATIONAL NORM RATIO 2.4 (0.9-1.1); Prothrombin Time 27.5 SEC (9.9-13.0)
[2021-02-17 05:50] LABS: Partial Thromboplastin Time 34.8 SEC (24.1-38.0)
[2021-02-17] MEDS: Omeprazole 20 MG CAPSULE.DR PO ×2 (05:56→15:55)
[2021-02-17 06:19] LABS: Alanine Aminotransferase 12 U/L (0-31); Albumin Level 3.3 g/dL (3.5-5.0); Alkaline Phosphatase 75 U/L (39-117); Anion Gap 14 (12-20); Aspartate Amino Transferase 13 U/L (5-31); Bilirubin Total 0.5 mg/dL (0.0-1.0); Blood Urea Nitrogen 24 mg/dL (9-16); Calcium 8.5 mg/dL (8.4-10.2); Carbon Dioxide 21 mmol/L (22-29); Chloride 108 mmol/L (96-108); Creatinine Clr Calc Pharmacy 26.6; Estimated Glomerular Filt Rate 27; Glucose Random 96 mg/dL (60-115); Magnesium 2.1 mg/dL (1.6-2.6); Phosphorus 2.9 mg/dL (2.7-4.5); Potassium 3.4 mmol/L (3.3-5.1); Sodium 140 mmol/L (135-145); Total Protein 6.5 g/dL (6.5-8.0)
[2021-02-17] MEDS: Amiodarone HCL 200 MG TABLET PO (08:06)
[2021-02-17] MEDS: Aspirin 81 MG TAB.CHEW PO (08:07)
[2021-02-17] MEDS: Apixaban 5 MG TABLET PO ×2 (08:07→20:08)
--- NOTE | 2021-02-17 08:35 | P.PNCC_ITS ---
Subjective Subjective Date of Service: 02/17/21 Interval History: 65-year-old female with congestive cardiomyopathy and 15% ejection fraction very poor stroke work reserve but currently in sinus rhythm but a history of paroxysmal atrial fibrillation but she is taking and on maintaining amiodarone and apixaban and she has a biventricular ICD 1st for synchrony and to eliminate the left bundle branch block which is making her functionally better and she is 100% ventricularly paced Has a history of bilateral ureteral stents followed by Dr. 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 presents with the urinary tract infection just that she did 6 months ago when it was Enterococcus faecalis now cultures are pending and she is empirically on Zosyn and resolving She got very tiny oksana fluid boluses and fluid maintenance because of her CHF history and and she is off right now all diuretics and her Entresto and her Coreg because of relative hypotension but her normal pressures will run between 75 and 95 given her level of LV function and stroke work reserve that is just normal and I feared that any sympathomimetic or vasoconstrictor would either create more heart failure through peripheral resistance or or recurrent atrial fibrillation so she has done well on just oksana fluids and at this point is been perfectly stable and can go to the floor and be followed by Dr. hastings and I would query about stent removal if he feels that is feasible Critical Care Time (minutes): 25 Physical Exam Vital Signs: Vital Signs: Last Vital Signs Temp 98.8 F 02/17/21 07:00 Pulse 80 02/17/21 08:06 Resp 20 02/17/21 07:00 BP 97/58 L 02/17/21 08:06 Pulse Ox 90 L 02/17/21 07:00 Oxygen Flow Rate 2 02/14/21 20:18 Body Mass Index 34.9 Awake alert neurologically intact Skin with no livedo no lesions Cardiac exam with poor carotid upstrokes from diminish systolic reserve but no gallops no neck vein distension Chest without adventitious sounds Abdomen benign no organomegaly Objective Data Labs CBC & Chem 7: 02/17/21 05:22 02/17/21 05:22 Labs: Laboratory Results - last 24 hr 02/17/21 02/17/21 02/17/21 05:22 05:22 05:22 WBC 8.1 RBC 3.13 L Hgb 8.1 L Hct 26.8 L MCV 85.6 MCH 25.9 L MCHC 30.2 L RDW 16.0 Plt Count 276 MPV 10.4 Immature Gran % (Auto) 0.4 Neut % (Auto) 69.6 Lymph % (Auto) 15.2 L [place] % (Auto) 12.3 H Eos % (Auto) 2.1 Baso % (Auto) 0.4 Lymph # (Auto) 1.2 [place] # (Auto) 1.0 Eos # (Auto) 0.2 Baso # (Auto) 0.0 Abs Immat Gran (auto) 0.03 Absolute Neuts (auto) 5.7 Absolute Nucleated RBC 0.000 Nucleated RBC % (auto) 0.0 PT 27.5 H INR 2.4 H APTT 34.8 Sodium 140 Potassium 3.4 Chloride 108 Carbon Dioxide 21 L Anion Gap 14 BUN 24 H Creatinine 1.88 H Estim Creat Clear Calc 26.6 Estimated GFR 27 Random Glucose 96 Calcium 8.5 Phosphorus 2.9 Magnesium 2.1 Total Bilirubin 0.5 AST 13 D ALT 12 Alkaline Phosphatase 75 Total Protein 6.5 Albumin 3.3 L Microbiology Microbiology Results: Microbiology 02/14/21 16:07 Blood - Venous Blood Culture - Preliminary No growth after 48 hours. 02/14/21 Unknown Urine Catheterized - Straight Catheter Urine Culture - Final 02/14/21 15:55 Blood - Venous Blood Culture - Preliminary Prelim: GPC Gram Stain only Quality Stroke Does the patient have a stroke diagnosis?: No VTE Prior VTE?: No VTE Risk Level:: Medical - moderate - high VTE Device Contraindication: N/A - Device Ordered VTE Drug Contraindication: N/A - Med Ordered Progress Note: A&P Assessment and plan (1) Acute UTI: Status: Acute (2) Nausea: Status: Acute (3) Acute dehydration: Status: Acute (4) Acute on chronic renal insufficiency: Status: Acute (5) Recurrent UTI (urinary tract infection): Status: Acute (6) Hydronephrosis: Status: Acute (7) Current use of anticoagulant therapy: Status: Acute (8) Acute pyelonephritis: Status: Acute (9) Bladder wall thickening: Status: Acute (10) Rheumatoid arthritis: Status: Acute (11) Chronic dermatitis: Status: Acute (12) Cardiomyopathy: Status: Acute (13) Atrial fibrillation: Status: Acute (14) Anemia: Status: Acute (15) Paroxysmal atrial fibrillation with rapid ventricular response: Status: Acute (16) Chronic renal failure, stage 3 (moderate): Status: Acute Assessment and Plan: She can be transfer to the floor no monitoring necessary with acceptable blood pressure even as low as 75 as long as asymptomatic and as long as she is well perfused and warm with good urine output and renal function continues to repair each day so I would keep her off the Entresto and her diuretics and her Coreg and 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
--- NOTE | 2021-02-17 18:09 | PM.EVENT ---
Event Note Date of Service: 02/18/21 Event Note: 65-year-old female with congestive cardiomyopathy, EF 15%, history of paroxysmally atrial fibrillation, currently in sinus rhythm status post biventricular ICD placement, history of bilateral ureteral stents due to chronic bilateral hydronephrosis, history of Enterococcus faecalis 6 months ago presented to [facility] due to dysuria and weakness, with no associated fever or shaking chills patient admitted to intermediate care unit due to hypotension did not require pressor, blood pressure remains stable close to her baseline, blood culture 1/2 grew non pathogenic bacteria urine cultures negative patient being transferred to medical floor for continued monitoring and treatment Acute pyelonephritis,no sepsis with bilateral ureteral stent Patient febrile tmax 101.1 today, on IV Zosyn D3 urine cultures negative, blood culture 1/2 positive for Streptococcus viridans unlikely pathogen, CT abdomen and pelvis showed chronic bilateral hydronephrosis and hydroureter down to bladder bilateral ureteral stents in position right kidney borderline larger with mild paolo nephric and upper periureteral stranding no gas bubble or calculi noted Paroxysmal atrial fibrillation Now in normal sinus rhythm continue amiodarone and apixaban Cardiomyopathy with EF 15% status post biventricular ICD BP stable continue to hold Entresto,aldactone and Lasix, no evidence of acute CHF Chronic hypotension Did not require pressors treated with fluid boluses, diuretics, Entresto and Coreg are on hold due to relative hypotension, follow BP closely VT prophylaxis On Eliquis
[2021-02-18] VITALS (7 sets, daily range): BP systolic 96–119; BP diastolic 57–70; PULSE 85–94; RESP 16–19; TEMP 36.2–37; O2SAT 96–99
[2021-02-18] MEDS: Piperacillin Sodium/Tazobactam 2.25 GM in 0.9 % Sodium Chloride 50 ML IV ×4 (00:20→18:08)
[2021-02-18 06:26] LABS: MANUAL DIFF FLAG NO
[2021-02-18] MEDS: Omeprazole 20 MG CAPSULE.DR PO ×2 (06:35→15:27)
[2021-02-18 06:36] LABS: Basophils Percent Auto 0.4 % (0-2); Eosinophils Absolute Auto 0.3 X10*3/uL (0.0-0.4); Eosinophils Percent Auto 3.5 % (0-4); Hematocrit 26.6 % (37-47); Hemoglobin 8.3 g/dl (12.0-16.0); Imm Gran Abs Auto 0.02 X10*3/uL (0.00-0.03); Imm Gran Pct Auto 0.3 % (0.0-0.4); Lymphocytes Absolute Auto 1.5 X10*3/uL (1.2-4.9); Lymphocytes Percent Auto 20.9 % (20-40); Mean Corpuscular HGB Conc 31.2 g/dl (31.0-35.0); Mean Corpuscular Hemoglobin 26.6 pg (27.0-33.0); Mean Corpuscular Volume 85.3 fL (80-98); Mean Platelet Volume 10.6 fL (9.4-12.3); Monocytes Absolute Auto 0.9 X10*3/uL (0.1-1.2); Monocytes Percent Auto 11.7 % (2-11); Neutrophils Absolute Auto 4.7 X10*3/uL (2.0-8.3); Neutrophils Percent Auto 63.2 % (45-73); Platelet Count 307 X10*3/uL (160-400); Red Blood Count 3.12 X10*6/uL (4.20-5.50); Red Cell Distribution Width 16.4 % (11.0-16.0); White Blood Count 7.4 X10*3/uL (4.8-10.8)
[2021-02-18 06:39] LABS: INTERNATIONAL NORM RATIO 2.4 (0.9-1.1); Prothrombin Time 27.9 SEC (9.9-13.0)
[2021-02-18 06:41] LABS: Partial Thromboplastin Time 36.5 SEC (24.1-38.0)
[2021-02-18 07:23] LABS: Alanine Aminotransferase 24 U/L (0-31); Albumin Level 3.3 g/dL (3.5-5.0); Alkaline Phosphatase 90 U/L (39-117); Anion Gap 15 (12-20); Aspartate Amino Transferase 22 U/L (5-31); Bilirubin Total 0.5 mg/dL (0.0-1.0); Blood Urea Nitrogen 23 mg/dL (9-16); Calcium 8.7 mg/dL (8.4-10.2); Carbon Dioxide 22 mmol/L (22-29); Chloride 106 mmol/L (96-108); Creatinine Clr Calc Pharmacy 26.6; Estimated Glomerular Filt Rate 27; Glucose Random 87 mg/dL (60-115); Magnesium 1.9 mg/dL (1.6-2.6); Phosphorus 3.4 mg/dL (2.7-4.5); Potassium 3.7 mmol/L (3.3-5.1); Sodium 139 mmol/L (135-145); Total Protein 6.8 g/dL (6.5-8.0)
[2021-02-18] MEDS: Apixaban 5 MG TABLET PO ×2 (08:28→20:13)
[2021-02-18] MEDS: Aspirin 81 MG TAB.CHEW PO (08:28)
[2021-02-18] MEDS: Amiodarone HCL 200 MG TABLET PO (08:28)
--- NOTE | 2021-02-18 12:51 | P.PNIM_ITS ---
Subjective Subjective Date of Service: 02/18/21 Interval History: Offers no acute complaints, denies urinary symptoms denies shortness of breath chest pain no acute pain, use 2.5 L of oxygen at home is not on home Reeves catheter Review of Systems General no headache ,no dizziness, no fever chills. CVS no chest pain, no palpitation. Respiratory no cough, no sob. Gastrointestinal no nausea, no vomiting, no abdominal pain Physical Exam Vital Signs: Vital Signs: Last Vital Signs Temp 97.4 F 02/18/21 11:44 Pulse 87 02/18/21 11:44 Resp 18 02/18/21 11:44 BP 113/70 02/18/21 11:44 Pulse Ox 98 02/18/21 11:44 Oxygen Flow Rate 2 02/14/21 20:18 Body Mass Index 34.9 General resting comfortably in no acute distress. Neck supple no JVD. CVS regular rate rhythm, Respiratory lungs clear to auscultation, no respiratory distress, no wheeze, no rhonchi. Gastrointestinal abdomen soft, nontender, bowel sounds audible Extremities no edema. Neuro nonfocal , speech clear. Psych appropriate behavior Skin no rash Objective Data Current Medications Generic Name Dose Route Start Last Admin Trade Name Freq PRN Reason Stop Dose Admin Acetaminophen 650 mg 02/14/21 19:41 02/17/21 08:06 Acetaminophen 325 Mg Tablet PO 650 mg Q6H PRN Administration febrile Amiodarone HCl 200 mg 02/15/21 09:00 02/18/21 08:28 Amiodarone Hcl 200 Mg Tablet PO 200 mg DAILY KEMAL Administration Apixaban 5 mg 02/14/21 21:00 02/18/21 08:28 Apixaban 5 Mg Tablet PO 5 mg BID KEMAL Administration Aspirin 81 mg 02/15/21 09:00 02/18/21 08:28 Aspirin 81 Mg Tab.Chew PO 81 mg DAILY KEMAL Administration Docusate Sodium 100 mg 02/14/21 18:00 Docusate Sodium 100 Mg Capsule PO BID PRN Constipation Piperacillin Sod/Tazobactam 50 mls @ 100 mls/hr 02/15/21 06:45 02/18/21 07:24 Sod 2.25 gm/ Sodium Chloride IV Infused Q6H KEMAL Infusion Nitroglycerin 0.4 mg 02/14/21 18:00 Nitroglycerin 0.4 Mg Tab.Subl SUBLINGUAL Q5M PRN Chest Pain Omeprazole 20 mg 02/15/21 06:30 02/18/21 06:35 Omeprazole 20 Mg Capsule. PO 20 mg BID@1125,0400 KEMAL Administration Ondansetron HCl 4 mg 02/16/21 01:45 02/16/21 03:31 Ondansetron Hcl 4 Mg/2 Ml Vial IVPUSH 4 mg Q6H PRN Administration nausea Pharmacy Consult 1 each 02/14/21 17:10 Consult Rx Perform Med Rec MISCELLANE ONCE PRN Consult order Labs CBC & Chem 7: 02/18/21 05:53 02/18/21 05:53 Labs: Laboratory Results - last 24 hr 02/18/21 02/18/21 02/18/21 05:53 05:53 05:53 MCV 85.3 MCH 26.6 L MCHC 31.2 RDW 16.4 H Plt Count 307 MPV 10.6 Immature Gran % (Auto) 0.3 Neut % (Auto) 63.2 Lymph % (Auto) 20.9 [place] % (Auto) 11.7 H Eos % (Auto) 3.5 Baso % (Auto) 0.4 Lymph # (Auto) 1.5 [place] # (Auto) 0.9 Eos # (Auto) 0.3 Baso # (Auto) 0.0 Abs Immat Gran (auto) 0.02 Absolute Neuts (auto) 4.7 Absolute Nucleated RBC 0.000 Nucleated RBC % (auto) 0.0 PT 27.9 H INR 2.4 H APTT 36.5 Anion Gap 15 Estim Creat Clear Calc 26.6 Estimated GFR 27 Random Glucose 87 Calcium 8.7 Phosphorus 3.4 Magnesium 1.9 Total Bilirubin 0.5 AST 22 D ALT 24 Alkaline Phosphatase 90 Total Protein 6.8 Albumin 3.3 L Microbiology Microbiology Results: Microbiology 02/14/21 15:55 Blood Culture - Final Blood - Venous Viridans streptococcus group Assessment and Plan (1) Chronic renal failure, stage 3 (moderate): Status: Acute Assessment and Plan: 65-year-old female with congestive cardiomyopathy, EF 15%, history of paroxysmally atrial fibrillation, currently in sinus rhythm status post biventricular ICD placement, history of bilateral ureteral stents due to chronic bilateral hydronephrosis, history of Enterococcus faecalis 6 months ago presented to [facility] due to dysuria and weakness, with no associated fever or shaking chills patient admitted to intermediate care unit due to hypotension did not require pressor, blood pressure remains stable close to her baseline, blood culture 1/2 grew non pathogenic bacteria urine cultures negative patient being transferred to medical floor for continued monitoring and treatment Acute pyelonephritis,no sepsis with bilateral ureteral stent Patient afebrile in last 24 hours, tmax 101.1 on IV Zosyn D4 urine cultures negative, blood culture 1/2 positive for Streptococcus viridans unlikely pathogen, CT abdomen and pelvis showed chronic bilateral hydronephrosis and hydroureter down to bladder bilateral ureteral stents in position right kidney borderline larger with mild paolo nephric and upper periureteral stranding no gas bubble or calculi noted Will continue IV antibiotics, await Urology input, as per patient during last visit Dr. 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 Will resume low-dose Lasix upon discharge BP remains stable Continue 2.5 L of oxygen patient is on it at home Chronic hypotension Did not require pressors treated with fluid boluses, diuretics, Entresto and Coreg are on hold due to relative hypotension, follow BP closely VT prophylaxis On [id number] Quality Stroke Does the patient have a stroke diagnosis?: No VTE Prior VTE?: No VTE Risk Level:: Medical - moderate - high VTE Device Contraindication: N/A - Device Ordered VTE Drug Contraindication: N/A - Med Ordered
[2021-02-18] MEDS: Acetaminophen 325 MG TABLET 650 MG PO (15:27)
[2021-02-19] VITALS (8 sets, daily range): BP systolic 93–114; BP diastolic 56–73; PULSE 86–92; RESP 16–20; TEMP 35.8–36.7; O2SAT 95–99
[2021-02-19] MEDS: Piperacillin Sodium/Tazobactam 2.25 GM in 0.9 % Sodium Chloride 50 ML IV ×4 (00:21→19:32)
[2021-02-19] MEDS: Omeprazole 20 MG CAPSULE.DR PO ×2 (05:57→16:58)
[2021-02-19 07:21] LABS: MANUAL DIFF FLAG NO
[2021-02-19 07:27] LABS: Basophils Percent Auto 0.5 % (0-2); Eosinophils Absolute Auto 0.2 X10*3/uL (0.0-0.4); Eosinophils Percent Auto 2.8 % (0-4); Hematocrit 27.2 % (37-47); Hemoglobin 8.5 g/dl (12.0-16.0); Imm Gran Abs Auto 0.03 X10*3/uL (0.00-0.03); Imm Gran Pct Auto 0.4 % (0.0-0.4); Lymphocytes Absolute Auto 0.9 X10*3/uL (1.2-4.9); Lymphocytes Percent Auto 11.9 % (20-40); Mean Corpuscular HGB Conc 31.3 g/dl (31.0-35.0); Mean Corpuscular Hemoglobin 26.8 pg (27.0-33.0); Mean Corpuscular Volume 85.8 fL (80-98); Mean Platelet Volume 10.3 fL (9.4-12.3); Monocytes Absolute Auto 0.8 X10*3/uL (0.1-1.2); Neutrophils Absolute Auto 5.6 X10*3/uL (2.0-8.3); Neutrophils Percent Auto 73.4 % (45-73); Platelet Count 319 X10*3/uL (160-400); Red Blood Count 3.17 X10*6/uL (4.20-5.50); Red Cell Distribution Width 16.6 % (11.0-16.0); White Blood Count 7.6 X10*3/uL (4.8-10.8)
[2021-02-19 07:31] LABS: INTERNATIONAL NORM RATIO 2.4 (0.9-1.1); Prothrombin Time 27.4 SEC (9.9-13.0)
[2021-02-19] MEDS: Aspirin 81 MG TAB.CHEW PO (07:39)
[2021-02-19] MEDS: Apixaban 5 MG TABLET PO ×2 (07:40→19:32)
[2021-02-19] MEDS: Amiodarone HCL 200 MG TABLET PO (07:40)
[2021-02-19 07:49] LABS: Alanine Aminotransferase 35 U/L (0-31); Albumin Level 3.2 g/dL (3.5-5.0); Alkaline Phosphatase 110 U/L (39-117); Anion Gap 13 (12-20); Aspartate Amino Transferase 29 U/L (5-31); Bilirubin Total 0.5 mg/dL (0.0-1.0); Blood Urea Nitrogen 23 mg/dL (9-16); Calcium 8.8 mg/dL (8.4-10.2); Carbon Dioxide 23 mmol/L (22-29); Chloride 105 mmol/L (96-108); Creatinine Clr Calc Pharmacy 28.2; Estimated Glomerular Filt Rate 29; Glucose Random 94 mg/dL (60-115); Phosphorus 3.5 mg/dL (2.7-4.5); Potassium 3.6 mmol/L (3.3-5.1); Sodium 137 mmol/L (135-145); Total Protein 6.8 g/dL (6.5-8.0)
[2021-02-19] MEDS: Acetaminophen 325 MG TABLET 650 MG PO (13:26)
--- NOTE | 2021-02-19 14:24 | P.CONCA_ITS ---
History of Present Illness History of Present Illness Date of Service: 02/19/21 Requesting physician: Freya Mclean Chief complaint: Congestive heart failure Narrative: 65-year-old female with known history of cardiomyopathy with EF of 15%, history of paroxysmal atrial fibrillation on chronic anticoagulation, previous ICD placement, bilateral ureteral stents due to chronic bilateral hydronephrosis and history of enterococcal infection 6 months ago. She presented with dysuria and weakness. She had hypertension and was in the intensive care unit and was downgraded to intermediate care recently. All her cardiomyopathy medications were stopped. She was seen with a educational interpreter. She is denying any chest discomfort shortness of breath. She is able to lay flat in bed without any issues at this point. Currently off all medications. On antibiotics. Review of Systems Review of Systems: No shortness of breath, orthopnea or PND. [facility] [place] Past Medical History Medical History HERMELINDO (acute kidney injury) Biventricular ICD (implantable cardioverter-defibrillator) in place Cardiomyopathy Chronic systolic heart failure Hydronephrosis Hypotension Paroxysmal atrial fibrillation with rapid ventricular response Prolapsed uterus Systolic heart failure Urinary retention Surgical History Surgical History H/O ankle fusion H/O cystoscopy H/O: section Hip joint replacement status History of renal stent Previous back surgery Total knee replacement status Social History Social History Household Members: Family Housing: House Do you presently have visiting nurse or other home services: No Unable to assess alcohol history related to: Unknown Alcohol intake: never Patient Tobacco Use Status: Tobacco use Unknown Use of substances other than those prescribed or required for medical reasons: Unknown Currently Displaying Signs/Symptoms of Drug Intoxication Withdrawal: No Advance Directives: No Advance Directives Information Provided: No Advance Directives on File: No Do you have thoughts of harming others: None Do you have a plan to hurt others: No Plan Recently lost weight without trying: Unsure Nutrition Risks: No Nutritional Risk Patient : No : No Poor oral hygiene: No service: No Current occupational status: disabled Meds Allergies Allergy/AdvReac Type Severity Reaction Status Date / Time No Known Food Allergies Allergy Unknown Verified 02/14/21 12:05 Active Medications: Current Medications Generic Name Dose Route Start Last Admin Trade Name Wil PRN Reason Stop Dose Admin Acetaminophen 650 mg 02/14/21 19:41 02/19/21 13:26 Acetaminophen 325 Mg Tablet PO 650 mg Q6H PRN Administration febrile Amiodarone HCl 200 mg 02/15/21 09:00 02/19/21 07:40 Amiodarone Hcl 200 Mg Tablet PO 200 mg DAILY KEMAL Administration Apixaban 5 mg 02/14/21 21:00 02/19/21 07:40 Apixaban 5 Mg Tablet PO 5 mg BID KEMAL Administration Aspirin 81 mg 02/15/21 09:00 02/19/21 07:39 Aspirin 81 Mg Tab.Chew PO 81 mg DAILY KEMAL Administration Docusate Sodium 100 mg 02/14/21 18:00 Docusate Sodium 100 Mg Capsule PO BID PRN Constipation Piperacillin Sod/Tazobactam 50 mls @ 100 mls/hr 02/15/21 06:45 02/19/21 13:27 Sod 2.25 gm/ Sodium Chloride IV 100 mls/hr Q6H K[facility]AL Administration Nitroglycerin 0.4 mg 02/14/21 18:00 Nitroglycerin 0.4 Mg Tab.Subl SUBLINGUAL Q5M PRN Chest Pain Omeprazole 20 mg 02/15/21 06:30 02/19/21 05:57 Omeprazole 20 Mg Capsule. PO 20 mg BID@0630,1630 KEMAL Administration Ondansetron HCl 4 mg 02/16/21 01:45 02/16/21 03:31 Ondansetron Hcl 4 Mg/2 Ml Vial IVPUSH 4 mg Q6H PRN Administration nausea Pharmacy Consult 1 each 02/14/21 17:10 Consult Rx Perform Med Rec MISCELLANE ONCE PRN Consult order Home Medications Medication Instructions Recorded Confirmed Last Taken Type amiodarone 200 mg tablet 200 mg PO DAILY 03/29/20 02/14/21 02/14/21 History aspirin 81 mg tablet 81 mg PO DAILY 03/29/20 02/14/21 02/14/21 History cholecalciferol (vitamin D3) 50 50 mcg PO DAILY 03/29/20 02/14/21 02/14/21 History mcg (2,000 unit) capsule docusate sodium 100 mg capsule 100 mg PO BID PRN 03/29/20 02/14/21 02/14/21 History multivitamin 1 cap PO DAILY 03/29/20 02/14/21 02/14/21 History nitroglycerin 0.4 mg sublingual 0.4 mg SUBLINGUAL Q5M PRN 03/29/20 02/14/21 02/14/21 History tablet omeprazole 20 mg capsule,delayed 20 mg PO BID@0630,1630 03/29/20 02/14/21 0 02/14/21 History release spironolactone 25 mg tablet 25 mg PO QAM 03/29/20 02/14/21 02/14/21 History ascorbic acid (vitamin C) 500 mg 500 mg PO DAILY 06/17/20 02/14/21 02/14/21 History tablet (Vitamin C) etanercept 50 mg/mL (1 mL) 1 mg SUBCUT IRBY 06/17/20 02/14/21 02/14/21 History subcutaneous pen injector (Enbrel SureClick) furosemide 40 mg tablet 40 mg PO QNOON 06/17/20 02/14/21 02/14/21 History oxycodone 10 mg tablet 1 tab PO BID 06/17/20 02/14/21 02/14/21 History sacubitril 24 mg-valsartan 26 mg 1 tab PO BID 06/17/20 02/14/21 02/14/21 History tablet (Entresto) zolpidem 10 mg tablet 0.5 - 1 tab PO BEDTIME 06/17/20 02/14/21 02/13/21 History rosuvastatin 20 mg tablet 1 tab PO BEDTIME 07/04/20 02/14/21 02/13/21 History acetaminophen 500 mg tablet 500 mg PO BID 02/14/21 02/14/21 02/14/21 History apixaban 5 mg tablet (Eliquis) 1 tab PO BID 02/14/21 02/14/21 02/14/21 History carvedilol 6.25 mg tablet 1 tab PO BID 02/14/21 02/14/21 02/14/21 History Physical Exam Vital Signs: Vital Signs: Last Vital Signs Temp 96.8 F 02/19/21 12:00 Pulse 91 02/19/21 12:00 Resp 18 02/19/21 12:00 BP 105/65 02/19/21 12:00 Pulse Ox 97 02/19/21 12:00 Oxygen Flow Rate 2 02/14/21 20:18 Body Mass Index 34.9 GENERAL APPEARANCE: in no acute distress, pleasant. NECK: no carotid bruit, JVD to angle of jaw. SKIN: no suspicious lesions, warm and dry. HEART: no murmurs, regular rate and rhythm. LUNGS: clear to auscultation bilaterally. ABDOMEN: soft, nontender. EXTREMITIES: no peripheral edema. PERIPHERAL PULSES: equal. NEUROLOGIC: No gross deficits, AAO X 3 Results Labs and Meds Result diagrams: 02/19/21 06:57 02/19/21 06:57 Lab results: Laboratory Results - last 24 hr 02/19/21 02/19/21 02/19/21 06:57 06:57 06:57 WBC 7.6 RBC 3.17 L Hgb 8.5 L Hct 27.2 L MCV 85.8 MCH 26.8 L MCHC 31.3 RDW 16.6 H Plt Count 319 MPV 10.3 Immature Gran % (Auto) 0.4 Neut % (Auto) 73.4 H Lymph % (Auto) 11.9 L [place] % (Auto) 11.0 Eos % (Auto) 2.8 Baso % (Auto) 0.5 Lymph # (Auto) 0.9 L [place] # (Auto) 0.8 Eos # (Auto) 0.2 Baso # (Auto) 0.0 Abs Immat Gran (auto) 0.03 Absolute Neuts (auto) 5.6 Absolute Nucleated RBC 0.000 Nucleated RBC % (auto) 0.0 PT 27.4 H INR 2.4 H APTT 35.0 Sodium 137 Potassium 3.6 Chloride 105 Carbon Dioxide 23 Anion Gap 13 BUN 23 H Creatinine 1.77 H Estim Creat Clear Calc 28.2 Estimated GFR 29 Random Glucose 94 Calcium 8.8 Phosphorus 3.5 Magnesium 2.0 Total Bilirubin 0.5 AST 29 ALT 35 H Alkaline Phosphatase 110 D Total Protein 6.8 Albumin 3.2 L Assessment and Plan (1) Paroxysmal atrial fibrillation with rapid ventricular response: Status: Acute (2) Anemia: Status: Acute (3) Cardiomyopathy: Status: Acute 65-year-old female with background history of paroxysmal atrial fibrillation on Eliquis and amiodarone. She also has cardiomyopathy with EF of 15% and was following with Dr. Choi previously. As outpatient she is supposed to be on Entresto, spironolactone and carvedilol. She also has background of rheumatoid arthritis. She is now presenting with acute pyelonephritis and required intensive care unit admission and has been taken off all her home medications. Clinically she looks volume overloaded and her neck veins are up to her jaw. I think we should resume diuretics on her. I would not give carvedilol right now. If he diuresis her creatinine stays stable then I think w e can restart the Entresto. Please repeat echocardiogram. Unclear about the etiology of her cardiomyopathy. We will get records from Dr. Choi office. Thank you for allowing me to participate in the care of your patient. Please feel free to contact me if you have any questions. Procedures Date of Service Date of Service: 02/19/21
--- NOTE | 2021-02-19 14:43 | HO.PM.IMPN ---
Subjective Subjective Date of Service: 02/19/21 Interval History: history taken in [place] from pt feels better no dyspnea or chest pain no edema Review of Systems Review of Systems: Yes all other systems are reviewed and are negative Physical Exam Vital Signs: Vital Signs: Last Vital Signs Temp 96.8 F 02/19/21 12:00 Pulse 91 02/19/21 12:00 Resp 18 02/19/21 12:00 BP 105/65 02/19/21 12:00 Pulse Ox 97 02/19/21 12:00 Oxygen Flow Rate 2 02/14/21 20:18 Body Mass Index 34.9 Gen: in no acute distress HEENT: sclera anicteric, moist mucus membranes Neck: supple, JVD present Lungs: clear to auscultation bilaterally Heart: regular rate and rhythm, no murmurs Abd: soft, non-tender, non-distended Ext: no edema Skin: warm/well-perfused Neuro: alert and oriented x3, no focal findings Psych: appropriate affect Objective Data Current Medications Generic Name Dose Route Start Last Admin Trade Name Davidq PRN Reason Stop Dose Admin Acetaminophen 650 mg 02/14/21 19:41 02/19/21 13:26 Acetaminophen 325 Mg Tablet PO 650 mg Q6H PRN Administration febrile Amiodarone HCl 200 mg 02/15/21 09:00 02/19/21 07:40 Amiodarone Hcl 200 Mg Tablet PO 200 mg DAILY KEMAL Administration Apixaban 5 mg 02/14/21 21:00 02/19/21 07:40 Apixaban 5 Mg Tablet PO 5 mg BID KEMAL Administration Aspirin 81 mg 02/15/21 09:00 02/19/21 07:39 Aspirin 81 Mg Tab.Chew PO 81 mg DAILY KEMAL Administration Docusate Sodium 100 mg 02/14/21 18:00 Docusate Sodium 100 Mg Capsule PO BID PRN Constipation Furosemide 40 mg 02/19/21 18:00 Furosemide 40 Mg/4 Ml Vial IVPUSH BID@0900,1800 [facility] Protocol Piperacillin Sod/Tazobactam 50 mls @ 100 mls/hr 02/15/21 06:45 02/19/21 14:25 Sod 2.25 gm/ Sodium Chloride IV Infused Q6H [facility] Infusion Nitroglycerin 0.4 mg 02/14/21 18:00 Nitroglycerin 0.4 Mg Tab.Subl SUBLINGUAL Q5M PRN Chest Pain Omeprazole 20 mg 02/15/21 06:30 02/19/21 05:57 Omeprazole 20 Mg Capsule. PO 20 mg BID@1078,7849 KEMAL Administration Ondansetron HCl 4 mg 02/16/21 01:45 02/16/21 03:31 Ondansetron Hcl 4 Mg/2 Ml Vial IVPUSH 4 mg Q6H PRN Administration nausea Pharmacy Consult 1 each 02/14/21 17:10 Consult Rx Perform Med Rec MISCELLANE ONCE PRN Consult order Labs CBC & Chem 7: 02/19/21 06:57 02/19/21 06:57 Labs: Laboratory Results - last 24 hr 02/19/21 02/19/21 02/19/21 06:57 06:57 06:57 MCV 85.8 MCH 26.8 L MCHC 31.3 RDW 16.6 H Plt Count 319 MPV 10.3 Immature Gran % (Auto) 0.4 Neut % (Auto) 73.4 H Lymph % (Auto) 11.9 L [place] % (Auto) 11.0 Eos % (Auto) 2.8 Baso % (Auto) 0.5 Lymph # (Auto) 0.9 L [place] # (Auto) 0.8 Eos # (Auto) 0.2 Baso # (Auto) 0.0 Abs Immat Gran (auto) 0.03 Absolute Neuts (auto) 5.6 Absolute Nucleated RBC 0.000 Nucleated RBC % (auto) 0.0 PT 27.4 H INR 2.4 H APTT 35.0 Anion Gap 13 Estim Creat Clear Calc 28.2 Estimated GFR 29 Random Glucose 94 Calcium 8.8 Phosphorus 3.5 Magnesium 2.0 Total Bilirubin 0.5 AST 29 ALT 35 H Alkaline Phosphatase 110 D Total Protein 6.8 Albumin 3.2 L Assessment and Plan (1) Chronic renal failure, stage 3 (moderate): Status: Acute Assessment and Plan: hospital d#6 65yo M with cardiomyopathy/HFrEF (historically 15%), pAF, BiV pacer/ICD, B ureteral stents due to chronic hydronephrosis presented with dysuria/weakness admitted to ICU due to hypotension but did not require pressors stepped down to IMC 02/17/21 # acute pyelonephritis - fever resolved, BCx 1/2 Strep viridans = contaminant, UCx contaminated, on pip/salome d#5 - CT showed chronic bilateral hydronephrosis and hydroureter down to bladder with bilateral ureteral stents in position; right kidney borderline larger with mild perinephric and upper periureteral stranding; no gas bubble or calculi noted - Urology consult pending # acute/chronic HFrEF - Cardiology consult, IV diuresis with furosemide. holding Entresto + carvedilol + spironolactone due to low BP, resume Entresto if BP and SCr allows. recheck TTE. # HERMELINDO/CKD3 - SCr improving # pAF - now in NSR; continue amiodarone + apixaban # chronic hypoxic respiratory failure - continue home O2 2.5L via NC # VTE ppx - apixaban # dispo - anticipate home with VNA once euvolemic Quality Stroke Does the patient have a stroke diagnosis?: No VTE Prior VTE?: No VTE Risk Level:: Medical - moderate - high VTE Device Contraindication: N/A - Device Ordered VTE Drug Contraindication: N/A - Med Ordered
--- NOTE | 2021-02-19 14:55 | MHC.CLN ---
F/U PO INTAKE 50-100% DIET RX: CARDIAC-APPROPRIATE PT RECEIVING ENSURE BID AND NIELS TO PROMOTE WOUND HEALING (860 KCAL, 45 G PROTEIN) MONITOR PO INTAKE CLOSELY
[2021-02-19] MEDS: Furosemide 40 MG/4 ML VIAL IVPUSH (16:58)
--- NOTE | 2021-02-19 17:57 | P.CNUR_ITS ---
History of Present Illness Consult details Consult date: 02/19/21 Narrative: Willow is a pleasant female. Known to urologist Had stents placed back in May Has not been seen in follow-up Presents with question of infection in elevating creatinine Would plan on cystoscopy with bilateral stent change This will be organized tomorrow Review of Systems Constitutional: Constitutional: Denies chills and Denies fever(s) Cardiovascular: Cardiovascular: Reports no additional cardiovascular complaints and Denies syncope Respiratory: Respiratory: Denies cough Gastrointestinal: Gastrointestinal: Denies abdominal pain and Denies heartburn Genitourinary: Genitourinary: Reports as per HPI and Denies change in libido Neurologic: Denies syncope Psychiatric: Psychiatric: Denies change in libido Endocrine: Endocrine: Denies change in libido [facility] Past Medical History Medical History HERMELINDO (acute kidney injury) Biventricular ICD (implantable cardioverter-defibrillator) in place Cardiomyopathy Chronic systolic heart failure Hydronephrosis Hypotension Paroxysmal atrial fibrillation with rapid ventricular response Prolapsed uterus Systolic heart failure Urinary retention Surgical History Surgical History H/O ankle fusion H/O cystoscopy H/O: section Hip joint replacement status History of renal stent Previous back surgery Total knee replacement status Social History Social History Household Members: Family Housing: House Do you presently have visiting nurse or other home services: No Unable to assess alcohol history related to: Unknown Alcohol intake: never Patient Tobacco Use Status: Tobacco use Unknown Use of substances other than those prescribed or required for medical reasons: Unknown Currently Displaying Signs/Symptoms of Drug Intoxication Withdrawal: No Advance Directives: No Advance Directives Information Provided: No Advance Directives on File: No Do you have thoughts of harming others: None Do you have a plan to hurt others: No Plan Recently lost weight without trying: Unsure Nutrition Risks: No Nutritional Risk Patient : No : No Poor oral hygiene: No service: No Current occupational status: disabled Meds Allergies Allergy/AdvReac Type Severity Reaction Status Date / Time No Known Food Allergies Allergy Unknown Verified 02/14/21 12:05 Active Medications: Current Medications Generic Name Dose Route Start Last Admin Trade Name Freq PRN Reason Stop Dose Admin Acetaminophen 650 mg 02/14/21 19:41 02/19/21 13:26 Acetaminophen 325 Mg Tablet PO 650 mg Q6H PRN Administration febrile Amiodarone HCl 200 mg 02/15/21 09:00 02/19/21 07:40 Amiodarone Hcl 200 Mg Tablet PO 200 mg DAILY KEMAL Administration Apixaban 5 mg 02/14/21 21:00 02/19/21 07:40 Apixaban 5 Mg Tablet PO 5 mg BID KEMAL Administration Aspirin 81 mg 02/15/21 09:00 02/19/21 07:39 Aspirin 81 Mg Tab.Chew PO 81 mg DAILY KEMAL Administration Docusate Sodium 100 mg 02/14/21 18:00 Docusate Sodium 100 Mg Capsule PO BID PRN Constipation Furosemide 40 mg 02/19/21 18:00 02/19/21 16:58 Furosemide 40 Mg/4 Ml Vial IVPUSH 40 mg BID@0900,1800 [facility] Administration Protocol Piperacillin Sod/Tazobactam 50 mls @ 100 mls/hr 02/15/21 06:45 02/19/21 14:25 Sod 2.25 gm/ Sodium Chloride IV Infused Q6H [facility] Infusion Nitroglycerin 0.4 mg 02/14/21 18:00 Nitroglycerin 0.4 Mg Tab.Subl SUBLINGUAL Q5M PRN Chest Pain Omeprazole 20 mg 02/15/21 06:30 02/19/21 16:58 Omeprazole 20 Mg Capsule.Dr PO 20 mg BID@0630,1630 [facility] Administration Ondansetron HCl 4 mg 02/16/21 01:45 02/16/21 03:31 Ondansetron Hcl 4 Mg/2 Ml Vial IVPUSH 4 mg Q6H PRN Administration nausea Pharmacy Consult 1 each 02/14/21 17:10 Consult Rx Perform Med Rec MISCELLANE ONCE PRN Consult order Home Medications Medication Instructions Recorded Confirmed Last Taken Type amiodarone 200 mg tablet 200 mg PO DAILY 03/29/20 02/14/21 02/14/21 History aspirin 81 mg tablet 81 mg PO DAILY 03/29/20 02/14/21 02/14/21 History cholecalciferol (vitamin D3) 50 50 mcg PO DAILY 03/29/20 02/14/21 02/14/21 History mcg (2,000 unit) capsule docusate sodium 100 mg capsule 100 mg PO BID PRN 03/29/20 02/14/21 02/14/21 History multivitamin 1 cap PO DAILY 03/29/20 02/14/21 02/14/21 History nitroglycerin 0.4 mg sublingual 0.4 mg SUBLINGUAL Q5M PRN 03/29/20 02/14/21 02/14/21 History tablet omeprazole 20 mg capsule,delayed 20 mg PO BID@0630,1630 03/29/20 02/14/21 02/14/21 History release spironolactone 25 mg tablet 25 mg PO QAM 03/29/20 02/14/21 02/14/21 History ascorbic acid (vitamin C) 500 mg 500 mg PO DAILY 06/17/20 02/14/21 02/14/21 History tablet (Vitamin C) etanercept 50 mg/mL (1 mL) 1 mg SUBCUT IRBY 06/17/20 02/14/21 02/14/21 History subcutaneous pen injector (Enbrel SureClick) furosemide 40 mg tablet 40 mg PO QNOON 06/17/20 02/14/21 02/14/21 History oxycodone 10 mg tablet 1 tab PO BID 06/17/20 02/14/21 02/14/21 History sacubitril 24 mg-valsartan 26 mg 1 tab PO BID 06/17/20 02/14/21 02/14/21 History tablet (Entresto) zolpidem 10 mg tablet 0.5 - 1 tab PO BEDTIME 06/17/20 02/14/21 02/13/21 History rosuvastatin 20 mg tablet 1 tab PO BEDTIME 07/04/20 02/14/21 02/13/21 History acetaminophen 500 mg tablet 500 mg PO BID 02/14/21 02/14/21 02/14/21 History apixaban 5 mg tablet (Eliquis) 1 tab PO BID 02/14/21 02/14/21 02/14/21 History carvedilol 6.25 mg tablet 1 tab PO BID 02/14/21 02/14/21 02/14/21 History Physical Exam Vital Signs: Vital Signs: Last Vital Signs Temp 98.1 F 02/19/21 15:26 Pulse 86 02/19/21 15:26 Resp 20 02/19/21 15:26 BP 96/64 02/19/21 15:33 Pulse Ox 99 02/19/21 15:26 Oxygen Flow Rate 2 02/14/21 20:18 Body Mass Index 34.9 Const: General: cooperative, healthy appearing, comfortable and no acute distress Orientation/consciousness: patient oriented x3 HENMT: Face and sinus: Yes normal facial exam Mouth: moist mucous membranes Neck: Neck: Yes normal visual inspection, Yes full ROM and Yes trachea midline Chest: Chest palpation & inspection: normal inspection of the chest Resp: Effort & Inspection: normal respiratory effort, able to speak in complete sentences and no respiratory distress GI: Inspection: Yes normal to inspection Back/Spine/Pelvis: Cervical Spine: normal cervical lordosis Thoracic/Lumbar Spine: thoracic and lumbar spine normal to inspection Skin: General skin exam: no rashes or lesions noted Neuro: General: patient oriented x3, gait normal, tone normal and moves all extremities Extrem: General: Yes normal to inspection and Yes capillary refill normal Results Labs Result diagrams: 02/19/21 06:57 02/19/21 06:57 Labs: Abnormal lab results 02/19/21 02/19/21 02/19/21 Range/Units 06:57 06:57 06:57 RBC 3.17 L (4.20-5.50) X10*6/uL Hgb 8.5 L (12.0-16.0) g/dl Hct 27.2 L (37-47) % MCH 26.8 L (27.0-33.0) pg RDW 16.6 H (11.0-16.0) % Neut % (Auto) 73.4 H (45-73) % Lymph % (Auto) 11.9 L (20-40) % Lymph # (Auto) 0.9 L (1.2-4.9) X10*3/uL PT 27.4 H (9.9-13.0) SEC INR 2.4 H (0.9-1.1) BUN 23 H (9-16) mg/dL Creatinine 1.77 H (0.5-1.4) mg/dL ALT 35 H (0-31) U/L Albumin 3.2 L (3.5-5.0) g/dL Short CBC 02/19/21 Range/Units 06:57 WBC 7.6 (4.8-10.8) X10*3/uL Hgb 8.5 L (12.0-16.0) g/dl Hct 27.2 L (37-47) % Plt Count 319 (160-400) X10*3/uL BMP 02/19/21 06:57 Sodium 137 Potassium 3.6 Chloride 105 Carbon Dioxide 23 BUN 23 H Creatinine 1.77 H Calcium 8.8 Liver Function 02/19/21 Range/Units 06:57 Total Bilirubin 0.5 (0.0-1.0) mg/dL AST 29 (5-31) U/L ALT 35 H (0-31) U/L Alkaline Phosphatase 110 D (39-117) U/L Albumin 3.2 L (3.5-5.0) g/dL Urine 02/14/21 Range/Units 14:35 Urine Color STRAW Urine Appearance CLOUDY Urine pH 6.0 (5.0-8.0) Ur Specific [place] <= 1.005 (1.005-1.025) Urine Protein 1+ H (NEG-TRACE) MG/DL Urine Glucose (UA) NEG (NEG) MG/DL All other labs normal. Assessment and Plan (1) Chronic renal failure, stage 3 (moderate): Status: Acute (2) Acute UTI: Status: Acute Change of bilateral stents tomorrow Procedures Date of Service Date of Service: 02/19/21
[2021-02-20] VITALS (14 sets, daily range): BP systolic 79–115; BP diastolic 41–76; PULSE 81–96; RESP 16–18; TEMP 35.9–36.6; O2SAT 96–100
[2021-02-20] MEDS: Piperacillin Sodium/Tazobactam 2.25 GM in 0.9 % Sodium Chloride 50 ML IV ×5 (02:02→23:49)
[2021-02-20] MEDS: Omeprazole 20 MG CAPSULE.DR PO (06:27)
[2021-02-20 06:44] LABS: Hematocrit 27.2 % (37-47); Hemoglobin 8.6 g/dl (12.0-16.0); Mean Corpuscular HGB Conc 31.6 g/dl (31.0-35.0); Mean Corpuscular Hemoglobin 26.6 pg (27.0-33.0); Mean Corpuscular Volume 84.2 fL (80-98); Mean Platelet Volume 10.1 fL (9.4-12.3); Platelet Count 352 X10*3/uL (160-400); Red Blood Count 3.23 X10*6/uL (4.20-5.50); White Blood Count 8.6 X10*3/uL (4.8-10.8)
[2021-02-20 07:03] LABS: Anion Gap 19 (12-20); Blood Urea Nitrogen 28 mg/dL (9-16); Calcium 8.6 mg/dL (8.4-10.2); Carbon Dioxide 19 mmol/L (22-29); Chloride 103 mmol/L (96-108); Creatinine Clr Calc Pharmacy 26.7; Estimated Glomerular Filt Rate 27; Glucose Random 102 mg/dL (60-115); Potassium 3.6 mmol/L (3.3-5.1); Sodium 137 mmol/L (135-145)
[2021-02-20 07:07] LABS: B Type Natriuretic Peptide 4411 pg/mL (<100)
--- NOTE | 2021-02-20 08:30 | CA_ITS ---
Transthoracic Echocardiogram Patient (Last, First, Middle): Willow Luz L Gender: Female Date of : 1955 Age: 65 Procedure Date: 02/20/2021 Procedure Type: Transthoracic Echocardiogram Location: S3E Height: 149.86 cm Weight: 78.02 kg BSA: 1.73 m2 Heart Rate: bpm BP: 90 / 66 mmHg Traffic Incident Management Manager: Referring MD: Freya Mclean MD Symptoms: cardiomyopathy Conclusions: - Severely increased left ventricular cavity size. There is normal left ventricular wall thickness. The left ventricular systolic function is severely decreased. The visually estimated ejection fraction is <10%. - Normal right ventricular cavity size and systolic function. There is a pacemaker wire seen in the right ventricle. - The left atrium is severely dilated. The right atrium is moderately dilated. - There is moderate mitral valve regurgitation. - There is moderate tricuspid valve regurgitation. Findings Procedure Information The patient receives contrast. Left Ventricle Severely increased left ventricular cavity size. There is normal left ventricular wall thickness. The left ventricular systolic function is severely decreased. The visually estimated ejection fraction is <10%. There is severe global hypokinesis. Diastolic function is indeterminate on the basis of available data. LV is spherical in shape due to remodelling. Right Ventricle Normal right ventricular cavity size and systolic function. There is a pacemaker wire seen in the right ventricle. Atria The left atrium is severely dilated. The right atrium is moderately dilated. Aortic Valve There is a normal trileaflet aortic valve. There is mild calcification of the aortic valve. There is no aortic valve stenosis. There is trace (trivial) aortic valve regurgitation. Mitral Valve There is moderate mitral valve regurgitation. There is no mitral valve stenosis. There is apical tethering of the mitral valve leaflets. Pulmonic Valve Normal pulmonic valve structure and function. There is trace pulmonic valve regurgitation. Tricuspid Valve Normal tricuspid valve structure. There is moderate tricuspid valve regurgitation. Significantly elevated right atrial pressure. Mild pulmonary hypertension is present. Great Vessels All visible segments of the aorta are normal in size. The visualized portions of the pulmonary artery and branches are normal. Venous The inferior vena cava is dilated and does not collapse with inspiration. Pericardium/Pleural There is no evidence of pericardial effusion. Prior Study Comparison No significant change compared to prior study dated: 03/28/2020. Measurements 2D Linear Measurements RVIDd: 3.67 RVIDd Index: 2.12 IVSd: 0.67 0.6-0.9/0.6-1.0 cm LVIDd: 7.78 3.9-5.3/4.2-5.9 cm LVIDd Index: 4.50 2.4-3.2/2.2-3.1 cm/m2 LVIDs: 7.42 2.0-3.6 cm LVPWd: 0.92 0.7-1.1 cm Ao Root: 2.70 2.1-3.5 cm LA Diam: 4.50 2.7-3.8/3.0-4.0 cm LAIDs Index: 2.60 1.5-2.3 cm/m2 LV Mass: 365.27 67-162/88-224 g LV Mass Index: 211.14 43-95/49-115 g/m2 LVOT Diam: 2.30 3.0+(-)1.3 cm 2D Systolic Function EF 2C: 32.70 >55% Mitral Valve MR Vol - PW Dopp: 35.96 MR VTI: 1.16 MR ERO: 31.00 MR Alias Cameron: 0.40 MR RAD: 0.70 Aortic Valve AoV Pk Cameron: 1.02 AoV Mn Cameron: 0.78 AoV VTI: 0.17 AoV Pk Grad: 4.00 Aov Mn Grad: 3.00 FADY Cont.VTI: 1.34 LVOT LVOT Pk Cameron: 0.43 LVOT Mn Cameron: 0.28 LVOT VTI: 0.06 LVOT Pk Grad: 1.00 LVOT Mn Grad: 0.00 LVOT Diam: 2.30 LVOT Area: 4.15 Tricuspid Valve TR Pk Cameron: 2.98 TR Pk Grad: 36.00 RA Press: 8.00 RVSP: 44.00 Great Vessels Aorta Ao Root-2D: 2.70 2.0-3.7 cm Ao Asc: 2.80 2.1-3.4 cm Ao Arch: 3.30 Updated in Other Vendor System with Status of Final Kory Thomas MD electronically signed on 02/20/2021 3:00:11 PM with status of Final
[2021-02-20] MEDS: Amiodarone HCL 200 MG TABLET PO (09:31)
[2021-02-20] MEDS: Furosemide 40 MG/4 ML VIAL IVPUSH (09:31)
--- NOTE | 2021-02-20 10:31 | PM.PNCARD ---
Subjective Subjective Date of Service: 02/20/21 Interval history: She is saying she was short of breath when she tried to change her sides in the bed. Physical Exam Vital Signs: Last Vital Signs Temp 96.8 F 02/20/21 07:28 Pulse 89 02/20/21 09:31 Resp 16 02/20/21 07:28 BP 103/67 02/20/21 09:31 Pulse Ox 97 02/20/21 07:28 Oxygen Flow Rate 2 02/14/21 20:18 Body Mass Index 34.9 GENERAL APPEARANCE: in no acute distress, pleasant. NECK: no carotid bruit, JVD to angle of jaw. SKIN: no suspicious lesions, warm and dry. HEART: no murmurs, regular rate and rhythm. LUNGS: clear to auscultation bilaterally. ABDOMEN: soft, nontender. EXTREMITIES: no peripheral edema. PERIPHERAL PULSES: equal. NEUROLOGIC: No gross deficits, AAO X 3 Results Labs and Meds Result diagrams: 02/20/21 05:44 02/20/21 05:44 Lab results: Laboratory Results - last 24 hr 02/20/21 02/20/21 02/20/21 05:44 05:44 05:44 WBC 8.6 RBC 3.23 L Hgb 8.6 L Hct 27.2 L MCV 84.2 MCH 26.6 L MCHC 31.6 RDW 17.0 H Plt Count 352 MPV 10.1 Absolute Nucleated RBC 0.000 Nucleated RBC % (auto) 0.0 Sodium 137 Potassium 3.6 Chloride 103 Carbon Dioxide 19 L Anion Gap 19 BUN 28 H Creatinine 1.87 H Estim Creat Clear Calc 26.7 Estimated GFR 27 Random Glucose 102 Calcium 8.6 B-Natriuretic Peptide 4411 H Progress Note: A&P Assessment and plan (1) Atrial fibrillation: Status: Acute (2) Cardiomyopathy: Status: Acute (3) CHF (congestive heart failure): Status: Acute Assessment and Plan: 65-year-old female with background history of paroxysmal atrial fibrillation on Eliquis and amiodarone.? She also has cardiomyopathy with EF of 15% and was following with Dr. Choi previously.? As outpatient she is supposed to be on Entresto, spironolactone and carvedilol.? She also has background of rheumatoid arthritis.? She is now presenting with acute pyelonephritis and required intensive care unit admission and has been taken off all her home medications.? Clinically she looks volume overloaded and her neck veins are up to her jaw.? She appears to be still in a positive balance today. She is getting 40 mg IV Lasix in the morning. We will see if she diuresis well otherwise the Lasix dose should be increased to 80 mg IV b.i.d.. Will repeat echocardiogram. Unclear about the etiology of her cardiomyopathy.? We have requested records from Dr. Steph barbour. Thank you for allowing me to participate in the care of your patient.? Please feel free to contact me if you have any questions. Fall Risk Details Current Medications: Current Medications Generic Name Dose Route Start Last Admin Trade Name Freq PRN Reason Stop Dose Admin Acetaminophen 650 mg 02/14/21 19:41 02/19/21 13:26 Acetaminophen 325 Mg Tablet PO 650 mg Q6H PRN Administration febrile Amiodarone HCl 200 mg 02/15/21 09:00 02/20/21 09:31 Amiodarone Hcl 200 Mg Tablet PO 200 mg DAILY KEMAL Administration Apixaban 5 mg 02/14/21 21:00 02/20/21 09:30 Apixaban 5 Mg Tablet PO Not Given BID KEMAL Aspirin 81 mg 02/15/21 09:00 02/20/21 09:30 Aspirin 81 Mg Tab.Chew PO Not Given DAILY KEMAL Docusate Sodium 100 mg 02/14/21 18:00 Docusate Sodium 100 Mg Capsule PO BID PRN Constipation Furosemide 40 mg 02/19/21 18:00 02/20/21 09:31 Furosemide 40 Mg/4 Ml Vial IVPUSH 40 mg BID@0900,1800 KEMAL Administration Protocol Piperacillin Sod/Tazobactam 50 mls @ 100 mls/hr 02/15/21 06:45 02/20/21 07:21 Sod 2.25 gm/ Sodium Chloride IV Infused Q6H KEMAL Infusion Nitroglycerin 0.4 mg 02/14/21 18:00 Nitroglycerin 0.4 Mg Tab.Subl SUBLINGUAL Q5M PRN Chest Pain Omeprazole 20 mg 02/15/21 06:30 02/20/21 06:27 Omeprazole 20 Mg Capsule. PO 20 mg BID@0630,1630 KEMAL Administration Ondansetron HCl 4 mg 02/16/21 01:45 02/16/21 03:31 Ondansetron Hcl 4 Mg/2 Ml Vial IVPUSH 4 mg Q6H PRN Administration nausea Pharmacy Consult 1 each 02/14/21 17:10 Consult Rx Perform Med Rec MISCELLANE ONCE PRN Consult order Time Spent With Patient Time: Total time spent is greater than 50% in coordination of care (as documented) at patient's floor/unit and/or counseling patient: Time with patient: 15 - 24 minutes Progress Note: Quality Stroke Does the patient have a stroke diagnosis?: No Procedures Date of Service Date of Service: 02/20/21
--- NOTE | 2021-02-20 13:02 | P.PNIM_ITS ---
Subjective Subjective Date of Service: 02/20/21 Interval History: feels better, though short of breath with minimal movement no flank pain Review of Systems Review of Systems: Yes all other systems are reviewed and are negative Physical Exam Vital Signs: Vital Signs: Last Vital Signs Temp 97.3 F 02/20/21 11:18 Pulse 86 02/20/21 11:18 Resp 18 02/20/21 11:18 BP 100/64 02/20/21 11:18 Pulse Ox 96 02/20/21 11:18 Oxygen Flow Rate 2 02/14/21 20:18 Body Mass Index 34.9 Gen: in no acute distress HEENT: sclera anicteric, moist mucus membranes Neck: supple, JVD present Lungs: clear to auscultation bilaterally Heart: regular rate and rhythm, no murmurs Abd: soft, non-tender, non-distended Ext: no edema Skin: warm/well-perfused Neuro: alert and oriented x3, no focal findings Psych: appropriate affect Objective Data Current Medications Generic Name Dose Route Start Last Admin Trade Name Davidq PRN Reason Stop Dose Admin Acetaminophen 650 mg 02/14/21 19:41 02/19/21 13:26 Acetaminophen 325 Mg Tablet PO 650 mg Q6H PRN Administration febrile Amiodarone HCl 200 mg 02/15/21 09:00 02/20/21 09:31 Amiodarone Hcl 200 Mg Tablet PO 200 mg DAILY KEMAL Administration Apixaban 5 mg 02/14/21 21:00 02/20/21 09:30 Apixaban 5 Mg Tablet PO Not Given BID KEMAL Aspirin 81 mg 02/15/21 09:00 02/20/21 09:30 Aspirin 81 Mg Tab.Chew PO Not Given DAILY KEMAL Docusate Sodium 100 mg 02/14/21 18:00 Docusate Sodium 100 Mg Capsule PO BID PRN Constipation Furosemide 40 mg 02/19/21 18:00 02/20/21 09:31 Furosemide 40 Mg/4 Ml Vial IVPUSH 40 mg BID@0900,1800 [facility] Administration Protocol Piperacillin Sod/Tazobactam 50 mls @ 100 mls/hr 02/15/21 06:45 02/20/21 07:21 Sod 2.25 gm/ Sodium Chloride IV Infused Q6H [facility] Infusion Nitroglycerin 0.4 mg 02/14/21 18:00 Nitroglycerin 0.4 Mg Tab.Subl SUBLINGUAL Q5M PRN Chest Pain Omeprazole 20 mg 02/15/21 06:30 02/20/21 06:27 Omeprazole 20 Mg Capsule. PO 20 mg BID@0630,1630 KEMAL Administration Ondansetron HCl 4 mg 02/16/21 01:45 02/16/21 03:31 Ondansetron Hcl 4 Mg/2 Ml Vial IVPUSH 4 mg Q6H PRN Administration nausea Pharmacy Consult 1 each 02/14/21 17:10 Consult Rx Perform Med Rec MISCELLANE ONCE PRN Consult order Labs CBC & Chem 7: 02/20/21 05:44 02/20/21 05:44 Labs: Laboratory Results - last 24 hr 02/20/21 02/20/21 02/20/21 05:44 05:44 05:44 MCV 84.2 MCH 26.6 L MCHC 31.6 RDW 17.0 H Plt Count 352 MPV 10.1 Absolute Nucleated RBC 0.000 Nucleated RBC % (auto) 0.0 Anion Gap 19 Estim Creat Clear Calc 26.7 Estimated GFR 27 Random Glucose 102 Calcium 8.6 B-Natriuretic Peptide 4411 H Microbiology Microbiology Results: Microbiology 02/14/21 15:55 Blood Culture - Final Blood - Venous Viridans streptococcus group 02/14/21 16:07 Blood Culture - Final Blood - Venous No growth after 5 days. Assessment and Plan (1) Chronic renal failure, stage 3 (moderate): Status: Acute Assessment and Plan: hospital d#7 65yo M with cardiomyopathy/HFrEF (historically 15%), pAF, BiV pacer/ICD, B ureteral stents due to chronic hydronephrosis presented with dysuria/weakness admitted to ICU due to hypotension but did not require pressors stepped down to IMC 02/17/21 # acute pyelonephritis - fever resolved, BCx 1/2 Strep viridans = contaminant, UCx contaminated, on pip/salome d#6/7 - CT showed chronic bilateral hydronephrosis and hydroureter down to bladder with bilateral ureteral stents in position; right kidney borderline larger with mild perinephric and upper periureteral stranding; no gas bubble or calculi noted - plan ureteral stent change today in OR # acute/chronic HFrEF - IV diuresis with furosemide- continue; may need to increase dose if does not respond well. updated TTE pending. holding Entresto + carvedilol + spironolactone due to low BP, but will resume Entresto if BP and SCr allows tomorrow # HERMELINDO/CKD3 - SCr improved # pAF - now in NSR; continue amiodarone + apixaban # chronic hypoxic respiratory failure - continue home O2 2.5L via NC # VTE ppx - apixaban # dispo - anticipate home with VNA once euvolemic and stents exchanged Quality Stroke Does the patient have a stroke diagnosis?: No VTE Prior VTE?: No VTE Risk Level:: Medical - moderate - high VTE Device Contraindication: N/A - Device Ordered VTE Drug Contraindication: N/A - Med Ordered
--- NOTE | 2021-02-20 18:33 | P.CONAN_ITS ---
HPI - Anesthesia Eval Consult details Narrative: urinary tract infection [facility] Active Problems Active Problems: All Active Problems (Updated 02/20/21 @ 10:32 by Kory Thomas MD) CHF (congestive heart failure) (Acute) Chronic renal failure, stage 3 (moderate) (Acute) Acute UTI (Acute) Nausea (Acute) Acute dehydration (Acute) Acute on chronic renal insufficiency (Acute) Recurrent UTI (urinary tract infection) (Acute) Hydronephrosis (Acute) Current use of anticoagulant therapy (Acute) Acute pyelonephritis (Acute) Nausea (Acute) Bladder wall thickening (Acute) Rheumatoid arthritis (Acute) Chronic dermatitis (Acute) Cardiomyopathy (Acute) Atrial fibrillation (Acute) Anemia (Acute) Paroxysmal atrial fibrillation with rapid ventricular response (Acute) Past Medical History Medical History HERMELINDO (acute kidney injury) Biventricular ICD (implantable cardioverter-defibrillator) in place Cardiomyopathy Chronic systolic heart failure Hydronephrosis Hypotension Paroxysmal atrial fibrillation with rapid ventricular response Prolapsed uterus Systolic heart failure Urinary retention Family History Family history of problems with anesthesia: No Surgical History Surgical History H/O ankle fusion H/O cystoscopy H/O: section Hip joint replacement status History of renal stent Previous back surgery Total knee replacement status History of Problems with Anesthesia: No Social History Social History Household Members: Family Housing: House Do you presently have visiting nurse or other home services: No Unable to assess alcohol history related to: Unknown Alcohol intake: never Patient Tobacco Use Status: Never used Tobacco Use of substances other than those prescribed or required for medical reasons: No Currently Displaying Signs/Symptoms of Drug Intoxication Withdrawal: No Have you been hit, kicked, punched, or otherwise hurt by someone within the past year? If so, by whom?: No Are you DNR?: No Advance Directives: No Advance Directives Information Provided: No Advance Directives on File: No Do you have thoughts of harming others: None Do you have a plan to hurt others: No Plan Recently lost weight without trying: No Nutrition Risks: No Nutritional Risk Patient : No : No Poor oral hygiene: No service: No Current occupational status: disabled Meds Allergies Allergy/AdvReac Type Severity Reaction Status Date / Time No Known Food Allergies Allergy Unknown Verified 02/14/21 12:05 Active Medications: Current Medications Generic Name Dose Route Start Last Admin Trade Name Wil PRN Reason Stop Dose Admin Acetaminophen 650 mg 02/14/21 19:41 02/19/21 13:26 Acetaminophen 325 Mg Tablet PO 650 mg Q6H PRN Administration febrile Amiodarone HCl 200 mg 02/15/21 09:00 02/20/21 09:31 Amiodarone Hcl 200 Mg Tablet PO 200 mg DAILY PENDING SALE TO [facility] Administration Apixaban 5 mg 02/14/21 21:00 02/20/21 09:30 Apixaban 5 Mg Tablet PO Not Given BID PENDING SALE TO [facility] Aspirin 81 mg 02/15/21 09:00 02/20/21 09:30 Aspirin 81 Mg Tab.Chew PO Not Given DAILY PENDING SALE TO [facility] Docusate Sodium 100 mg 02/14/21 18:00 Docusate Sodium 100 Mg Capsule PO BID PRN Constipation Furosemide 40 mg 02/19/21 18:00 02/20/21 09:31 Furosemide 40 Mg/4 Ml Vial IVPUSH 40 mg BID@0900,1800 PENDING SALE TO [facility] Administration Protocol Piperacillin Sod/Tazobactam 50 mls @ 100 mls/hr 02/15/21 06:45 02/20/21 13:39 Sod 2.25 gm/ Sodium Chloride IV Infused Q6H PENDING SALE TO [facility] Infusion Nitroglycerin 0.4 mg 02/14/21 18:00 Nitroglycerin 0.4 Mg Tab.Subl SUBLINGUAL Q5M PRN Chest Pain Omeprazole 20 mg 02/15/21 06:30 02/20/21 06:27 Omeprazole 20 Mg Capsule.Dr PO 20 mg BID@0630,1630 PENDING SALE TO [facility] Administration Ondansetron HCl 4 mg 02/16/21 01:45 02/16/21 03:31 Ondansetron Hcl 4 Mg/2 Ml Vial IVPUSH 4 mg Q6H PRN Administration nausea Pharmacy Consult 1 each 02/14/21 17:10 Consult Rx Perform Med Rec MISCELLANE ONCE PRN Consult order Home Medications Medication Instructions Recorded Confirmed Last Taken Type amiodarone 200 mg tablet 200 mg PO DAILY 03/29/20 02/14/21 02/14/21 History aspirin 81 mg tablet 81 mg PO DAILY 03/29/20 02/14/21 02/14/21 History cholecalciferol (vitamin D3) 50 50 mcg PO DAILY 03/29/20 02/14/21 02/14/21 History mcg (2,000 unit) capsule docusate sodium 100 mg capsule 100 mg PO BID PRN 03/29/20 02/14/21 02/14/21 History multivitamin 1 cap PO DAILY 03/29/20 02/14/21 02/14/21 History nitroglycerin 0.4 mg sublingual 0.4 mg SUBLINGUAL Q5M PRN 03/29/20 02/14/21 02/14/21 History tablet omeprazole 20 mg capsule,delayed 20 mg PO BID@0630,1630 03/29/20 02/14/21 02/14/21 History release spironolactone 25 mg tablet 25 mg PO QAM 03/29/20 02/14/21 02/14/21 History ascorbic acid (vitamin C) 500 mg 500 mg PO DAILY 06/17/20 02/14/21 02/14/21 History tablet (Vitamin C) etanercept 50 mg/mL (1 mL) 1 mg SUBCUT IRBY 06/17/20 02/14/21 02/14/21 History subcutaneous pen injector (Enbrel SureClick) furosemide 40 mg tablet 40 mg PO QNOON 06/17/20 02/14/21 02/14/21 History oxycodone 10 mg tablet 1 tab PO BID 06/17/20 02/14/21 02/14/21 History sacubitril 24 mg-valsartan 26 mg 1 tab PO BID 06/17/20 02/14/21 02/14/21 History tablet (Entresto) zolpidem 10 mg tablet 0.5 - 1 tab PO BEDTIME 06/17/20 02/14/21 02/13/21 History rosuvastatin 20 mg tablet 1 tab PO BEDTIME 07/04/20 02/14/21 02/13/21 History acetaminophen 500 mg tablet 500 mg PO BID 02/14/21 02/14/21 02/14/21 History apixaban 5 mg tablet (Eliquis) 1 tab PO BID 02/14/21 02/14/21 02/14/21 History carvedilol 6.25 mg tablet 1 tab PO BID 02/14/21 02/14/21 02/14/21 History Exam Exam Date and Time: February 20, 2021 1833 Height,Weight and Vital Signs: Height 4 ft 11 in Weight 78.4 kg Last Vital Signs Temp 98 F 02/20/21 14:55 Pulse 96 02/20/21 14:55 Resp 18 02/20/21 14:55 BP 115/76 02/20/21 14:55 Pulse Ox 96 02/20/21 14:55 Oxygen Flow Rate 2 02/14/21 20:18 Pertinent Lab Results Pertinent Lab Results: Laboratory Tests 02/14/21 02/14/21 02/14/21 13:48 13:48 13:48 WBC 7.7 RBC 3.17 L Hgb 8.2 L Hct 27.2 L MCV 85.8 MCH 25.9 L MCHC 30.1 L RDW 15.8 Plt Count 306 D MPV 9.8 Immature Gran % (Auto) 0.4 Neut % (Auto) 73.5 H Lymph % (Auto) 14.2 L [place] % (Auto) 9.5 Eos % (Auto) 2.0 Baso % (Auto) 0.4 Lymph # (Auto) 1.1 L [place] # (Auto) 0.7 Eos # (Auto) 0.2 Baso # (Auto) 0.0 Abs Immat Gran (auto) 0.03 Absolute Neuts (auto) 5.7 Absolute Nucleated RBC 0.000 Nucleated RBC % (auto) 0.0 PT 24.8 H INR 2.1 H APTT 38.6 H Sodium 137 Potassium 3.5 Chloride 99 Carbon Dioxide 26 Anion Gap 16 BUN 37 H D Creatinine 2.35 H Estim Creat Clear Calc 19.8 Estimated GFR 21 Random Glucose 106 Lactic Acid Calcium 8.8 Phosphorus Magnesium 2.0 Total Bilirubin 0.5 Direct Bilirubin 0.2 AST 8 ALT 7 Alkaline Phosphatase 68 Troponin I High Sens B-Natriuretic Peptide Total Protein 7.3 Albumin 3.6 Lipase 18 Urine Color Urine Appearance Urine pH Ur Specific [place] Urine Protein Urine Glucose (UA) Urine Ketones Urine Blood Urine Nitrite Ur Leukocyte Esterase Urine RBC Urine WBC Urine WBC Clumps Ur Squamous Epith Cells Amorphous Sediment Urine Bacteria COVID-19 ([facility]) COVID-19 Clin Com Blood Type Antibody Screen Crossmatch 02/14/21 02/14/21 02/14/21 14:08 14:35 15:55 WBC RBC Hgb Hct MCV MCH MCHC RDW Plt Count MPV Immature Gran % (Auto) Neut % (Auto) Lymph % (Auto) [place] % (Auto) Eos % (Auto) Baso % (Auto) Lymph # (Auto) [place] # (Auto) Eos # (Auto) Baso # (Auto) Abs Immat Gran (auto) Absolute Neuts (auto) Absolute Nucleated RBC Nucleated RBC % (auto) PT INR APTT Sodium Potassium Chloride Carbon Dioxide Anion Gap BUN Creatinine Estim Creat Clear Calc Estimated GFR Random Glucose Lactic Acid 0.9 Calcium Phosphorus Magnesium Total Bilirubin Direct Bilirubin AST ALT Alkaline Phosphatase Troponin I High Sens 9.3 B-Natriuretic Peptide 3214 H Total Protein Albumin Lipase Urine Color STRAW Urine Appearance CLOUDY Urine pH 6.0 Ur Specific [place] <= 1.005 Urine Protein 1+ H Urine Glucose (UA) NEG Urine Ketones NEG Urine Blood 3+ H Urine Nitrite NEG Ur Leukocyte Esterase 3+ H Urine RBC 5-9 H Urine WBC TNTC H Urine WBC Clumps NOTED Ur Squamous Epith Cells NONE Amorphous Sediment 2+ Urine Bacteria 2+ COVID-19 ([facility]) COVID-19 Clin Com Blood Type Antibody Screen Crossmatch 02/14/21 02/15/21 02/15/21 17:33 05:16 05:16 WBC 6.7 RBC 2.96 L Hgb 7.7 L Hct 25.6 L MCV 86.5 MCH 26.0 L MCHC 30.1 L RDW 15.9 Plt Count 263 MPV 10.5 Immature Gran % (Auto) 0.1 Neut % (Auto) 62.8 Lymph % (Auto) 18.7 L [place] % (Auto) 13.9 H Eos % (Auto) 3.9 Baso % (Auto) 0.6 Lymph # (Auto) 1.3 [place] # (Auto) 0.9 Eos # (Auto) 0.3 Baso # (Auto) 0.0 Abs Immat Gran (auto) 0.01 Absolute Neuts (auto) 4.2 Absolute Nucleated RBC 0.000 Nucleated RBC % (auto) 0.0 PT 27.8 H INR 2.4 H APTT 35.6 Sodium Potassium Chloride Carbon Dioxide Anion Gap BUN Creatinine Estim Creat Clear Calc Estimated GFR Random Glucose Lactic Acid Calcium Phosphorus Magnesium Total Bilirubin Direct Bilirubin AST ALT Alkaline Phosphatase Troponin I High Sens B-Natriuretic Peptide Total Protein Albumin Lipase Urine Color Urine Appearance Urine pH Ur Specific [place] Urine Protein Urine Glucose (UA) Urine Ketones Urine Blood Urine Nitrite Ur Leukocyte Esterase Urine RBC Urine WBC Urine WBC Clumps Ur Squamous Epith Cells Amorphous Sediment Urine Bacteria COVID-19 ([facility]YSI) Negative COVID-19 Clin Com See Note Blood Type Antibody Screen Crossmatch 02/15/21 02/15/21 02/16/21 05:16 08:47 05:23 WBC 7.6 RBC 3.18 L Hgb 8.5 L Hct 26.8 L MCV 84.3 MCH 26.7 L MCHC 31.7 RDW 15.8 Plt Count 269 MPV 10.2 Immature Gran % (Auto) 0.1 Neut % (Auto) 69.3 Lymph % (Auto) 16.1 L [place] % (Auto) 11.2 H Eos % (Auto) 2.9 Baso % (Auto) 0.4 Lymph # (Auto) 1.2 [place] # (Auto) 0.9 Eos # (Auto) 0.2 Baso # (Auto) 0.0 Abs Immat Gran (auto) 0.01 Absolute Neuts (auto) 5.3 Absolute Nucleated RBC 0.000 Nucleated RBC % (auto) 0.0 PT INR APTT Sodium 137 Potassium 3.6 Chloride 103 Carbon Dioxide 22 Anion Gap 16 BUN 35 H Creatinine 2.38 H Estim Creat Clear Calc 19.6 Estimated GFR 20 Random Glucose 100 Lactic Acid Calcium 8.5 Phosphorus 3.9 Magnesium 2.1 Total Bilirubin Direct Bilirubin AST ALT Alkaline Phosphatase Troponin I High Sens B-Natriuretic Peptide Total Protein Albumin Lipase Urine Color Urine Appearance Urine pH Ur Specific [place] Urine Protein Urine Glucose (UA) Urine Ketones Urine Blood Urine Nitrite Ur Leukocyte Esterase Urine RBC Urine WBC Urine WBC Clumps Ur Squamous Epith Cells Amorphous Sediment Urine Bacteria COVID-19 ([facility]) COVID-19 Clin Com Blood Type A Positive Antibody Screen NEGATIVE Crossmatch See Detail 02/16/21 02/16/21 02/17/21 05:23 05:23 05:22 WBC 8.1 RBC 3.13 L Hgb 8.1 L Hct 26.8 L MCV 85.6 MCH 25.9 L MCHC 30.2 L RDW 16.0 Plt Count 276 MPV 10.4 Immature Gran % (Auto) 0.4 Neut % (Auto) 69.6 Lymph % (Auto) 15.2 L [place] % (Auto) 12.3 H Eos % (Auto) 2.1 Baso % (Auto) 0.4 Lymph # (Auto) 1.2 [place] # (Auto) 1.0 Eos # (Auto) 0.2 Baso # (Auto) 0.0 Abs Immat Gran (auto) 0.03 Absolute Neuts (auto) 5.7 Absolute Nucleated RBC 0.000 Nucleated RBC % (auto) 0.0 PT 24.3 H INR 2.1 H APTT 33.2 Sodium 137 Potassium 3.7 Chloride 105 Carbon Dioxide 22 Anion Gap 14 BUN 30 H Creatinine 1.99 H Estim Creat Clear Calc 23.5 Estimated GFR 25 Random Glucose 110 Lactic Acid Calcium 8.5 Phosphorus Magnesium Total Bilirubin Direct Bilirubin AST ALT Alkaline Phosphatase Troponin I High Sens B-Natriuretic Peptide Total Protein Albumin Lipase Urine Color Urine Appearance Urine pH Ur Specific [place] Urine Protein Urine Glucose (UA) Urine Ketones Urine Blood Urine Nitrite Ur Leukocyte Esterase Urine RBC Urine WBC Urine WBC Clumps Ur Squamous Epith Cells Amorphous Sediment Urine Bacteria COVID-19 (DEYSI) COVID-19 Clin Com Blood Type Antibody Screen Crossmatch 02/17/21 02/17/21 02/18/21 05:22 05:22 05:53 WBC 7.4 RBC 3.12 L Hgb 8.3 L Hct 26.6 L MCV 85.3 MCH 26.6 L MCHC 31.2 RDW 16.4 H Plt Count 307 MPV 10.6 Immature Gran % (Auto) 0.3 Neut % (Auto) 63.2 Lymph % (Auto) 20.9 [place] % (Auto) 11.7 H Eos % (Auto) 3.5 Baso % (Auto) 0.4 Lymph # (Auto) 1.5 [place] # (Auto) 0.9 Eos # (Auto) 0.3 Baso # (Auto) 0.0 Abs Immat Gran (auto) 0.02 Absolute Neuts (auto) 4.7 Absolute Nucleated RBC 0.000 Nucleated RBC % (auto) 0.0 PT 27.5 H INR 2.4 H APTT 34.8 Sodium 140 Potassium 3.4 Chloride 108 Carbon Dioxide 21 L Anion Gap 14 BUN 24 H Creatinine 1.88 H Estim Creat Clear Calc 26.6 Estimated GFR 27 Random Glucose 96 Lactic Acid Calcium 8.5 Phosphorus 2.9 Magnesium 2.1 Total Bilirubin 0.5 Direct Bilirubin AST 13 D ALT 12 Alkaline Phosphatase 75 Troponin I High Sens B-Natriuretic Peptide Total Protein 6.5 Albumin 3.3 L Lipase Urine Color Urine Appearance Urine pH Ur Specific [place] Urine Protein Urine Glucose (UA) Urine Ketones Urine Blood Urine Nitrite Ur Leukocyte Esterase Urine RBC Urine WBC Urine WBC Clumps Ur Squamous Epith Cells Amorphous Sediment Urine Bacteria COVID-19 ([facility]) COVID-19 [facility] Com Blood Type Antibody Screen Crossmatch 02/18/21 02/18/21 02/19/21 05:53 05:53 06:57 WBC 7.6 RBC 3.17 L Hgb 8.5 L Hct 27.2 L MCV 85.8 MCH 26.8 L MCHC 31.3 RDW 16.6 H Plt Count 319 MPV 10.3 Immature Gran % (Auto) 0.4 Neut % (Auto) 73.4 H Lymph % (Auto) 11.9 L [place] % (Auto) 11.0 Eos % (Auto) 2.8 Baso % (Auto) 0.5 Lymph # (Auto) 0.9 L [place] # (Auto) 0.8 Eos # (Auto) 0.2 Baso # (Auto) 0.0 Abs Immat Gran (auto) 0.03 Absolute Neuts (auto) 5.6 Absolute Nucleated RBC 0.000 Nucleated RBC % (auto) 0.0 PT 27.9 H INR 2.4 H APTT 36.5 Sodium 139 Potassium 3.7 Chloride 106 Carbon Dioxide 22 Anion Gap 15 BUN 23 H Creatinine 1.88 H Estim Creat Clear Calc 26.6 Estimated GFR 27 Random Glucose 87 Lactic Acid Calcium 8.7 Phosphorus 3.4 Magnesium 1.9 Total Bilirubin 0.5 Direct Bilirubin AST 22 D ALT 24 Alkaline Phosphatase 90 Troponin I High Sens B-Natriuretic Peptide Total Protein 6.8 Albumin 3.3 L Lipase Urine Color Urine Appearance Urine pH Ur Specific [place] Urine Protein Urine Glucose (UA) Urine Ketones Urine Blood Urine Nitrite Ur Leukocyte Esterase Urine RBC Urine WBC Urine WBC Clumps Ur Squamous Epith Cells Amorphous Sediment Urine Bacteria COVID-19 (DEYSI) COVID-19 [facility] Com Blood Type Antibody Screen Crossmatch 02/19/21 02/19/21 02/20/21 06:57 06:57 05:44 WBC RBC Hgb Hct MCV MCH MCHC RDW Plt Count MPV Immature Gran % (Auto) Neut % (Auto) Lymph % (Auto) [place] % (Auto) Eos % (Auto) Baso % (Auto) Lymph # (Auto) [place] # (Auto) Eos # (Auto) Baso # (Auto) Abs Immat Gran (auto) Absolute Neuts (auto) Absolute Nucleated RBC Nucleated RBC % (auto) PT 27.4 H INR 2.4 H APTT 35.0 Sodium 137 Potassium 3.6 Chloride 105 Carbon Dioxide 23 Anion Gap 13 BUN 23 H Creatinine 1.77 H Estim Creat Clear Calc 28.2 Estimated GFR 29 Random Glucose 94 Lactic Acid Calcium 8.8 Phosphorus 3.5 Magnesium 2.0 Total Bilirubin 0.5 Direct Bilirubin AST 29 ALT 35 H Alkaline Phosphatase 110 D Troponin I High Sens B-Natriuretic Peptide 4411 H Total Protein 6.8 Albumin 3.2 L Lipase Urine Color Urine Appearance Urine pH Ur Specific [place] Urine Protein Urine Glucose (UA) Urine Ketones Urine Blood Urine Nitrite Ur Leukocyte Esterase Urine RBC Urine WBC Urine WBC Clumps Ur Squamous Epith Cells Amorphous Sediment Urine Bacteria COVID-19 ([facility]SI) COVID-19 [facility] Com Blood Type Antibody Screen Crossmatch 02/20/21 02/20/21 05:44 05:44 WBC 8.6 RBC 3.23 L Hgb 8.6 L Hct 27.2 L MCV 84.2 MCH 26.6 L MCHC 31.6 RDW 17.0 H Plt Count 352 MPV 10.1 Immature Gran % (Auto) Neut % (Auto) Lymph % (Auto) [place] % (Auto) Eos % (Auto) Baso % (Auto) Lymph # (Auto) [place] # (Auto) Eos # (Auto) Baso # (Auto) Abs Immat Gran (auto) Absolute Neuts (auto) Absolute Nucleated RBC 0.000 Nucleated RBC % (auto) 0.0 PT INR APTT Sodium 137 Potassium 3.6 Chloride 103 Carbon Dioxide 19 L Anion Gap 19 BUN 28 H Creatinine 1.87 H Estim Creat Clear Calc 26.7 Estimated GFR 27 Random Glucose 102 Lactic Acid Calcium 8.6 Phosphorus Magnesium Total Bilirubin Direct Bilirubin AST ALT Alkaline Phosphatase Troponin I High Sens B-Natriuretic Peptide Total Protein Albumin Lipase Urine Color Urine Appearance Urine pH Ur Specific [place] Urine Protein Urine Glucose (UA) Urine Ketones Urine Blood Urine Nitrite Ur Leukocyte Esterase Urine RBC Urine WBC Urine WBC Clumps Ur Squamous Epith Cells Amorphous Sediment Urine Bacteria COVID-19 (DEYSI) COVID-19 [facility] Com Blood Type Antibody Screen Crossmatch Airway Mallampati Class: II TM Dist: >3cm Denture: Upper Loose/Missing/Broken Teeth: No Heart: RRR Lungs: CTA Assessment and Plan Assessment Anesthesia Assessment: Anesthesia Plan Discussed Final Anesthetic Review Family History of Problems with Anesthesia: No History of Problems with Anesthesia: No NPO: Yes ASA Class: III and Emergency Final Preanesthetic Review: No Changes in Pt Med Stat, Meds/Allgs Chart Reviewed, Consent Obtained/Reviewed and Anes Risks/Benef Reviewed Patient Risk: High Procedure Risk: Low Anesthetic Plan Anesthetic Plan: GA Disposition: Standard PACU
--- NOTE | 2021-02-20 18:38 | MHC.SHP ---
Pre-Procedural Eval Section A Date of Service: 02/20/21 The patient is an INPATIENT: Yes Changes since office visit: No Cold of Flu in the past 2 weeks, No New Medical Problems, No Changes in Medication and No Patient answered all questions The History & Physical has been completed within 30 days and I have reviewed it.: Yes Section B Chief Complaint: Congestive heart failure Allergies: Allergies Allergy/AdvReac Type Severity Reaction Status Date / Time No Known Food Allergies Allergy Unknown Verified 02/14/21 12:05 Plan Diagnosis/Plan: Unchanged (Cystoscopy with bilateral stent exchange) I have reviewed the history and physical and performed a pertinent physical examination on my patient. No changes have occurred unless specified.
--- NOTE | 2021-02-20 19:41 | P.OP_ITS ---
Operative Note Operative Note Date of Service: 02/20/21 Narrative: PreOperative Diagnosis: Bilateral indwelling stents with rising creatinine and question of pyelonephritis Post Operative Diagnosis: 1. Bilateral indwelling stents with rising creatinine 2. Left pyelonephritis Procedure: 1. Cystoscopy with removal, retrograde and replacement of right stent 2. Removal, retrograde and replacement of left stent 3. Left ureteroscopy with foreign body removal 4. Aspiration of renal urine bilateral Surgeon: Dr Rosales Healy Anesthesia: General Indications for procedure: This is a 65-year-old female. Known to Urology. Had been seen with elevated creatinine in May 2020. At that time diagnosed with stage III cystocele causing J hooking and bilateral stents were placed to relieve ureteric drainage. Re presents with question of infection and recurring hydronephrosis. Stents are over 6-month-old and require stent exchange. Procedure: After informed consent was verified the patient was brought to the operating room and placed in a supine position. Anesthesia was administered per protocol. The patient was placed in a modified dorsal lithotomy position and prepped and draped in a sterile fashion. Safety pause time-out was performed. Antibiotics have been given. Twenty-two [place]er cystoscope was inserted. Bladder had irritation in cystitis. Old bilateral stents in place. Debris was present in dependent portion of bladder. This was suggestive of incomplete bladder emptying. The stents were brought to the meatus. The right stent was cannulated with a Sensor wire and removed. Open-ended catheter was placed. Right kidney was aspirated. Urine was sent for culture. Retrograde examination was performed. Sensor wire was placed. Six [place] by 20 cm stent was placed without difficulty. Good coil seen within renal pelvis and in bladder. Bladder end was grasped and moved midline in order to complete a full curl. Similar procedure repeated on left side. At aspiration on left side purlent material obtained. This was sent for renal culture. Retrograde was performed. Sensor wire was replaced. Six [place] by 20 cm stent was placed. After the deployment the bladder end migrated into the distal portion of the ureter. Rigid ureteroscopy was performed. The end of the stent was grasped with a Zero tip basket and moved down into the bladder. The regular cystoscope was placed and the stent grasped and move midline in order to form a complete curl. Fluoroscopy indicated good position of the proximal portion in the collecting system. Reeves catheter was placed to allow drainage. The patient tolerated procedure well and was extubated in the operating room then transferred in stable condition to the recovery area. Pathology: Aspiration from each kidney Drains: Bilateral 6 [place] by 20 cm double-J ureteric stent
[2021-02-20] MEDS: levoFLOXacin/D5W 500 MG/100 ML PIGGYBACK 100 MG IV (21:25)
[2021-02-20] MEDS: Acetaminophen 325 MG TABLET 650 MG PO (21:26)
[2021-02-20] MEDS: Morphine Sulfate 2 MG/ML CARTRIDGE IVPUSH (21:26)
[2021-02-21] VITALS (13 sets, daily range): BP systolic 80–117; BP diastolic 42–72; PULSE 83–94; RESP 16–18; TEMP 35.9–37.1; O2SAT 95–100
[2021-02-21] MEDS: Piperacillin Sodium/Tazobactam 2.25 GM in 0.9 % Sodium Chloride 50 ML IV ×3 (06:06→19:29)
[2021-02-21] MEDS: Omeprazole 20 MG CAPSULE.DR PO ×2 (06:06→15:57)
[2021-02-21 07:08] LABS: B Type Natriuretic Peptide 4324 pg/mL (<100)
[2021-02-21 07:18] LABS: Anion Gap 13 (12-20); Blood Urea Nitrogen 26 mg/dL (9-16); Calcium 8.4 mg/dL (8.4-10.2); Carbon Dioxide 26 mmol/L (22-29); Chloride 104 mmol/L (96-108); Creatinine Clr Calc Pharmacy 28.4; Estimated Glomerular Filt Rate 29; Glucose Random 80 mg/dL (60-115); Magnesium 1.9 mg/dL (1.6-2.6); Potassium 3.9 mmol/L (3.3-5.1); Sodium 139 mmol/L (135-145)
--- NOTE | 2021-02-21 08:16 | HO.POSTANES ---
Post Anesthesia Evaluation Post Anesthesia Evaluation Vital Signs: Vital Signs Temp Pulse Resp BP Pulse Ox 02/21/21 07:35 97.1 F 83 18 117/71 100 02/21/21 03:25 97.3 F 83 16 94/62 98 02/21/21 00:00 96.7 F L 83 16 93/63 95 02/20/21 21:17 97.8 F 86 18 101/65 98 02/20/21 20:45 97.4 F 82 16 95/47 L 100 02/20/21 20:30 83 16 85/44 L 99 Anesthesia: General LMA Mental Status: Awake Pain Control: Satisfactory Nausea/Vomiting: None Hydration: Adequate Anesthesia-Related Issues: No Anes. Related Issues
[2021-02-21] MEDS: Amiodarone HCL 200 MG TABLET PO (08:47)
[2021-02-21] MEDS: Apixaban 5 MG TABLET PO ×2 (08:47→20:23)
[2021-02-21] MEDS: Aspirin 81 MG TAB.CHEW PO (08:47)
[2021-02-21] MEDS: Furosemide 40 MG/4 ML VIAL IVPUSH (08:47)
--- NOTE | 2021-02-21 10:09 | P.PNIM_ITS ---
Subjective Subjective Date of Service: 02/21/21 Interval History: history in [place]ian continued dyspnea with minimal movement BP low overnight, now improved no lightheadedness no chest pain Review of Systems Review of Systems: Yes all other systems are reviewed and are negative Physical Exam Vital Signs: Vital Signs: Last Vital Signs Temp 97.1 F 02/21/21 07:35 Pulse 83 02/21/21 08:47 Resp 18 02/21/21 07:35 BP 117/71 02/21/21 08:47 Pulse Ox 100 02/21/21 07:35 Oxygen Flow Rate 2 02/20/21 19:11 Body Mass Index 34.9 Gen: in no acute distress HEENT: sclera anicteric, moist mucus membranes Neck: supple, JVD present Lungs: clear to auscultation bilaterally Heart: regular rate and rhythm, no murmurs Abd: soft, non-tender, non-distended Ext: no edema Skin: warm/well-perfused Neuro: alert and oriented x3, no focal findings Psych: appropriate affect Objective Data Current Medications Generic Name Dose Route Start Last Admin Trade Name Davidq PRN Reason Stop Dose Admin Acetaminophen 650 mg 02/14/21 19:41 02/19/21 13:26 Acetaminophen 325 Mg Tablet PO 650 mg Q6H PRN Administration febrile Amiodarone HCl 200 mg 02/15/21 09:00 02/21/21 08:47 Amiodarone Hcl 200 Mg Tablet PO 200 mg DAILY KEMAL Administration Apixaban 5 mg 02/14/21 21:00 02/21/21 08:47 Apixaban 5 Mg Tablet PO 5 mg BID KEMAL Administration Aspirin 81 mg 02/15/21 09:00 02/21/21 08:47 Aspirin 81 Mg Tab.Chew PO 81 mg DAILY KEMAL Administration Docusate Sodium 100 mg 02/14/21 18:00 Docusate Sodium 100 Mg Capsule PO BID PRN Constipation Fentanyl 25 mcg 02/20/21 19:11 Fentanyl Citrate/Pf 100 Mcg/2 Ml Vial IVPUSH Q5M PRN Pain, Moderate (Pain Scale 4-6 Protocol Furosemide 40 mg 02/19/21 18:00 02/21/21 08:47 Furosemide 40 Mg/4 Ml Vial IVPUSH 40 mg BID@0900,1800 KEMAL Administration Protocol Piperacillin Sod/Tazobactam 50 mls @ 100 mls/hr 02/15/21 06:45 02/21/21 07:23 Sod 2.25 gm/ Sodium Chloride IV Infused Q6H KEMAL Infusion Promethazine HCl 12.5 mg/ 50.5 mls @ 202 mls/hr 02/20/21 19:11 Sodium Chloride IV ONCE PRN Nausea and Vomiting Nitroglycerin 0.4 mg 02/14/21 18:00 Nitroglycerin 0.4 Mg Tab.Subl SUBLINGUAL Q5M PRN Chest Pain Omeprazole 20 mg 02/15/21 06:30 02/21/21 06:06 Omeprazole 20 Mg Capsule.Dr PO 20 mg BID@0630,1630 KEMAL Administration Ondansetron HCl 4 mg 02/16/21 01:45 02/16/21 03:31 Ondansetron Hcl 4 Mg/2 Ml Vial IVPUSH 4 mg Q6H PRN Administration nausea Pharmacy Consult 1 each 02/14/21 17:10 Consult Rx Perform Med Rec MISCELLANE ONCE PRN Consult order Labs CBC & Chem 7: 02/20/21 05:44 02/21/21 06:08 Labs: Laboratory Results - last 24 hr 02/21/21 02/21/21 06:08 06:08 Anion Gap 13 Estim Creat Clear Calc 28.4 Estimated GFR 29 Random Glucose 80 Calcium 8.4 Magnesium 1.9 B-Natriuretic Peptide 4324 H TTE 02/20/21 - Severely increased left ventricular cavity size.? There is ? ? normal left ventricular wall thickness.? The left ventricular? ? systolic function is severely decreased.? The visually estimated ejection fraction is <10%. ? - Normal right ventricular cavity size and systolic function.? ? There is a pacemaker wire seen in the right ventricle. ? - The left atrium is severely dilated.? The right atrium is? ? ? moderately dilated.? - There is moderate mitral valve regurgitation.? - There is moderate tricuspid valve regurgitation. ? Microbiology Microbiology Results: Microbiology 02/14/21 15:55 Blood Culture - Final Blood - Venous Viridans streptococcus group Assessment and Plan (1) Chronic renal failure, stage 3 (moderate): Status: Acute Assessment and Plan: hospital d#8 65yo M with cardiomyopathy/HFrEF, pAF, BiV pacer/ICD, B ureteral stents due to chronic hydronephrosis presented with dysuria/weakness admitted to ICU due to hypotension but did not require pressors stepped down to C 02/17/21 # acute pyelonephritis - fever resolved, BCx 1/2 Strep viridans = contaminant, UCx contaminated, on pip/salome d#7, follow t aspiration on left side purlent material obtained. - CT showed chronic bilateral hydronephrosis and hydroureter down to bladder with bilateral ureteral stents in position; right kidney borderline larger with mild perinephric and upper periureteral stranding; no gas bubble or calculi noted - POD#1 ureteral stent change. aspirated urine from R kidneys purulent material from L kidney; follow Cx and continue pip/salome # acute/chronic HFrEF - IV diuresis with furosemide- continue; may need to increase dose if does not respond well. holding Entresto + carvedilol + spironolactone due to low BP, but will resume Entresto if BP and SCr allow- discuss with Cardiology # HERMELINDO/CKD3 - SCr improved # pAF - now in NSR; continue amiodarone + apixaban # chronic hypoxic respiratory failure - continue home O2 2.5L via NC # VTE ppx - apixaban # dispo - anticipate home with VNA pending urine culture results + resolution of hypotension Quality Stroke Does the patient have a stroke diagnosis?: No VTE Prior VTE?: No VTE Risk Level:: Medical - moderate - high VTE Device Contraindication: N/A - Device Ordered VTE Drug Contraindication: N/A - Med Ordered
--- NOTE | 2021-02-21 12:55 | PM.UROPN ---
Subjective Subjective Date of Service: 02/21/21 Interval history: Creatinine with slight improvement Continue hydration Continue Reeves catheter Continue to follow creatinine Urine culture from each kidney is pending Left kidney did have evidence of pyelonephritis Physical Exam Vital Signs: Vital Signs: Last Vital Signs Temp 96.8 F 02/21/21 11:31 Pulse 85 02/21/21 11:31 Resp 18 02/21/21 11:31 BP 84/46 L 02/21/21 11:50 Pulse Ox 98 02/21/21 11:31 Oxygen Flow Rate 2 02/20/21 19:11 Body Mass Index 34.9 Const: General: cooperative, healthy appearing, comfortable and no acute distress Orientation/consciousness: patient oriented x3 HENMT: Face and sinus: Yes normal facial exam Mouth: moist mucous membranes Neck: Neck: Yes normal visual inspection, Yes full ROM and Yes trachea midline Chest: Chest palpation & inspection: normal inspection of the chest Resp: Effort & Inspection: normal respiratory effort, able to speak in complete sentences and no respiratory distress GI: Inspection: Yes normal to inspection Back/Spine/Pelvis: Cervical Spine: normal cervical lordosis Thoracic/Lumbar Spine: thoracic and lumbar spine normal to inspection Skin: General skin exam: no rashes or lesions noted Neuro: General: patient oriented x3, gait normal, tone normal and moves all extremities Extrem: General: Yes normal to inspection and Yes capillary refill normal Urology Results Labs CBC & Chem 7: 02/20/21 05:44 02/21/21 06:08 Labs: Laboratory Results - last 24 hr 02/21/21 02/21/21 06:08 06:08 Sodium 139 Potassium 3.9 Chloride 104 Carbon Dioxide 26 Anion Gap 13 BUN 26 H Creatinine 1.76 H Estim Creat Clear Calc 28.4 Estimated GFR 29 Random Glucose 80 Calcium 8.4 Magnesium 1.9 B-Natriuretic Peptide 4324 H Progress Note: A&P Assessment and plan (1) Acute pyelonephritis: Status: Acute (2) Acute on chronic renal insufficiency: Status: Acute Assessment and Plan: Continue supportive care Continue to follow creatinine Fall Risk Details Current Medications: Current Medications Generic Name Dose Route Start Last Admin Trade Name Freq PRN Reason Stop Dose Admin Acetaminophen 650 mg 02/14/21 19:41 02/19/21 13:26 Acetaminophen 325 Mg Tablet PO 650 mg Q6H PRN Administration febrile Amiodarone HCl 200 mg 02/15/21 09:00 02/21/21 08:47 Amiodarone Hcl 200 Mg Tablet PO 200 mg DAILY KEMAL Administration Apixaban 5 mg 02/14/21 21:00 02/21/21 08:47 Apixaban 5 Mg Tablet PO 5 mg BID KEMAL Administration Aspirin 81 mg 02/15/21 09:00 02/21/21 08:47 Aspirin 81 Mg Tab.Chew PO 81 mg DAILY KEMAL Administration Docusate Sodium 100 mg 02/14/21 18:00 Docusate Sodium 100 Mg Capsule PO BID PRN Constipation Fentanyl 25 mcg 02/20/21 19:11 Fentanyl Citrate/Pf 100 Mcg/2 Ml Vial IVPUSH Q5M PRN Pain, Moderate (Pain Scale 4-6 Protocol Furosemide 40 mg 02/19/21 18:00 02/21/21 08:47 Furosemide 40 Mg/4 Ml Vial IVPUSH 40 mg BID@0900,1800 KEMAL Administration Protocol Piperacillin Sod/Tazobactam 50 mls @ 100 mls/hr 02/15/21 06:45 02/21/21 12:47 Sod 2.25 gm/ Sodium Chloride IV Infused Q6H KEMAL Infusion Promethazine HCl 12.5 mg/ 50.5 mls @ 202 mls/hr 02/20/21 19:11 Sodium Chloride IV ONCE PRN Nausea and Vomiting Nitroglycerin 0.4 mg 02/14/21 18:00 Nitroglycerin 0.4 Mg Tab.Subl SUBLINGUAL Q5M PRN Chest Pain Omeprazole 20 mg 02/15/21 06:30 02/21/21 06:06 Omeprazole 20 Mg Capsule. PO 20 mg BID@0630,1630 KEMAL Administration Ondansetron HCl 4 mg 02/16/21 01:45 02/16/21 03:31 Ondansetron Hcl 4 Mg/2 Ml Vial IVPUSH 4 mg Q6H PRN Administration nausea Pharmacy Consult 1 each 02/14/21 17:10 Consult Rx Perform Med Rec MISCELLANE ONCE PRN Consult order Time Spent With Patient Time: Total time spent is greater than 50% in coordination of care (as documented) at patient's floor/unit and/or counseling patient: Time with patient: less than 15 minutes Progress Note: Quality Stroke Does the patient have a stroke diagnosis?: No
--- NOTE | 2021-02-21 13:32 | MHC.CLN ---
F/U PO INTAKE 50-100%. CONTINUES WITH CARDIAC DIET AND SUPPLEMENTS ENSURE BID AND NIELS BID TO PROMOTE WOUND HEALING (860 KCAL, 45 G PROTEIN). COCCYX WOUND DESCRIBED SCABBED. CONTINUE TO FOLLOW INTAKE.
--- NOTE | 2021-02-21 14:53 | P.PNCA_ITS ---
Subjective Subjective Date of Service: 02/21/21 Interval history: She is feeling fine. No fevers or chills. Denies shortness of breath. Physical Exam Vital Signs: Last Vital Signs Temp 96.8 F 02/21/21 11:31 Pulse 85 02/21/21 11:31 Resp 18 02/21/21 11:31 BP 88/50 L 02/21/21 13:01 Pulse Ox 98 02/21/21 11:31 Oxygen Flow Rate 2 02/20/21 19:11 Body Mass Index 34.9 GENERAL APPEARANCE: in no acute distress, pleasant. NECK: no carotid bruit, JVD to angle of jaw. SKIN: no suspicious lesions, warm and dry. HEART: no murmurs, regular rate and rhythm. LUNGS: clear to auscultation bilaterally. ABDOMEN: soft, nontender. EXTREMITIES: no peripheral edema. PERIPHERAL PULSES: equal. NEUROLOGIC: No gross deficits, AAO X 3 Results Labs and Meds Result diagrams: 02/20/21 05:44 02/21/21 06:08 Lab results: Laboratory Results - last 24 hr 02/21/21 02/21/21 06:08 06:08 Sodium 139 Potassium 3.9 Chloride 104 Carbon Dioxide 26 Anion Gap 13 BUN 26 H Creatinine 1.76 H Estim Creat Clear Calc 28.4 Estimated GFR 29 Random Glucose 80 Calcium 8.4 Magnesium 1.9 B-Natriuretic Peptide 4324 H Imaging Radiologist's impression: Impressions Guidance Fluoroscopy 02/20/21 15:11 IMPRESSION: Fluoroscopy guidance was provided to Dr. Niraj Caba during cystoscopy and stent removal and replacement procedure. Progress Note: A&P Assessment and plan (1) CHF (congestive heart failure): Status: Acute (2) Atrial fibrillation: Status: Acute (3) Cardiomyopathy: Status: Acute Assessment and Plan: 65-year-old female with background history of paroxysmal atrial fibrillation on Eliquis and amiodarone.? She also has cardiomyopathy with EF of 15% and was following with Dr. Choi previously.? As outpatient she is supposed to be on Entresto, spironolactone and carvedilol.? She also has background of rheumatoid arthritis.? She is now presenting with acute pyelonephritis and required intensive care unit admission and has been taken off all her home medications. She is clinically volume overloaded. Echocardiography is showing severely reduced ejection fraction with EF less than 10% and globular heart due to remodeling. Daughter said that patient was seen by Dr. Perez at [facility] for dressed heart failure and was told that she is not a candidate for transplant. Currently she is volume overloaded. I think we try higher dose of diuretics and give her 80 mg IV b.i.d. Lasix. I will also start low-dose hydralazine 10 mg 3 times a day with that. Has a clinical situation improved then we will discuss the case with heart failure at [facility] to see if there is any other options for her given advanced cardiomyopathy. Thank you for allowing me to participate in the care of your patient. Please feel free to contact me if you have any questions. Fall Risk Details Current Medications: Current Medications Generic Name Dose Route Start Last Admin Trade Name Freq PRN Reason Stop Dose Admin Acetaminophen 650 mg 02/14/21 19:41 02/19/21 13:26 Acetaminophen 325 Mg Tablet PO 650 mg Q6H PRN Administration febrile Amiodarone HCl 200 mg 02/15/21 09:00 02/21/21 08:47 Amiodarone Hcl 200 Mg Tablet PO 200 mg DAILY KEMAL Administration Apixaban 5 mg 02/14/21 21:00 02/21/21 08:47 Apixaban 5 Mg Tablet PO 5 mg BID KEMAL Administration Aspirin 81 mg 02/15/21 09:00 02/21/21 08:47 Aspirin 81 Mg Tab.Chew PO 81 mg DAILY KEMAL Administration Docusate Sodium 100 mg 02/14/21 18:00 Docusate Sodium 100 Mg Capsule PO BID PRN Constipation Fentanyl 25 mcg 02/20/21 19:11 Fentanyl Citrate/Pf 100 Mcg/2 Ml Vial IVPUSH Q5M PRN Pain, Moderate (Pain Scale 4-6 Protocol Furosemide 40 mg 02/19/21 18:00 02/21/21 08:47 Furosemide 40 Mg/4 Ml Vial IVPUSH 40 mg BID@0900,1800 KEMAL Administration Protocol Piperacillin Sod/Tazobactam 50 mls @ 100 mls/hr 02/15/21 06:45 02/21/21 12:47 Sod 2.25 gm/ Sodium Chloride IV Infused Q6H KEAML Infusion Promethazine HCl 12.5 mg/ 50.5 mls @ 202 mls/hr 02/20/21 19:11 Sodium Chloride IV ONCE PRN Nausea and Vomiting Nitroglycerin 0.4 mg 02/14/21 18:00 Nitroglycerin 0.4 Mg Tab.Subl SUBLINGUAL Q5M PRN Chest Pain Omeprazole 20 mg 02/15/21 06:30 02/21/21 06:06 Omeprazole 20 Mg Capsule. PO 20 mg BID@0630,6260 KEMAL Administration Ondansetron HCl 4 mg 02/16/21 01:45 02/16/21 03:31 Ondansetron Hcl 4 Mg/2 Ml Vial IVPUSH 4 mg Q6H PRN Administration nausea Pharmacy Consult 1 each 02/14/21 17:10 Consult Rx Perform Med Rec MISCELLANE ONCE PRN Consult order Time Spent With Patient Time: Total time spent is greater than 50% in coordination of care (as documented) at patient's floor/unit and/or counseling patient: Time with patient: 25 - 35 minutes Progress Note: Quality Stroke Does the patient have a stroke diagnosis?: No Procedures Date of Service Date of Service: 02/21/21
--- NOTE | 2021-02-21 15:42 | MHC.CM.PN ---
PT STILL NOT CLEAR FOR DC PER ROUNDS. DC PLAN CONTINUES TO BE HOME.
[2021-02-21] MEDS: Furosemide 40 MG/4 ML VIAL 80 MG IVPUSH (15:57)
[2021-02-21] MEDS: hydrALAZINE HCl 10 MG TABLET PO (15:57)
[2021-02-22] VITALS (7 sets, daily range): BP systolic 96–113; BP diastolic 62–68; PULSE 83–95; RESP 15–18; TEMP 36–36.8; O2SAT 98–100
[2021-02-22] MEDS: Piperacillin Sodium/Tazobactam 2.25 GM in 0.9 % Sodium Chloride 50 ML IV ×2 (00:14→06:06)
[2021-02-22] MEDS: Omeprazole 20 MG CAPSULE.DR PO ×2 (06:06→17:42)
[2021-02-22 06:21] LABS: Hematocrit 26.3 % (37-47); Mean Corpuscular HGB Conc 30.4 g/dl (31.0-35.0); Mean Corpuscular Hemoglobin 26.1 pg (27.0-33.0); Mean Corpuscular Volume 85.9 fL (80-98); Mean Platelet Volume 9.7 fL (9.4-12.3); Platelet Count 308 X10*3/uL (160-400); Red Blood Count 3.06 X10*6/uL (4.20-5.50); Red Cell Distribution Width 16.9 % (11.0-16.0); White Blood Count 7.3 X10*3/uL (4.8-10.8)
[2021-02-22 06:46] LABS: B Type Natriuretic Peptide 3002 pg/mL (<100)
[2021-02-22 06:54] LABS: Anion Gap 12 (12-20); Blood Urea Nitrogen 23 mg/dL (9-16); Calcium 8.2 mg/dL (8.4-10.2); Carbon Dioxide 31 mmol/L (22-29); Chloride 101 mmol/L (96-108); Creatinine Clr Calc Pharmacy 28.6; Estimated Glomerular Filt Rate 29; Glucose Random 97 mg/dL (60-115); Magnesium 1.7 mg/dL (1.6-2.6); Potassium 2.9 mmol/L (3.3-5.1); Sodium 141 mmol/L (135-145)
[2021-02-22] MEDS: Furosemide 40 MG/4 ML VIAL 80 MG IVPUSH ×2 (08:19→17:42)
[2021-02-22] MEDS: Potassium Chloride/H20 10 MEQ/100 ML PIGGYBACK 100 MEQ IV ×4 (08:20→11:20)
[2021-02-22] MEDS: Apixaban 5 MG TABLET PO ×2 (08:20→20:50)
[2021-02-22] MEDS: Potassium Chloride ER 20 MEQ TAB.ER.PRT 40 MEQ PO (08:20)
[2021-02-22] MEDS: Aspirin 81 MG TAB.CHEW PO (08:20)
[2021-02-22] MEDS: hydrALAZINE HCl 10 MG TABLET PO (09:22)
[2021-02-22] MEDS: Spironolactone 25 MG TABLET PO (09:23)
--- NOTE | 2021-02-22 10:24 | P.PNIM_ITS ---
Subjective Subjective Date of Service: 02/22/21 Interval History: History in [place]an from the patient. Dyspnea with minimal movement. No lightheadedness. Intraoperative aspirates from kidneys growing yeast. No flank pain. No fever. Review of Systems Review of Systems: Yes all other systems are reviewed and are negative Physical Exam Vital Signs: Vital Signs: Last Vital Signs Temp 96.8 F 02/22/21 08:00 Pulse 86 02/22/21 08:00 Resp 18 02/22/21 08:00 BP 104/64 02/22/21 08:00 Pulse Ox 99 02/22/21 08:00 Oxygen Flow Rate 2.5 02/21/21 19:11 Body Mass Index 34.9 Gen: in no acute distress HEENT: sclera anicteric, moist mucus membranes Neck: supple, JVD present Lungs: clear to auscultation bilaterally Heart: regular rate and rhythm, no murmurs Abd: soft, non-tender, non-distended Ext: no edema Skin: warm/well-perfused Neuro: alert and oriented x3, no focal findings Psych: appropriate affect Objective Data Current Medications Generic Name Dose Route Start Last Admin Trade Name Freq PRN Reason Stop Dose Admin Acetaminophen 650 mg 02/14/21 19:41 02/19/21 13:26 Acetaminophen 325 Mg Tablet PO 650 mg Q6H PRN Administration febrile Apixaban 5 mg 02/14/21 21:00 02/22/21 08:20 Apixaban 5 Mg Tablet PO 5 mg BID KEMAL Administration Aspirin 81 mg 02/15/21 09:00 02/22/21 08:20 Aspirin 81 Mg Tab.Chew PO 81 mg DAILY KEMAL Administration Docusate Sodium 100 mg 02/14/21 18:00 Docusate Sodium 100 Mg Capsule PO BID PRN Constipation Fentanyl 25 mcg 02/20/21 19:11 Fentanyl Citrate/Pf 100 Mcg/2 Ml Vial IVPUSH Q5M PRN Pain, Moderate (Pain Scale 4-6 Protocol Furosemide 80 mg 02/21/21 16:00 02/22/21 08:19 Furosemide 40 Mg/4 Ml Vial IVPUSH 80 mg BID@0900,1800 KEMAL Administration Protocol Hydralazine HCl 10 mg 02/21/21 15:00 02/22/21 09:22 Hydralazine Hcl 10 Mg Tablet PO 10 mg TID KEMAL Administration Protocol Promethazine HCl 12.5 mg/ 50.5 mls @ 202 mls/hr 02/20/21 19:11 Sodium Chloride IV ONCE PRN Nausea and Vomiting Potassium Chloride 10 meq in 100 mls @ 100 mls/hr 02/22/21 09:00 02/22/21 10:21 IV 02/22/21 12:59 100 mls/hr Q1H KEMAL Administration Nitroglycerin 0.4 mg 02/14/21 18:00 Nitroglycerin 0.4 Mg Tab.Subl SUBLINGUAL Q5M PRN Chest Pain Omeprazole 20 mg 02/15/21 06:30 02/22/21 06:06 Omeprazole 20 Mg Capsule. PO 20 mg BID@0630,1630 KEMAL Administration Ondansetron HCl 4 mg 02/16/21 01:45 02/16/21 03:31 Ondansetron Hcl 4 Mg/2 Ml Vial IVPUSH 4 mg Q6H PRN Administration nausea Pharmacy Consult 1 each 02/14/21 17:10 Consult Rx Perform Med Rec MISCELLANE ONCE PRN Consult order Spironolactone 25 mg 02/22/21 09:00 02/22/21 09:23 Spironolactone 25 Mg Tablet PO 25 mg DAILY KEMAL Administration Protocol Labs CBC & Chem 7: 02/22/21 05:55 02/22/21 05:55 Labs: Laboratory Results - last 24 hr 02/22/21 02/22/21 02/22/21 05:55 05:55 05:55 MCV 85.9 MCH 26.1 L MCHC 30.4 L RDW 16.9 H Plt Count 308 MPV 9.7 Absolute Nucleated RBC 0.000 Nucleated RBC % (auto) 0.0 Anion Gap 12 Estim Creat Clear Calc 28.6 Estimated GFR 29 Random Glucose 97 Calcium 8.2 L Magnesium 1.7 B-Natriuretic Peptide 3002 H Microbiology Microbiology Results: Microbiology 02/20/21 18:05 Urine Culture - Preliminary Urine Other - Kidney Left Yeast 02/20/21 18:05 Urine Culture - Preliminary Urine Other - Kidney Right Yeast Assessment and Plan (1) Chronic renal failure, stage 3 (moderate): Status: Acute Assessment and Plan: hospital d#9 65yo M with cardiomyopathy/HFrEF, pAF, BiV pacer/ICD, B ureteral stents due to chronic hydronephrosis presented with dysuria/weakness admitted to ICU due to hypotension but did not require pressors stepped down to C 02/17/21 # acute pyelonephritis, copmplicated - CT showed chronic bilateral hydronephrosis and hydroureter down to bladder with bilateral ureteral stents in position; right kidney borderline larger with mild perinephric and upper periureteral stranding; no gas bubble or calculi noted - fever resolved, BCx 1/2 Strep viridans = contaminant, UCx contaminated, on pip/salome d#8, follow cultures from intraoperative aspiration of kidneys (purulent material obtained from L kidney) POD#2 ureteral stent change -> growing yeast; will consult ID # acute/chronic HFrEF # severe dilated cardiomyopathy - IV diuresis with furosemide- continue at increase dose 80 mg bid; d/c hydralazine and try to restart Entresto at low dose; continue spironolactone; hold carvedilol for low BP; monitor BNP/BMP/Mg/I+O # hypoK - replete IV+PO, recheck in am # HERMELINDO/CKD3 - SCr stable, at baseline # pAF - now in NSR; continue amiodarone + apixaban # chronic hypoxic respiratory failure - continue home O2 2.5L via NC # VTE ppx - apixaban # dispo - anticipate home with VNA pending urine culture results + resolution of hypotension Quality Stroke Does the patient have a stroke diagnosis?: No VTE Prior VTE?: No VTE Risk Level:: Medical - moderate - high VTE Device Contraindication: N/A - Device Ordered VTE Drug Contraindication: N/A - Med Ordered
--- NOTE | 2021-02-22 11:42 | PM.PNCARD ---
Subjective Subjective Date of Service: 02/22/21 Principal diagnosis: Dilated cardiomyopathy, acute on chronic systolic HF, PAF, pyelonephritis Interval history: Cardiology follow up for CMP, HF, PAF. Seen at 1020. Today she reports some ongoing sob with movement. Breathing comfortable at rest. wearing O2 2liters with sat 99%. Intermittent cough. Sleeping with HOB elevated. No chest pain, palpitation, dizziness, abdominal discomfort, edema. Sister at bedside. Review of Systems Review of Systems as above Yes all other systems are reviewed and are negative Physical Exam Vital Signs: Last Vital Signs Temp 96.8 F 02/22/21 08:00 Pulse 86 02/22/21 08:00 Resp 18 02/22/21 08:00 BP 104/64 02/22/21 08:00 Pulse Ox 99 02/22/21 08:00 Oxygen Flow Rate 2.5 02/21/21 19:11 Body Mass Index 34.9 Const General: cooperative, no acute distress, alert and awake Orientation/consciousness: patient oriented x3 HENMT Head: Yes normal to inspection Neck Neck: Yes normal visual inspection Resp Effort & Inspection: normal respiratory effort, able to speak in complete sentences and not labored Auscultation: clear to auscultation bilaterally, rales (bases), no rhonchi and no wheezes Cardio Jugular venous distension: JVD present Palpation: normal PMI Rate: regular rate Rhythm: regular rhythm Heart sounds: S1 normal heart sound present and S2 normal heart sound present Peripheral pulses: Peripheral pulses 2+ throughout GI Inspection: Yes normal to inspection Skin General skin exam: no rashes or lesions noted Neuro General: patient oriented x3 Extrem General: Yes normal to inspection and No edema Results Labs and Meds Result diagrams: 02/22/21 05:55 02/22/21 05:55 Lab results: Laboratory Results - last 24 hr 02/22/21 02/22/21 02/22/21 05:55 05:55 05:55 WBC 7.3 RBC 3.06 L Hgb 8.0 L Hct 26.3 L MCV 85.9 MCH 26.1 L MCHC 30.4 L RDW 16.9 H Plt Count 308 MPV 9.7 Absolute Nucleated RBC 0.000 Nucleated RBC % (auto) 0.0 Sodium 141 Potassium 2.9 L D Chloride 101 Carbon Dioxide 31 H Anion Gap 12 BUN 23 H Creatinine 1.75 H Estim Creat Clear Calc 28.6 Estimated GFR 29 Random Glucose 97 Calcium 8.2 L Magnesium 1.7 B-Natriuretic Peptide 3002 H Progress Note: A&P Assessment and plan (1) CHF (congestive heart failure): Status: Acute Assessment and Plan: Acute on chronic systolic HF. Has known hx of dilated CMP. Echo this admit showing severe increase in LV size with EF < 10%, normal RV, LA severely dilated, RA mod dilated, Mod MR, mod TR. Treated this admit for acute pyelonephritis, initially in the ICU and now on IMC last several day. Pt fluid overloaded and is being diuresed with IV Lasix with output of 2 liters in last day, total fluid balance this admit remains positive. Has sob with activity. Wearing cannula at 2liters with sat 99%. Still has JVD on exam. BNP 3002, which is down from 4411. Continue to diurese with IV Lasix. Continue aldactone. Entresto has just been added. Home Carvedilol is on hold. Ongoing strict I+O monitoring, close monitoring of electrolytes and kidney function. Has hypokalemia today and receiving K supplement at present. We will follow. (2) Cardiomyopathy: Status: Acute Assessment and Plan: Dilated CMP. ICD in place. Meds had been held while in ICU. Restarting Entresto as above. BP being followed closely. (3) Paroxysmal atrial fibrillation with rapid ventricular response: Status: Acute Assessment and Plan: Hx PAF, normally on Amiodarone and Carvedilol. Both currently held due to HF, low BPs. Not on Tele monitor at this time. Apical pulse regular to auscultation. No report of palpitation. Continue Eliquis for anticoagulation. (4) Acute pyelonephritis: Status: Acute Fall Risk Details Current Medications: Current Medications Generic Name Dose Route Start Last Admin Trade Name Freq PRN Reason Stop Dose Admin Acetaminophen 650 mg 02/14/21 19:41 02/19/21 13:26 Acetaminophen 325 Mg Tablet PO 650 mg Q6H PRN Administration febrile Apixaban 5 mg 02/14/21 21:00 02/22/21 08:20 Apixaban 5 Mg Tablet PO 5 mg BID KEMAL Administration Aspirin 81 mg 02/15/21 09:00 02/22/21 08:20 Aspirin 81 Mg Tab.Chew PO 81 mg DAILY KEMAL Administration Docusate Sodium 100 mg 02/14/21 18:00 Docusate Sodium 100 Mg Capsule PO BID PRN Constipation Fentanyl 25 mcg 02/20/21 19:11 Fentanyl Citrate/Pf 100 Mcg/2 Ml Vial IVPUSH Q5M PRN Pain, Moderate (Pain Scale 4-6 Protocol Furosemide 80 mg 02/21/21 16:00 02/22/21 08:19 Furosemide 40 Mg/4 Ml Vial IVPUSH 80 mg BID@0900,1800 [facility] Administration Protocol Promethazine HCl 12.5 mg/ 50.5 mls @ 202 mls/hr 02/20/21 19:11 Sodium Chloride IV ONCE PRN Nausea and Vomiting Potassium Chloride 10 meq in 100 mls @ 100 mls/hr 02/22/21 09:00 02/22/21 11:20 IV 02/22/21 12:59 100 mls/hr Q1H KEMAL Administration Nitroglycerin 0.4 mg 02/14/21 18:00 Nitroglycerin 0.4 Mg Tab.Subl SUBLINGUAL Q5M PRN Chest Pain Omeprazole 20 mg 02/15/21 06:30 02/22/21 06:06 Omeprazole 20 Mg Capsule. PO 20 mg BID@0630,1630 KEMAL Administration Ondansetron HCl 4 mg 02/16/21 01:45 02/16/21 03:31 Ondansetron Hcl 4 Mg/2 Ml Vial IVPUSH 4 mg Q6H PRN Administration nausea Pharmacy Consult 1 each 02/14/21 17:10 Consult Rx Perform Med Rec MISCELLANE ONCE PRN Consult order Sacubitril/Valsartan 1 tab 02/22/21 21:00 Sacubitril/Valsartan 1 Tab Tablet PO BID [facility] Protocol Spironolactone 25 mg 02/22/21 09:00 02/22/21 09:23 Spironolactone 25 Mg Tablet PO 25 mg DAILY KEMAL Administration Protocol Time Spent With Patient Time: Total time spent is greater than 50% in coordination of care (as documented) at patient's floor/unit and/or counseling patient: 30 Time with patient: 25 - 35 minutes Progress Note: Quality Stroke Does the patient have a stroke diagnosis?: No Procedures Date of Service Date of Service: 02/22/21
--- NOTE | 2021-02-22 15:08 | MHC.CLN ---
F/U PO INTAKE USUALLY GOOD. STAGE II COCCYX WOUND SCABBED. DIET RX: CARDIAC-APPROPRIATE. PT RECEIVING ENSURE BID AND NIELS TO PROMOTE WOUND HEALING (860 KCAL, 45 G PROTEIN) CONTINUE TO FOLLOW.
[2021-02-22] MEDS: Sacubitril/Valsartan 24/26 1 TAB TABLET PO (20:53)
[2021-02-23] VITALS (8 sets, daily range): BP systolic 96–116; BP diastolic 58–74; PULSE 84–91; RESP 15–19; TEMP 35.9–36.7; O2SAT 98–100
[2021-02-23] MEDS: Omeprazole 20 MG CAPSULE.DR PO ×2 (05:59→16:59)
[2021-02-23 06:57] LABS: B Type Natriuretic Peptide 3422 pg/mL (<100)
[2021-02-23 07:18] LABS: Anion Gap 14 (12-20); Blood Urea Nitrogen 24 mg/dL (9-16); Calcium 8.2 mg/dL (8.4-10.2); Carbon Dioxide 32 mmol/L (22-29); Chloride 97 mmol/L (96-108); Creatinine Clr Calc Pharmacy 30.1; Estimated Glomerular Filt Rate 31; Glucose Random 112 mg/dL (60-115); Magnesium 1.6 mg/dL (1.6-2.6); Potassium 3.6 mmol/L (3.3-5.1); Sodium 139 mmol/L (135-145)
[2021-02-23] MEDS: Sacubitril/Valsartan 24/26 1 TAB TABLET PO ×2 (09:22→19:43)
[2021-02-23] MEDS: Spironolactone 25 MG TABLET PO (09:22)
[2021-02-23] MEDS: Apixaban 5 MG TABLET PO ×2 (09:22→19:43)
[2021-02-23] MEDS: Furosemide 40 MG/4 ML VIAL 80 MG IVPUSH ×2 (09:22→16:59)
[2021-02-23] MEDS: Aspirin 81 MG TAB.CHEW PO (09:22)
--- NOTE | 2021-02-23 11:52 | P.PNCA_ITS ---
Subjective Subjective Date of Service: 02/23/21 Principal diagnosis: Dilated cardiomyopathy, acute on chronic systolic HF, PAF, pyelonephritis Interval history: Cardiology follow up for the above. Seen at 0920. Today she reports breathing is improving. Still wearing O2 with nasal cannula. No cough, no PND. Sleeping with HOB elevated some. No chest pains, palpitation or leg edema. Sister present. Review of Systems Review of Systems as above Yes all other systems are reviewed and are negative Physical Exam Vital Signs: Last Vital Signs Temp 96.8 F 02/23/21 11:24 Pulse 84 02/23/21 11:24 Resp 17 02/23/21 11:24 BP 96/62 02/23/21 11:24 Pulse Ox 99 02/23/21 11:24 Oxygen Flow Rate 2.5 02/22/21 19:00 Body Mass Index 34.9 Const General: cooperative, no acute distress, alert and awake Orientation/consciousness: patient oriented x3 Neck Neck: Yes normal visual inspection and Yes no JVD Resp Effort & Inspection: normal respiratory effort, able to speak in complete sentences and not labored Auscultation: clear to auscultation bilaterally, rales (left lower lobe), no rhonchi and no wheezes Cardio Rate: regular rate Rhythm: regular rhythm Heart sounds: S1 normal heart sound present and S2 normal heart sound present Peripheral pulses: Peripheral pulses 2+ throughout GI Inspection: Yes normal to inspection Skin General skin exam: no rashes or lesions noted Neuro General: patient oriented x3 Extrem General: Yes normal to inspection and No edema Results Labs and Meds Result diagrams: 02/22/21 05:55 02/23/21 05:43 Lab results: Laboratory Results - last 24 hr 02/23/21 02/23/21 05:43 05:43 Sodium 139 Potassium 3.6 D Chloride 97 Carbon Dioxide 32 H Anion Gap 14 BUN 24 H Creatinine 1.66 H Estim Creat Clear Calc 30.1 Estimated GFR 31 Random Glucose 112 Calcium 8.2 L Magnesium 1.6 B-Natriuretic Peptide 3422 H Progress Note: A&P Assessment and plan (1) CHF (congestive heart failure): Status: Acute Assessment and Plan: Acute on chronic systolic HF. Has known hx of dilated CMP. Echo this admit showing severe increase in LV size with EF < 10%, normal RV, LA severely dilated, RA mod dilated, Mod MR, mod TR. Treated this admit for acute pyelonephritis, initially in the ICU and now on IMC last several day. Pt fluid overloaded and is being diuresed with IV Lasix with Fuid balance now neg 3 liters since admit. Breathing improved. Wearing cannula at 2.5 liters with sat 99%. Still has JVD on exam. BNP 3422, was 3002 yesterday, which is down from 4411 this admit. Her BNPs seem to run elevated. She does have rales in left base. Would continue to diurese with IV Lasix today and change to PO tomorrow. Continue aldactone and Entresto. Home Carvedilol is on hold. Ongoing strict I+O monitoring, close monitoring of electrolytes and kidney function. Electrolyte replacement as warranted. Dr Thomas will eval her this afternoon. We will follow. (2) Cardiomyopathy: Status: Acute Assessment and Plan: Dilated CMP. ICD in place. Meds had been held while in ICU. Restarting Entresto as above. BP being followed closely. (3) Paroxysmal atrial fibrillation with rapid ventricular response: Status: Acute Assessment and Plan: Hx PAF, normally on Amiodarone and Carvedilol. Both currently held due to HF, low BPs. Not on Tele monitor at this time. Apical pulse regular to auscultation. No report of palpitation. Continue Eliquis for anticoagulation. Fall Risk Details Current Medications: Current Medications Generic Name Dose Route Start Last Admin Trade Name Freq PRN Reason Stop Dose Admin Acetaminophen 650 mg 02/14/21 19:41 02/19/21 13:26 Acetaminophen 325 Mg Tablet PO 650 mg Q6H PRN Administration febrile Apixaban 5 mg 02/14/21 21:00 02/23/21 09:22 Apixaban 5 Mg Tablet PO 5 mg BID KEMAL Administration Aspirin 81 mg 02/15/21 09:00 02/23/21 09:22 Aspirin 81 Mg Tab.Chew PO 81 mg DAILY KEMAL Administration Docusate Sodium 100 mg 02/14/21 18:00 Docusate Sodium 100 Mg Capsule PO BID PRN Constipation Fentanyl 25 mcg 02/20/21 19:11 Fentanyl Citrate/Pf 100 Mcg/2 Ml Vial IVPUSH Q5M PRN Pain, Moderate (Pain Scale 4-6 Protocol Furosemide 80 mg 02/21/21 16:00 02/23/21 09:22 Furosemide 40 Mg/4 Ml Vial IVPUSH 80 mg BID@0900,1800 KEMAL Administration Protocol Promethazine HCl 12.5 mg/ 50.5 mls @ 202 mls/hr 02/20/21 19:11 Sodium Chloride IV ONCE PRN Nausea and Vomiting Nitroglycerin 0.4 mg 02/14/21 18:00 Nitroglycerin 0.4 Mg Tab.Subl SUBLINGUAL Q5M PRN Chest Pain Omeprazole 20 mg 02/15/21 06:30 02/23/21 05:59 Omeprazole 20 Mg Capsule.Dr PO 20 mg BID@0630,1630 KEMAL Administration Ondansetron HCl 4 mg 02/16/21 01:45 02/16/21 03:31 Ondansetron Hcl 4 Mg/2 Ml Vial IVPUSH 4 mg Q6H PRN Administration nausea Pharmacy Consult 1 each 02/14/21 17:10 Consult Rx Perform Med Rec MISCELLANE ONCE PRN Consult order Sacubitril/Valsartan 1 tab 02/22/21 21:00 02/23/21 09:22 Sacubitril/Valsartan 1 Tab Tablet PO 1 tab BID KEMAL Administration Protocol Spironolactone 25 mg 02/22/21 09:00 02/23/21 09:22 Spironolactone 25 Mg Tablet PO 25 mg DAILY KEMAL Administration Protocol Time Spent With Patient Time: Total time spent is greater than 50% in coordination of care (as documente d) at patient's floor/unit and/or counseling patient: Time with patient: 15 - 24 minutes Progress Note: Quality Stroke Does the patient have a stroke diagnosis?: No Procedures Date of Service Date of Service: 02/23/21
--- NOTE | 2021-02-23 11:53 | HO.PM.IMPN ---
Subjective Subjective Date of Service: 02/23/21 Interval History: less dyspnea no flank pain no fever Review of Systems Review of Systems: Yes all other systems are reviewed and are negative Physical Exam Vital Signs: Vital Signs: Last Vital Signs Temp 96.8 F 02/23/21 11:24 Pulse 84 02/23/21 11:24 Resp 17 02/23/21 11:24 BP 96/62 02/23/21 11:24 Pulse Ox 99 02/23/21 11:24 Oxygen Flow Rate 2.5 02/22/21 19:00 Body Mass Index 34.9 Gen: in no acute distress HEENT: sclera anicteric, moist mucus membranes Neck: supple, JVD present Lungs: clear to auscultation bilaterally Heart: regular rate and rhythm, no murmurs Abd: soft, non-tender, non-distended : no CVAT Ext: no edema Skin: warm/well-perfused Neuro: alert and oriented x3, no focal findings Psych: appropriate affect Objective Data Current Medications Generic Name Dose Route Start Last Admin Trade Name Davidq PRN Reason Stop Dose Admin Acetaminophen 650 mg 02/14/21 19:41 02/19/21 13:26 Acetaminophen 325 Mg Tablet PO 650 mg Q6H PRN Administration febrile Apixaban 5 mg 02/14/21 21:00 02/23/21 09:22 Apixaban 5 Mg Tablet PO 5 mg BID KEMAL Administration Aspirin 81 mg 02/15/21 09:00 02/23/21 09:22 Aspirin 81 Mg Tab.Chew PO 81 mg DAILY KEMAL Administration Docusate Sodium 100 mg 02/14/21 18:00 Docusate Sodium 100 Mg Capsule PO BID PRN Constipation Fentanyl 25 mcg 02/20/21 19:11 Fentanyl Citrate/Pf 100 Mcg/2 Ml Vial IVPUSH Q5M PRN Pain, Moderate (Pain Scale 4-6 Protocol Furosemide 80 mg 02/21/21 16:00 02/23/21 09:22 Furosemide 40 Mg/4 Ml Vial IVPUSH 80 mg BID@0900,1800 KEMAL Administration Protocol Promethazine HCl 12.5 mg/ 50.5 mls @ 202 mls/hr 02/20/21 19:11 Sodium Chloride IV ONCE PRN Nausea and Vomiting Nitroglycerin 0.4 mg 02/14/21 18:00 Nitroglycerin 0.4 Mg Tab.Subl SUBLINGUAL Q5M PRN Chest Pain Omeprazole 20 mg 02/15/21 06:30 02/23/21 05:59 Omeprazole 20 Mg Capsule.Dr PO 20 mg BID@7875,4806 KEMAL Administration Ondansetron HCl 4 mg 02/16/21 01:45 02/16/21 03:31 Ondansetron Hcl 4 Mg/2 Ml Vial IVPUSH 4 mg Q6H PRN Administration nausea Pharmacy Consult 1 each 02/14/21 17:10 Consult Rx Perform Med Rec MISCELLANE ONCE PRN Consult order Sacubitril/Valsartan 1 tab 02/22/21 21:00 02/23/21 09:22 Sacubitril/Valsartan 1 Tab Tablet PO 1 tab BID KEMAL Administration Protocol Spironolactone 25 mg 02/22/21 09:00 02/23/21 09:22 Spironolactone 25 Mg Tablet PO 25 mg DAILY KEMAL Administration Protocol Labs CBC & Chem 7: 02/22/21 05:55 02/23/21 05:43 Labs: Laboratory Results - last 24 hr 02/23/21 02/23/21 05:43 05:43 Anion Gap 14 Estim Creat Clear Calc 30.1 Estimated GFR 31 Random Glucose 112 Calcium 8.2 L Magnesium 1.6 B-Natriuretic Peptide 3422 H Microbiology Microbiology Results: Microbiology 02/20/21 18:05 Urine Culture - Final Urine Other - Kidney Left Ariadne albicans 02/20/21 18:05 Urine Culture - Final Urine Other - Kidney Right Ariadne albicans Assessment and Plan (1) Chronic renal failure, stage 3 (moderate): Status: Acute Assessment and Plan: hospital d#10 65yo M with cardiomyopathy/HFrEF, pAF, BiV pacer/ICD, B ureteral stents due to chronic hydronephrosis presented with dysuria/weakness admitted to ICU due to hypotension but did not require pressors stepped down to IMC 02/17/21 # pyelonephritis due to candiduria - CT showed chronic bilateral hydronephrosis and hydroureter down to bladder with bilateral ureteral stents in position; right kidney borderline larger with mild perinephric and upper periureter stranding; no gas bubble or calculi noted - fever resolved, BCx 1/2 Strep viridans = contaminant, UCx contaminated, got 8d of pip/salome, cultures from intraoperative aspiration of kidneys (purulent material obtained from L kidney) POD#3 ureteral stent change -> growing Ariadne albicans. Due to QT prolongation, will give caspofungin rather than azole; discuss with ID; will need midline catheter # acute/chronic HFrEF # severe dilated cardiomyopathy - IV diuresis with furosemide- continue at increase dose 80 mg bid; d/c'ed hydralazine and tolerating Entresto at low dose; continue spironolactone; hold carvedilol for low BP; monitor BNP/BMP/Mg/I+O (negative 3.1L this admission so far) # hypoK - repleted # HERMELINDO/CKD3 - SCr stable, at baseline # pAF - now in NSR; continue amiodarone + apixaban # chronic hypoxic respiratory failure - continue home O2 2.5L via NC # VTE ppx - apixaban # dispo - anticipate home with VNA once euvolemic Quality Stroke Does the patient have a stroke diagnosis?: No VTE Prior VTE?: No VTE Risk Level:: Medical - moderate - high VTE Device Contraindication: N/A - Device Ordered VTE Drug Contraindication: N/A - Med Ordered
[2021-02-23] MEDS: Caspofungin Acetate 70 MG in 0.9 % Sodium Chloride 250 ML 250 MG IV (13:39)
--- NOTE | 2021-02-23 13:47 | P.CNID_ITS ---
History of Present Illness Data of Consult Service Date: 02/23/21 Requesting physician: Freya Mclean Primary Care Provider: Keith العلي MD HPI Reason for consult: fungal cystitis Patient reports to hospital with dysuria and weakness She had hypotension and went to ICU but didnt require pressors She has niranjan albicans growing from operative specimens on 02/20 She had cystoscopy with removal left and right ureteral stents and removal of bladder debris on that day Culture is not growing anything else Review of Systems Review of Systems: Yes all other systems are reviewed and are negative [facility] Past Medical History Medical History (Updated 02/23/21 @ 13:55 by Lola Rubio MD) HERMELINDO (acute kidney injury) Biventricular ICD (implantable cardioverter-defibrillator) in place Cardiomyopathy Chronic systolic heart failure Fungus present in urine Hydronephrosis Hypotension Paroxysmal atrial fibrillation with rapid ventricular response Prolapsed uterus Systolic heart failure Urinary retention Family History Family history: reviewed and not pertinent Surgical History Surgical History H/O ankle fusion H/O cystoscopy H/O: section Hip joint replacement status History of renal stent Previous back surgery Total knee replacement status Social History Social History Household Members: Family Housing: House Do you presently have visiting nurse or other home services: No Unable to assess alcohol history related to: Unknown Alcohol intake: never Patient Tobacco Use Status: Never used Tobacco Use of substances other than those prescribed or required for medical reasons: No Currently Displaying Signs/Symptoms of Drug Intoxication Withdrawal: No Have you been hit, kicked, punched, or otherwise hurt by someone within the past year? If so, by whom?: No Are you DNR?: No Advance Directives: No Advance Directives Information Provided: No Advance Directives on File: No Do you have thoughts of harming others: None Do you have a plan to hurt others: No Plan Recently lost weight without trying: No Nutrition Risks: No Nutritional Risk Patient : No : No Poor oral hygiene: No service: No Current occupational status: disabled Meds Allergies Allergy/AdvReac Type Severity Reaction Status Date / Time No Known Food Allergies Allergy Unknown Verified 02/14/21 12:05 Active Medications: Current Medications Generic Name Dose Route Start Last Admin Trade Name Freq PRN Reason Stop Dose Admin Acetaminophen 650 mg 02/14/21 19:41 02/19/21 13:26 Acetaminophen 325 Mg Tablet PO 650 mg Q6H PRN Administration febrile Apixaban 5 mg 02/14/21 21:00 02/23/21 09:22 Apixaban 5 Mg Tablet PO 5 mg BID KEMAL Administration Aspirin 81 mg 02/15/21 09:00 02/23/21 09:22 Aspirin 81 Mg Tab.Chew PO 81 mg DAILY KEMAL Administration Docusate Sodium 100 mg 02/14/21 18:00 Docusate Sodium 100 Mg Capsule PO BID PRN Constipation Fentanyl 25 mcg 02/20/21 19:11 Fentanyl Citrate/Pf 100 Mcg/2 Ml Vial IVPUSH Q5M PRN Pain, Moderate (Pain Scale 4-6 Protocol Furosemide 80 mg 02/21/21 16:00 02/23/21 09:22 Furosemide 40 Mg/4 Ml Vial IVPUSH 80 mg BID@0900,1800 KEMAL Administration Protocol Promethazine HCl 12.5 mg/ 50.5 mls @ 202 mls/hr 02/20/21 19:11 Sodium Chloride IV ONCE PRN Nausea and Vomiting Caspofungin 70 mg/ Sodium 250 mls @ 250 mls/hr 02/23/21 13:00 02/23/21 13:39 Chloride IV 02/23/21 13:59 250 mls/hr ONCE ONE Administration Caspofungin 50 mg/ Sodium 250 mls @ 250 mls/hr 02/24/21 13:00 Chloride IV Q24H KEMAL Nitroglycerin 0.4 mg 02/14/21 18:00 Nitroglycerin 0.4 Mg Tab.Subl SUBLINGUAL Q5M PRN Chest Pain Omeprazole 20 mg 02/15/21 06:30 02/23/21 05:59 Omeprazole 20 Mg Capsule.Dr PO 20 mg BID@0630,1630 KEMAL Administration Ondansetron HCl 4 mg 02/16/21 01:45 02/16/21 03:31 Ondansetron Hcl 4 Mg/2 Ml Vial IVPUSH 4 mg Q6H PRN Administration nausea Pharmacy Consult 1 each 02/14/21 17:10 Consult Rx Perform Med Rec MISCELLANE ONCE PRN Consult order Sacubitril/Valsartan 1 tab 02/22/21 21:00 02/23/21 09:22 Sacubitril/Valsartan 1 Tab Tablet PO 1 tab BID [facility] Administration Protocol Spironolactone 25 mg 02/22/21 09:00 02/23/21 09:22 Spironolactone 25 Mg Tablet PO 25 mg DAILY [facility] Administration Protocol Home Medications Medication Instructions Recorded Confirmed Last Taken Type amiodarone 200 mg tablet 200 mg PO DAILY 03/29/20 02/14/21 02/14/21 History aspirin 81 mg tablet 81 mg PO DAILY 03/29/20 02/14/21 02/14/21 History cholecalciferol (vitamin D3) 50 50 mcg PO DAILY 03/29/20 02/14/21 02/14/21 History mcg (2,000 unit) capsule docusate sodium 100 mg capsule 100 mg PO BID PRN 03/29/20 02/14/21 02/14/21 History multivitamin 1 cap PO DAILY 03/29/20 02/14/21 02/14/21 History nitroglycerin 0.4 mg sublingual 0.4 mg SUBLINGUAL Q5M PRN 03/29/20 02/14/21 02/14/21 History tablet omeprazole 20 mg capsule,delayed 20 mg PO BID@0630,1630 03/29/20 02/14/21 02/14/21 History release spironolactone 25 mg tablet 25 mg PO QAM 03/29/20 02/14/21 02/14/21 History ascorbic acid (vitamin C) 500 mg 500 mg PO DAILY 06/17/20 02/14/21 02/14/21 History tablet (Vitamin C) etanercept 50 mg/mL (1 mL) 1 mg SUBCUT IRBY 06/17/20 02/14/21 02/14/21 History subcutaneous pen injector (Enbrel SureClick) furosemide 40 mg tablet 40 mg PO QNOON 06/17/20 02/14/21 02/14/21 History oxycodone 10 mg tablet 1 tab PO BID 06/17/20 02/14/21 02/14/21 History sacubitril 24 mg-valsartan 26 mg 1 tab PO BID 06/17/20 02/14/21 02/14/21 History tablet (Entresto) zolpidem 10 mg tablet 0.5 - 1 tab PO BEDTIME 06/17/20 02/14/21 02/13/21 History rosuvastatin 20 mg tablet 1 tab PO BEDTIME 07/04/20 02/14/21 02/13/21 History acetaminophen 500 mg tablet 500 mg PO BID 02/14/21 02/14/21 02/14/21 History apixaban 5 mg tablet (Eliquis) 1 tab PO BID 02/14/21 02/14/21 02/14/21 History carvedilol 6.25 mg tablet 1 tab PO BID 02/14/21 02/14/21 02/14/21 History Physical Exam Vital Signs: Vital Signs: Last Vital Signs Temp 96.8 F 02/23/21 11:24 Pulse 84 02/23/21 11:24 Resp 17 02/23/21 11:24 BP 96/62 02/23/21 11:24 Pulse Ox 99 02/23/21 11:24 Oxygen Flow Rate 2.5 02/22/21 19:00 Body Mass Index 34.9 Const: General: cooperative Nutritional Appearance: average body habitus HENMT: Head: Yes normal to inspection Mouth: Normal oral and palatal mucosa present Eyes: General: appearance normal, both eyes and all related structures Resp: Effort & Inspection: normal respiratory effort Cardio: Rate: regular rate Rhythm: regular rhythm GI: Palpation (GI): Soft to palpation and nontender Skin: General skin exam: no rashes or lesions noted Results Labs CBC & Chem 7: 02/22/21 05:55 02/23/21 05:43 Labs: BMP 02/23/21 05:43 Sodium 139 Potassium 3.6 D Chloride 97 Carbon Dioxide 32 H BUN 24 H Creatinine 1.66 H Calcium 8.2 L Microbiology Microbiology Results: Microbiology 02/20/21 18:05 Urine Other - Kidney Left Urine Culture - Final Niranjan albicans 02/20/21 18:05 Urine Other - Kidney Right Urine Culture - Final Niranjan albicans 02/14/21 15:55 Blood - Venous Blood Culture - Final Viridans streptococcus group 02/14/21 16:07 Blood - Venous Blood Culture - Final No growth after 5 days. 02/14/21 Unknown Urine Catheterized - Straight Catheter Urine Culture - Final Assessment and Plan (1) Acute UTI: Status: Acute The only organism found is niranjan albicans There is concern over early fungal sepsis with hypotension I am not aware of fungal sensitivities The patient has elevated QT interval Suggest Would give Caspofungin with loading dose for 14 days total This is given IV,through midline due to renal insufficiency (2) Chronic renal failure, stage 3 (moderate): Status: Acute (3) Hydronephrosis: Status: Acute (4) Fungus present in urine: Status: Acute
--- NOTE | 2021-02-23 14:42 | MHC.CLN ---
F/U PO INTAKE USUALLY GOOD. STAGE II COCCYX WOUND, RANDELL=19. CONTINUE CARDIAC DIET; ENSURE BID AND NIELS BID TO PROMOTE WOUND HEALING (860 KCAL, 45 G PROTEIN). CONTINUE TO FOLLOW.
--- NOTE | 2021-02-23 16:16 | HO.MIDLINE ---
PICC Line Insertion MIDLINE INSERTION Diagnosis: FUNGAL CYSTITIS Indication: [employer] ANTIFUNGAL IV Pertinent Labs: REVIEWED Technique: Using sterile technique including cap and mask, glove and drape, the RIGHT arm was prepped and draped in the usual sterile fashion of full barrier technique with CHG. Using ultrasound guidance, CEPHALIC vein access was obtained IN SINGLE ATTEMPT BY THIS RN; UNSUCCESSFUL ATTEMPT USING RUE BASILIC VEIN, SO TOTAL x2 ATTEMPTS BY THIS RN. A SINGLE LUMEN, NON-PASV, (20G X 8CM) MIDLINE was positioned. The procedure was performed in S-272. Ultrasound was used to document vein patency and for needle entry. A formal ultrasound picture was recorded. Vascular Quality Assurance Tester has released the line for use and it is currently dressed with a StatLock, Tegaderm, and CHG disc. Verification has been performed for blood return and line patency. Arm Circumference: 36 CM Equipment: [employer] POWERGLIDE PRO Catheter Type: SINGLE LUMEN, NON-PASV, (20G X 8CM) Lot #: [id number]
[2021-02-23] MEDS: Heparin Sodium,Porcine Flush 50 UNITS, 0.9 % Sodium Chloride Flush 5 ML IVFLUSH (19:43)
[2021-02-24] VITALS (8 sets, daily range): BP systolic 78–111; BP diastolic 50–60; PULSE 77–88; RESP 14–18; TEMP 35.5–37.3; O2SAT 98–100
[2021-02-24] MEDS: Omeprazole 20 MG CAPSULE.DR PO ×2 (06:16→15:53)
[2021-02-24 06:46] LABS: Anion Gap 13 (12-20); Blood Urea Nitrogen 29 mg/dL (9-16); Calcium 8.6 mg/dL (8.4-10.2); Carbon Dioxide 38 mmol/L (22-29); Chloride 93 mmol/L (96-108); Creatinine Clr Calc Pharmacy 33.6; Estimated Glomerular Filt Rate 35; Glucose Random 82 mg/dL (60-115); Magnesium 1.6 mg/dL (1.6-2.6); Potassium 3.8 mmol/L (3.3-5.1); Sodium 140 mmol/L (135-145)
[2021-02-24 06:48] LABS: B Type Natriuretic Peptide 2750 pg/mL (<100)
[2021-02-24] MEDS: Heparin Sodium,Porcine Flush 50 UNITS, 0.9 % Sodium Chloride Flush 5 ML IVFLUSH ×3 (08:37→19:50)
[2021-02-24] MEDS: Aspirin 81 MG TAB.CHEW PO (08:37)
[2021-02-24] MEDS: Apixaban 5 MG TABLET PO ×2 (08:37→19:50)
[2021-02-24] MEDS: Sacubitril/Valsartan 24/26 1 TAB TABLET PO ×2 (08:44→19:50)
[2021-02-24] MEDS: Amiodarone HCL 200 MG TABLET PO (08:44)
[2021-02-24] MEDS: Furosemide 40 MG/4 ML VIAL 80 MG IVPUSH (08:45)
[2021-02-24] MEDS: Spironolactone 25 MG TABLET PO (08:53)
--- NOTE | 2021-02-24 12:03 | HO.PM.IMPN ---
Subjective Subjective Date of Service: 02/24/21 Interval History: R midline catheter placed No fever No kidney pain No chest pain Dyspea improved Review of Systems Review of Systems: Yes all other systems are reviewed and are negative Physical Exam Vital Signs: Vital Signs: Last Vital Signs Temp 96 F L 02/24/21 11:04 Pulse 78 02/24/21 11:04 Resp 18 02/24/21 11:04 BP 111/59 L 02/24/21 11:04 Pulse Ox 98 02/24/21 11:04 Oxygen Flow Rate 2.5 02/23/21 18:59 Body Mass Index 34.9 Gen: in no acute distress HEENT: sclera anicteric, moist mucus membranes Neck: supple, JVD present Lungs: clear to auscultation bilaterally Heart: regular rate and rhythm, no murmurs Abd: soft, non-tender, non-distended : no CVAT Ext: no edema, RUE midline catheter Skin: warm/well-perfused Neuro: alert and oriented x3, no focal findings Psych: appropriate affect Objective Data Current Medications Generic Name Dose Route Start Last Admin Trade Name Freq PRN Reason Stop Dose Admin Acetaminophen 650 mg 02/14/21 19:41 02/19/21 13:26 Acetaminophen 325 Mg Tablet PO 650 mg Q6H PRN Administration febrile Amiodarone HCl 200 mg 02/24/21 09:00 02/24/21 08:44 Amiodarone Hcl 200 Mg Tablet PO 200 mg DAILY KEMAL Administration Apixaban 5 mg 02/14/21 21:00 02/24/21 08:37 Apixaban 5 Mg Tablet PO 5 mg BID KEMAL Administration Aspirin 81 mg 02/15/21 09:00 02/24/21 08:37 Aspirin 81 Mg Tab.Chew PO 81 mg DAILY KEMAL Administration Heparin Sodium (Porcine) 50 0 units 02/23/21 21:00 02/24/21 08:37 units/ Sodium Chloride 5 ml IVFLUSH 50 unit TID KEMAL Administration Docusate Sodium 100 mg 02/14/21 18:00 Docusate Sodium 100 Mg Capsule PO BID PRN Constipation Fentanyl 25 mcg 02/20/21 19:11 Fentanyl Citrate/Pf 100 Mcg/2 Ml Vial IVPUSH Q5M PRN Pain, Moderate (Pain Scale 4-6 Protocol Furosemide 80 mg 02/21/21 16:00 02/24/21 08:45 Furosemide 40 Mg/4 Ml Vial IVPUSH 80 mg BID@0900,1800 [facility] Administration Protocol Promethazine HCl 12.5 mg/ 50.5 mls @ 202 mls/hr 02/20/21 19:11 Sodium Chloride IV ONCE PRN Nausea and Vomiting Caspofungin 50 mg/ Sodium 250 mls @ 250 mls/hr 02/24/21 13:00 Chloride IV Q24H KEMAL Nitroglycerin 0.4 mg 02/14/21 18:00 Nitroglycerin 0.4 Mg Tab.Subl SUBLINGUAL Q5M PRN Chest Pain Omeprazole 20 mg 02/15/21 06:30 02/24/21 06:16 Omeprazole 20 Mg Capsule.Dr PO 20 mg BID@0630,1630 [facility] Administration Ondansetron HCl 4 mg 02/16/21 01:45 02/16/21 03:31 Ondansetron Hcl 4 Mg/2 Ml Vial IVPUSH 4 mg Q6H PRN Administration nausea Pharmacy Consult 1 each 02/14/21 17:10 Consult Rx Perform Med Rec MISCELLANE ONCE PRN Consult order Sacubitril/Valsartan 1 tab 02/22/21 21:00 02/24/21 08:44 Sacubitril/Valsartan 1 Tab Tablet PO 1 tab BID [facility] Administration Protocol Spironolactone 25 mg 02/22/21 09:00 02/24/21 08:53 Spironolactone 25 Mg Tablet PO 25 mg DAILY [facility] Administration Protocol Labs CBC & Chem 7: 02/22/21 05:55 02/24/21 05:45 Labs: Laboratory Results - last 24 hr 02/24/21 02/24/21 05:45 05:45 Anion Gap 13 Estim Creat Clear Calc 33.6 Estimated GFR 35 Random Glucose 82 Calcium 8.6 Magnesium 1.6 B-Natriuretic Peptide 2750 H Assessment and Plan (1) Chronic renal failure, stage 3 (moderate): Status: Acute Assessment and Plan: hospital d#11 65yo M with cardiomyopathy/HFrEF, pAF, BiV pacer/ICD, B ureteral stents due to chronic hydronephrosis presented with dysuria/weakness admitted to ICU due to hypotension but did not require pressors stepped down to IMC 02/17/21 # pyelonephritis due to candiduria - CT showed chronic bilateral hydronephrosis and hydroureter down to bladder with bilateral ureteral stents in position; right kidney borderline larger with mild perinephric and upper periureter stranding; no gas bubble or calculi noted - fever resolved, BCx 1/2 Strep viridans = contaminant, UCx contaminated, got 8d of pip/salome, cultures from intraoperative aspiration of kidneys (purulent material obtained from L kidney) POD#4 ureteral stent change -> growing Ariadne albicans. Due to QT prolongation, avoiding azoles and giving caspofungin d#08/13; midline placed 02/23/21; arrange home infusion/VNA # acute/chronic HFrEF # severe dilated cardiomyopathy - continue IV diuresis with furosemide- continue at increased dose 80 mg bid; d/c'ed hydralazine and tolerating Entresto at low dose; continue spironolactone; hold carvedilol for low BP; monitor BNP/BMP/Mg/I+O (negative 5L this admission so far) # hypoK - repleted # HERMELINDO/CKD3 - SCr improved with diuresis; suspect had cardiorenal syndrome # pAF - now in NSR; continue amiodarone + apixaban # chronic hypoxic respiratory failure - continue home O2 2.5L via NC # VTE ppx - apixaban # dispo - anticipate home with VNA once euvolemic Quality Stroke Does the patient have a stroke diagnosis?: No VTE Prior VTE?: No VTE Risk Level:: Medical - moderate - high VTE Device Contraindication: N/A - Device Ordered VTE Drug Contraindication: N/A - Med Ordered
[2021-02-24] MEDS: Caspofungin Acetate 50 MG in 0.9 % Sodium Chloride 250 ML 250 MG IV (13:02)
--- NOTE | 2021-02-24 13:03 | P.PNCA_ITS ---
Subjective Subjective Date of Service: 02/24/21 Principal diagnosis: Dilated cardiomyopathy, acute on chronic systolic HF, PAF, pyelonephritis Interval history: Feeling better. No shortness of breath. Physical Exam Vital Signs: Last Vital Signs Temp 96 F L 02/24/21 11:04 Pulse 78 02/24/21 11:04 Resp 18 02/24/21 11:04 BP 111/59 L 02/24/21 11:04 Pulse Ox 98 02/24/21 11:04 Oxygen Flow Rate 2.5 02/23/21 18:59 Body Mass Index 34.9 GENERAL APPEARANCE: in no acute distress, pleasant. NECK: no carotid bruit, no jugular venous distention. SKIN: no suspicious lesions, warm and dry. HEART: no murmurs, regular rate and rhythm. LUNGS: clear to auscultation bilaterally. ABDOMEN: soft, nontender. EXTREMITIES: no edema. PERIPHERAL PULSES: equal. NEUROLOGIC: No gross deficits, AAO X 3 Results Labs and Meds Result diagrams: 02/22/21 05:55 02/24/21 05:45 Lab results: Laboratory Results - last 24 hr 02/24/21 02/24/21 05:45 05:45 Sodium 140 Potassium 3.8 Chloride 93 L Carbon Dioxide 38 H Anion Gap 13 BUN 29 H Creatinine 1.49 H Estim Creat Clear Calc 33.6 Estimated GFR 35 Random Glucose 82 Calcium 8.6 Magnesium 1.6 B-Natriuretic Peptide 2750 H Progress Note: A&P Assessment and plan (1) Cardiomyopathy: Status: Acute (2) Chronic heart failure: Status: Acute (3) CHF (congestive heart failure): Status: Acute Assessment and Plan: Pleasant 65-year-old female with dilated cardiomyopathy who presented with urine infection. She is currently on caspofungin for fungal infection. From cardiovascular point of view she is improving. I think she can be changed to p.o. furosemide 80 mg twice a day. Due to her blood pressure fluctuation I think we should try bisoprolol instead of carvedilol. Please start her on bisoprolol 2.5 mg once a day. Will follow along with you. Thank you for allowing me to participate in the care of your patient. Please feel free to contact me if you have any questions. Fall Risk Details Current Medications: Current Medications Generic Name Dose Route Start Last Admin Trade Name Freq PRN Reason Stop Dose Admin Acetaminophen 650 mg 02/14/21 19:41 02/19/21 13:26 Acetaminophen 325 Mg Tablet PO 650 mg Q6H PRN Administration febrile Amiodarone HCl 200 mg 02/24/21 09:00 02/24/21 08:44 Amiodarone Hcl 200 Mg Tablet PO 200 mg DAILY KEMAL Administration Apixaban 5 mg 02/14/21 21:00 02/24/21 08:37 Apixaban 5 Mg Tablet PO 5 mg BID KEMAL Administration Aspirin 81 mg 02/15/21 09:00 02/24/21 08:37 Aspirin 81 Mg Tab.Chew PO 81 mg DAILY KEMAL Administration Heparin Sodium (Porcine) 50 0 units 02/23/21 21:00 02/24/21 08:37 units/ Sodium Chloride 5 ml IVFLUSH 50 unit TID [facility] Administration Docusate Sodium 100 mg 02/14/21 18:00 Docusate Sodium 100 Mg Capsule PO BID PRN Constipation Fentanyl 25 mcg 02/20/21 19:11 Fentanyl Citrate/Pf 100 Mcg/2 Ml Vial IVPUSH Q5M PRN Pain, Moderate (Pain Scale 4-6 Protocol Furosemide 80 mg 02/21/21 16:00 02/24/21 08:45 Furosemide 40 Mg/4 Ml Vial IVPUSH 80 mg BID@0900,1800 [facility] Administration Protocol Promethazine HCl 12.5 mg/ 50.5 mls @ 202 mls/hr 02/20/21 19:11 Sodium Chloride IV ONCE PRN Nausea and Vomiting Caspofungin 50 mg/ Sodium 250 mls @ 250 mls/hr 02/24/21 13:00 Chloride IV Q24H [facility] Nitroglycerin 0.4 mg 02/14/21 18:00 Nitroglycerin 0.4 Mg Tab.Subl SUBLINGUAL Q5M PRN Chest Pain Omeprazole 20 mg 02/15/21 06:30 02/24/21 06:16 Omeprazole 20 Mg Capsule.Dr PO 20 mg BID@0630,1630 [facility] Administration Ondansetron HCl 4 mg 02/16/21 01:45 02/16/21 03:31 Ondansetron Hcl 4 Mg/2 Ml Vial IVPUSH 4 mg Q6H PRN Administration nausea Pharmacy Consult 1 each 02/14/21 17:10 Consult Rx Perform Med Rec MISCELLANE ONCE PRN Consult order Sacubitril/Valsartan 1 tab 02/22/21 21:00 02/24/21 08:44 Sacubitril/Valsartan 1 Tab Tablet PO 1 tab BID KEMAL Administration Protocol Spironolactone 25 mg 02/22/21 09:00 02/24/21 08:53 Spironolactone 25 Mg Tablet PO 25 mg DAILY KEMAL Administration Protocol Time Spent With Patient Time: Total time spent is greater than 50% in coordination of care (as documented) at patient's floor/unit and/or counseling patient: Time with patient: 25 - 35 minutes Progress Note: Quality Stroke Does the patient have a stroke diagnosis?: No Procedures Date of Service Date of Service: 02/24/21
[2021-02-24] MEDS: Bisoprolol Fumarate 5 MG TABLET 1.25 MG PO (14:16)
[2021-02-24] MEDS: Acetaminophen 325 MG TABLET 650 MG PO (15:53)
[2021-02-24] MEDS: Furosemide 40 MG TABLET 80 MG PO (18:19)
--- NOTE | 2021-02-24 18:20 | PC.NURSE ---
Dr Mclean notified of BP with systolic in the 80's. Stated to hold lasix if BP <80. Bp 87/56 HR 78. Po lasix given
[2021-02-25] VITALS (8 sets, daily range): BP systolic 82–112; BP diastolic 50–61; PULSE 75–86; RESP 16–20; TEMP 36–36.5; O2SAT 96–100
[2021-02-25] MEDS: Omeprazole 20 MG CAPSULE.DR PO ×2 (06:15→16:20)
[2021-02-25 07:36] LABS: Hematocrit 31.7 % (37-47); Hemoglobin 9.6 g/dl (12.0-16.0); Mean Corpuscular HGB Conc 30.3 g/dl (31.0-35.0); Mean Corpuscular Hemoglobin 25.5 pg (27.0-33.0); Mean Corpuscular Volume 84.3 fL (80-98); Mean Platelet Volume 9.9 fL (9.4-12.3); Platelet Count 456 X10*3/uL (160-400); Red Blood Count 3.76 X10*6/uL (4.20-5.50); Red Cell Distribution Width 16.4 % (11.0-16.0)
[2021-02-25 08:13] LABS: Alanine Aminotransferase 20 U/L (0-31); Albumin Level 3.4 g/dL (3.5-5.0); Alkaline Phosphatase 92 U/L (39-117); Anion Gap 13 (12-20); Aspartate Amino Transferase 12 U/L (5-31); Bilirubin Total 0.5 mg/dL (0.0-1.0); Blood Urea Nitrogen 34 mg/dL (9-16); Calcium 8.9 mg/dL (8.4-10.2); Carbon Dioxide 38 mmol/L (22-29); Chloride 93 mmol/L (96-108); Creatinine Clr Calc Pharmacy 32.2; Estimated Glomerular Filt Rate 33; Glucose Random 83 mg/dL (60-115); Magnesium 1.8 mg/dL (1.6-2.6); Potassium 3.8 mmol/L (3.3-5.1); Sodium 140 mmol/L (135-145); Total Protein 7.3 g/dL (6.5-8.0)
[2021-02-25] MEDS: Aspirin 81 MG TAB.CHEW PO (08:20)
[2021-02-25] MEDS: Apixaban 5 MG TABLET PO ×2 (08:20→21:16)
[2021-02-25] MEDS: Furosemide 40 MG TABLET 80 MG PO ×2 (08:20→17:46)
[2021-02-25] MEDS: Amiodarone HCL 200 MG TABLET PO (08:20)
[2021-02-25] MEDS: Sacubitril/Valsartan 24/26 1 TAB TABLET PO (08:21)
[2021-02-25] MEDS: Heparin Sodium,Porcine Flush 50 UNITS, 0.9 % Sodium Chloride Flush 5 ML IVFLUSH ×3 (08:21→21:16)
[2021-02-25] MEDS: Spironolactone 25 MG TABLET PO (08:21)
[2021-02-25] MEDS: Bisoprolol Fumarate 5 MG TABLET 1.25 MG PO (08:22)
--- NOTE | 2021-02-25 11:43 | PM.PNCARD ---
Subjective Subjective Date of Service: 02/25/21 Principal diagnosis: Dilated cardiomyopathy, acute on chronic systolic HF, PAF, pyelonephritis Interval history: Feeling better. Physical Exam Vital Signs: Last Vital Signs Temp 96.8 F 02/25/21 11:05 Pulse 80 02/25/21 11:05 Resp 18 02/25/21 11:05 BP 101/54 L 02/25/21 11:05 Pulse Ox 98 02/25/21 11:05 Oxygen Flow Rate 2.5 02/24/21 19:00 Body Mass Index 34.9 GENERAL APPEARANCE: in no acute distress, pleasant. NECK: no carotid bruit, no jugular venous distention. SKIN: no suspicious lesions, warm and dry. HEART: no murmurs, regular rate and rhythm. LUNGS: clear to auscultation bilaterally. ABDOMEN: soft, nontender. EXTREMITIES: no edema. PERIPHERAL PULSES: equal. NEUROLOGIC: No gross deficits, AAO X 3 Results Labs and Meds Result diagrams: 02/25/21 06:23 02/25/21 06:23 Lab results: Laboratory Results - last 24 hr 02/25/21 02/25/21 06:23 06:23 WBC 8.0 RBC 3.76 L D Hgb 9.6 L Hct 31.7 L D MCV 84.3 MCH 25.5 L MCHC 30.3 L RDW 16.4 H Plt Count 456 H D MPV 9.9 Absolute Nucleated RBC 0.000 Nucleated RBC % (auto) 0.0 Sodium 140 Potassium 3.8 Chloride 93 L Carbon Dioxide 38 H Anion Gap 13 BUN 34 H Creatinine 1.55 H Estim Creat Clear Calc 32.2 Estimated GFR 33 Random Glucose 83 Calcium 8.9 Magnesium 1.8 Total Bilirubin 0.5 AST 12 D ALT 20 Alkaline Phosphatase 92 Total Protein 7.3 Albumin 3.4 L Progress Note: A&P Assessment and plan (1) Chronic heart failure: Status: Acute Assessment and Plan: Pleasant 65-year-old female with dilated cardiomyopathy who presented with urine infection. She is currently on caspofungin for fungal infection. From cardiovascular point of view she is improving.? She is on p.o. Lasix now. She has been started on bisoprolol 1.25 mg once a day. Bisoprolol is better tolerated in patients with low blood pressures and cardiomyopathy. Thank you for allowing me to participate in the care of your patient.? Please feel free to contact me if you have any questions. Fall Risk Details Current Medications: Current Medications Generic Name Dose Route Start Last Admin Trade Name Freq PRN Reason Stop Dose Admin Acetaminophen 650 mg 02/14/21 19:41 02/24/21 15:53 Acetaminophen 325 Mg Tablet PO 650 mg Q6H PRN Administration febrile Amiodarone HCl 200 mg 02/24/21 09:00 02/25/21 08:20 Amiodarone Hcl 200 Mg Tablet PO 200 mg DAILY KEMAL Administration Apixaban 5 mg 02/14/21 21:00 02/25/21 08:20 Apixaban 5 Mg Tablet PO 5 mg BID KEMAL Administration Aspirin 81 mg 02/15/21 09:00 02/25/21 08:20 Aspirin 81 Mg Tab.Chew PO 81 mg DAILY KEMAL Administration Bisoprolol Fumarate 1.25 mg 02/24/21 13:15 02/25/21 08:22 Bisoprolol Fumarate 5 Mg Tablet PO 1.25 mg DAILY KEMAL Administration Heparin Sodium (Porcine) 50 0 units 02/23/21 21:00 02/25/21 08:21 units/ Sodium Chloride 5 ml IVFLUSH 50 unit TID KEMAL Administration Docusate Sodium 100 mg 02/14/21 18:00 Docusate Sodium 100 Mg Capsule PO BID PRN Constipation Fentanyl 25 mcg 02/20/21 19:11 Fentanyl Citrate/Pf 100 Mcg/2 Ml Vial IVPUSH Q5M PRN Pain, Moderate (Pain Scale 4-6 Protocol Furosemide 80 mg 02/24/21 18:00 02/25/21 08:20 Furosemide 40 Mg Tablet PO 80 mg BID@0900,1800 KEMAL Administration Protocol Promethazine HCl 12.5 mg/ 50.5 mls @ 202 mls/hr 02/20/21 19:11 Sodium Chloride IV ONCE PRN Nausea and Vomiting Caspofungin 50 mg/ Sodium 250 mls @ 250 mls/hr 02/24/21 13:00 02/24/21 14:02 Chloride IV Infused Q24H KEMAL Infusion Nitroglycerin 0.4 mg 02/14/21 18:00 Nitroglycerin 0.4 Mg Tab.Subl SUBLINGUAL Q5M PRN Chest Pain Omeprazole 20 mg 02/15/21 06:30 02/25/21 06:15 Omeprazole 20 Mg Capsule.Dr PO 20 mg BID@0630,1630 KEMAL Administration Ondansetron HCl 4 mg 02/16/21 01:45 02/16/21 03:31 Ondansetron Hcl 4 Mg/2 Ml Vial IVPUSH 4 mg Q6H PRN Administration nausea Pharmacy Consult 1 each 02/14/21 17:10 Consult Rx Perform Med Rec MISCELLANE ONCE PRN Consult order Sacubitril/Valsartan 1 tab 02/22/21 21:00 02/25/21 08:21 Sacubitril/Valsartan 1 Tab Tablet PO 1 tab BID KEMAL Administration Protocol Spironolactone 25 mg 02/22/21 09:00 02/25/21 08:21 Spironolactone 25 Mg Tablet PO 25 mg DAILY KEMAL Administration Protocol Time Spent With Patient Time: Total time spent is greater than 50% in coordination of care (as documented) at patient's floor/unit and/or counseling patient: Time with patient: 15 - 24 minutes Progress Note: Quality Stroke Does the patient have a stroke diagnosis?: No Procedures Date of Service Date of Service: 02/25/21
--- NOTE | 2021-02-25 13:01 | P.PNIM_ITS ---
Subjective Subjective Date of Service: 02/25/21 Interval History: History in [place]. BP 78/58 yesterday evening without any lightheadedness. She feels well- dyspnea much improved, no chest pain, no lightheadendess. No fever/chills. no nausea/vomiting. Review of Systems Review of Systems: Yes all other systems are reviewed and are negative Physical Exam Vital Signs: Vital Signs: Last Vital Signs Temp 96.8 F 02/25/21 11:05 Pulse 80 02/25/21 11:05 Resp 18 02/25/21 11:05 BP 101/54 L 02/25/21 11:05 Pulse Ox 98 02/25/21 11:05 Oxygen Flow Rate 2.5 02/24/21 19:00 Body Mass Index 34.9 Gen: in no acute distress HEENT: sclera anicteric, moist mucus membranes Neck: supple, JVD present Lungs: clear to auscultation bilaterally Heart: regular rate and rhythm, no murmurs Abd: soft, non-tender, non-distended : no CVAT Ext: no edema, RUE midline catheter Skin: warm/well-perfused Neuro: alert and oriented x3, no focal findings Psych: appropriate affect Objective Data Current Medications Generic Name Dose Route Start Last Admin Trade Name Freq PRN Reason Stop Dose Admin Acetaminophen 650 mg 02/14/21 19:41 02/24/21 15:53 Acetaminophen 325 Mg Tablet PO 650 mg Q6H PRN Administration febrile Amiodarone HCl 200 mg 02/24/21 09:00 02/25/21 08:20 Amiodarone Hcl 200 Mg Tablet PO 200 mg DAILY KEMAL Administration Apixaban 5 mg 02/14/21 21:00 02/25/21 08:20 Apixaban 5 Mg Tablet PO 5 mg BID KEMAL Administration Aspirin 81 mg 02/15/21 09:00 02/25/21 08:20 Aspirin 81 Mg Tab.Chew PO 81 mg DAILY KEMAL Administration Bisoprolol Fumarate 1.25 mg 02/24/21 13:15 02/25/21 08:22 Bisoprolol Fumarate 5 Mg Tablet PO 1.25 mg DAILY KEMAL Administration Heparin Sodium (Porcine) 50 0 units 02/23/21 21:00 02/25/21 08:21 units/ Sodium Chloride 5 ml IVFLUSH 50 unit TID KEMAL Administration Docusate Sodium 100 mg 02/14/21 18:00 Docusate Sodium 100 Mg Capsule PO BID PRN Constipation Fentanyl 25 mcg 02/20/21 19:11 Fentanyl Citrate/Pf 100 Mcg/2 Ml Vial IVPUSH Q5M PRN Pain, Moderate (Pain Scale 4-6 Protocol Furosemide 80 mg 02/24/21 18:00 02/25/21 08:20 Furosemide 40 Mg Tablet PO 80 mg BID@0900,1800 [facility] Administration Protocol Promethazine HCl 12.5 mg/ 50.5 mls @ 202 mls/hr 02/20/21 19:11 Sodium Chloride IV ONCE PRN Nausea and Vomiting Caspofungin 50 mg/ Sodium 250 mls @ 250 mls/hr 02/24/21 13:00 02/24/21 14:02 Chloride IV Infused Q24H [facility] Infusion Nitroglycerin 0.4 mg 02/14/21 18:00 Nitroglycerin 0.4 Mg Tab.Subl SUBLINGUAL Q5M PRN Chest Pain Omeprazole 20 mg 02/15/21 06:30 02/25/21 06:15 Omeprazole 20 Mg Capsule.Dr PO 20 mg BID@0630,1630 [facility] Administration Ondansetron HCl 4 mg 02/16/21 01:45 02/16/21 03:31 Ondansetron Hcl 4 Mg/2 Ml Vial IVPUSH 4 mg Q6H PRN Administration nausea Pharmacy Consult 1 each 02/14/21 17:10 Consult Rx Perform Med Rec MISCELLANE ONCE PRN Consult order Sacubitril/Valsartan 1 tab 02/22/21 21:00 02/25/21 08:21 Sacubitril/Valsartan 1 Tab Tablet PO 1 tab BID [facility] Administration Protocol Spironolactone 25 mg 02/22/21 09:00 02/25/21 08:21 Spironolactone 25 Mg Tablet PO 25 mg DAILY [facility] Administration Protocol Labs CBC & Chem 7: 02/25/21 06:23 02/25/21 06:23 Labs: Laboratory Results - last 24 hr 02/25/21 02/25/21 06:23 06:23 MCV 84.3 MCH 25.5 L MCHC 30.3 L RDW 16.4 H Plt Count 456 H D MPV 9.9 Absolute Nucleated RBC 0.000 Nucleated RBC % (auto) 0.0 Anion Gap 13 Estim Creat Clear Calc 32.2 Estimated GFR 33 Random Glucose 83 Calcium 8.9 Magnesium 1.8 Total Bilirubin 0.5 AST 12 D ALT 20 Alkaline Phosphatase 92 Total Protein 7.3 Albumin 3.4 L Assessment and Plan (1) Chronic renal failure, stage 3 (moderate): Status: Acute Assessment and Plan: hospital d#12 65yo M with cardiomyopathy/HFrEF, pAF, BiV pacer/ICD, B ureteral stents due to chronic hydronephrosis presented with dysuria/weakness admitted to ICU due to hypotension but did not require pressors stepped down to IMC 02/17/21 # pyelonephritis due to candiduria - CT showed chronic bilateral hydronephrosis and hydroureter down to bladder with bilateral ureteral stents in position; right kidney borderline larger with mild perinephric and upper periureter stranding; no gas bubble or calculi noted - fever resolved, BCx 1/2 Strep viridans = contaminant, UCx contaminated, got 8d of pip/salome, cultures from intraoperative aspiration of kidneys (purulent material obtained from L kidney) POD#4 ureteral stent change -> growing Ariadne albicans. Due to QT prolongation, avoiding azoles and giving caspofungin d#3/14 [end date 03/08/21]; midline placed 02/23/21; arrange home infusion/VNA # acute/chronic HFrEF # severe dilated cardiomyopathy - changed to PO furosemide; d/c'ed hydralazine and tolerating Entresto at low dose; continue spironolactone; carvedilol changed to bisoprolol per Cardiology; BP will run low in this patient with severely decreased LVEF <10% # hypoK - repleted # HERMELINDO/CKD3 - SCr improved with diuresis; suspect had cardiorenal syndrome # pAF - now in NSR; continue amiodarone + apixaban # chronic hypoxic respiratory failure - continue home O2 2.5L via [place] # VTE ppx - apixaban # dispo - anticipate home with VNA. Pt lives with sister who just gave up her apt in [place] and is moving to [place]. CM trying to set up VNA in [place]; pt will also need Cardiology + ID follow up in [place] [plus a new PCP]- [facility] to arrange Quality Stroke Does the patient have a stroke diagnosis?: No VTE Prior VTE?: No VTE Risk Level:: Medical - moderate - high VTE Device Contraindication: N/A - Device Ordered VTE Drug Contraindication: N/A - Med Ordered
[2021-02-25] MEDS: Caspofungin Acetate 50 MG in 0.9 % Sodium Chloride 250 ML 250 MG IV (13:21)
--- NOTE | 2021-02-25 13:43 | P.DS_ITS ---
DS: Providers Provider Date of Service: 02/25/21 <Freya Mclean MD - Last Filed: 03/01/21 17:20> 02/26/21 <Flavio Ortiz MD - Last Filed: 03/10/21 21:44> Date of admission: 02/14/21 18:05 <Freya Mclean MD - Last Filed: 03/01/21 17:20> Date of discharge: 02/26/21 <Freya Mclean MD - Last Filed: 03/01/21 17:20> Primary care physician: Keith العلي MD <Freya Mclean MD - Last Filed: 03/01/21 17:20> Admitting clinician: Tevin Licea <Freya Mclean MD - Last Filed: 03/01/21 17:20> Attending physician on admission: Tevin Licea <Freya Mclean MD - Last Filed: 03/01/21 17:20> Consults: 02/15/21 07:33 Consult to Urology Routine Consulting Provider: Rosales Healy Reason for consultation: Recurrent urinary tract infection with ureteral stent Has provider been notified: Yes 02/19/21 08:41 Consult to Cardiology Routine Consulting Provider: [facility] Cardiovascular Services Reason for consultation: HFrEF, hypotensive in ICU, resolved- meds held 02/22/21 08:12 Consult to Infectious Diseases Routine Consulting Provider: Lola Rubio Reason for consultation: yeast on intraoperative aspiration of kidneys with stents in place <Freya Mclean MD - Last Filed: 03/01/21 17:20> Attending physician on discharge: Flavio Ortiz <Freya Mclean MD - Last Filed: 03/01/21 17:20> Discharging clinician: Flavio Mclean MD - Last Filed: 03/01/21 17:20> DS: Diagnosis Discharge Diagnosis (1) Candiduria: Status: Acute <Freya Mclean MD - Last Filed: 03/01/21 17:20> (2) Acute on chronic HFrEF (heart failure with reduced ejection fraction): Status: Acute <Freya Mclean MD - Last Filed: 03/01/21 17:20> (3) Dilated cardiomyopathy: Status: Acute <Freya Mclean MD - Last Filed: 03/01/21 17:20> (4) Acute worsening of stage 3 chronic kidney disease: Status: Acute <Freya Mcelan MD - Last Filed: 03/01/21 17:20> (5) Cardiorenal syndrome: Status: Acute <Freya Mclean MD - Last Filed: 03/01/21 17:20> (6) Hypotension: Status: Acute <Freya Mclean MD - Last Filed: 03/01/21 17:20> DS: Summary Hospital Course Hospital Course: from admission history and physical by primer inserting machine operator Tevin Licea, 02/14/21: 65-year-old female with underlying congestive cardiomyopathy for which she also has a biventricular AICD and 100% ventricular pacing currently sinus rhythm but a background history of paroxysmal atrial fibrillation and ejection fraction approximating 15% and this appears to be a congestive cardiomyopathy On amiodarone for AFib prophylaxis and is on Eliquis as anticoagulation takes carvedilol digoxin and Entresto with furosemide and spironolactone Background history of bilateral ureteral stents with chronic hydronephrosis and recent enterococcal faecalis urinary tract infection 6 months ago pretty much sensitive to everything and she has no known allergies and has already received ceftriaxone and Levaquin This 65 year old woman with dilated cardiomyopathy/HFrEF with a BiV pacer/ICD, paroxysmal AF, CKD3, and chronic hydronephrosis with bilateral ureteral stents presented with dysuria and weakness and was admitted to the ICU initially due to hypotension and pyelonephritis. She did not require pressors and was stepped down to the [facility] on 02/17/21. She was initially treated with piperacillin/tazobactam, but ended up undergoing stent exchange in the OR on 02/21/21, during which purulent material was obtained from the left kidney. Intraoperative aspiration of both kidneys grew Ariadne albicans. The patient was started on caspofunin and a midline catheter was placed. Regarding her CHF, she was diuresed with IV furosemide. Creatinine improved with diuresis, suggesting cardiorenal syndrome. Entresto was resumed. Spironolactone was continued. Carvedilol was changed to bisoprolol for better tolerance. Echocardiogram showed severely reduced LVEF of <10%. As a result, her blood pressure runs chronically low. The home energy consultant supervisor discussed the patient with the HF team at [facility] and outpatient follow-up for consideration of advanced therapy was recommended. She was discharged home with VNA services to continue caspofungin until 03/08/21. She will need laboratory studies in 1 week [CBCd, CMP, magnesium, BNP]. She needs to follow up with Primary Care, Cardiology, Infectious Disease, and Urology. <Freya Mclean MD - Last Filed: 03/01/21 17:20> Time Spent with Patient Time attestation: Total time spent providing and/or coordinating discharge services: <Freya Mclean MD - Last Filed: 03/01/21 17:20> Discharge coordination time: Greater than 30 minutes <Freya Mclean MD - Last Filed: 03/01/21 17:20> Quality: Stroke Does the patient have a stroke diagnosis?: No <Freya Mclean MD - Last Filed: 03/01/21 17:20> Physical Exam Vital Signs: Vital Signs: Last Vital Signs Temp 96.8 F 02/25/21 11:05 Pulse 80 02/25/21 11:05 Resp 18 02/25/21 11:05 BP 101/54 L 02/25/21 11:05 Pulse Ox 98 02/25/21 11:05 Oxygen Flow Rate 2.5 02/24/21 19:00 Body Mass Index 34.9 Gen: in no acute distress HEENT: sclera anicteric, moist mucus membranes Neck: supple, JVD present Lungs: clear to auscultation bilaterally Heart: regular rate and rhythm, no murmurs Abd: soft, non-tender, non-distended : no CVAT Ext: no edema, RUE midline catheter Skin: warm/well-perfused Neuro: alert and oriented x3, no focal findings Psych: appropriate affect <Freya Mclean MD - Last Filed: 03/01/21 17:20> DS: Data Data Completed and Pending Completed studies during hospitalization [Text1]: Laboratory Results WBC 8.0 X10*3/uL (4.8-10.8) 02/25/21 06:23 RBC 3.76 X10*6/uL (4.20-5.50) L D 02/25/21 06:23 Hgb 9.6 g/dl (12.0-16.0) L 02/25/21 06:23 Hct 31.7 % (37-47) L D 02/25/21 06:23 MCV 84.3 fL (80-98) 02/25/21 06:23 MCH 25.5 pg (27.0-33.0) L 02/25/21 06:23 MCHC 30.3 g/dl (31.0-35.0) L 02/25/21 06:23 RDW 16.4 % (11.0-16.0) H 02/25/21 06:23 Plt Count 456 X10*3/uL (160-400) H D 02/25/21 06:23 MPV 9.9 fL (9.4-12.3) 02/25/21 06:23 Immature Gran % (Auto) 0.4 % (0.0-0.4) 02/19/21 06:57 Neut % (Auto) 73.4 % (45-73) H 02/19/21 06:57 Lymph % (Auto) 11.9 % (20-40) L 02/19/21 06:57 [place] % (Auto) 11.0 % (2-11) 02/19/21 06:57 Eos % (Auto) 2.8 % (0-4) 02/19/21 06:57 Baso % (Auto) 0.5 % (0-2) 02/19/21 06:57 Lymph # (Auto) 0.9 X10*3/uL (1.2-4.9) L 02/19/21 06:57 [place] # (Auto) 0.8 X10*3/uL (0.1-1.2) 02/19/21 06:57 Eos # (Auto) 0.2 X10*3/uL (0.0-0.4) 02/19/21 06:57 Baso # (Auto) 0.0 X10*3/uL (0.0-0.2) 02/19/21 06:57 Abs Immat Gran (auto) 0.03 X10*3/uL (0.00-0.03) 02/19/21 06:57 Absolute Neuts (auto) 5.6 X10*3/uL (2.0-8.3) 02/19/21 06:57 Absolute Nucleated RBC 0.000 X10*3/uL (0.0-0.012) 02/25/21 06:23 Nucleated RBC % (auto) 0.0 /100WBC (0.0-0.2) 02/25/21 06:23 PT 27.4 SEC (9.9-13.0) H 02/19/21 06:57 INR 2.4 (0.9-1.1) H 02/19/21 06:57 APTT 35.0 SEC (24.1-38.0) 02/19/21 06:57 Sodium 140 mmol/L (135-145) 02/25/21 06:23 Potassium 3.8 mmol/L (3.3-5.1) 02/25/21 06:23 Chloride 93 mmol/L (96-108) L 02/25/21 06:23 Carbon Dioxide 38 mmol/L (22-29) H 02/25/21 06:23 Anion Gap 13 (12-20) 02/25/21 06:23 BUN 34 mg/dL (9-16) H 02/25/21 06:23 Creatinine 1.55 mg/dL (0.5-1.4) H 02/25/21 06:23 Estim Creat Clear Calc 32.2 02/25/21 06:23 Estimated GFR 33 02/25/21 06:23 Random Glucose 83 mg/dL (60-115) 02/25/21 06:23 Lactic Acid 0.9 mmol/L (0.5-2.0) 02/14/21 15:55 Calcium 8.9 mg/dL (8.4-10.2) 02/25/21 06:23 Phosphorus 3.5 mg/dL (2.7-4.5) 02/19/21 06:57 Magnesium 1.8 mg/dL (1.6-2.6) 02/25/21 06:23 Total Bilirubin 0.5 mg/dL (0.0-1.0) 02/25/21 06:23 Direct Bilirubin 0.2 mg/dL (0.0-0.5) 02/14/21 13:48 AST 12 U/L (5-31) D 02/25/21 06:23 ALT 20 U/L (0-31) 02/25/21 06:23 Alkaline Phosphatase 92 U/L (39-117) 02/25/21 06:23 Troponin I High Sens 9.3 ng/L (<3.5-17.0) 02/14/21 14:08 B-Natriuretic Peptide 2750 pg/mL (<100) H 02/24/21 05:45 Total Protein 7.3 g/dL (6.5-8.0) 02/25/21 06:23 Albumin 3.4 g/dL (3.5-5.0) L 02/25/21 06:23 Lipase 18 U/L (8-78) 02/14/21 13:48 Urine Color STRAW 02/14/21 14:35 Urine Appearance CLOUDY 02/14/21 14:35 Urine pH 6.0 (5.0-8.0) 02/14/21 14:35 Ur Specific [place] <= 1.005 (1.005-1.025) 02/14/21 14:35 Urine Protein 1+ MG/DL (NEG-TRACE) H 02/14/21 14:35 Urine Glucose (UA) NEG MG/DL (NEG) 02/14/21 14:35 Urine Ketones NEG MG/DL (NEG) 02/14/21 14:35 Urine Blood 3+ (NEG) H 02/14/21 14:35 Urine Nitrite NEG (NEG) 02/14/21 14:35 Ur Leukocyte Esterase 3+ (NEG) H 02/14/21 14:35 Urine RBC 5-9 /HPF (0) H 02/14/21 14:35 Urine WBC TNTC /HPF (0-4) H 02/14/21 14:35 Urine WBC Clumps NOTED 02/14/21 14:35 Ur Squamous Epith Cells NONE /LPF 02/14/21 14:35 Amorphous Sediment 2+ /LPF 02/14/21 14:35 Urine Bacteria 2+ /LPF 02/14/21 14:35 COVID-19 (DEYSI) Negative (Negative) 02/14/21 17:33 COVID-19 Clin Com See Note 02/14/21 17:33 Blood Type A Positive 02/15/21 08:47 Antibody Screen NEGATIVE 02/15/21 08:47 Crossmatch See Detail 02/15/21 08:47 Impressions Abdomen/Pelvis CT 02/14/21 13:27 IMPRESSION: 1. Chronic bilateral hydronephrosis and hydroureter down to bladder. Bilateral ureteral stents in position. Right kidney borderline larger with mild perinephric and upper periureteral stranding. Mild upper abdominal adenopathy. Findings may be related to pyelonephritis. No gas bubbles or calculi. 2. No bowel obstruction or focal intestinal inflammatory changes. Normal appendix. No ascites or fluid collection. Chest X-Ray 02/14/21 13:55 IMPRESSION: Findings suggest vascular congestion/early CHF. No overt edema Guidance Fluoroscopy 02/20/21 15:11 IMPRESSION: Fluoroscopy guidance was provided to Dr. Niraj Caba during cystoscopy and stent removal and replacement procedure. <Freya Mclean MD - Last Filed: 03/01/21 17:20> Labs on day of discharge: Laboratory Results - last 24 hr 02/25/21 02/25/21 06:23 06:23 WBC 8.0 RBC 3.76 L D Hgb 9.6 L Hct 31.7 L D MCV 84.3 MCH 25.5 L MCHC 30.3 L RDW 16.4 H Plt Count 456 H D MPV 9.9 Absolute Nucleated RBC 0.000 Nucleated RBC % (auto) 0.0 Sodium 140 Potassium 3.8 Chloride 93 L Carbon Dioxide 38 H Anion Gap 13 BUN 34 H Creatinine 1.55 H Estim Creat Clear Calc 32.2 Estimated GFR 33 Random Glucose 83 Calcium 8.9 Magnesium 1.8 Total Bilirubin 0.5 AST 12 D ALT 20 Alkaline Phosphatase 92 Total Protein 7.3 Albumin 3.4 L <Freya Mclean MD - Last Filed: 03/01/21 17:20> Discharge Plan Discharge Anticipated Discharge Date/Time: 02/26/21 14:33 <Freya Mclean MD - Last Filed: 03/01/21 17:20> Patient Disposition: Home Health Service <Freya Mclean MD - Last Filed: 03/01/21 17:20> Discharge Diagnosis: cardiomyopathy, acute/chronic kidney disease, candiduria <Freya Mclean MD - Last Filed: 03/01/21 17:20> cardiomyopathy, acute/chronic kidney disease, candiduria <Flavio Ortiz MD - Last Filed: 03/10/21 21:44> Referrals: [facility] [Other] - 1 Week [facility] [Other] - 1 Week (START OF CARE 03/01/2021 ONCE YOUR IV ANTIFUNGAL IS COMPLETE, PLEASE CALL ([facility] MEDIC[facility]) TO SECURE A NEW PROVIDER FOR YOUR CONTINUED HEALTHCARE NEEDS. PLEASE WAIT UNTIL YOUR MEDICATION IS COMPLETE, THE VNA WILL NEED TO CONTACT YOUR CURRENT PROVIDER FOR ANY ORDERS.) Rosales Healy MD [Physician] - 1 Week Lola Rubio MD [Physician] - 1 Week Keith العلي MD [Primary Care Provider] - 1 Week Kory Thomas MD [Physician] - 1 Week <Freya Mclean MD - Last Filed: 03/01/21 17:20> Discharge Medications: New caspofungin [Cancidas] 50 mg Recon Soln 50 mg IV Q24H Qty: 10 RF: 0 bisoprolol fumarate 5 mg Tablet 1.25 mg PO DAILY Qty: 120 RF: 0 furosemide [Lasix] 80 mg tablet 80 mg PO QAM Qty: 30 RF: 0 Continued amiodarone 200 mg Tablet 200 mg PO DAILY RF: 0 aspirin 81 mg Tablet 81 mg PO DAILY RF: 0 nitroglycerin 0.4 mg Tablet, Sublingual 0.4 mg SUBLINGUAL Q5M PRN (Reason: Chest Pain) RF: 0 docusate sodium 100 mg Capsule 100 mg PO BID PRN (Reason: Constipation) RF: 0 omeprazole 20 mg Capsule,Delayed Release(Dr/Ec) 20 mg PO BID@0630,1630 RF: 0 multivitamin Capsule 1 cap PO DAILY RF: 0 cholecalciferol (vitamin D3) 50 mcg (2,000 unit) Capsule 50 mcg PO DAILY RF: 0 spironolactone 25 mg Tablet 25 mg PO QAM RF: 0 Hold Instructions: Resume on 07/18/20. resume when directed to by core shaper Dr Choi calcium carbonate-vit D3-min 600 mg calcium- 400 unit tablet 1 tab PO BID Qty: 60 RF: 0 rosuvastatin 20 mg tablet 1 tab PO BEDTIME RF: 0 zolpidem 10 mg tablet 0.5 - 1 tab PO BEDTIME RF: 0 ascorbic acid (vitamin C) [Vitamin C] 500 mg Tablet 500 mg PO DAILY RF: 0 oxycodone 10 mg tablet 1 tab PO BID RF: 0 Entresto 24-26 mg Tablet 1 tab PO BID RF: 0 Hold Instructions: Resume on 07/18/20. resume when directed to by cardiol ogist Dr Steph Koehler SureClick 50 mg/mL (1 mL) pen injector 1 mg subcut IRBY RF: 0 Eliquis 5 mg tablet 1 tab PO BID RF: 0 acetaminophen 500 mg Tablet 500 mg PO BID RF: 0 Discontinued furosemide 40 mg tablet 40 mg PO QNOON RF: 0 carvedilol 6.25 mg tablet 1 tab PO BID RF: 0 <Freya Mclean MD - Last Filed: 03/01/21 17:20> Discharge Orders: Discharge Order (Routine); Ordered 02/26/21 Ordered By: Flavio Ortiz <Freya Mclean MD - Last Filed: 03/01/21 17:20> Diet: low salt diet <Freya Mclean MD - Last Filed: 03/01/21 17:20> low salt diet <Flavio Ortiz MD - Last Filed: 03/10/21 21:44> Activity on Discharge: As tolerated <Freya Mclean MD - Last Filed: 03/01/21 17:20> As tolerated <Flavio Ortiz MD - Last Filed: 03/10/21 21:44> Stand Alone Forms: Patient Portal Discharge page <Freya Mclean MD - Last Filed: 03/01/21 17:20> Other Ambulatory Orders: B Type Natriuretic Peptide (Routine) Timeframe: 1 Week Facility: [facility] - Location: Laboratory Ordered By: Freya Mclean Complete Blood Count no Diff (Routine) Timeframe: 1 Week Facility: [facility] - Location: Laboratory Ordered By: Freya Mclean Comprehensive Met. Panel (Routine) Timeframe: 1 Week Facility: [facility] - Location: Laboratory Ordered By: Freya Mclean Magnesium (Routine) Timeframe: 1 Week Facility: [facility] - Location: Laboratory Ordered By: Freya Mclean <Freya Mclean MD - Last Filed: 03/01/21 17:20> Care Plan Goals: [facility] cure of fungal infection of kidneys <Freya Mclean MD - Last Filed: 03/01/21 17:20> Health Concerns: cardiomyopathy acute/chronic kidney disease candiduria <Freya Mclean MD - Last Filed: 03/01/21 17:20> Plan of Treatment: continue Entresto 24/26 mg twice daily; continue spironolactone 25 mg daily; CHANGE carvedilol to bisoprolol 1.25 mg daily; CHANGE furosemide to 80 mg twice daily caspofungin 50 mg IV daily via midline catheter, 02/23-03/08/21 [14 days total] labs in 1 week: CBCd, CMP, magnesium, BNP follow up in 1 week with primary care doctor, 1 week with core shaper, 2 weeks with infectious disease specialist, 2 weeks with urologist <Freya Mclean MD - Last Filed: 03/01/21 17:20> Assessment: as above I saw patient and discussued findings, discharge plan and disposition with midlevel and I agree with the above <Freya Mclean MD - Last Filed: 03/01/21 17:20> Patient Instructions: How to Care for Your Midline Catheter (DC) <Freya Mclean MD - Last Filed: 03/01/21 17:20> Discharge Date/Time: 02/26/21 14:40 <Freya Mclean MD - Last Filed: 03/01/21 17:20>
--- NOTE | 2021-02-25 15:22 | MHC.CM.PN ---
PT WILL NEED TO GO HOME ON 10 MORE DAYS OF IV CASPOFUNGIN. CM DISCUSSED DOING THIS AT HOME WITH PT WHO WAS UNSURE. CM LATER MET WITH PT AND HER SISTER WHO REPORTED SHE FELT SHE COULD LEARN TO ADMINISTER THE MEDS AND SAYS SHE PROVIDES MOST OF THE PTS CARE. THEY ARE AWARE THEY WILL NEED A VNA FOR TEACHING AND MED DELIVERY NEEDS TO BE ARRANGED. CM MET WITH PT AND HER SISTER AGAIN THIS MORNING AND PTS SISTER REPORTED THEY WERE IN THE PROCESS OF MOVING TO [place], WHICH HAD NOT BEEN MENTIONED DURING EARLIER MEETINGS. AFTER MORE DISCUSSION, IT APPEARS, THEY HAVE ALREADY GIVEN UP THEIR APARTMENT HERE IN [place] AND HAVE A PLACE IN [facility]. PTS SISTER REPORTS THEY WERE HOPING SOON THE PT IS DISCHARGED THEY COULD GO TO THEIR NEW HOME. CM MADE SEVERAL REFERRALS TO VNAS IN [place], ONE IS CURRENTLY ACCEPTING HOWEVER CANNOT START CARE UNTIL 03/01. CM WILL CONTINUE TO LOOK FOR A VNA THAT CAN START EARLIER. CM WILL ALSO ARRANGE DELIVERY FOR MEDS AND SUPPLIES. PT IS AWARE SHE WILL NOT BE DISCHARGED TODAY FOR THE FOLLOWING REASONS: THE MED AND SUPPLY DELIVERY IS NOT CONFIRMED YET THE NEW VNA WILL NEED TO VERIFY PTS PCP BEFORE ACCEPTING PT WILL NEED A FOLLOW UP CARDIOLOGY APPT IN [place] WHICH CANNOT BE MADE UNTIL FRIDAY. PTS NEW ADDRESS IS: [address] [place] [id number] [place] [id number] PT IS HOPING TO GET A CARDIOLOGY APPOINTMENT AT THE FOLLOWING CLINIC: [facility] [address] [facility] PHONE [phone] FAX [phone]
--- NOTE | 2021-02-25 21:13 | PC.NURSE ---
P low BP 95/[address] Gao notified of the above E will hold Sacubitril/Valsartan tonight
[2021-02-26] VITALS: BP 110/70; PULSE 95; RESP 16; TEMP 36.2; O2SAT 98
[2021-02-26 03:27] VITALS: BP 93/53; PULSE 86; RESP 18; TEMP 36.2; O2SAT 95
[2021-02-26] MEDS: Omeprazole 20 MG CAPSULE.DR PO (06:07)
[2021-02-26 07:25] VITALS: BP 93/63; PULSE 87; RESP 18; TEMP 36; O2SAT 97
[2021-02-26] MEDS: Heparin Sodium,Porcine Flush 50 UNITS, 0.9 % Sodium Chloride Flush 5 ML IVFLUSH (09:34)
[2021-02-26] MEDS: Apixaban 5 MG TABLET PO (09:35)
[2021-02-26] MEDS: Furosemide 40 MG TABLET 80 MG PO (09:35)
[2021-02-26] MEDS: Bisoprolol Fumarate 5 MG TABLET 1.25 MG PO (09:35)
[2021-02-26] MEDS: Amiodarone HCL 200 MG TABLET PO (09:35)
[2021-02-26] MEDS: Aspirin 81 MG TAB.CHEW PO (09:35)
[2021-02-26] MEDS: Sacubitril/Valsartan 24/26 1 TAB TABLET PO (09:36)
[2021-02-26] MEDS: Spironolactone 25 MG TABLET PO (09:36)
--- NOTE | 2021-02-26 11:09 | PC.NURSE ---
Skin/Wound assessment completed today. Patient has a healing stage 2 with 2 small openings. Triad applied left CONY. No other skin issues noted at this time.
--- NOTE | 2021-02-26 11:20 | P.PNIM_ITS ---
Subjective Subjective Date of Service: 02/26/21 Interval History: BP 78/58 yesterday evening without any lightheadedness.? She feels well- dyspnea much improved, no chest pain, no lightheadendess.? No fever/chills.? no nausea/vomiting. Review of Systems Gen: no fever Resp: no sob, no cough CV: no chest, no ENCISO, no leg edema GI: No n/v, no abd pain Neuro: No confusion Physical Exam Vital Signs: Vital Signs: Last Vital Signs Temp 96.8 F 02/26/21 07:25 Pulse 87 02/26/21 07:25 Resp 18 02/26/21 07:25 BP 93/63 02/26/21 07:25 Pulse Ox 97 02/26/21 07:25 Oxygen Flow Rate 2.5 02/25/21 18:06 Body Mass Index 34.9 Gen: in no acute distress HEENT: sclera anicteric, moist mucus membranes Neck: supple, JVD present Lungs: clear to auscultation bilaterally Heart: regular rate and rhythm, no murmurs Abd: soft, non-tender, non-distended : no CVAT Ext: no edema, RUE midline catheter Skin: warm/well-perfused Neuro: alert and oriented x3, no focal findings Psych: appropriate affect Objective Data Current Medications Generic Name Dose Route Start Last Admin Trade Name Wil PRN Reason Stop Dose Admin Acetaminophen 650 mg 02/14/21 19:41 02/24/21 15:53 Acetaminophen 325 Mg Tablet PO 650 mg Q6H PRN Administration febrile Amiodarone HCl 200 mg 02/24/21 09:00 02/26/21 09:35 Amiodarone Hcl 200 Mg Tablet PO 200 mg DAILY KEMAL Administration Apixaban 5 mg 02/14/21 21:00 02/26/21 09:35 Apixaban 5 Mg Tablet PO 5 mg BID KEMAL Administration Aspirin 81 mg 02/15/21 09:00 02/26/21 09:35 Aspirin 81 Mg Tab.Chew PO 81 mg DAILY KEMAL Administration Bisoprolol Fumarate 1.25 mg 02/24/21 13:15 02/26/21 09:35 Bisoprolol Fumarate 5 Mg Tablet PO 1.25 mg DAILY KMEAL Administration Heparin Sodium (Porcine) 50 0 units 02/23/21 21:00 02/26/21 09:34 units/ Sodium Chloride 5 ml IVFLUSH 50 unit TID KEMAL Administration Docusate Sodium 100 mg 02/14/21 18:00 Docusate Sodium 100 Mg Capsule PO BID PRN Constipation Furosemide 80 mg 02/24/21 18:00 02/26/21 09:35 Furosemide 40 Mg Tablet PO 80 mg BID@0900,1800 KEMAL Administration Protocol Promethazine HCl 12.5 mg/ 50.5 mls @ 202 mls/hr 02/20/21 19:11 Sodium Chloride IV ONCE PRN Nausea and Vomiting Caspofungin 50 mg/ Sodium 250 mls @ 250 mls/hr 02/24/21 13:00 02/25/21 14:21 Chloride IV Infused Q24H KEMAL Infusion Nitroglycerin 0.4 mg 02/14/21 18:00 Nitroglycerin 0.4 Mg Tab.Subl SUBLINGUAL Q5M PRN Chest Pain Omeprazole 20 mg 02/15/21 06:30 02/26/21 06:07 Omeprazole 20 Mg Capsule.Dr PO 20 mg BID@0630,1630 [facility] Administration Ondansetron HCl 4 mg 02/16/21 01:45 02/16/21 03:31 Ondansetron Hcl 4 Mg/2 Ml Vial IVPUSH 4 mg Q6H PRN Administration nausea Pharmacy Consult 1 each 02/14/21 17:10 Consult Rx Perform Med Rec MISCELLANE ONCE PRN Consult order Sacubitril/Valsartan 1 tab 02/22/21 21:00 02/26/21 09:36 Sacubitril/Valsartan / 1 Tab Tablet PO 1 tab BID [facility] Administration Protocol Spironolactone 25 mg 02/22/21 09:00 02/26/21 09:36 Spironolactone 25 Mg Tablet PO 25 mg DAILY [facility] Administration Protocol Labs CBC & Chem 7: 02/25/21 06:23 02/25/21 06:23 Assessment and Plan (1) Chronic renal failure, stage 3 (moderate): Status: Acute Assessment and Plan: hospital d#13 65yo M with cardiomyopathy/HFrEF, pAF, BiV pacer/ICD, B ureteral stents due to chronic hydronephrosis presented with dysuria/weakness admitted to ICU due to hypotension but did not require pressors stepped down to [facility] 02/17/21 # pyelonephritis due to candiduria - CT showed chronic bilateral hydronephrosis and hydroureter down to bladder with bilateral ureteral stents in position; right kidney borderline larger with mild perinephric and upper periureter stranding; no gas bubble or calculi noted - fever resolved, BCx 1/2 Strep viridans = contaminant, UCx contaminated, got 8d of pip/salome, cultures from intraoperative aspiration of kidneys (purulent material obtained from L kidney) POD#4 ureteral stent change -> growing Ariadne albicans. Due to QT prolongation, avoiding azoles and giving caspofungin d#4/ [end date 03/08/21]; midline placed 02/23/21; CM arranging home infusion/VNA # acute/chronic HFrEF--euvolemic # severe dilated cardiomyopathy - continue PO furosemide; Hydrlazined stopped, tolerating Entresto at low dose; continue spironolactone; carvedilol changed to bisoprolol per Cardiology; BP will run low in this patient with severely decreased LVEF <10% and typically assymptomatic # hypoK - repleted # HERMELINDO/CKD3 - SCr improved with diuresis; suspect had cardiorenal syndrome # pAF - now in NSR; continue amiodarone + apixaban # chronic hypoxic respiratory failure - continue home O2 2.5L via NC # VTE ppx - apixaban # dispo - anticipate home with VNA. Pt lives with sister who just gave up her apt in [place] and is moving to [place]. CM trying to set up VNA in [place]; pt will also need Cardiology + ID follow up in [place] [plus a new PCP]- [facility] to arrange Quality Stroke Does the patient have a stroke diagnosis?: No VTE Prior VTE?: No VTE Risk Level:: Medical - moderate - high VTE Device Contraindication: N/A - Device Ordered VTE Drug Contraindication: N/A - Med Ordered
[2021-02-26 11:53] VITALS: BP 92/61; PULSE 90; RESP 18; TEMP 36; O2SAT 98
--- NOTE | 2021-02-26 12:05 | MHC.CM.PN ---
[facility] IS MEETING PATIENT AND SISTER TODAY FOR 1330. PLANS ARE TO TEACH THE USE OF ELASTOMIR BALL IF SISTER IS ABLE TO ASSIST, PLANS ARE TO DC PAITENT TODAY. CURRENTLY, ONLY ACCEPTING VNA ([facility]) ABLE TO OFFER WITH START OF CARE 03/01/21.
[2021-02-26] MEDS: Caspofungin Acetate 50 MG in 0.9 % Sodium Chloride 250 ML 250 MG IV (12:42)
--- NOTE | 2021-02-26 14:12 | MHC.CM.PN ---
PATIENT IS DISCHARGED HOME TODAY. SISTER IS HERE TO TRANSPORT [facility]IENT TO [facility] TO START CARE ON 03/01/21 SISTER IS ABLE TO ADMINISTER MEDICATION UNTIL THEN PER [facility] IMM 02/26 IN CHART.
--- NOTE | 2021-02-26 14:25 | MHC.CLN ---
F/U STAGE II TO COCCYX WITH RANDELL=18. INTAKE AT MEALS 50-100%. DIET=CARDIAC WITH ENSURE BID AND NEILS BID (860 KCAL, 25 G PROTEIN). CONTINUE AND APPROPRIATE. FOLLOW WEEKLY.
[2021-02-26] MEDS: Acetaminophen 325 MG TABLET 650 MG PO (14:41)
--- NOTE | 2021-02-26 15:30 | P.F2F_ITS ---
Service Date Service Date: 02/26/21 Reasons for Services Homebound: Leaving the home is medically contraindicated at this time without the asist of a device and/or another person due th the listed conditions above and below. Homebound supporting statement: patient is homebound due to advanced heart failure with severely reduced EF and therefore needs the assistance of another person Certification: Based on the above findings, I certify that this patient is confined to the home and needs intermittent group home care, physical therapy and/or speech therapy, or continues to need occupational therapy. The patient is under my care, and I have initiated the establishment of the plan of care. The patient will be followed by a physician who will periodically review the plan of care.
[2021-02-26 15:36] VITALS: BP 98/67; PULSE 93; RESP 17; TEMP 36.4; O2SAT 94
== END 2021-02-26 14:40 | disposition home health service (06) | DRG 659 ==
LOC: HO.ED 18:14 → HO.EDOVER 18:25 → HO.ICU 18:25 → HO.S3 02-17 08:22
PROVIDERS: Emergency Medicine; Family Medicine; Physician Assistant; Urology; Admitting Provider Internal Medicine Cardiovascular Disease; Emergency Provider Emergency Medicine; PCP Internal Medicine; Visit Provider Internal Medicine
PROC: 0T788DZ Dilation of Bilateral Ureters with Intraluminal Device, Via Natural or Artificial Opening Endoscopic (ICD-10-PCS; CPT 52310; principal; 2021-02-20 17:20)
DX: N13.6 Pyonephrosis (principal); I50.23 Acute on chronic systolic (congestive) heart failure; I42.0 Dilated cardiomyopathy; J96.11 Chronic respiratory failure with hypoxia; B37.41 Candidal cystitis and urethritis; Z95.810 Presence of automatic (implantable) cardiac defibrillator; I48.0 Paroxysmal atrial fibrillation; M06.9 Rheumatoid arthritis, unspecified; L30.9 Dermatitis, unspecified; Z87.440 Personal history of urinary (tract) infections; N18.30 Chronic kidney disease, stage 3 unspecified; D63.1 Anemia in chronic kidney disease; E87.6 Hypokalemia; I95.89 Other hypotension; N17.9 Acute kidney failure, unspecified; Z99.81 Dependence on supplemental oxygen; E86.0 Dehydration; Z20.822 Contact with and (suspected) exposure to COVID-19; Z79.01 Long term (current) use of anticoagulants; Z79.82 Long term (current) use of aspirin; Z79.891 Long term (current) use of opiate analgesic; Z79.899 Other long term (current) drug therapy
CPT/HCPCS: 36410; 36415; 71045; 74176; 80048; 80053; 80076; 81001; 83605; 83690; 83735; 83880; 84100; 84484; 85025; 85027; 85610; 85730; 86850; 86900; 86901; 86923; 87040; 87086; 87088; 87205; 87635; 93005; 93306; 96361; 96365; 96367; 96375; 97162; 99285; C1758; C2617; J0637; J0696; J1642; J1940; J1956; J2270; J2405; J2543; J3010; P9016; P9047; Q9957; Q9967